=== PATIENT | female | born 1965 | race Caucasian/White ===

== ENCOUNTER 2016-10-18 10:32 | Outpatient (RCR) | payer MEDICARE, MEDICAID ==
--- OUTSIDE RECORDS SUMMARY | 2016-09-06 11:03 | XMS REPORT | Continuity of Care Document ---
Author Author [facility] Organization [facility] Address Unknown Phone Unavailable Care Team Providers Care Sales Service Route Manager Name Role Phone RICHIE LEMUS JR, DO PCP Insurance Providers Payer Name Policy Number Subscriber Name Relationship s Medicare [id number] Cara Langley 17 Self / Same As Patient Advance Directives Directive Response Recorded Date/Time Advance Directives Yes 03/22/15 4:00pm Health Care Power of Credentialing Analyst Piyush RAMIRES--SON 03/22/15 4:00pm Organ Donor Yes 03/22/15 4:00pm Resuscitation Status Full Code 03/22/15 4:00pm Problems Medical Problems Problem Onset Date Status Cellulitis Unknown Active Hypoglycemia associated with diabetes Unknown Active Cellulitis Unknown Active Immunocompromised Unknown Active Cellulitis Unknown Active Diabetes mellitus Unknown Active Generalized weakness Unknown Active Diabetes mellitus Unknown Active Oral thrush Unknown Active Conjunctivitis Unknown Active Periorbital cellulitis Unknown Active Tachycardia Unknown Active Hypovolemia Unknown Active Conjunctivitis Unknown Active Medications Medication Dose Route Sig Days/Qty Instructions Order Date Discontinued Date Status Insulin Glargine 100 Unit SQ DAILY daily in am 01/29/07 03/15/14 Discontinued Simvastatin 01/29/07 07/21/12 Discontinued [Actos + Metformin] 01/29/07 04/13/10 Discontinued [Actos + Metformin] 01/29/07 04/13/10 Discontinued [Plaqunil] 01/29/07 08/07/12 Discontinued [Zesteratic] 01/29/07 04/13/10 Discontinued Insulin Human Lispro 04/13/10 07/21/12 Discontinued [Metformin [id number] Mg] (Glucophage) 1,000 Mg PO TWICE A DAY 04/13/10 01/29/15 Discontinued Olmesartan DAILY 04/13/10 08/07/12 Discontinued Carvedilol DAILY 04/13/10 08/07/12 Discontinued [Dhrismvcso26 Mg/1 Ml] WEEKLY 04/13/10 07/21/12 Discontinued Promethazine HCl 1 Tab PO EVERY 6 HOURS PRN 20 Qty 04/14/10 07/21/12 Discontinued Furosemide (Lasix) 20 Mg PO DAILY 07/21/12 Active Pioglitazone HCl 30 Mg PO DAILY 08/07/12 01/29/15 Discontinued Dexamethasone (Decadron) 1 Mg PO NEEDED 08/07/12 08/25/12 Discontinued Carvedilol (Coreg) 12.5 Mg PO TWICE A DAY 08/07/12 01/29/15 Discontinued Insulin Glargine,Hum.rec.anlog 12 Unit SQ BEDTIME 08/15/12 03/15/14 Discontinued Omeprazole 40 Mg PO DAILY 08/15/12 01/29/15 Discontinued Enoxaparin Sodium 100 Mg SC EVERY 12 HOURS 08/25/12 03/15/14 Discontinued Rivaroxaban 20 Mg PO BEDTIME 03/15/14 Active Insulin Detemir 100 U SQ DAILY 140 units in am, 40 units pm 03/15/14 01/29/15 Discontinued Hydroxychloroquine Sulfate 200 Mg PO TWICE A DAY 03/15/14 01/29/15 Discontinued Methotrexate Sodium 12 Mg PO every Monday03/15/14 09/23/14 Discontinued Cefprozil 1 Each PO TWICE A DAY 20 Qty 03/15/14 07/06/14 Discontinued Benzonatate (Tessalon Perles) 1 Each PO THREE TIMES A DAY PRN COUGH 30 Qty 03/15/14 07/06/14 Discontinued Azithromycin (Zpak) 2 Tab PO DAILY 10 Qty 03/15/14 07/06/14 Discontinued Cephalexin Monohydrate (Keflex) 2 Each PO EVERY 12 HOURS 40 Qty 09/23/14 Discontinued [Hydrocodone 5/500] NEEDED 09/23/14 01/29/15 Discontinued Potassium Chloride (Micro K) 1 Each PO TWICE A DAY WITH MEALS 6 Qty 12/08/14 Discontinued Clindamycin Hcl 450 Mg PO THREE TIMES A DAY 90 Qty 11/01/14 12/08/14 Discontinued Trimethoprim/Sulfamethoxazole 1 Tab PO THREE TIMES A DAY 30 Qty immunocompromised state 11/01/14 12/08/14 Discontinued Pioglitazone Hcl 30 Mg PO DAILY 01/29/15 Active Carvedilol (Coreg) 6.25 Mg PO TWICE A DAY 01/29/15 Active Metformin Hcl 1,000 Mg PO TWICE A DAY 01/29/15 Active Omeprazole 40 Mg PO DAILY 01/29/15 Active Ondansetron Hcl 8 Mg PO EVERY 8HRS PRN NAUSEA 01/29/15 Active Insulin Detemir 135 Units SC AM 01/29/15 Active Insulin Detemir 30-40 Unit SQ BEDTIME 01/29/15 Active Ibuprofen 600 Mg PO THREE TIMES A DAY PRN PAIN TAKES 3 (200MG) TABLETS 01/29/15 Active Ciprofloxacin HCl 250 Mg PO TWICE A DAY 3 Days 01/31/15 Active Levofloxacin 1 Each PO DAILY 6 Qty 03/22/15 Active Social History Social History Problem Response Recorded Date/Time Alcohol Use Denies Use 03/22/2015 4:00pm Recreational Drug Use No 03/22/2015 4:00pm Recent Foreign Travel No 03/22/2015 4:00pm Recent Infectious Disease Exposure No 03/22/2015 4:00pm Hospitalization with Isolation Denies 03/22/2015 4:00pm Sexually Transmitted Disease No 03/22/2015 4:00pm HIV/AIDS No 03/22/2015 4:00pm Smoking Status Never a Smoker 03/22/2015 4:00pm Query Response Start Date Stop Date Smoking Status Never a Smoker Hospital Discharge Instructions No hospital discharge instructions. Plan of Care No plan of care. Functional Status No functional status results. Allergies, Adverse Reactions, Alerts Allergen Type Severity Reaction Status Last Updated Erythromycin base Allergy Unknown Active 01/29/07 Immunizations Name Given Type Date of Pneumonia Vaccine 06/27/11 Historical Vital Signs Acute Vital Signs Vital Response Date/Time Temperature (Fahrenheit) 98.4 degrees F (97.6 - 99.5) Temperature (Calculated Celsius) 36.93879 degrees C (36.4 - 37.5) Pulse Rate (adult) 93 bpm (60 - 90) Respiratory Rate 20 bpm (12 - 24) O2 Sat by Pulse Oximetry 99 % (88 - 100) Blood Pressure 100/67 mm Hg Pain Pain Intensity 5 Height (Feet) 5 feet Height (Inches) 6 inches Height (Calculated Centimeters) 167.804170 cm Weight (Pounds) 260 pounds Weight (Calculated Kilograms) 117.905052 kilograms Calculated BMI 41.96 Results Laboratory Results Test Name Result Units Flags Reference Collection Date/Time Result Date/ Time Comments White Blood Count 6.7 10^3/uL 4.3-11.0 03/19/2015 11:03/19/2015 11 :17am Red Blood Count 4.19 10^6/uL L 4.35-5.85 03/19/2015 11:03/19/2015 11 :17am Hemoglobin 10.8 G/DL L 11.5-16.0 03/19/2015 11:03/19/2015 11:17am Hematocrit 34 % L 35-52 03/19/2015 11:03/19/2015 11:17am Mean Corpuscular Volume 81 FL 80-99 03/19/2015 11:03/19/2015 11: 17am Mean Corpuscular Hemoglobin 26 PG 25-34 03/19/2015 11:03/19/2015 11:17am Mean Corpuscular Hemoglobin Concent 32 G/DL 32-36 03/19/2015 11: 11:17am Red Cell Distribution Width 18.8 % H 10.0-14.5 03/19/2015 11:2014 11:17am Platelet Count 388 10^3/uL 130-400 03/19/2015 11:03/19/2015 11: 17am Mean Platelet Volume 9.9 FL 7.4-10.4 03/19/2015 11:03/19/2015 11: 17am Neutrophils (%) (Auto) 56 % 42-75 03/19/2015 11:03/19/2015 11: 17am Lymphocytes (%) (Auto) 37 % 12-44 03/19/2015 11:03/19/2015 11: 17am Monocytes (%) (Auto) 6 % 0-12 03/19/2015 11:03/19/2015 11:17am Eosinophils (%) (Auto) 1 % 0-10 03/19/2015 11:03/19/2015 11:17am Basophils (%) (Auto) 0 % 0-10 03/19/2015 11:03/19/2015 11:17am Neutrophils # (Auto) 3.8 X 10^3 1.8-7.8 03/19/2015 11:03/19/2015 11:17am Lymphocytes # (Auto) 2.5 X 10^3 1.0-4.0 03/19/2015 11:03/19/2015 11:17am Monocytes # (Auto) 0.4 X 10^3 0.0-1.0 03/19/2015 11:03/19/2015 11: 17am Eosinophils # (Auto) 0.0 10^3/uL 0.0-0.3 03/19/2015 11:03/19/2015 11:17am Basophils # (Auto) 0.0 10^3/uL 0.0-0.1 03/19/2015 11:03/19/2015 11 :17am Sodium Level 139 MMOL/L 135-145 03/19/2015 11:03/19/2015 11:34am Potassium Level 4.0 MMOL/L 3.6-5.0 03/19/2015 11:03/19/2015 11: 34am Chloride Level 106 MMOL/L 98-107 03/19/2015 11:03/19/2015 11:34am Carbon Dioxide Level 21 MMOL/L 21-32 03/19/2015 11:03/19/2015 11: 34am Blood Urea Nitrogen 8 MG/DL 7-18 03/19/2015 11:03/19/2015 11:34am Creatinine 0.73 MG/DL 0.60-1.30 03/19/2015 11:03/19/2015 11:34am BUN/Creatinine Ratio 11 03/19/2015 11:03/19/2015 11:34am Estimat Glomerular Filtration Rate > 60 03/19/2015 11:2014 11:34am GFR INTERPRETIVE DATA UNITS FOR ESTIMATED GFR (eGFR): mL/min/1.73 M2 REFERENCE RANGE FOR ESTIMATED GFR (eGFR) eGFR NORMAL eGFR >60 MODERATELY DECREASED eGFR 30-59 SEVERLY DECREASED eGFR 15-29 KIDNEY FAILURE <15 (OR DIALYSIS) Glucose Level 200 MG/DL H 70-105 03/19/2015 11:10am 03/19/2015 11:34am Calcium Level 8.9 MG/DL 8.5-10.1 03/19/2015 11:10am 03/19/2015 11:34am Total Bilirubin 0.4 MG/DL 0.1-1.0 02/04/2015 11:22am 02/04/2015 12: 15pm Alkaline Phosphatase 151 U/L H 40-136 02/04/2015 11:22am 02/04/2015 12: 15pm Aspartate Amino Transf (AST/SGOT) 20 U/L 5-34 02/04/2015 11:22am 2014 12:15pm Alanine Aminotransferase (ALT/SGPT) 24 U/L 0-55 02/04/2015 11:2209/2015 12:15pm Total Protein 6.5 G/DL 6.4-8.2 02/04/2015 11:2202/04/2015 12:15pm Albumin 3.5 G/DL 3.2-4.5 02/04/2015 11:2202/04/2015 12:15pm White Blood Count 8.3 10^3/uL 4.3-11.0 03/05/2015 11:00am 03/05/2015 11 :15am Red Blood Count 4.41 10^6/uL 4.35-5.85 03/05/2015 11:00am 03/05/2015 11 :15am Hemoglobin 11.2 G/DL L 11.5-16.0 03/05/2015 11:00am 03/05/2015 11:15am Hematocrit 35 % 35-52 03/05/2015 11:00am 03/05/2015 11:15am Mean Corpuscular Volume 80 FL 80-99 03/05/2015 11:00am 03/05/2015 11: 15am Mean Corpuscular Hemoglobin 25 PG 25-34 03/05/2015 11:00am 03/05/2015 11:15am Mean Corpuscular Hemoglobin Concent 32 G/DL 32-36 03/05/2015 11:00am 11:15am Red Cell Distribution Width 18.6 % H 10.0-14.5 03/05/2015 11:00am 2014 11:15am Platelet Count 388 10^3/uL 130-400 03/05/2015 11:00am 03/05/2015 11: 15am Mean Platelet Volume 9.3 FL 7.4-10.4 03/05/2015 11:00am 03/05/2015 11: 15am Neutrophils (%) (Auto) 58 % 42-75 03/05/2015 11:00am 03/05/2015 11: 15am Lymphocytes (%) (Auto) 30 % 12-44 03/05/2015 11:00am 03/05/2015 11: 15am Monocytes (%) (Auto) 11 % 0-12 03/05/2015 11:00am 03/05/2015 11:15am Eosinophils (%) (Auto) 0 % 0-10 03/05/2015 11:00am 03/05/2015 11:15am Basophils (%) (Auto) 0 % 0-10 03/05/2015 11:00am 03/05/2015 11:15am Neutrophils # (Auto) 4.8 X 10^3 1.8-7.8 03/05/2015 11:00am 03/05/2015 11:15am Lymphocytes # (Auto) 2.5 X 10^3 1.0-4.0 03/05/2015 11:00am 03/05/2015 11:15am Monocytes # (Auto) 0.9 X 10^3 0.0-1.0 03/05/2015 11:00am 03/05/2015 11: 15am Eosinophils # (Auto) 0.0 10^3/uL 0.0-0.3 03/05/2015 11:00am 03/05/2015 11:15am Basophils # (Auto) 0.0 10^3/uL 0.0-0.1 03/05/2015 11:00am 03/05/2015 11 :15am Sodium Level 140 MMOL/L 135-145 03/05/2015 11:00am 03/05/2015 11:38am Potassium Level 4.0 MMOL/L 3.6-5.0 03/05/2015 11:00am 03/05/2015 11: 38am Chloride Level 107 MMOL/L 98-107 03/05/2015 11:00am 03/05/2015 11:38am Carbon Dioxide Level 23 MMOL/L 21-32 03/05/2015 11:00am 03/05/2015 11: 38am Blood Urea Nitrogen 8 MG/DL 7-18 03/05/2015 11:00am 03/05/2015 11:38am Creatinine 0.74 MG/DL 0.60-1.30 03/05/2015 11:00am 03/05/2015 11:38am BUN/Creatinine Ratio 11 03/05/2015 11:00am 03/05/2015 11:38am Estimat Glomerular Filtration Rate > 60 03/05/2015 11:00am 2014 11:38am GFR INTERPRETIVE DATA UNITS FOR ESTIMATED GFR (eGFR): mL/min/1.73 M2 REFERENCE RANGE FOR ESTIMATED GFR (eGFR) eGFR NORMAL eGFR >60 MODERATELY DECREASED eGFR 30-59 SEVERLY DECREASED eGFR 15-29 KIDNEY FAILURE <15 (OR DIALYSIS) Glucose Level 211 MG/DL H 70-105 03/05/2015 11:00am 03/05/2015 11:38am Calcium Level 9.1 MG/DL 8.5-10.1 03/05/2015 11:00am 03/05/2015 11:38am Total Bilirubin 0.4 MG/DL 0.1-1.0 03/05/2015 11:00am 03/05/2015 11: 38am Alkaline Phosphatase 173 U/L H 40-136 03/05/2015 11:00am 03/05/2015 11: 38am Aspartate Amino Transf (AST/SGOT) 16 U/L 5-34 03/05/2015 11:00am 2014 11:38am Alanine Aminotransferase (ALT/SGPT) 18 U/L 0-55 03/05/2015 11:00am 07/2015 11:38am Total Protein 7.3 G/DL 6.4-8.2 03/05/2015 11:00am 03/05/2015 11:38am Albumin 3.8 G/DL 3.2-4.5 03/05/2015 11:00am 03/05/2015 11:38am White Blood Count 3.4 10^3/uL L 4.3-11.0 03/22/2015 4:45pm 03/22/2015 5: 07pm Red Blood Count 4.49 10^6/uL 4.35-5.85 03/22/2015 4:45pm 03/22/2015 5: 07pm Hemoglobin 11.8 G/DL 11.5-16.0 03/22/2015 4:45pm 03/22/2015 5:07pm Hematocrit 36 % 35-52 03/22/2015 4:45pm 03/22/2015 5:07pm Mean Corpuscular Volume 80 FL 80-99 03/22/2015 4:45pm 03/22/2015 5: 07pm Mean Corpuscular Hemoglobin 26 PG 25-34 03/22/2015 4:45pm 03/22/2015 5: 07pm Mean Corpuscular Hemoglobin Concent 33 G/DL 32-36 03/22/2015 4:45pm 5:07pm Red Cell Distribution Width 18.4 % H 10.0-14.5 03/22/2015 4:45pm 2014 5:07pm Platelet Count 367 10^3/uL 130-400 03/22/2015 4:45pm 03/22/2015 5:07pm Mean Platelet Volume 10.4 FL 7.4-10.4 03/22/2015 4:45pm 03/22/2015 5: 07pm Neutrophils (%) (Auto) 51 % 42-75 03/22/2015 4:45pm 03/22/2015 5:07pm Lymphocytes (%) (Auto) 43 % 12-44 03/22/2015 4:45pm 03/22/2015 5:07pm Monocytes (%) (Auto) 5 % 0-12 03/22/2015 4:45pm 03/22/2015 5:07pm Eosinophils (%) (Auto) 0 % 0-10 03/22/2015 4:45pm 03/22/2015 5:07pm Basophils (%) (Auto) 1 % 0-10 03/22/2015 4:45pm 03/22/2015 5:07pm Neutrophils # (Auto) 1.7 X 10^3 L 1.8-7.8 03/22/2015 4:45pm 03/22/2015 5: 07pm Lymphocytes # (Auto) 1.4 X 10^3 1.0-4.0 03/22/2015 4:45pm 03/22/2015 5: 07pm Monocytes # (Auto) 0.2 X 10^3 0.0-1.0 03/22/2015 4:45pm 03/22/2015 5: 07pm Eosinophils # (Auto) 0.0 10^3/uL 0.0-0.3 03/22/2015 4:45pm 03/22/2015 5 :07pm Basophils # (Auto) 0.0 10^3/uL 0.0-0.1 03/22/2015 4:45pm 03/22/2015 5: 07pm Urine Color YELLOW 03/22/2015 4:45pm 03/22/2015 5:18pm Urine Clarity CLEAR 03/22/2015 4:45pm 03/22/2015 5:18pm Urine pH 5 5-9 03/22/2015 4:45pm 03/22/2015 5:18pm Urine Specific [place] 1.015 * 1.016-1.022 03/22/2015 4:45pm 2014 5:18pm Urine Protein NEGATIVE NEGATIVE 03/22/2015 4:45pm 03/22/2015 5:18pm Urine Glucose (UA) NEGATIVE NEGATIVE 03/22/2015 4:45pm 03/22/2015 5: 18pm Urine RBC (Auto) NEGATIVE NEGATIVE 03/22/2015 4:45pm 03/22/2015 5: 18pm Urine Ketones NEGATIVE NEGATIVE 03/22/2015 4:45pm 03/22/2015 5:18pm Urine Nitrite NEGATIVE NEGATIVE 03/22/2015 4:45pm 03/22/2015 5:18pm Urine Bilirubin NEGATIVE NEGATIVE 03/22/2015 4:45pm 03/22/2015 5: 18pm Urine Urobilinogen NORMAL MG/DL NORMAL 03/22/2015 4:45pm 03/22/2015 5: 18pm Urine Leukocyte Esterase NEGATIVE NEGATIVE 03/22/2015 4:45pm 2014 5:18pm Urine RBC NONE /HPF 03/22/2015 4:45pm 03/22/2015 5:18pm Urine WBC 2-5 /HPF 03/22/2015 4:45pm 03/22/2015 5:18pm Urine Bacteria TRACE /HPF 03/22/2015 4:45pm 03/22/2015 5:18pm Urine Squamous Epithelial Cells 2-5 /HPF 03/22/2015 4:45pm 2014 5:18pm Urine Crystals NONE /LPF 03/22/2015 4:45pm 03/22/2015 5:18pm Urine Casts NONE /LPF 03/22/2015 4:45pm 03/22/2015 5:18pm Urine Mucus NEGATIVE /LPF 03/22/2015 4:45pm 03/22/2015 5:18pm Urine Culture Indicated NO 03/22/2015 4:45pm 03/22/2015 5:18pm Sodium Level 139 MMOL/L 135-145 03/22/2015 4:45pm 03/22/2015 5:29pm Potassium Level 3.9 MMOL/L 3.6-5.0 03/22/2015 4:45pm 03/22/2015 5:29pm Chloride Level 105 MMOL/L 98-107 03/22/2015 4:45pm 03/22/2015 5:29pm Carbon Dioxide Level 23 MMOL/L 21-32 03/22/2015 4:45pm 03/22/2015 5: 29pm Blood Urea Nitrogen 10 MG/DL 7-18 03/22/2015 4:45pm 03/22/2015 5:29pm Creatinine 0.80 MG/DL 0.60-1.30 03/22/2015 4:45pm 03/22/2015 5:29pm BUN/Creatinine Ratio 13 03/22/2015 4:45pm 03/22/2015 5:29pm Estimat Glomerular Filtration Rate > 60 03/22/2015 4:45pm 2014 5:29pm GFR INTERPRETIVE DATA UNITS FOR ESTIMATED GFR (eGFR): mL/min/1.73 M2 REFERENCE RANGE FOR ESTIMATED GFR (eGFR) eGFR NORMAL eGFR >60 MODERATELY DECREASED eGFR 30-59 SEVERLY DECREASED eGFR 15-29 KIDNEY FAILURE <15 (OR DIALYSIS) Glucose Level 231 MG/DL H 70-105 03/22/2015 4:45pm 03/22/2015 5:29pm Calcium Level 9.4 MG/DL 8.5-10.1 03/22/2015 4:45pm 03/22/2015 5:29pm Total Bilirubin 0.9 MG/DL 0.1-1.0 03/22/2015 4:45pm 03/22/2015 5:29pm Alkaline Phosphatase 156 U/L H 40-136 03/22/2015 4:45pm 03/22/2015 5: 29pm Aspartate Amino Transf (AST/SGOT) 22 U/L 5-34 03/22/2015 4:45pm 2014 5:29pm Alanine Aminotransferase (ALT/SGPT) 25 U/L 0-55 03/22/2015 4:45pm 03/22 5:29pm Total Protein 7.3 G/DL 6.4-8.2 03/22/2015 4:45pm 03/22/2015 5:29pm Albumin 4.0 G/DL 3.2-4.5 03/22/2015 4:45pm 03/22/2015 5:29pm Procedures No known history of procedures. Encounters Encounter Location Date/Time Departed Emergency Room Via [facility] 03/22/15 3:57pm Discharged Recurring Via [facility] 03/19/15 10:55am Registered Clinic Via [facility] 03/05/15 10:48am Registered Clinic Via [facility] 03/02/15 8:19am Recent Diagnosis
[2016-09-06 11:44] LABS: BASOPHILS % (AUTO) 0 % (0-10); EOSINOPHILS % (AUTO) 0 % (0-10); LYMPHOCYTES # (AUTO) 2.6 X 10^3 (1.0-4.0); LYMPHOCYTES % (AUTO) 29 % (12-44); MEAN CORPUSCULAR HEMOGLOBIN 28 PG (25-34); MEAN CORPUSCULAR HGB CONC 33 G/DL (32-36); MEAN CORPUSCULAR VOLUME 85 FL (80-99); MEAN PLATELET VOLUME 9.6 FL (7.4-10.4); MONOCYTES # (AUTO) 0.8 X 10^3 (0.0-1.0); MONOCYTES % (AUTO) 9 % (0-12); NEUTROPHILS # (AUTO) 5.3 X 10^3 (1.8-7.8); NEUTROPHILS % (AUTO) 62 % (42-75); PLATELET COUNT 284 10^3/uL (130-400); RED BLOOD COUNT 4.79 10^6/uL (4.35-5.85); RED CELL DISTRIBUTION WIDTH 13.9 % (10.0-14.5); WHITE BLOOD COUNT 8.7 10^3/uL (4.3-11.0)
[2016-09-06 12:16] LABS: ALANINE AMINOTRANSFERASE 28 U/L (0-55); ALBUMIN 3.7 G/DL (3.2-4.5); ANION GAP 12 MMOL/L (5-14); ASPARTATE AMINO TRANSFERASE 24 U/L (5-34); BILIRUBIN,TOTAL 0.3 MG/DL (0.1-1.0); BLOOD UREA NITROGEN 12 MG/DL (7-18); BUN/CREATININE RATIO 15; CALCIUM 8.7 MG/DL (8.5-10.1); CARBON DIOXIDE 18 MMOL/L (21-32); CHLORIDE 103 MMOL/L (98-107); GFR ESTIMATED > 60; GLUCOSE 302 MG/DL (70-105); POTASSIUM 4.3 MMOL/L (3.6-5.0); SODIUM 133 MMOL/L (135-145); TOTAL PROTEIN 6.6 G/DL (6.4-8.2)
[~2016-10-18 10:32] MED LIST: ACET-2469 PO; ACTOS; AMOX1TAB12 PO; AMOX500C2 PO; AZIT-21 PO; BENZ200C25 PO; CARV12.52; CARV12.53 PO; CARV3.12 PO; CARV3.122 PO; CARV6.252 PO; CEFP500T4 PO; CEPH500C PO; CIPR-226 PO; CLN150C PO; DICL250C8 PO; DXM1T PO; ENXP100I SC; FURO20TA4 PO; HYDR-3714 PO; HYDR-3812 PO; HYDR200T46 PO; HYDROCODONE 5/500; IBUP-30 PO; INSASP10V; INSU100C7 SQ; INSU100I29 SC; INSU100I29 SQ; INSU100V5 SQ; INSU100V8 SQ; LEVO500T69 PO; METF-380 PO; METF1000 PO; METFORMIN; METH2.5T PO; METH25VI15; MUPI22OI2 TOP; OLME1TAB19; OMEP20TA2 PO; OMEP40CA36 PO; ONDA8TAB12 PO; ONDA8TAB2 PO; ONDN4T PO; PGLT30T PO; PIOG30TA25 PO; PIOG30TA26 PO; PLAQUNIL; POTA10CA43 PO; PRM25T PO; RIVA20TA2 PO; SILV480G TP; SIMV40TA2; SULF-222 PO; SULF1TAB7 PO; [UNRECOGNIZED DRUG - OTHER]
[2016-11-26] MEDS ORDERED: AMOX-358 PO (17:24)
== END 2016-12-05 | disposition home or self-care (01) ==
LOC: ONC 10:32
PROVIDERS: ATTEND Internal Medicine Hematology & Oncology
DX: C50.112 Malignant neoplasm of central portion of left female breast (principal); C77.3 Secondary and unspecified malignant neoplasm of axilla and upper limb lymph nodes; C78.01 Secondary malignant neoplasm of right lung; C78.02 Secondary malignant neoplasm of left lung; I27.2 Other secondary pulmonary hypertension; E11.9 Type 2 diabetes mellitus without complications; Z79.01 Long term (current) use of anticoagulants; Z86.711 Personal history of pulmonary embolism; Z86.718 Personal history of other venous thrombosis and embolism; Z90.12 Acquired absence of left breast and nipple; Z92.21 Personal history of antineoplastic chemotherapy; Z45.2 Encounter for adjustment and management of vascular access device
CPT/HCPCS: 36591; 80053; 85025; 96523; 99213

== ENCOUNTER → 2016-12-13 | Outpatient (CLI) | payer MEDICARE, MEDICAID ==
[~2016-12-13] MED LIST changes: +AMOX-358 PO; +BARIUM SUSPENSION 2.1% (VANILLA SILQ) 450 ML PO ONE; +IOHEXOL 350 MG/ML 100 ML (OMNIPAQUE 350) VIAL IV ONE; +NS 100 ML (IVPB) BAG IV ONE
--- OUTSIDE RECORDS SUMMARY | 2016-12-13 11:39 | XMS REPORT | Continuity of Care Document ---
Author Author [facility] Organization [facility] Address Unknown Phone Unavailable Care Team Providers Care Client Onboarding Analyst Name Role Phone RICHIE LEMUS JR, DO PCP Insurance Providers Payer Name Policy Number Subscriber Name Relationship s Medicare [id number] Cara Langley 17 Self / Same As Patient Advance Directives Directive Response Recorded Date/Time Advance Directives Yes 03/22/15 4:00pm Health Care Power of Sales Representative Uniforms Piyush RAMIRES--SON 03/22/15 4:00pm Organ Donor Yes [...] Insulin Human Lispro 04/13/10 07/21/12 Discontinued [Metformin [id number] Mg] (Glucophage) 1,000 Mg PO TWICE A DAY 04/13/10 01/29/15 Discontinued Olmesartan DAILY 04/13/10 08/07/12 Discontinued Carvedilol DAILY 04/13/10 08/07/12 Discontinued [Igzakstdid86 Mg/1 Ml] WEEKLY 04/13/10 07/21/12 Discontinued Promethazine [...] F (97.6 - 99.5) Temperature (Calculated Celsius) 36.72547 degrees C (36.4 - 37.5) Pulse Rate (adult) 93 bpm (60 - 90) Respiratory Rate 20 bpm (12 - 24) O2 Sat by Pulse Oximetry 99 % (88 - 100) Blood Pressure 100/67 mm Hg Pain Pain Intensity 5 Height (Feet) 5 feet Height (Inches) 6 inches Height (Calculated Centimeters) 167.809127 cm Weight (Pounds) 260 pounds Weight (Calculated Kilograms) 117.138343 kilograms Calculated BMI 41.96 Results Laboratory Results [...] 5-9 03/22/2015 4:45pm 03/22/2015 5:18pm Urine Specific [place] 1.015 * 1.016-1.022 03/22/2015 4:45pm 2014 5:18pm [...] Encounter Location Date/Time Departed Emergency Room Via [facility] 03/22/15 3:57pm Discharged Recurring Via [facility] 03/19/15 10:55am Registered Clinic Via [facility] 03/05/15 10:48am Registered Clinic Via [facility] 03/02/15 8:19am Recent Diagnosis
[2016-12-13] MEDS: CATHETER FLUSH 10 ML SYR IV PRN ×2 (12:18→12:19)
--- NOTE | 2016-12-13 13:17 | Diagnostic Imaging Report ---
INDICATION: Breast cancer. TECHNIQUE: CT chest and abdomen obtained with IV contrast bolus with comparison to prior study of 09/06/2016. CT CHEST FINDINGS: The patient has had previous left mastectomy. Port-A-Cath is visualized over the right chest. There is no pleural or pericardial fluid. There are no enlarged hilar or mediastinal nodes. There are no appreciably enlarged nodes in the axillary regions or chest wall lesions. There is no overt bony abnormality in the chest. Lung parenchymal windows demonstrate multiple pulmonary parenchymal nodules. There is a lesion in the right lower lobe posteriorly measuring 1.8 x 1.6 cm, this measured about 1.2 x 1.3 cm previously. There is a lesion in the right middle lobe which measures 1.3 x 0.9 cm. This had previously measured about 1.0 x 0.7 cm. There is a smaller lesion in the anterior portion of the right lower lobe as well as a couple smaller nodules in the right apex superiorly. There is a lesion in the superior segment of the left lower lobe measuring 1.1 x 1.1 cm, this had previously measured about 0.8 cm. There is a small lesion in the lingula which is also slightly increased compared to the prior study. CT ABDOMEN FINDINGS: The liver shows diffuse low-density change compatible with fatty infiltration. There is a tiny hypodense area in the right lobe superiorly which is too small to characterize measuring only 5 mm. There is no other focal abnormality. Patient has had prior cholecystectomy. There is a small hiatal hernia. The spleen, adrenals, and pancreas appear unremarkable. Kidneys bilaterally are normal. There is an IVC filter in place. IMPRESSION: 1. CT chest demonstrates multiple pulmonary nodules which have shown mild increase in size compared to the previous study of 09/06/2016, compatible with metastatic disease. There is no adenopathy or pleural or pericardial fluid. 2. CT of the abdomen demonstrates fatty infiltration of the liver. There is a tiny 5 mm hypodense area in the right lobe of the liver superiorly which is too small to characterize and may be a small cyst although early metastatic lesion cannot be excluded. Continued followup is recommended. There is no other acute finding. There is a hiatal hernia. There are postop changes status post cholecystectomy. IVC filter is stable. Dictated by: Dictated on workstation # [id number]
--- NOTE | 2016-12-13 18:31 | Diagnostic Imaging Report ---
Whole body bone scan. TECHNIQUE: After the intravenous administration of 26.2 mCi of Technetium 99m MDP, whole body delayed phase bone scan images were obtained with lateral views of the head and neck and the chest regions. INDICATION: Metastatic breast cancer. FINDINGS: There is normal distribution of uptake in the bones with mild degenerative related superimposed activity in the shoulders, the knees, and in the feet seen. No intense radiotracer foci of increased uptake are noted to suggest metastasis. Urinary tract excretion seen. IMPRESSION: No scintigraphic evidence of osseous metastasis. Dictated by: Dictated on workstation # [id number]
== END ==
LOC: CARD 11:35
PROVIDERS: ATTEND Internal Medicine Hematology & Oncology
DX: C50.112 Malignant neoplasm of central portion of left female breast (principal); C78.01 Secondary malignant neoplasm of right lung
CPT/HCPCS: 71260; 74160; 78306

== ENCOUNTER 2017-03-09 11:24 | Outpatient (RCR) | payer MEDICAID, MEDICARE, OTHER ==
--- OUTSIDE RECORDS SUMMARY | 2016-12-13 10:55 | XMS REPORT | Continuity of Care Document ---
Author Author [facility] Organization [facility] Address Unknown Phone Unavailable Care Team Providers Care Staff Veterinarian Name Role Phone RICHIE LEMUS JR, DO PCP Insurance Providers Payer Name Policy Number Subscriber Name Relationship s Medicare [id number] Cara Langley 17 Self / Same As Patient Advance Directives Directive Response Recorded Date/Time Advance Directives Yes 03/22/15 4:00pm Health Care Power of Radiation Monitor Piyush RAMIRES--SON 03/22/15 4:00pm Organ Donor Yes [...] Insulin Human Lispro 04/13/10 07/21/12 Discontinued [Metformin [id number] Mg] (Glucophage) 1,000 Mg PO TWICE A DAY 04/13/10 01/29/15 Discontinued Olmesartan DAILY 04/13/10 08/07/12 Discontinued Carvedilol DAILY 04/13/10 08/07/12 Discontinued [[id number] Mg/1 Ml] WEEKLY 04/13/10 07/21/12 Discontinued Promethazine [...] F (97.6 - 99.5) Temperature (Calculated Celsius) 36.92969 degrees C (36.4 - 37.5) Pulse Rate (adult) 93 bpm (60 - 90) Respiratory Rate 20 bpm (12 - 24) O2 Sat by Pulse Oximetry 99 % (88 - 100) Blood Pressure 100/67 mm Hg Pain Pain Intensity 5 Height (Feet) 5 feet Height (Inches) 6 inches Height (Calculated Centimeters) 167.154147 cm Weight (Pounds) 260 pounds Weight (Calculated Kilograms) 117.100885 kilograms Calculated BMI 41.96 Results Laboratory Results [...] 5-9 03/22/2015 4:45pm 03/22/2015 5:18pm Urine Specific [place] 1.015 * 1.016-1.022 03/22/2015 4:45pm 2014 5:18pm [...] Encounter Location Date/Time Departed Emergency Room Via [facility] 03/22/15 3:57pm Discharged Recurring Via [facility] 03/19/15 10:55am Registered Clinic Via [facility] 03/05/15 10:48am Registered Clinic [facility] 03/02/15 8:19am Recent Diagnosis
[2016-12-13 11:21] LABS: BASOPHILS % (AUTO) 0 % (0-10); EOSINOPHILS % (AUTO) 1 % (0-10); LYMPHOCYTES # (AUTO) 2.1 X 10^3 (1.0-4.0); LYMPHOCYTES % (AUTO) 36 % (12-44); MEAN CORPUSCULAR HEMOGLOBIN 29 PG (25-34); MEAN CORPUSCULAR HGB CONC 33 G/DL (32-36); MEAN CORPUSCULAR VOLUME 86 FL (80-99); MEAN PLATELET VOLUME 9.5 FL (7.4-10.4); MONOCYTES # (AUTO) 0.5 X 10^3 (0.0-1.0); MONOCYTES % (AUTO) 8 % (0-12); NEUTROPHILS # (AUTO) 3.2 X 10^3 (1.8-7.8); NEUTROPHILS % (AUTO) 55 % (42-75); PLATELET COUNT 304 10^3/uL (130-400); RED BLOOD COUNT 4.57 10^6/uL (4.35-5.85); RED CELL DISTRIBUTION WIDTH 14.7 % (10.0-14.5); WHITE BLOOD COUNT 5.8 10^3/uL (4.3-11.0)
[2016-12-13 12:19] LABS: ALANINE AMINOTRANSFERASE 24 U/L (0-55); ALBUMIN 3.7 G/DL (3.2-4.5); ANION GAP 8 MMOL/L (5-14); ASPARTATE AMINO TRANSFERASE 23 U/L (5-34); BILIRUBIN,TOTAL 0.5 MG/DL (0.1-1.0); BLOOD UREA NITROGEN 10 MG/DL (7-18); BUN/CREATININE RATIO 13; CALCIUM 8.6 MG/DL (8.5-10.1); CARBON DIOXIDE 22 MMOL/L (21-32); CHLORIDE 105 MMOL/L (98-107); CREATININE SERUM 0.77 MG/DL (0.60-1.30); GFR ESTIMATED > 60; GLUCOSE 315 MG/DL (70-105); SODIUM 135 MMOL/L (135-145); TOTAL PROTEIN 6.6 G/DL (6.4-8.2)
[2016-12-29 09:20] LABS: BASOPHILS % (AUTO) 0 % (0-10); EOSINOPHILS % (AUTO) 1 % (0-10); LYMPHOCYTES # (AUTO) 1.9 X 10^3 (1.0-4.0); LYMPHOCYTES % (AUTO) 30 % (12-44); MEAN CORPUSCULAR HEMOGLOBIN 29 PG (25-34); MEAN CORPUSCULAR HGB CONC 33 G/DL (32-36); MEAN CORPUSCULAR VOLUME 87 FL (80-99); MEAN PLATELET VOLUME 9.2 FL (7.4-10.4); MONOCYTES # (AUTO) 0.6 X 10^3 (0.0-1.0); MONOCYTES % (AUTO) 9 % (0-12); NEUTROPHILS % (AUTO) 61 % (42-75); PLATELET COUNT 204 10^3/uL (130-400); RED BLOOD COUNT 4.66 10^6/uL (4.35-5.85); RED CELL DISTRIBUTION WIDTH 13.6 % (10.0-14.5); WHITE BLOOD COUNT 6.6 10^3/uL (4.3-11.0)
[2016-12-29 09:36] LABS: ANION GAP 9 MMOL/L (5-14); BLOOD UREA NITROGEN 10 MG/DL (7-18); BUN/CREATININE RATIO 13; CALCIUM 8.7 MG/DL (8.5-10.1); CARBON DIOXIDE 24 MMOL/L (21-32); CHLORIDE 105 MMOL/L (98-107); CREATININE SERUM 0.75 MG/DL (0.60-1.30); GFR ESTIMATED > 60; GLUCOSE 156 MG/DL (70-105); SODIUM 138 MMOL/L (135-145)
[2017-01-05 09:11] LABS: BASOPHILS % (AUTO) 0 % (0-10); EOSINOPHILS % (AUTO) 0 % (0-10); LYMPHOCYTES % (AUTO) 38 % (12-44); MEAN CORPUSCULAR HEMOGLOBIN 29 PG (25-34); MEAN CORPUSCULAR HGB CONC 34 G/DL (32-36); MEAN CORPUSCULAR VOLUME 86 FL (80-99); MONOCYTES # (AUTO) 0.5 X 10^3 (0.0-1.0); MONOCYTES % (AUTO) 9 % (0-12); NEUTROPHILS # (AUTO) 2.9 X 10^3 (1.8-7.8); NEUTROPHILS % (AUTO) 53 % (42-75); PLATELET COUNT 157 10^3/uL (130-400); WHITE BLOOD COUNT 5.4 10^3/uL (4.3-11.0)
[2017-01-05 09:35] LABS: ANION GAP 10 MMOL/L (5-14); BLOOD UREA NITROGEN 13 MG/DL (7-18); BUN/CREATININE RATIO 16; CALCIUM 8.8 MG/DL (8.5-10.1); CARBON DIOXIDE 23 MMOL/L (21-32); CHLORIDE 105 MMOL/L (98-107); GFR ESTIMATED > 60; GLUCOSE 249 MG/DL (70-105); SODIUM 138 MMOL/L (135-145)
[2017-01-12 10:41] LABS: BASOPHILS % (AUTO) 0 % (0-10); EOSINOPHILS % (AUTO) 0 % (0-10); LYMPHOCYTES # (AUTO) 1.8 X 10^3 (1.0-4.0); LYMPHOCYTES % (AUTO) 35 % (12-44); MEAN CORPUSCULAR HEMOGLOBIN 29 PG (25-34); MEAN CORPUSCULAR HGB CONC 33 G/DL (32-36); MEAN CORPUSCULAR VOLUME 88 FL (80-99); MEAN PLATELET VOLUME 8.5 FL (7.4-10.4); MONOCYTES # (AUTO) 0.7 X 10^3 (0.0-1.0); MONOCYTES % (AUTO) 13 % (0-12); NEUTROPHILS # (AUTO) 2.7 X 10^3 (1.8-7.8); NEUTROPHILS % (AUTO) 52 % (42-75); PLATELET COUNT 231 10^3/uL (130-400); RED BLOOD COUNT 4.63 10^6/uL (4.35-5.85); RED CELL DISTRIBUTION WIDTH 15.1 % (10.0-14.5); WHITE BLOOD COUNT 5.2 10^3/uL (4.3-11.0)
[2017-01-12 11:08] LABS: ANION GAP 11 MMOL/L (5-14); BLOOD UREA NITROGEN 10 MG/DL (7-18); BUN/CREATININE RATIO 13; CALCIUM 9.2 MG/DL (8.5-10.1); CARBON DIOXIDE 24 MMOL/L (21-32); CHLORIDE 105 MMOL/L (98-107); CREATININE SERUM 0.79 MG/DL (0.60-1.30); GFR ESTIMATED > 60; GLUCOSE 138 MG/DL (70-105); SODIUM 140 MMOL/L (135-145)
[2017-01-19 09:15] LABS: BASOPHILS % (AUTO) 0 % (0-10); EOSINOPHILS % (AUTO) 0 % (0-10); LYMPHOCYTES # (AUTO) 1.7 X 10^3 (1.0-4.0); LYMPHOCYTES % (AUTO) 24 % (12-44); MEAN CORPUSCULAR HEMOGLOBIN 29 PG (25-34); MEAN CORPUSCULAR HGB CONC 33 G/DL (32-36); MEAN CORPUSCULAR VOLUME 87 FL (80-99); MEAN PLATELET VOLUME 9.3 FL (7.4-10.4); MONOCYTES # (AUTO) 0.9 X 10^3 (0.0-1.0); MONOCYTES % (AUTO) 12 % (0-12); NEUTROPHILS # (AUTO) 4.5 X 10^3 (1.8-7.8); NEUTROPHILS % (AUTO) 63 % (42-75); PLATELET COUNT 443 10^3/uL (130-400); RED CELL DISTRIBUTION WIDTH 15.7 % (10.0-14.5); WHITE BLOOD COUNT 7.1 10^3/uL (4.3-11.0)
[2017-01-19 09:45] LABS: ALANINE AMINOTRANSFERASE 47 U/L (0-55); ALBUMIN 3.8 G/DL (3.2-4.5); ANION GAP 9 MMOL/L (5-14); ASPARTATE AMINO TRANSFERASE 43 U/L (5-34); BILIRUBIN,TOTAL 0.4 MG/DL (0.1-1.0); BLOOD UREA NITROGEN 12 MG/DL (7-18); BUN/CREATININE RATIO 15; CARBON DIOXIDE 25 MMOL/L (21-32); CHLORIDE 106 MMOL/L (98-107); GFR ESTIMATED > 60; GLUCOSE 157 MG/DL (70-105); POTASSIUM 3.9 MMOL/L (3.6-5.0); SODIUM 140 MMOL/L (135-145)
[2017-01-26 09:58] LABS: BASOPHILS % (AUTO) 1 % (0-10); EOSINOPHILS % (AUTO) 0 % (0-10); LYMPHOCYTES # (AUTO) 2.1 X 10^3 (1.0-4.0); LYMPHOCYTES % (AUTO) 30 % (12-44); MEAN CORPUSCULAR HEMOGLOBIN 29 PG (25-34); MEAN CORPUSCULAR HGB CONC 33 G/DL (32-36); MEAN CORPUSCULAR VOLUME 88 FL (80-99); MONOCYTES # (AUTO) 0.9 X 10^3 (0.0-1.0); MONOCYTES % (AUTO) 13 % (0-12); NEUTROPHILS # (AUTO) 3.9 X 10^3 (1.8-7.8); NEUTROPHILS % (AUTO) 56 % (42-75); PLATELET COUNT 328 10^3/uL (130-400); RED BLOOD COUNT 4.38 10^6/uL (4.35-5.85); RED CELL DISTRIBUTION WIDTH 15.3 % (10.0-14.5)
[2017-01-26 10:25] LABS: ANION GAP 10 MMOL/L (5-14); BLOOD UREA NITROGEN 12 MG/DL (7-18); BUN/CREATININE RATIO 16; CALCIUM 8.8 MG/DL (8.5-10.1); CARBON DIOXIDE 24 MMOL/L (21-32); CHLORIDE 106 MMOL/L (98-107); CREATININE SERUM 0.73 MG/DL (0.60-1.30); GFR ESTIMATED > 60; GLUCOSE 107 MG/DL (70-105); POTASSIUM 3.8 MMOL/L (3.6-5.0); SODIUM 140 MMOL/L (135-145)
[2017-02-02 09:49] LABS: BASOPHILS % (AUTO) 0 % (0-10); EOSINOPHILS % (AUTO) 0 % (0-10); LYMPHOCYTES # (AUTO) 1.8 X 10^3 (1.0-4.0); LYMPHOCYTES % (AUTO) 36 % (12-44); MEAN CORPUSCULAR HEMOGLOBIN 29 PG (25-34); MEAN CORPUSCULAR HGB CONC 33 G/DL (32-36); MEAN CORPUSCULAR VOLUME 87 FL (80-99); MEAN PLATELET VOLUME 9.3 FL (7.4-10.4); MONOCYTES # (AUTO) 0.7 X 10^3 (0.0-1.0); MONOCYTES % (AUTO) 14 % (0-12); NEUTROPHILS # (AUTO) 2.5 X 10^3 (1.8-7.8); NEUTROPHILS % (AUTO) 50 % (42-75); PLATELET COUNT 157 10^3/uL (130-400); RED BLOOD COUNT 4.42 10^6/uL (4.35-5.85); RED CELL DISTRIBUTION WIDTH 16.1 % (10.0-14.5)
[2017-02-02 10:25] LABS: ANION GAP 10 MMOL/L (5-14); BLOOD UREA NITROGEN 11 MG/DL (7-18); BUN/CREATININE RATIO 15; CARBON DIOXIDE 25 MMOL/L (21-32); CHLORIDE 104 MMOL/L (98-107); CREATININE SERUM 0.75 MG/DL (0.60-1.30); GFR ESTIMATED > 60; GLUCOSE 206 MG/DL (70-105); POTASSIUM 3.8 MMOL/L (3.6-5.0); SODIUM 139 MMOL/L (135-145)
[2017-02-09 10:30] LABS: BASOPHILS % (AUTO) 1 % (0-10); EOSINOPHILS % (AUTO) 0 % (0-10); LYMPHOCYTES # (AUTO) 1.9 X 10^3 (1.0-4.0); LYMPHOCYTES % (AUTO) 34 % (12-44); MEAN CORPUSCULAR HEMOGLOBIN 30 PG (25-34); MEAN CORPUSCULAR HGB CONC 33 G/DL (32-36); MEAN CORPUSCULAR VOLUME 89 FL (80-99); MEAN PLATELET VOLUME 8.7 FL (7.4-10.4); MONOCYTES # (AUTO) 0.8 X 10^3 (0.0-1.0); MONOCYTES % (AUTO) 15 % (0-12); NEUTROPHILS # (AUTO) 2.8 X 10^3 (1.8-7.8); NEUTROPHILS % (AUTO) 51 % (42-75); PLATELET COUNT 218 10^3/uL (130-400); RED BLOOD COUNT 4.29 10^6/uL (4.35-5.85); RED CELL DISTRIBUTION WIDTH 16.6 % (10.0-14.5); WHITE BLOOD COUNT 5.5 10^3/uL (4.3-11.0)
[2017-02-09 11:06] LABS: ANION GAP 9 MMOL/L (5-14); BLOOD UREA NITROGEN 12 MG/DL (7-18); BUN/CREATININE RATIO 15; CALCIUM 8.9 MG/DL (8.5-10.1); CARBON DIOXIDE 26 MMOL/L (21-32); CHLORIDE 103 MMOL/L (98-107); CREATININE SERUM 0.82 MG/DL (0.60-1.30); GFR ESTIMATED > 60; GLUCOSE 238 MG/DL (70-105); POTASSIUM 4.2 MMOL/L (3.6-5.0); SODIUM 138 MMOL/L (135-145)
[2017-02-16 14:32] LABS: BASOPHILS % (AUTO) 0 % (0-10); EOSINOPHILS # (AUTO) 0.1 10^3/uL (0.0-0.3); EOSINOPHILS % (AUTO) 1 % (0-10); LYMPHOCYTES # (AUTO) 2.2 X 10^3 (1.0-4.0); LYMPHOCYTES % (AUTO) 30 % (12-44); MEAN CORPUSCULAR HEMOGLOBIN 29 PG (25-34); MEAN CORPUSCULAR HGB CONC 33 G/DL (32-36); MEAN CORPUSCULAR VOLUME 90 FL (80-99); MEAN PLATELET VOLUME 9.3 FL (7.4-10.4); MONOCYTES % (AUTO) 13 % (0-12); NEUTROPHILS # (AUTO) 4.1 X 10^3 (1.8-7.8); NEUTROPHILS % (AUTO) 56 % (42-75); PLATELET COUNT 524 10^3/uL (130-400); RED BLOOD COUNT 4.37 10^6/uL (4.35-5.85); RED CELL DISTRIBUTION WIDTH 17.1 % (10.0-14.5); WHITE BLOOD COUNT 7.4 10^3/uL (4.3-11.0)
[2017-02-16 14:57] LABS: ALANINE AMINOTRANSFERASE 44 U/L (0-55); ALBUMIN 3.6 G/DL (3.2-4.5); ANION GAP 11 MMOL/L (5-14); ASPARTATE AMINO TRANSFERASE 43 U/L (5-34); BILIRUBIN,TOTAL 0.5 MG/DL (0.1-1.0); BLOOD UREA NITROGEN 12 MG/DL (7-18); BUN/CREATININE RATIO 14; CALCIUM 8.9 MG/DL (8.5-10.1); CARBON DIOXIDE 22 MMOL/L (21-32); CHLORIDE 106 MMOL/L (98-107); CREATININE SERUM 0.84 MG/DL (0.60-1.30); GFR ESTIMATED > 60; GLUCOSE 169 MG/DL (70-105); POTASSIUM 4.1 MMOL/L (3.6-5.0); SODIUM 139 MMOL/L (135-145); TOTAL PROTEIN 6.8 G/DL (6.4-8.2)
[2017-02-23 15:34] LABS: BASOPHILS % (AUTO) 1 % (0-10); EOSINOPHILS # (AUTO) 0.1 10^3/uL (0.0-0.3); EOSINOPHILS % (AUTO) 1 % (0-10); LYMPHOCYTES # (AUTO) 2.3 X 10^3 (1.0-4.0); LYMPHOCYTES % (AUTO) 38 % (12-44); MEAN CORPUSCULAR HEMOGLOBIN 29 PG (25-34); MEAN CORPUSCULAR HGB CONC 33 G/DL (32-36); MEAN CORPUSCULAR VOLUME 89 FL (80-99); MEAN PLATELET VOLUME 9.2 FL (7.4-10.4); MONOCYTES % (AUTO) 17 % (0-12); NEUTROPHILS # (AUTO) 2.8 X 10^3 (1.8-7.8); NEUTROPHILS % (AUTO) 44 % (42-75); PLATELET COUNT 325 10^3/uL (130-400); RED BLOOD COUNT 4.45 10^6/uL (4.35-5.85); RED CELL DISTRIBUTION WIDTH 16.5 % (10.0-14.5); WHITE BLOOD COUNT 6.2 10^3/uL (4.3-11.0)
[2017-02-23 16:18] LABS: ANION GAP 11 MMOL/L (5-14); BLOOD UREA NITROGEN 14 MG/DL (7-18); BUN/CREATININE RATIO 15; CARBON DIOXIDE 23 MMOL/L (21-32); CHLORIDE 102 MMOL/L (98-107); CREATININE SERUM 0.95 MG/DL (0.60-1.30); GFR ESTIMATED > 60; GLUCOSE 316 MG/DL (70-105); POTASSIUM 4.1 MMOL/L (3.6-5.0); SODIUM 136 MMOL/L (135-145)
[2017-03-02 13:39] LABS: BASOPHILS % (AUTO) 0 % (0-10); EOSINOPHILS % (AUTO) 1 % (0-10); LYMPHOCYTES # (AUTO) 1.9 X 10^3 (1.0-4.0); LYMPHOCYTES % (AUTO) 27 % (12-44); MEAN CORPUSCULAR HEMOGLOBIN 30 PG (25-34); MEAN CORPUSCULAR HGB CONC 33 G/DL (32-36); MEAN CORPUSCULAR VOLUME 90 FL (80-99); MONOCYTES # (AUTO) 0.9 X 10^3 (0.0-1.0); MONOCYTES % (AUTO) 13 % (0-12); NEUTROPHILS # (AUTO) 4.3 X 10^3 (1.8-7.8); NEUTROPHILS % (AUTO) 59 % (42-75); PLATELET COUNT 242 10^3/uL (130-400); RED CELL DISTRIBUTION WIDTH 17.1 % (10.0-14.5); WHITE BLOOD COUNT 7.2 10^3/uL (4.3-11.0)
[2017-03-02 14:11] LABS: ANION GAP 11 MMOL/L (5-14); BLOOD UREA NITROGEN 11 MG/DL (7-18); BUN/CREATININE RATIO 13; CALCIUM 8.8 MG/DL (8.5-10.1); CARBON DIOXIDE 22 MMOL/L (21-32); CHLORIDE 106 MMOL/L (98-107); CREATININE SERUM 0.87 MG/DL (0.60-1.30); GFR ESTIMATED > 60; GLUCOSE 336 MG/DL (70-105); POTASSIUM 4.3 MMOL/L (3.6-5.0); SODIUM 139 MMOL/L (135-145)
[~2017-03-09] VITALS: Ht 171.4 cm; Wt 124.3 kg
[~2017-03-09 11:24] MED LIST changes: +ALTEPLASE 2 MG (CATHFLO) CANCER CENTER IV ONE; -BARIUM SUSPENSION 2.1% (VANILLA SILQ) 450 ML PO ONE; -CATHETER FLUSH 10 ML SYR IV PRN; +GEMCITABINE HCL (GENERIC) 1,000 MG, GEMCITABINE HCL (GENERIC) 600 MG in NS (IVPB) CANCE... IV SCH; -IOHEXOL 350 MG/ML 100 ML (OMNIPAQUE 350) VIAL IV ONE; -NS 100 ML (IVPB) BAG IV ONE; +NS IV 500 ML (CANCER CENTER) IV SCH; +PALONOSETRON 0.25 MG, DEXAMETHASONE 10 MG/NS 50 ML IVPB IV PRN
[2017-03-09 11:57] LABS: BASOPHILS % (AUTO) 0 % (0-10); EOSINOPHILS % (AUTO) 1 % (0-10); LYMPHOCYTES % (AUTO) 36 % (12-44); MEAN CORPUSCULAR HEMOGLOBIN 30 PG (25-34); MEAN CORPUSCULAR HGB CONC 33 G/DL (32-36); MEAN CORPUSCULAR VOLUME 90 FL (80-99); MEAN PLATELET VOLUME 9.1 FL (7.4-10.4); MONOCYTES # (AUTO) 0.7 X 10^3 (0.0-1.0); MONOCYTES % (AUTO) 14 % (0-12); NEUTROPHILS # (AUTO) 2.7 X 10^3 (1.8-7.8); NEUTROPHILS % (AUTO) 49 % (42-75); PLATELET COUNT 220 10^3/uL (130-400); RED BLOOD COUNT 4.25 10^6/uL (4.35-5.85); RED CELL DISTRIBUTION WIDTH 16.7 % (10.0-14.5); WHITE BLOOD COUNT 5.5 10^3/uL (4.3-11.0)
[2017-03-09 12:18] LABS: ANION GAP 11 MMOL/L (5-14); BLOOD UREA NITROGEN 13 MG/DL (7-18); BUN/CREATININE RATIO 16; CALCIUM 8.9 MG/DL (8.5-10.1); CARBON DIOXIDE 23 MMOL/L (21-32); CHLORIDE 103 MMOL/L (98-107); CREATININE SERUM 0.82 MG/DL (0.60-1.30); GFR ESTIMATED > 60; GLUCOSE 231 MG/DL (70-105); POTASSIUM 4.2 MMOL/L (3.6-5.0); SODIUM 137 MMOL/L (135-145)
== END 2017-03-13 | disposition home or self-care (01) ==
LOC: ONC 11:24
PROVIDERS: ATTEND Internal Medicine Hematology & Oncology
DX: Z51.0 Encounter for antineoplastic radiation therapy (principal); C50.112 Malignant neoplasm of central portion of left female breast; C77.3 Secondary and unspecified malignant neoplasm of axilla and upper limb lymph nodes; C78.01 Secondary malignant neoplasm of right lung; C78.02 Secondary malignant neoplasm of left lung; I27.2 Other secondary pulmonary hypertension; E11.9 Type 2 diabetes mellitus without complications; Z79.01 Long term (current) use of anticoagulants; Z86.711 Personal history of pulmonary embolism; Z86.718 Personal history of other venous thrombosis and embolism; Z90.12 Acquired absence of left breast and nipple; Z92.21 Personal history of antineoplastic chemotherapy
CPT/HCPCS: 36415; 36591; 36593; 80048; 80053; 85025; 86300; 96375; 96413; 99213

== ENCOUNTER → 2017-03-09 | Outpatient (CLI) | payer MEDICAID, MEDICARE ==
[~2017-03-09] MED LIST changes: +CATHETER FLUSH 10 ML SYR IV PRN
--- NOTE | 2017-03-09 14:30 | Diagnostic Imaging Report ---
PROCEDURE: CT chest and abdomen with contrast. TECHNIQUE: Multiple contiguous axial images were obtained through the chest and abdomen after the administration of intravenous contrast. INDICATION: Metastatic breast cancer. COMPARISON: Exam compared to 12/13/2016. FINDINGS: Chest: There are multiple bilateral soft tissue density pulmonary nodules which once again showed mild further interval increase in size. The largest mass in the right lower lobe today measures 2.2 x 1.7 cm, previously measured 1.8 x 1.6 cm. Mass in the superior segment of the left lower lobe today measures 1.5 x 1.2 cm, previously 1.1 x 1.1 cm. Linda-fissural right middle lobe mass today measures 1.6 x 1.1 cm, previously 1.3 x 0.9 cm. Additional smaller masses showed a similar relative mild progression. We again note no hilar or mediastinal lymphadenopathy, and no pleural or pericardial effusion. No destructive chest wall lesion. Abdomen: Previously noted tiny right hepatic lobe low-density nodule has increased in size. It now measures 16 mm, previously measured 5 mm. This is presumptively a metastatic lesion. Chronic hepatic steatosis is a redemonstrated finding with no new liver mass. No biliary dilatation. There is a small hiatal hernia. Pancreas is nonfocal and nonacute. The adrenals are negative. The spleen is normal. Kidneys are unobstructed. There is no abdominal ascites or evidence of obstruction. There is an IVC filter present. No vascular occlusion. IMPRESSION: Chest: Further mild increased size of multiple lung masses presumptively reflective of mild progression of metastatic disease. No adenopathy or effusion. Abdomen: The previously noted tiny nodule in the right hepatic lobe superiorly superimposed upon a fatty liver shows progressive size, now 1.7 cm and is likely metastatic. No other suspicious liver lesion. The remaining abdomen is negative. We note the positioning of the small liver mass would make it inaccessible to CT-guided sampling, and if needed for treatment planning, PET may be useful to confirm or refute its hypermetabolic activity. Dictated by: Dictated on workstation # [id number]
--- NOTE | 2017-03-09 20:03 | Diagnostic Imaging Report ---
INDICATION: Metastatic breast cancer. TECHNIQUE: The patient was administered 23.4 mCi technetium 99m MDP. Anterior and posterior whole-body planar images are obtained. CORRELATION STUDY: 09/06/2016, 12/13/2016. FINDINGS: There is asymmetric uptake suggested about the left sacral ala compared to the right. The remainder of the pelvis appearing relatively symmetric and unremarkable. There is also slight asymmetric uptake suggested about the right humeral head. Otherwise, the visualized axial and appendicular skeleton appear generally stable. Degenerative-type uptake about particularly the knees. Physiologic uptake by the kidneys with excretion into the urinary bladder, likely contamination over the perineum. IMPRESSION: 1. Asymmetric uptake is suggested about the left sacrum. Correlation to history is recommended. Consideration for CT imaging of the pelvis may be of additional benefit. 2. Development of very slight asymmetric uptake about the superior right humeral head. This may very well be degenerative in nature. A definitive ani destructive-type change on accompanying CT imaging performed earlier in the day does not appear to be present. Dictated by: Dictated on workstation # [id number]
== END ==
LOC: CARD 12:07
PROVIDERS: ATTEND Nurse Practitioner Adult Health
DX: C50.112 Malignant neoplasm of central portion of left female breast (principal); C78.01 Secondary malignant neoplasm of right lung
CPT/HCPCS: 71260; 74160; 78306

== ENCOUNTER 2017-06-08 09:35 | Outpatient (RCR) | payer MEDICARE, MEDICAID, OTHER ==
[2017-03-16 14:24] LABS: BASOPHILS % (AUTO) 0 % (0-10); EOSINOPHILS # (AUTO) 0.1 10^3/uL (0.0-0.3); EOSINOPHILS % (AUTO) 1 % (0-10); LYMPHOCYTES # (AUTO) 1.9 X 10^3 (1.0-4.0); LYMPHOCYTES % (AUTO) 28 % (12-44); MEAN CORPUSCULAR HEMOGLOBIN 30 PG (25-34); MEAN CORPUSCULAR HGB CONC 33 G/DL (32-36); MEAN CORPUSCULAR VOLUME 90 FL (80-99); MEAN PLATELET VOLUME 9.2 FL (7.4-10.4); MONOCYTES # (AUTO) 0.9 X 10^3 (0.0-1.0); MONOCYTES % (AUTO) 14 % (0-12); NEUTROPHILS # (AUTO) 3.9 X 10^3 (1.8-7.8); NEUTROPHILS % (AUTO) 58 % (42-75); PLATELET COUNT 412 10^3/uL (130-400); RED BLOOD COUNT 4.66 10^6/uL (4.35-5.85); RED CELL DISTRIBUTION WIDTH 16.9 % (10.0-14.5); WHITE BLOOD COUNT 6.8 10^3/uL (4.3-11.0)
[2017-03-16 14:49] LABS: ALANINE AMINOTRANSFERASE 55 U/L (0-55); ALBUMIN 3.9 G/DL (3.2-4.5); ANION GAP 11 MMOL/L (5-14); ASPARTATE AMINO TRANSFERASE 53 U/L (5-34); BILIRUBIN,TOTAL 0.4 MG/DL (0.1-1.0); BLOOD UREA NITROGEN 15 MG/DL (7-18); BUN/CREATININE RATIO 17; CALCIUM 9.1 MG/DL (8.5-10.1); CARBON DIOXIDE 22 MMOL/L (21-32); CHLORIDE 106 MMOL/L (98-107); GFR ESTIMATED > 60; GLUCOSE 208 MG/DL (70-105); SODIUM 139 MMOL/L (135-145)
[2017-04-13 14:31] LABS: BASOPHILS % (AUTO) 0 % (0-10); EOSINOPHILS % (AUTO) 1 % (0-10); LYMPHOCYTES # (AUTO) 1.9 X 10^3 (1.0-4.0); LYMPHOCYTES % (AUTO) 27 % (12-44); MEAN CORPUSCULAR HEMOGLOBIN 29 PG (25-34); MEAN CORPUSCULAR HGB CONC 33 G/DL (32-36); MEAN CORPUSCULAR VOLUME 90 FL (80-99); MEAN PLATELET VOLUME 9.8 FL (7.4-10.4); MONOCYTES # (AUTO) 0.7 X 10^3 (0.0-1.0); MONOCYTES % (AUTO) 11 % (0-12); NEUTROPHILS # (AUTO) 4.4 X 10^3 (1.8-7.8); NEUTROPHILS % (AUTO) 62 % (42-75); PLATELET COUNT 287 10^3/uL (130-400); RED BLOOD COUNT 4.66 10^6/uL (4.35-5.85); RED CELL DISTRIBUTION WIDTH 14.2 % (10.0-14.5); WHITE BLOOD COUNT 7.1 10^3/uL (4.3-11.0)
[2017-04-13 14:59] LABS: ALANINE AMINOTRANSFERASE 39 U/L (0-55); ALBUMIN 3.7 G/DL (3.2-4.5); ANION GAP 9 MMOL/L (5-14); ASPARTATE AMINO TRANSFERASE 37 U/L (5-34); BILIRUBIN,TOTAL 0.5 MG/DL (0.1-1.0); BLOOD UREA NITROGEN 13 MG/DL (7-18); BUN/CREATININE RATIO 16; CALCIUM 8.9 MG/DL (8.5-10.1); CARBON DIOXIDE 24 MMOL/L (21-32); CHLORIDE 104 MMOL/L (98-107); CREATININE SERUM 0.81 MG/DL (0.60-1.30); GFR ESTIMATED > 60; GLUCOSE 231 MG/DL (70-105); POTASSIUM 3.9 MMOL/L (3.6-5.0); SODIUM 137 MMOL/L (135-145); TOTAL PROTEIN 6.9 G/DL (6.4-8.2)
--- NOTE | 2017-04-13 15:56 | Diagnostic Imaging Report ---
INDICATION: Breast cancer. PA and lateral chest. There is a right IJ Port-A-Cath with tip projecting over the SVC. There are nodular opacities in the left upper lung, left lower lung, right midlung, and right lower lung. These nodules have increased in size in comparison to study from 11/26/2016. The lesion in the right lung currently measures 22 mm in diameter compared to prior measurement of 16 mm in diameter. The left upper lobe nodule measures 19 mm versus a previous measurement of 13 mm. Heart size and pulmonary vascularity are normal. There are no infiltrates, effusions, or pneumothoraces. IMPRESSION: Enlarging pulmonary nodules consistent with metastases. Dictated by: Dictated on workstation # [id number]
[2017-04-20 14:29] LABS: BASOPHILS % (AUTO) 1 % (0-10); EOSINOPHILS % (AUTO) 0 % (0-10); LYMPHOCYTES # (AUTO) 1.7 X 10^3 (1.0-4.0); LYMPHOCYTES % (AUTO) 28 % (12-44); MEAN CORPUSCULAR HEMOGLOBIN 30 PG (25-34); MEAN CORPUSCULAR HGB CONC 34 G/DL (32-36); MEAN CORPUSCULAR VOLUME 89 FL (80-99); MEAN PLATELET VOLUME 9.6 FL (7.4-10.4); MONOCYTES # (AUTO) 0.5 X 10^3 (0.0-1.0); MONOCYTES % (AUTO) 8 % (0-12); NEUTROPHILS # (AUTO) 3.9 X 10^3 (1.8-7.8); NEUTROPHILS % (AUTO) 64 % (42-75); PLATELET COUNT 271 10^3/uL (130-400); RED CELL DISTRIBUTION WIDTH 13.5 % (10.0-14.5); WHITE BLOOD COUNT 6.1 10^3/uL (4.3-11.0)
[2017-04-20 14:44] LABS: ANION GAP 11 MMOL/L (5-14); BLOOD UREA NITROGEN 7 MG/DL (7-18); BUN/CREATININE RATIO 8; CALCIUM 8.9 MG/DL (8.5-10.1); CARBON DIOXIDE 23 MMOL/L (21-32); CHLORIDE 104 MMOL/L (98-107); CREATININE SERUM 0.83 MG/DL (0.60-1.30); GFR ESTIMATED > 60; GLUCOSE 269 MG/DL (70-105); POTASSIUM 3.5 MMOL/L (3.6-5.0); SODIUM 138 MMOL/L (135-145)
[2017-04-27 13:06] LABS: BASOPHILS % (AUTO) 0 % (0-10); EOSINOPHILS % (AUTO) 0 % (0-10); LYMPHOCYTES # (AUTO) 1.8 X 10^3 (1.0-4.0); LYMPHOCYTES % (AUTO) 37 % (12-44); MEAN CORPUSCULAR HEMOGLOBIN 30 PG (25-34); MEAN CORPUSCULAR HGB CONC 33 G/DL (32-36); MEAN CORPUSCULAR VOLUME 90 FL (80-99); MEAN PLATELET VOLUME 9.1 FL (7.4-10.4); MONOCYTES # (AUTO) 0.4 X 10^3 (0.0-1.0); MONOCYTES % (AUTO) 9 % (0-12); NEUTROPHILS # (AUTO) 2.6 X 10^3 (1.8-7.8); NEUTROPHILS % (AUTO) 54 % (42-75); PLATELET COUNT 310 10^3/uL (130-400); WHITE BLOOD COUNT 4.8 10^3/uL (4.3-11.0)
[2017-04-27 14:44] LABS: ANION GAP 14 MMOL/L (5-14); BLOOD UREA NITROGEN 9 MG/DL (7-18); BUN/CREATININE RATIO 11; CALCIUM 8.7 MG/DL (8.5-10.1); CARBON DIOXIDE 23 MMOL/L (21-32); CHLORIDE 101 MMOL/L (98-107); CREATININE SERUM 0.79 MG/DL (0.60-1.30); GFR ESTIMATED > 60; GLUCOSE 280 MG/DL (70-105); POTASSIUM 3.7 MMOL/L (3.6-5.0); SODIUM 138 MMOL/L (135-145)
[2017-05-04 15:02] LABS: BASOPHILS % (AUTO) 0 % (0-10); EOSINOPHILS % (AUTO) 0 % (0-10); LYMPHOCYTES # (AUTO) 1.7 X 10^3 (1.0-4.0); LYMPHOCYTES % (AUTO) 31 % (12-44); MEAN CORPUSCULAR HEMOGLOBIN 29 PG (25-34); MEAN CORPUSCULAR HGB CONC 33 G/DL (32-36); MEAN CORPUSCULAR VOLUME 89 FL (80-99); MEAN PLATELET VOLUME 9.5 FL (7.4-10.4); MONOCYTES # (AUTO) 0.7 X 10^3 (0.0-1.0); MONOCYTES % (AUTO) 12 % (0-12); NEUTROPHILS # (AUTO) 3.2 X 10^3 (1.8-7.8); NEUTROPHILS % (AUTO) 57 % (42-75); PLATELET COUNT 339 10^3/uL (130-400); RED BLOOD COUNT 4.52 10^6/uL (4.35-5.85); RED CELL DISTRIBUTION WIDTH 14.5 % (10.0-14.5); WHITE BLOOD COUNT 5.6 10^3/uL (4.3-11.0)
[2017-05-04 15:29] LABS: ALANINE AMINOTRANSFERASE 36 U/L (0-55); ALBUMIN 3.8 G/DL (3.2-4.5); ANION GAP 12 MMOL/L (5-14); ASPARTATE AMINO TRANSFERASE 29 U/L (5-34); BILIRUBIN,TOTAL 0.4 MG/DL (0.1-1.0); BLOOD UREA NITROGEN 7 MG/DL (7-18); BUN/CREATININE RATIO 9; CALCIUM 8.8 MG/DL (8.5-10.1); CARBON DIOXIDE 21 MMOL/L (21-32); CHLORIDE 105 MMOL/L (98-107); CREATININE SERUM 0.82 MG/DL (0.60-1.30); GFR ESTIMATED > 60; GLUCOSE 267 MG/DL (70-105); POTASSIUM 3.9 MMOL/L (3.6-5.0); SODIUM 138 MMOL/L (135-145); TOTAL PROTEIN 7.1 G/DL (6.4-8.2)
--- NOTE | 2017-05-10 11:32 | Diagnostic Imaging Report ---
INDICATION: Shortness of breath, lung cancer. Patient has a right IJ Port-A-Cath with tip projecting over the right atrium. There is a pulmonary nodule in the right midlung that measures 21 mm in diameter. There is a 19-mm pulmonary nodule in the left upper lobe and a 15-mm pulmonary nodule in the left midlung. These were present on 04/13/2017, and are not appreciably changed. There is no effusion or pneumothorax. IMPRESSION: Pulmonary metastases. No change since 04/13/2017. Dictated by: Dictated on workstation # [id number]
[2017-05-11 13:31] LABS: BASOPHILS # (AUTO) 0.1 10^3/uL (0.0-0.1); BASOPHILS % (AUTO) 1 % (0-10); EOSINOPHILS % (AUTO) 0 % (0-10); LYMPHOCYTES # (AUTO) 1.9 X 10^3 (1.0-4.0); LYMPHOCYTES % (AUTO) 24 % (12-44); MEAN CORPUSCULAR HEMOGLOBIN 30 PG (25-34); MEAN CORPUSCULAR HGB CONC 33 G/DL (32-36); MEAN CORPUSCULAR VOLUME 89 FL (80-99); MEAN PLATELET VOLUME 9.7 FL (7.4-10.4); MONOCYTES # (AUTO) 0.5 X 10^3 (0.0-1.0); MONOCYTES % (AUTO) 6 % (0-12); NEUTROPHILS # (AUTO) 5.5 X 10^3 (1.8-7.8); NEUTROPHILS % (AUTO) 69 % (42-75); PLATELET COUNT 303 10^3/uL (130-400); RED BLOOD COUNT 4.61 10^6/uL (4.35-5.85); RED CELL DISTRIBUTION WIDTH 13.8 % (10.0-14.5)
[2017-05-11 13:51] LABS: ANION GAP 12 MMOL/L (5-14); BLOOD UREA NITROGEN 8 MG/DL (7-18); BUN/CREATININE RATIO 11 (0-20); CALCIUM 9.1 MG/DL (8.5-10.1); CARBON DIOXIDE 23 MMOL/L (21-32); CHLORIDE 104 MMOL/L (98-107); CREATININE SERUM 0.76 MG/DL (0.60-1.30); GFR ESTIMATED > 60; GLUCOSE 231 MG/DL (70-105); POTASSIUM 3.6 MMOL/L (3.6-5.0); SODIUM 139 MMOL/L (135-145)
[2017-05-11 14:10] LABS: KETONES,URINE 1+ (NEGATIVE); LEUKOCYTE ESTERASE ,URINE 2+ (NEGATIVE); NITRITE,URINE NEGATIVE (NEGATIVE); PH,URINE 5 (5-9); PROTEIN,URINE 2+ (NEGATIVE); UROBILINOGEN,URINE 4 MG/DL (NORMAL)
[2017-05-11 15:10] LABS: BILIRUBIN,URINE 1+ (NEGATIVE)
[2017-05-18 14:30] LABS: BASOPHILS % (AUTO) 1 % (0-10); EOSINOPHILS % (AUTO) 0 % (0-10); LYMPHOCYTES # (AUTO) 1.8 X 10^3 (1.0-4.0); LYMPHOCYTES % (AUTO) 32 % (12-44); MEAN CORPUSCULAR HEMOGLOBIN 30 PG (25-34); MEAN CORPUSCULAR HGB CONC 33 G/DL (32-36); MEAN CORPUSCULAR VOLUME 89 FL (80-99); MEAN PLATELET VOLUME 10.1 FL (7.4-10.4); MONOCYTES # (AUTO) 0.5 X 10^3 (0.0-1.0); MONOCYTES % (AUTO) 9 % (0-12); NEUTROPHILS # (AUTO) 3.4 X 10^3 (1.8-7.8); NEUTROPHILS % (AUTO) 59 % (42-75); PLATELET COUNT 313 10^3/uL (130-400); RED BLOOD COUNT 4.51 10^6/uL (4.35-5.85); RED CELL DISTRIBUTION WIDTH 14.3 % (10.0-14.5); WHITE BLOOD COUNT 5.7 10^3/uL (4.3-11.0)
[2017-05-18 14:45] LABS: ANION GAP 11 MMOL/L (5-14); BLOOD UREA NITROGEN 11 MG/DL (7-18); BUN/CREATININE RATIO 12 (0-20); CALCIUM 8.9 MG/DL (8.5-10.1); CARBON DIOXIDE 26 MMOL/L (21-32); CHLORIDE 101 MMOL/L (98-107); CREATININE SERUM 0.95 MG/DL (0.60-1.30); GFR ESTIMATED > 60; GLUCOSE 328 MG/DL (70-105); HEMOLYSIS 13 (-100-29); ICTERUS 0.3 (-100-1.9); LIPEMIA 3 (-100-49); POTASSIUM 3.8 MMOL/L (3.6-5.0); SODIUM 138 MMOL/L (135-145)
[2017-05-25 15:15] LABS: BASOPHILS % (AUTO) 0 % (0-10); EOSINOPHILS % (AUTO) 0 % (0-10); LYMPHOCYTES # (AUTO) 2.2 X 10^3 (1.0-4.0); LYMPHOCYTES % (AUTO) 27 % (12-44); MEAN CORPUSCULAR HEMOGLOBIN 29 PG (25-34); MEAN CORPUSCULAR HGB CONC 34 G/DL (32-36); MEAN CORPUSCULAR VOLUME 88 FL (80-99); MEAN PLATELET VOLUME 9.7 FL (7.4-10.4); MONOCYTES # (AUTO) 0.9 X 10^3 (0.0-1.0); MONOCYTES % (AUTO) 11 % (0-12); NEUTROPHILS # (AUTO) 4.8 X 10^3 (1.8-7.8); NEUTROPHILS % (AUTO) 61 % (42-75); PLATELET COUNT 351 10^3/uL (130-400); RED BLOOD COUNT 4.52 10^6/uL (4.35-5.85); RED CELL DISTRIBUTION WIDTH 14.9 % (10.0-14.5); WHITE BLOOD COUNT 7.9 10^3/uL (4.3-11.0)
[2017-05-25 15:30] LABS: ALANINE AMINOTRANSFERASE 46 U/L (0-55); ALBUMIN 3.8 GM/DL (3.2-4.5); ANION GAP 11 MMOL/L (5-14); ASPARTATE AMINO TRANSFERASE 55 U/L (5-34); BILIRUBIN,TOTAL 0.5 MG/DL (0.1-1.0); BLOOD UREA NITROGEN 8 MG/DL (7-18); BUN/CREATININE RATIO 11; CARBON DIOXIDE 24 MMOL/L (21-32); CHLORIDE 106 MMOL/L (98-107); CREATININE SERUM 0.73 MG/DL (0.60-1.30); GFR ESTIMATED > 60; GLUCOSE 125 MG/DL (70-105); POTASSIUM 3.5 MMOL/L (3.6-5.0); SODIUM 141 MMOL/L (135-145); TOTAL PROTEIN 7.1 GM/DL (6.4-8.2)
--- NOTE | 2017-05-25 18:35 | Diagnostic Imaging Report ---
PA and lateral views of the chest. INDICATION: Lung metastasis. COMPARISON: 05/04/17. FINDINGS: There are multiple pulmonary nodules seen most prominent in the right perihilar region measuring 2.2 cm. These appear similar to the previous study. There is minimal opacity near the cardiac apex probably related to pericardial fat pad with no definite developing infiltrate or atelectasis. The heart size is normal. There is a right infusion port without change. IMPRESSION: Stable multiple pulmonary nodules. Dictated by: Dictated on workstation # [id number]
[2017-06-01 10:20] LABS: BASOPHILS # (AUTO) 0.1 10^3/uL (0.0-0.1); BASOPHILS % (AUTO) 1 % (0-10); EOSINOPHILS % (AUTO) 0 % (0-10); LYMPHOCYTES # (AUTO) 1.9 X 10^3 (1.0-4.0); LYMPHOCYTES % (AUTO) 22 % (12-44); MEAN CORPUSCULAR HEMOGLOBIN 29 PG (25-34); MEAN CORPUSCULAR HGB CONC 33 G/DL (32-36); MEAN CORPUSCULAR VOLUME 88 FL (80-99); MEAN PLATELET VOLUME 9.5 FL (7.4-10.4); MONOCYTES # (AUTO) 0.6 X 10^3 (0.0-1.0); MONOCYTES % (AUTO) 7 % (0-12); NEUTROPHILS # (AUTO) 6.3 X 10^3 (1.8-7.8); NEUTROPHILS % (AUTO) 71 % (42-75); PLATELET COUNT 319 10^3/uL (130-400); RED BLOOD COUNT 4.52 10^6/uL (4.35-5.85); RED CELL DISTRIBUTION WIDTH 14.8 % (10.0-14.5); WHITE BLOOD COUNT 8.9 10^3/uL (4.3-11.0)
[2017-06-01 10:57] LABS: ANION GAP 10 MMOL/L (5-14); BLOOD UREA NITROGEN 9 MG/DL (7-18); BUN/CREATININE RATIO 11; CALCIUM 9.2 MG/DL (8.5-10.1); CARBON DIOXIDE 27 MMOL/L (21-32); CHLORIDE 102 MMOL/L (98-107); CREATININE SERUM 0.81 MG/DL (0.60-1.30); GFR ESTIMATED > 60; GLUCOSE 237 MG/DL (70-105); SODIUM 139 MMOL/L (135-145)
[~2017-06-08] VITALS: Ht 171.4 cm; Wt 121.6 kg
[~2017-06-08 09:35] MED LIST changes: +ONDANSETRON 16 MG, DEXAMETHASONE 10 MG/NS 50 ML IVPB IV SCH; +[UNRECOGNIZED DRUG - MIXTURE] IV SCH
[2017-06-08 09:53] LABS: BASOPHILS % (AUTO) 0 % (0-10); EOSINOPHILS % (AUTO) 0 % (0-10); LYMPHOCYTES # (AUTO) 1.9 X 10^3 (1.0-4.0); LYMPHOCYTES % (AUTO) 31 % (12-44); MEAN CORPUSCULAR HEMOGLOBIN 29 PG (25-34); MEAN CORPUSCULAR HGB CONC 33 G/DL (32-36); MEAN CORPUSCULAR VOLUME 88 FL (80-99); MEAN PLATELET VOLUME 9.7 FL (7.4-10.4); MONOCYTES # (AUTO) 0.7 X 10^3 (0.0-1.0); MONOCYTES % (AUTO) 11 % (0-12); NEUTROPHILS # (AUTO) 3.5 X 10^3 (1.8-7.8); NEUTROPHILS % (AUTO) 57 % (42-75); PLATELET COUNT 317 10^3/uL (130-400); RED BLOOD COUNT 4.32 10^6/uL (4.35-5.85); RED CELL DISTRIBUTION WIDTH 14.9 % (10.0-14.5); WHITE BLOOD COUNT 6.2 10^3/uL (4.3-11.0)
[2017-06-08 10:20] LABS: ANION GAP 11 MMOL/L (5-14); BLOOD UREA NITROGEN 10 MG/DL (7-18); BUN/CREATININE RATIO 14; CALCIUM 8.8 MG/DL (8.5-10.1); CARBON DIOXIDE 24 MMOL/L (21-32); CHLORIDE 103 MMOL/L (98-107); CREATININE SERUM 0.71 MG/DL (0.60-1.30); GFR ESTIMATED > 60; GLUCOSE 181 MG/DL (70-105); POTASSIUM 3.8 MMOL/L (3.6-5.0); SODIUM 138 MMOL/L (135-145)
== END 2017-06-14 | disposition home or self-care (01) ==
LOC: ONC 09:35
PROVIDERS: ATTEND Internal Medicine Hematology & Oncology
DX: Z51.0 Encounter for antineoplastic radiation therapy (principal); C50.112 Malignant neoplasm of central portion of left female breast; C77.3 Secondary and unspecified malignant neoplasm of axilla and upper limb lymph nodes; C78.01 Secondary malignant neoplasm of right lung; C78.02 Secondary malignant neoplasm of left lung; I27.2 Other secondary pulmonary hypertension; E11.9 Type 2 diabetes mellitus without complications; Z79.01 Long term (current) use of anticoagulants; Z86.711 Personal history of pulmonary embolism; Z86.718 Personal history of other venous thrombosis and embolism; Z90.12 Acquired absence of left breast and nipple; Z92.21 Personal history of antineoplastic chemotherapy
CPT/HCPCS: 36415; 36591; 71020; 77290; 77295; 77334; 77336; 77402; 77417; 77470; 80048; 80053; 81000; 85025; 86300; 87088; 96375; 96409; 99213; 99214

== ENCOUNTER → 2017-07-17 | Outpatient (CLI) | payer MEDICARE ==
[~2017-07-17] MED LIST changes: -ALTEPLASE 2 MG (CATHFLO) CANCER CENTER IV ONE; +BARIUM SUSPENSION 2.1% (VANILLA SILQ) 450 ML PO ONE; +CATHETER FLUSH 10 ML SYR IV PRN; -GEMCITABINE HCL (GENERIC) 1,000 MG, GEMCITABINE HCL (GENERIC) 600 MG in NS (IVPB) CANCE... IV SCH; +IOHEXOL 350 MG/ML 100 ML (OMNIPAQUE 350) VIAL IV ONE; +NS 100 ML (IVPB) BAG IV ONE; -NS IV 500 ML (CANCER CENTER) IV SCH; -ONDANSETRON 16 MG, DEXAMETHASONE 10 MG/NS 50 ML IVPB IV SCH; -PALONOSETRON 0.25 MG, DEXAMETHASONE 10 MG/NS 50 ML IVPB IV PRN; -[UNRECOGNIZED DRUG - MIXTURE] IV SCH
--- NOTE | 2017-07-17 12:51 | Diagnostic Imaging Report ---
PROCEDURE: CT chest and abdomen with contrast. TECHNIQUE: Multiple contiguous axial images were obtained through the chest and abdomen after the administration of intravenous contrast. INDICATION: Breast cancer. The previous CT chest and abdomen exam of 03/09/2017, noted multiple pulmonary nodules. These are felt to be secondary to metastatic disease related to the patient's diagnosis of breast cancer. On this exam those parenchymal nodules are again identified. On the previous study the largest nodule in the right lung base measured 2.2 x 1.7 cm. This nodule now measures 2.4 x 1.7 cm. The largest nodule in the left lung seen on the prior study was located in the posterior aspect of the left midlung. That nodule measured 1.5 x 1.2 cm. On today's study the nodule is estimated to be 1.6 x 1.2 cm. The other nodules in the lungs do not seem to have changed significantly with the exception of the 1.0 x 1.1-cm nodule in the lingula. That nodule cannot be identified with certainty on this exam as there is now a new area of increased density in this region. This new area of increased density measures 3.8 x 4.0 cm. This could be secondary to neoplasm or to a combination neoplasm and atelectasis/pneumonia. Clinical followup is recommended. The overall appearance of the thorax is otherwise stable. There is no mediastinal or hilar adenopathy. The heart is stable in size. Aorta is not abnormally dilated. There is no defect within the coronary arteries to indicate a pulmonary embolus although the pulmonary arteries are not fully opacified. On the prior exam there was a 1.6 x 1.7-cm low-density nodule in the right lobe of the liver near the dome of the liver. That finding has increased in size and now measures 2.4 x 3.2 cm. Furthermore, there is a new area of altered density within the right lobe of the liver measuring 1.8 x 2.0 cm. Both of these findings should be considered neoplastic until proven otherwise. The liver is otherwise homogeneous and of lower density than usually seen. This appearance does suggest fatty metamorphosis. The spleen, pancreas, adrenals, kidneys, aorta, and inferior vena cava are unremarkable for an acute abnormality. The small low-density nodule associated with the left adrenal gland seen previously is again evident and does not appear to have changed significantly. This nodule measures 0.9 x 1.1 cm. The vena cava filter noted on the prior exam is again identified and unchanged. The stomach is filled with oral contrast and difficult to evaluate. The hiatal hernia seen previously is again evident and no different. The bone windows do show an area of sclerosis involving the ilial side of the left sacroiliac joint. The recent whole-body bone scan of 03/09/2017, also noted abnormal activity in this area, and this finding should be considered neoplastic until proven otherwise. There is no other abnormal bony lesion identified. The left breast is surgically absent. There is no obvious mass involving the right breast. IMPRESSION: 1. The 1-cm nodule in the lingula noted on the prior exam is not identified. There is now a roughly 4-cm area of increased density in this region. Whether this is secondary to neoplasm or whether there is an element of pneumonia/atelectasis is not certain. Clinical followup is recommended. 2. The other pulmonary nodules do not seem to have changed significantly. There is no acute cardiopulmonary abnormality noted either. 3. The low-density nodule in the right lobe of the liver seen previously has increased in size. There is another new area of abnormal density within the right lobe of the liver as well. Both of these findings should be considered neoplastic until proven otherwise. 4. The sclerotic lesion involving the ilial side of the left sacroiliac joint is also most likely neoplastic in nature.. Dictated by: Dictated on workstation # [id number]
--- NOTE | 2017-07-17 17:02 | Diagnostic Imaging Report ---
EXAMINATION: Whole-body bone scan. INDICATION: Breast cancer. TECHNIQUE: This study was performed following the administration of 25.3 mCi of 99m-technetium MDP. Anterior posterior whole-body images were obtained. FINDINGS: The previous whole body bone scan performed on 03/09/2017 noted abnormal uptake in the left sacrum. This finding was felt to be suspicious for metastatic disease. On this exam, there is still abnormal uptake involving the left sacrum. There is also a focal area of increased activity in the region of the greater tuberosity of the right humerus. This finding is more conspicuous than on the prior exam and also worrisome for metastatic disease. Furthermore in the interval since the previous study, an area of increased activity has developed in the left parietal bone. Reportedly, the patient has pain in this area, and I am concerned that this does represent a metastatic focus involving the calvarium. If further study is desired, then either CT or MRI would be recommended. There is no other abnormal uptake to indicate metastatic disease. As noted on the prior exam, there is increased activity in both knee joints and in both feet. This is probably degenerative in nature. Both kidneys do show excretion of the radiotracer. IMPRESSION: 1. The area of abnormal uptake involving the left sacrum seen previously is again evident. The abnormal uptake in the right humerus does seem more prominent than on the prior exam, and there appears to be a new focus of metastatic skeletal disease to the left calvarium. These findings do suggest progressive neoplastic disease. 2. The overall appearance of the bone scan is otherwise stable. Dictated by: Dictated on workstation # [id number]
== END ==
LOC: CARD 11:43
PROVIDERS: ATTEND Nurse Practitioner Adult Health
DX: C50.112 Malignant neoplasm of central portion of left female breast (principal); C78.7 Secondary malignant neoplasm of liver and intrahepatic bile duct; C78.01 Secondary malignant neoplasm of right lung
CPT/HCPCS: 71260; 74160; 78306

== ENCOUNTER 2017-08-24 14:06 | Outpatient (RCR) | payer MEDICARE, OTHER, MEDICAID ==
[2017-06-15 09:57] LABS: BASOPHILS # (AUTO) 0.1 10^3/uL (0.0-0.1); BASOPHILS % (AUTO) 1 % (0-10); EOSINOPHILS % (AUTO) 0 % (0-10); LYMPHOCYTES % (AUTO) 22 % (12-44); MEAN CORPUSCULAR HEMOGLOBIN 29 PG (25-34); MEAN CORPUSCULAR HGB CONC 33 G/DL (32-36); MEAN CORPUSCULAR VOLUME 87 FL (80-99); MEAN PLATELET VOLUME 9.7 FL (7.4-10.4); MONOCYTES # (AUTO) 0.6 X 10^3 (0.0-1.0); MONOCYTES % (AUTO) 7 % (0-12); NEUTROPHILS # (AUTO) 6.3 X 10^3 (1.8-7.8); NEUTROPHILS % (AUTO) 71 % (42-75); PLATELET COUNT 352 10^3/uL (130-400); RED BLOOD COUNT 4.57 10^6/uL (4.35-5.85); RED CELL DISTRIBUTION WIDTH 14.9 % (10.0-14.5); WHITE BLOOD COUNT 8.9 10^3/uL (4.3-11.0)
[2017-06-15 10:30] LABS: ANION GAP 10 MMOL/L (5-14); BLOOD UREA NITROGEN 10 MG/DL (7-18); BUN/CREATININE RATIO 13; CALCIUM 9.1 MG/DL (8.5-10.1); CARBON DIOXIDE 25 MMOL/L (21-32); CHLORIDE 102 MMOL/L (98-107); CREATININE SERUM 0.77 MG/DL (0.60-1.30); GFR ESTIMATED > 60; GLUCOSE 253 MG/DL (70-105); POTASSIUM 3.9 MMOL/L (3.6-5.0); SODIUM 137 MMOL/L (135-145)
[2017-06-22 12:05] LABS: BASOPHILS # (AUTO) 0.1 10^3/uL (0.0-0.1); BASOPHILS % (AUTO) 1 % (0-10); EOSINOPHILS % (AUTO) 0 % (0-10); LYMPHOCYTES # (AUTO) 1.8 X 10^3 (1.0-4.0); LYMPHOCYTES % (AUTO) 30 % (12-44); MEAN CORPUSCULAR HEMOGLOBIN 29 PG (25-34); MEAN CORPUSCULAR HGB CONC 33 G/DL (32-36); MEAN CORPUSCULAR VOLUME 87 FL (80-99); MEAN PLATELET VOLUME 9.6 FL (7.4-10.4); MONOCYTES # (AUTO) 0.5 X 10^3 (0.0-1.0); MONOCYTES % (AUTO) 9 % (0-12); NEUTROPHILS # (AUTO) 3.5 X 10^3 (1.8-7.8); NEUTROPHILS % (AUTO) 59 % (42-75); PLATELET COUNT 323 10^3/uL (130-400); RED BLOOD COUNT 4.47 10^6/uL (4.35-5.85); RED CELL DISTRIBUTION WIDTH 15.2 % (10.0-14.5); WHITE BLOOD COUNT 5.8 10^3/uL (4.3-11.0)
[2017-06-22 12:24] LABS: ANION GAP 16 MMOL/L (5-14); BLOOD UREA NITROGEN 9 MG/DL (7-18); BUN/CREATININE RATIO 10; CALCIUM 8.6 MG/DL (8.5-10.1); CARBON DIOXIDE 20 MMOL/L (21-32); CHLORIDE 100 MMOL/L (98-107); CREATININE SERUM 0.89 MG/DL (0.60-1.30); GFR ESTIMATED > 60; GLUCOSE 371 MG/DL (70-105); POTASSIUM 3.8 MMOL/L (3.6-5.0); SODIUM 136 MMOL/L (135-145)
[2017-06-29 14:59] LABS: BASOPHILS % (AUTO) 0 % (0-10); EOSINOPHILS % (AUTO) 0 % (0-10); LYMPHOCYTES # (AUTO) 2.4 X 10^3 (1.0-4.0); LYMPHOCYTES % (AUTO) 29 % (12-44); MEAN CORPUSCULAR HEMOGLOBIN 28 PG (25-34); MEAN CORPUSCULAR HGB CONC 33 G/DL (32-36); MEAN CORPUSCULAR VOLUME 87 FL (80-99); MEAN PLATELET VOLUME 9.4 FL (7.4-10.4); MONOCYTES # (AUTO) 0.8 X 10^3 (0.0-1.0); MONOCYTES % (AUTO) 9 % (0-12); NEUTROPHILS % (AUTO) 61 % (42-75); PLATELET COUNT 373 10^3/uL (130-400); RED BLOOD COUNT 4.58 10^6/uL (4.35-5.85); RED CELL DISTRIBUTION WIDTH 15.5 % (10.0-14.5); WHITE BLOOD COUNT 8.2 10^3/uL (4.3-11.0)
[2017-06-29 15:22] LABS: ALANINE AMINOTRANSFERASE 32 U/L (0-55); ALBUMIN 3.7 GM/DL (3.2-4.5); ANION GAP 10 MMOL/L (5-14); ASPARTATE AMINO TRANSFERASE 35 U/L (5-34); BILIRUBIN,TOTAL 0.5 MG/DL (0.1-1.0); BLOOD UREA NITROGEN 8 MG/DL (7-18); BUN/CREATININE RATIO 11; CALCIUM 9.1 MG/DL (8.5-10.1); CARBON DIOXIDE 25 MMOL/L (21-32); CHLORIDE 103 MMOL/L (98-107); CREATININE SERUM 0.72 MG/DL (0.60-1.30); GFR ESTIMATED > 60; GLUCOSE 120 MG/DL (70-105); POTASSIUM 3.7 MMOL/L (3.6-5.0); SODIUM 138 MMOL/L (135-145); TOTAL PROTEIN 7.1 GM/DL (6.4-8.2)
[2017-07-06 13:23] LABS: BASOPHILS # (AUTO) 0.1 10^3/uL (0.0-0.1); BASOPHILS % (AUTO) 1 % (0-10); EOSINOPHILS % (AUTO) 0 % (0-10); LYMPHOCYTES # (AUTO) 2.2 X 10^3 (1.0-4.0); LYMPHOCYTES % (AUTO) 26 % (12-44); MEAN CORPUSCULAR HEMOGLOBIN 28 PG (25-34); MEAN CORPUSCULAR HGB CONC 33 G/DL (32-36); MEAN CORPUSCULAR VOLUME 86 FL (80-99); MEAN PLATELET VOLUME 9.6 FL (7.4-10.4); MONOCYTES # (AUTO) 0.7 X 10^3 (0.0-1.0); MONOCYTES % (AUTO) 9 % (0-12); NEUTROPHILS # (AUTO) 5.6 X 10^3 (1.8-7.8); NEUTROPHILS % (AUTO) 65 % (42-75); PLATELET COUNT 385 10^3/uL (130-400); RED BLOOD COUNT 4.63 10^6/uL (4.35-5.85); RED CELL DISTRIBUTION WIDTH 15.6 % (10.0-14.5); WHITE BLOOD COUNT 8.6 10^3/uL (4.3-11.0)
[2017-07-06 13:54] LABS: ANION GAP 13 MMOL/L (5-14); BLOOD UREA NITROGEN 9 MG/DL (7-18); BUN/CREATININE RATIO 13; CALCIUM 9.3 MG/DL (8.5-10.1); CARBON DIOXIDE 23 MMOL/L (21-32); CHLORIDE 103 MMOL/L (98-107); CREATININE SERUM 0.71 MG/DL (0.60-1.30); GFR ESTIMATED > 60; GLUCOSE 153 MG/DL (70-105); POTASSIUM 3.6 MMOL/L (3.6-5.0); SODIUM 139 MMOL/L (135-145)
[2017-07-14 09:55] LABS: BASOPHILS % (AUTO) 0 % (0-10); EOSINOPHILS % (AUTO) 0 % (0-10); LYMPHOCYTES # (AUTO) 1.7 X 10^3 (1.0-4.0); LYMPHOCYTES % (AUTO) 23 % (12-44); MEAN CORPUSCULAR HEMOGLOBIN 28 PG (25-34); MEAN CORPUSCULAR HGB CONC 32 G/DL (32-36); MEAN CORPUSCULAR VOLUME 88 FL (80-99); MEAN PLATELET VOLUME 9.7 FL (7.4-10.4); MONOCYTES # (AUTO) 0.7 X 10^3 (0.0-1.0); MONOCYTES % (AUTO) 9 % (0-12); NEUTROPHILS # (AUTO) 4.8 X 10^3 (1.8-7.8); NEUTROPHILS % (AUTO) 67 % (42-75); PLATELET COUNT 325 10^3/uL (130-400); RED BLOOD COUNT 4.74 10^6/uL (4.35-5.85); RED CELL DISTRIBUTION WIDTH 15.9 % (10.0-14.5); WHITE BLOOD COUNT 7.2 10^3/uL (4.3-11.0)
[2017-07-14 10:21] LABS: ANION GAP 15 MMOL/L (5-14); BLOOD UREA NITROGEN 8 MG/DL (7-18); BUN/CREATININE RATIO 10; CALCIUM 9.4 MG/DL (8.5-10.1); CARBON DIOXIDE 22 MMOL/L (21-32); CHLORIDE 101 MMOL/L (98-107); CREATININE SERUM 0.79 MG/DL (0.60-1.30); GFR ESTIMATED > 60; GLUCOSE 232 MG/DL (70-105); POTASSIUM 3.8 MMOL/L (3.6-5.0); SODIUM 138 MMOL/L (135-145)
[2017-07-20 15:06] LABS: BASOPHILS % (AUTO) 0 % (0-10); EOSINOPHILS % (AUTO) 0 % (0-10); LYMPHOCYTES % (AUTO) 27 % (12-44); MEAN CORPUSCULAR HEMOGLOBIN 28 PG (25-34); MEAN CORPUSCULAR HGB CONC 32 G/DL (32-36); MEAN CORPUSCULAR VOLUME 88 FL (80-99); MEAN PLATELET VOLUME 9.8 FL (7.4-10.4); MONOCYTES # (AUTO) 0.8 X 10^3 (0.0-1.0); MONOCYTES % (AUTO) 10 % (0-12); NEUTROPHILS # (AUTO) 4.7 X 10^3 (1.8-7.8); NEUTROPHILS % (AUTO) 63 % (42-75); PLATELET COUNT 346 10^3/uL (130-400); RED BLOOD COUNT 4.35 10^6/uL (4.35-5.85); RED CELL DISTRIBUTION WIDTH 16.5 % (10.0-14.5); WHITE BLOOD COUNT 7.6 10^3/uL (4.3-11.0)
[2017-07-20 15:33] LABS: ALANINE AMINOTRANSFERASE 30 U/L (0-55); ALBUMIN 3.6 GM/DL (3.2-4.5); ANION GAP 8 MMOL/L (5-14); ASPARTATE AMINO TRANSFERASE 40 U/L (5-34); BILIRUBIN,TOTAL 0.4 MG/DL (0.1-1.0); BLOOD UREA NITROGEN 8 MG/DL (7-18); BUN/CREATININE RATIO 10; CALCIUM 8.8 MG/DL (8.5-10.1); CARBON DIOXIDE 25 MMOL/L (21-32); CHLORIDE 106 MMOL/L (98-107); GFR ESTIMATED > 60; GLUCOSE 264 MG/DL (70-105); POTASSIUM 3.7 MMOL/L (3.6-5.0); SODIUM 139 MMOL/L (135-145); TOTAL PROTEIN 6.7 GM/DL (6.4-8.2)
[2017-07-27 13:27] LABS: BASOPHILS % (AUTO) 0 % (0-10); EOSINOPHILS % (AUTO) 0 % (0-10); LYMPHOCYTES # (AUTO) 1.9 X 10^3 (1.0-4.0); LYMPHOCYTES % (AUTO) 25 % (12-44); MEAN CORPUSCULAR HEMOGLOBIN 29 PG (25-34); MEAN CORPUSCULAR HGB CONC 32 G/DL (32-36); MEAN CORPUSCULAR VOLUME 88 FL (80-99); MEAN PLATELET VOLUME 9.6 FL (7.4-10.4); MONOCYTES # (AUTO) 0.8 X 10^3 (0.0-1.0); MONOCYTES % (AUTO) 10 % (0-12); NEUTROPHILS # (AUTO) 5.1 X 10^3 (1.8-7.8); NEUTROPHILS % (AUTO) 65 % (42-75); PLATELET COUNT 338 10^3/uL (130-400); RED BLOOD COUNT 4.53 10^6/uL (4.35-5.85); RED CELL DISTRIBUTION WIDTH 16.1 % (10.0-14.5); WHITE BLOOD COUNT 7.9 10^3/uL (4.3-11.0)
[2017-07-27 13:44] LABS: ANION GAP 9 MMOL/L (5-14); BLOOD UREA NITROGEN 11 MG/DL (7-18); BUN/CREATININE RATIO 15; CALCIUM 9.2 MG/DL (8.5-10.1); CARBON DIOXIDE 25 MMOL/L (21-32); CHLORIDE 103 MMOL/L (98-107); CREATININE SERUM 0.75 MG/DL (0.60-1.30); GFR ESTIMATED > 60; GLUCOSE 168 MG/DL (70-105); POTASSIUM 3.9 MMOL/L (3.6-5.0); SODIUM 137 MMOL/L (135-145)
[2017-08-03 13:26] LABS: BASOPHILS % (AUTO) 0 % (0-10); EOSINOPHILS # (AUTO) 0.1 10^3/uL (0.0-0.3); EOSINOPHILS % (AUTO) 1 % (0-10); LYMPHOCYTES # (AUTO) 1.9 X 10^3 (1.0-4.0); LYMPHOCYTES % (AUTO) 27 % (12-44); MEAN CORPUSCULAR HEMOGLOBIN 29 PG (25-34); MEAN CORPUSCULAR HGB CONC 33 G/DL (32-36); MEAN CORPUSCULAR VOLUME 88 FL (80-99); MEAN PLATELET VOLUME 9.7 FL (7.4-10.4); MONOCYTES # (AUTO) 0.5 X 10^3 (0.0-1.0); MONOCYTES % (AUTO) 8 % (0-12); NEUTROPHILS # (AUTO) 4.7 X 10^3 (1.8-7.8); NEUTROPHILS % (AUTO) 65 % (42-75); PLATELET COUNT 377 10^3/uL (130-400); RED BLOOD COUNT 4.59 10^6/uL (4.35-5.85); RED CELL DISTRIBUTION WIDTH 15.5 % (10.0-14.5); WHITE BLOOD COUNT 7.2 10^3/uL (4.3-11.0)
[2017-08-03 13:54] LABS: ANION GAP 11 MMOL/L (5-14); BLOOD UREA NITROGEN 10 MG/DL (7-18); BUN/CREATININE RATIO 14; CARBON DIOXIDE 24 MMOL/L (21-32); CHLORIDE 105 MMOL/L (98-107); CREATININE SERUM 0.72 MG/DL (0.60-1.30); GFR ESTIMATED > 60; GLUCOSE 137 MG/DL (70-105); POTASSIUM 3.5 MMOL/L (3.6-5.0); SODIUM 140 MMOL/L (135-145)
[2017-08-10 13:36] LABS: BASOPHILS % (AUTO) 1 % (0-10); EOSINOPHILS % (AUTO) 1 % (0-10); LYMPHOCYTES # (AUTO) 1.3 X 10^3 (1.0-4.0); LYMPHOCYTES % (AUTO) 31 % (12-44); MEAN CORPUSCULAR HEMOGLOBIN 29 PG (25-34); MEAN CORPUSCULAR HGB CONC 33 G/DL (32-36); MEAN CORPUSCULAR VOLUME 88 FL (80-99); MEAN PLATELET VOLUME 9.8 FL (7.4-10.4); MONOCYTES # (AUTO) 0.4 X 10^3 (0.0-1.0); MONOCYTES % (AUTO) 9 % (0-12); NEUTROPHILS # (AUTO) 2.4 X 10^3 (1.8-7.8); NEUTROPHILS % (AUTO) 59 % (42-75); PLATELET COUNT 327 10^3/uL (130-400); RED BLOOD COUNT 4.29 10^6/uL (4.35-5.85); RED CELL DISTRIBUTION WIDTH 15.6 % (10.0-14.5); WHITE BLOOD COUNT 4.1 10^3/uL (4.3-11.0)
[2017-08-10 13:51] LABS: ANION GAP 8 MMOL/L (5-14); BLOOD UREA NITROGEN 9 MG/DL (7-18); BUN/CREATININE RATIO 12; CARBON DIOXIDE 25 MMOL/L (21-32); CHLORIDE 103 MMOL/L (98-107); CREATININE SERUM 0.77 MG/DL (0.60-1.30); GFR ESTIMATED > 60; GLUCOSE 253 MG/DL (70-105); POTASSIUM 3.8 MMOL/L (3.6-5.0); SODIUM 136 MMOL/L (135-145)
[2017-08-16 16:01] LABS: BASOPHILS % (AUTO) 1 % (0-10); EOSINOPHILS % (AUTO) 0 % (0-10); LYMPHOCYTES # (AUTO) 1.4 X 10^3 (1.0-4.0); LYMPHOCYTES % (AUTO) 33 % (12-44); MEAN CORPUSCULAR HEMOGLOBIN 29 PG (25-34); MEAN CORPUSCULAR HGB CONC 32 G/DL (32-36); MEAN CORPUSCULAR VOLUME 89 FL (80-99); MEAN PLATELET VOLUME 9.2 FL (7.4-10.4); MONOCYTES # (AUTO) 0.2 X 10^3 (0.0-1.0); MONOCYTES % (AUTO) 6 % (0-12); NEUTROPHILS # (AUTO) 2.6 X 10^3 (1.8-7.8); NEUTROPHILS % (AUTO) 61 % (42-75); PLATELET COUNT 327 10^3/uL (130-400); RED BLOOD COUNT 4.22 10^6/uL (4.35-5.85); WHITE BLOOD COUNT 4.3 10^3/uL (4.3-11.0)
[2017-08-16 16:22] LABS: ANION GAP 9 MMOL/L (5-14); BLOOD UREA NITROGEN 7 MG/DL (7-18); BUN/CREATININE RATIO 10; CALCIUM 8.9 MG/DL (8.5-10.1); CARBON DIOXIDE 27 MMOL/L (21-32); CHLORIDE 104 MMOL/L (98-107); CREATININE SERUM 0.73 MG/DL (0.60-1.30); GFR ESTIMATED > 60; GLUCOSE 125 MG/DL (70-105); POTASSIUM 3.8 MMOL/L (3.6-5.0); SODIUM 140 MMOL/L (135-145)
[~2017-08-24 14:06] MED LIST changes: -BARIUM SUSPENSION 2.1% (VANILLA SILQ) 450 ML PO ONE; -CATHETER FLUSH 10 ML SYR IV PRN; -NS 100 ML (IVPB) BAG IV ONE; +NS IV 500 ML (CANCER CENTER) IV SCH; +ONDANSETRON 16 MG, DEXAMETHASONE 10 MG/NS 50 ML IVPB IV SCH; +PACLitaxel PROTEIN 160 MG in EMPTY IV BAG (PVC) CANCER CTR 1 EA IV SCH; +[UNRECOGNIZED DRUG - MIXTURE] IV SCH
[2017-08-24] MEDS ORDERED: ALTEPLASE 2 MG (CATHFLO) CANCER CENTER IV ONE (14:30)
[2017-08-24 15:21] LABS: BASOPHILS % (AUTO) 0 % (0-10); EOSINOPHILS % (AUTO) 0 % (0-10); LYMPHOCYTES # (AUTO) 1.9 X 10^3 (1.0-4.0); LYMPHOCYTES % (AUTO) 31 % (12-44); MEAN CORPUSCULAR HEMOGLOBIN 29 PG (25-34); MEAN CORPUSCULAR HGB CONC 33 G/DL (32-36); MEAN CORPUSCULAR VOLUME 88 FL (80-99); MEAN PLATELET VOLUME 9.5 FL (7.4-10.4); MONOCYTES # (AUTO) 0.8 X 10^3 (0.0-1.0); MONOCYTES % (AUTO) 12 % (0-12); NEUTROPHILS # (AUTO) 3.5 X 10^3 (1.8-7.8); NEUTROPHILS % (AUTO) 56 % (42-75); PLATELET COUNT 326 10^3/uL (130-400); RED BLOOD COUNT 4.36 10^6/uL (4.35-5.85); RED CELL DISTRIBUTION WIDTH 15.5 % (10.0-14.5); WHITE BLOOD COUNT 6.2 10^3/uL (4.3-11.0)
[2017-08-24 15:46] LABS: ANION GAP 10 MMOL/L (5-14); BLOOD UREA NITROGEN 9 MG/DL (7-18); BUN/CREATININE RATIO 12; CARBON DIOXIDE 23 MMOL/L (21-32); CHLORIDE 102 MMOL/L (98-107); CREATININE SERUM 0.78 MG/DL (0.60-1.30); GFR ESTIMATED > 60; GLUCOSE 291 MG/DL (70-105); POTASSIUM 3.9 MMOL/L (3.6-5.0); SODIUM 135 MMOL/L (135-145)
[2017-08-24 17:42] LABS: ALANINE AMINOTRANSFERASE 28 U/L (0-55); ALBUMIN 3.6 GM/DL (3.2-4.5); ASPARTATE AMINO TRANSFERASE 35 U/L (5-34); BILIRUBIN,TOTAL 0.4 MG/DL (0.1-1.0)
== END 2017-08-26 | disposition home or self-care (01) ==
LOC: ONC 14:06
PROVIDERS: ATTEND Internal Medicine Hematology & Oncology
DX: Z51.11 Encounter for antineoplastic chemotherapy (principal); C50.112 Malignant neoplasm of central portion of left female breast; C77.3 Secondary and unspecified malignant neoplasm of axilla and upper limb lymph nodes; C78.01 Secondary malignant neoplasm of right lung; C78.02 Secondary malignant neoplasm of left lung; I27.2 Other secondary pulmonary hypertension; E11.9 Type 2 diabetes mellitus without complications; Z79.01 Long term (current) use of anticoagulants; Z86.711 Personal history of pulmonary embolism; Z86.718 Personal history of other venous thrombosis and embolism; Z90.12 Acquired absence of left breast and nipple; Z92.21 Personal history of antineoplastic chemotherapy
CPT/HCPCS: 36415; 36591; 36593; 70470; 80048; 80053; 85025; 86300; 96375; 96409; 96413

== ENCOUNTER 2017-09-14 13:56 | Outpatient (RCR) | payer MEDICARE, OTHER ==
[2017-08-31 10:29] LABS: BASOPHILS % (AUTO) 0 % (0-10); EOSINOPHILS % (AUTO) 0 % (0-10); LYMPHOCYTES # (AUTO) 1.6 X 10^3 (1.0-4.0); LYMPHOCYTES % (AUTO) 26 % (12-44); MEAN CORPUSCULAR HEMOGLOBIN 29 PG (25-34); MEAN CORPUSCULAR HGB CONC 33 G/DL (32-36); MEAN CORPUSCULAR VOLUME 88 FL (80-99); MEAN PLATELET VOLUME 9.8 FL (7.4-10.4); MONOCYTES # (AUTO) 0.4 X 10^3 (0.0-1.0); MONOCYTES % (AUTO) 7 % (0-12); NEUTROPHILS # (AUTO) 4.1 X 10^3 (1.8-7.8); NEUTROPHILS % (AUTO) 66 % (42-75); PLATELET COUNT 341 10^3/uL (130-400); RED BLOOD COUNT 4.31 10^6/uL (4.35-5.85); RED CELL DISTRIBUTION WIDTH 15.1 % (10.0-14.5); WHITE BLOOD COUNT 6.2 10^3/uL (4.3-11.0)
[2017-08-31 10:46] LABS: ANION GAP 9 MMOL/L (5-14); BLOOD UREA NITROGEN 13 MG/DL (7-18); BUN/CREATININE RATIO 18; CARBON DIOXIDE 25 MMOL/L (21-32); CHLORIDE 104 MMOL/L (98-107); CREATININE SERUM 0.71 MG/DL (0.60-1.30); GFR ESTIMATED > 60; GLUCOSE 170 MG/DL (70-105); SODIUM 138 MMOL/L (135-145)
[2017-09-07 15:25] LABS: BASOPHILS % (AUTO) 0 % (0-10); EOSINOPHILS % (AUTO) 1 % (0-10); LYMPHOCYTES % (AUTO) 42 % (12-44); MEAN CORPUSCULAR HEMOGLOBIN 29 PG (25-34); MEAN CORPUSCULAR HGB CONC 33 G/DL (32-36); MEAN CORPUSCULAR VOLUME 88 FL (80-99); MEAN PLATELET VOLUME 9.9 FL (7.4-10.4); MONOCYTES # (AUTO) 0.4 X 10^3 (0.0-1.0); MONOCYTES % (AUTO) 8 % (0-12); NEUTROPHILS # (AUTO) 2.2 X 10^3 (1.8-7.8); NEUTROPHILS % (AUTO) 49 % (42-75); PLATELET COUNT 377 10^3/uL (130-400); RED BLOOD COUNT 4.23 10^6/uL (4.35-5.85); RED CELL DISTRIBUTION WIDTH 15.5 % (10.0-14.5); WHITE BLOOD COUNT 4.6 10^3/uL (4.3-11.0)
[2017-09-07 15:45] LABS: ANION GAP 9 MMOL/L (5-14); BLOOD UREA NITROGEN 9 MG/DL (7-18); BUN/CREATININE RATIO 13; CALCIUM 8.9 MG/DL (8.5-10.1); CARBON DIOXIDE 24 MMOL/L (21-32); CHLORIDE 105 MMOL/L (98-107); CREATININE SERUM 0.72 MG/DL (0.60-1.30); GFR ESTIMATED > 60; GLUCOSE 256 MG/DL (70-105); POTASSIUM 3.7 MMOL/L (3.6-5.0); SODIUM 138 MMOL/L (135-145)
[~2017-09-14 13:56] MED LIST changes: -IOHEXOL 350 MG/ML 100 ML (OMNIPAQUE 350) VIAL IV ONE; -[UNRECOGNIZED DRUG - MIXTURE] IV SCH
[2017-09-14 14:12] LABS: BASOPHILS % (AUTO) 0 % (0-10); EOSINOPHILS % (AUTO) 0 % (0-10); LYMPHOCYTES # (AUTO) 1.8 X 10^3 (1.0-4.0); LYMPHOCYTES % (AUTO) 34 % (12-44); MEAN CORPUSCULAR HEMOGLOBIN 29 PG (25-34); MEAN CORPUSCULAR HGB CONC 32 G/DL (32-36); MEAN CORPUSCULAR VOLUME 89 FL (80-99); MEAN PLATELET VOLUME 9.7 FL (7.4-10.4); MONOCYTES # (AUTO) 0.4 X 10^3 (0.0-1.0); MONOCYTES % (AUTO) 8 % (0-12); NEUTROPHILS % (AUTO) 57 % (42-75); PLATELET COUNT 381 10^3/uL (130-400); RED BLOOD COUNT 4.39 10^6/uL (4.35-5.85); WHITE BLOOD COUNT 5.2 10^3/uL (4.3-11.0)
[2017-09-14 14:55] LABS: ANION GAP 6 MMOL/L (5-14); BLOOD UREA NITROGEN 10 MG/DL (7-18); BUN/CREATININE RATIO 13; CALCIUM 9.2 MG/DL (8.5-10.1); CARBON DIOXIDE 27 MMOL/L (21-32); CHLORIDE 105 MMOL/L (98-107); CREATININE SERUM 0.77 MG/DL (0.60-1.30); GFR ESTIMATED > 60; GLUCOSE 192 MG/DL (70-105); SODIUM 138 MMOL/L (135-145)
== END 2017-09-20 13:54 | disposition home or self-care (01) ==
LOC: ONC 13:56
PROVIDERS: ATTEND Internal Medicine Hematology & Oncology
DX: Z51.11 Encounter for antineoplastic chemotherapy (principal); C50.112 Malignant neoplasm of central portion of left female breast; C77.3 Secondary and unspecified malignant neoplasm of axilla and upper limb lymph nodes; C78.01 Secondary malignant neoplasm of right lung; C78.02 Secondary malignant neoplasm of left lung; I27.20 Pulmonary hypertension, unspecified; E11.9 Type 2 diabetes mellitus without complications; Z79.01 Long term (current) use of anticoagulants; Z86.711 Personal history of pulmonary embolism; Z86.718 Personal history of other venous thrombosis and embolism; Z90.12 Acquired absence of left breast and nipple; Z92.21 Personal history of antineoplastic chemotherapy
CPT/HCPCS: 36415; 36591; 80048; 85025; 96375; 96413

== ENCOUNTER 2017-10-13 12:35 | Outpatient (RCR) | payer MEDICARE, OTHER ==
[2017-09-21 14:56] LABS: BASOPHILS % (AUTO) 0 % (0-10); EOSINOPHILS % (AUTO) 0 % (0-10); LYMPHOCYTES # (AUTO) 2.1 X 10^3 (1.0-4.0); LYMPHOCYTES % (AUTO) 26 % (12-44); MEAN CORPUSCULAR HEMOGLOBIN 29 PG (25-34); MEAN CORPUSCULAR HGB CONC 33 G/DL (32-36); MEAN CORPUSCULAR VOLUME 87 FL (80-99); MEAN PLATELET VOLUME 9.4 FL (7.4-10.4); MONOCYTES # (AUTO) 0.9 X 10^3 (0.0-1.0); MONOCYTES % (AUTO) 12 % (0-12); NEUTROPHILS % (AUTO) 62 % (42-75); PLATELET COUNT 320 10^3/uL (130-400); RED BLOOD COUNT 4.53 10^6/uL (4.35-5.85); RED CELL DISTRIBUTION WIDTH 15.8 % (10.0-14.5); WHITE BLOOD COUNT 8.1 10^3/uL (4.3-11.0)
[2017-09-21 15:14] LABS: ALANINE AMINOTRANSFERASE 31 U/L (0-55); ALBUMIN 3.7 GM/DL (3.2-4.5); ANION GAP 7 MMOL/L (5-14); ASPARTATE AMINO TRANSFERASE 33 U/L (5-34); BILIRUBIN,TOTAL 0.4 MG/DL (0.1-1.0); BLOOD UREA NITROGEN 9 MG/DL (7-18); BUN/CREATININE RATIO 13; CALCIUM 8.8 MG/DL (8.5-10.1); CARBON DIOXIDE 25 MMOL/L (21-32); CHLORIDE 106 MMOL/L (98-107); CREATININE SERUM 0.72 MG/DL (0.60-1.30); GFR ESTIMATED > 60; GLUCOSE 181 MG/DL (70-105); POTASSIUM 3.5 MMOL/L (3.6-5.0); SODIUM 138 MMOL/L (135-145); TOTAL PROTEIN 7.1 GM/DL (6.4-8.2)
[2017-09-28 15:02] LABS: BASOPHILS % (AUTO) 0 % (0-10); EOSINOPHILS % (AUTO) 0 % (0-10); LYMPHOCYTES % (AUTO) 28 % (12-44); MEAN CORPUSCULAR HEMOGLOBIN 29 PG (25-34); MEAN CORPUSCULAR HGB CONC 34 G/DL (32-36); MEAN CORPUSCULAR VOLUME 87 FL (80-99); MONOCYTES # (AUTO) 0.5 X 10^3 (0.0-1.0); MONOCYTES % (AUTO) 7 % (0-12); NEUTROPHILS # (AUTO) 4.6 X 10^3 (1.8-7.8); NEUTROPHILS % (AUTO) 64 % (42-75); PLATELET COUNT 333 10^3/uL (130-400); RED BLOOD COUNT 4.32 10^6/uL (4.35-5.85); RED CELL DISTRIBUTION WIDTH 15.2 % (10.0-14.5); WHITE BLOOD COUNT 7.1 10^3/uL (4.3-11.0)
[2017-09-28 15:23] LABS: ANION GAP 9 MMOL/L (5-14); BLOOD UREA NITROGEN 12 MG/DL (7-18); BUN/CREATININE RATIO 15; CALCIUM 8.1 MG/DL (8.5-10.1); CARBON DIOXIDE 21 MMOL/L (21-32); CHLORIDE 107 MMOL/L (98-107); CREATININE SERUM 0.79 MG/DL (0.60-1.30); GFR ESTIMATED > 60; GLUCOSE 315 MG/DL (70-105); POTASSIUM 3.6 MMOL/L (3.6-5.0); SODIUM 137 MMOL/L (135-145)
[2017-10-05 15:13] LABS: BASOPHILS % (AUTO) 1 % (0-10); EOSINOPHILS % (AUTO) 1 % (0-10); LYMPHOCYTES # (AUTO) 2.1 X 10^3 (1.0-4.0); LYMPHOCYTES % (AUTO) 40 % (12-44); MEAN CORPUSCULAR HEMOGLOBIN 30 PG (25-34); MEAN CORPUSCULAR HGB CONC 34 G/DL (32-36); MEAN CORPUSCULAR VOLUME 87 FL (80-99); MEAN PLATELET VOLUME 9.8 FL (7.4-10.4); MONOCYTES # (AUTO) 0.4 X 10^3 (0.0-1.0); MONOCYTES % (AUTO) 7 % (0-12); NEUTROPHILS # (AUTO) 2.7 X 10^3 (1.8-7.8); NEUTROPHILS % (AUTO) 52 % (42-75); PLATELET COUNT 354 10^3/uL (130-400); RED BLOOD COUNT 4.26 10^6/uL (4.35-5.85); RED CELL DISTRIBUTION WIDTH 15.5 % (10.0-14.5); WHITE BLOOD COUNT 5.2 10^3/uL (4.3-11.0)
[2017-10-05 15:27] LABS: ANION GAP 10 MMOL/L (5-14); BLOOD UREA NITROGEN 11 MG/DL (7-18); BUN/CREATININE RATIO 14; CALCIUM 8.9 MG/DL (8.5-10.1); CARBON DIOXIDE 24 MMOL/L (21-32); CHLORIDE 105 MMOL/L (98-107); CREATININE SERUM 0.77 MG/DL (0.60-1.30); GFR ESTIMATED > 60; GLUCOSE 193 MG/DL (70-105); POTASSIUM 3.7 MMOL/L (3.6-5.0); SODIUM 139 MMOL/L (135-145)
[~2017-10-13 12:35] MED LIST changes: -BARIUM SUSPENSION 2.1% (VANILLA SILQ) 450 ML PO ONE; -CATHETER FLUSH 10 ML SYR IV PRN; -IOHEXOL 350 MG/ML 100 ML (OMNIPAQUE 350) VIAL IV ONE; -NS 100 ML (IVPB) BAG IV ONE; +NS IV 500 ML (CANCER CENTER) IV SCH; +ONDANSETRON 16 MG, DEXAMETHASONE 10 MG/NS 50 ML IVPB IV SCH; +PACLitaxel PROTEIN 160 MG in EMPTY IV BAG (PVC) CANCER CTR 1 EA IV SCH
[2017-10-13 13:07] LABS: BASOPHILS % (AUTO) 0 % (0-10); EOSINOPHILS % (AUTO) 0 % (0-10); LYMPHOCYTES % (AUTO) 38 % (12-44); MEAN CORPUSCULAR HEMOGLOBIN 30 PG (25-34); MEAN CORPUSCULAR HGB CONC 34 G/DL (32-36); MEAN CORPUSCULAR VOLUME 88 FL (80-99); MEAN PLATELET VOLUME 9.9 FL (7.4-10.4); MONOCYTES # (AUTO) 0.5 X 10^3 (0.0-1.0); MONOCYTES % (AUTO) 10 % (0-12); NEUTROPHILS # (AUTO) 2.7 X 10^3 (1.8-7.8); NEUTROPHILS % (AUTO) 51 % (42-75); PLATELET COUNT 326 10^3/uL (130-400); RED BLOOD COUNT 4.12 10^6/uL (4.35-5.85); WHITE BLOOD COUNT 5.2 10^3/uL (4.3-11.0)
[2017-10-13 13:21] LABS: ANION GAP 11 MMOL/L (5-14); BLOOD UREA NITROGEN 9 MG/DL (7-18); BUN/CREATININE RATIO 12; CALCIUM 8.6 MG/DL (8.5-10.1); CARBON DIOXIDE 23 MMOL/L (21-32); CHLORIDE 104 MMOL/L (98-107); CREATININE SERUM 0.73 MG/DL (0.60-1.30); GFR ESTIMATED > 60; GLUCOSE 219 MG/DL (70-105); POTASSIUM 3.9 MMOL/L (3.6-5.0); SODIUM 138 MMOL/L (135-145)
[2017-10-18 09:09] LABS: BASOPHILS % (AUTO) 0 % (0-10); EOSINOPHILS % (AUTO) 1 % (0-10); LYMPHOCYTES # (AUTO) 1.5 X 10^3 (1.0-4.0); LYMPHOCYTES % (AUTO) 25 % (12-44); MEAN CORPUSCULAR HEMOGLOBIN 30 PG (25-34); MEAN CORPUSCULAR HGB CONC 34 G/DL (32-36); MEAN CORPUSCULAR VOLUME 88 FL (80-99); MEAN PLATELET VOLUME 9.8 FL (7.4-10.4); MONOCYTES # (AUTO) 0.7 X 10^3 (0.0-1.0); MONOCYTES % (AUTO) 12 % (0-12); NEUTROPHILS # (AUTO) 3.8 X 10^3 (1.8-7.8); NEUTROPHILS % (AUTO) 62 % (42-75); PLATELET COUNT 294 10^3/uL (130-400); RED BLOOD COUNT 4.14 10^6/uL (4.35-5.85); RED CELL DISTRIBUTION WIDTH 16.2 % (10.0-14.5); WHITE BLOOD COUNT 6.1 10^3/uL (4.3-11.0)
[2017-10-18 09:28] LABS: ALANINE AMINOTRANSFERASE 22 U/L (0-55); ALBUMIN 3.5 GM/DL (3.2-4.5); ANION GAP 10 MMOL/L (5-14); ASPARTATE AMINO TRANSFERASE 22 U/L (5-34); BILIRUBIN,TOTAL 0.4 MG/DL (0.1-1.0); BLOOD UREA NITROGEN 9 MG/DL (7-18); BUN/CREATININE RATIO 12; CALCIUM 8.8 MG/DL (8.5-10.1); CARBON DIOXIDE 22 MMOL/L (21-32); CHLORIDE 108 MMOL/L (98-107); CREATININE SERUM 0.76 MG/DL (0.60-1.30); GFR ESTIMATED > 60; GLUCOSE 226 MG/DL (70-105); POTASSIUM 4.1 MMOL/L (3.6-5.0); SODIUM 140 MMOL/L (135-145); TOTAL PROTEIN 6.6 GM/DL (6.4-8.2)
== END 2017-10-18 09:08 | disposition home or self-care (01) ==
LOC: ONC 12:35
PROVIDERS: ATTEND Internal Medicine Hematology & Oncology
DX: Z51.11 Encounter for antineoplastic chemotherapy (principal); C50.112 Malignant neoplasm of central portion of left female breast; C77.3 Secondary and unspecified malignant neoplasm of axilla and upper limb lymph nodes; C78.01 Secondary malignant neoplasm of right lung; C78.02 Secondary malignant neoplasm of left lung; C78.7 Secondary malignant neoplasm of liver and intrahepatic bile duct; I27.20 Pulmonary hypertension, unspecified; E11.9 Type 2 diabetes mellitus without complications; Z79.01 Long term (current) use of anticoagulants; Z86.711 Personal history of pulmonary embolism; Z86.718 Personal history of other venous thrombosis and embolism; Z90.12 Acquired absence of left breast and nipple; Z92.21 Personal history of antineoplastic chemotherapy
CPT/HCPCS: 36591; 80048; 80053; 85025; 96375; 96413

== ENCOUNTER → 2017-10-13 | Outpatient (CLI) | payer MEDICARE ==
[~2017-10-13] MED LIST changes: +BARIUM SUSPENSION 2.1% (VANILLA SILQ) 450 ML PO ONE; +CATHETER FLUSH 10 ML SYR IV PRN; +IOHEXOL 350 MG/ML 100 ML (OMNIPAQUE 350) VIAL IV ONE; +NS 100 ML (IVPB) BAG IV ONE; -NS IV 500 ML (CANCER CENTER) IV SCH; -ONDANSETRON 16 MG, DEXAMETHASONE 10 MG/NS 50 ML IVPB IV SCH; -PACLitaxel PROTEIN 160 MG in EMPTY IV BAG (PVC) CANCER CTR 1 EA IV SCH
--- NOTE | 2017-10-13 15:32 | Diagnostic Imaging Report ---
PROCEDURE: CT chest with contrast, CT abdomen and pelvis with and without contrast. TECHNIQUE: Pre and post intravenous contrast axial imaging of the abdomen and pelvis and post contrast axial imaging of the chest were performed. INDICATION: Back pain, left of midline. Patient has history of metastatic breast cancer. COMPARISON: Exam compared to 07/17/2017 and correlated with bone scan of that same date. FINDINGS: Chest: Linda-fissural right middle lobe mass is decreased with short axis transverse thickness of 7 mm today, previously 11 mm. The largest mass in the right lower lobe posterolaterally today measures 1.7 x 1.5 cm, previously 2.4 x 1.7 cm. Some curvilinear partial atelectasis in the lingular segment of the left upper lobe has improved. Additional lung masses are stable or smaller. No adverse development. No thoracic adenopathy. No chest effusion. Mixed lytic sclerotic lesion in the right humeral head is now apparent, previously was above the [id number]. There is some increased sclerosis of the left seventh thoracic transverse process, previously diffusely lytic and lucent. This bone does show some fragmentation, likely pathological fracture. Its change to a more sclerotic appearance may reflect a positive development. No obvious new thoracic bony lesion is found. Abdomen and pelvis: Mass in right hepatic lobe superolaterally today measures a diameter of about 2.2 cm, previously 3.2 cm. Second mass in right hepatic lobe more anteriorly today has a diameter of 1.5 cm, previously 2 cm. A subtle nodule just to right of the falciform ligament measures 8 mm, previously imperceptible. The mass in the caudal aspect of the right hepatic lobe measures 8 mm, previously imperceptible. We note interval improvement in generalized fatty infiltration of the liver and the newly visualized masses may have become intervally apparent on a technical basis. An additional left lobe mass near the dome anteriorly is 13 mm, previously not apparent. There is no bile duct dilatation. There is no adrenal mass. Pancreas is unremarkable. The kidneys are normal. Spleen is negative. There is a small hiatal hernia. There is no abdominopelvic mesenteric or retroperitoneal lymphadenopathy. Sclerotic lesion in the left innominate bone superiorly is less conspicuous. No new bony lesion. No pathological fracture. No ascites. No fluid collection. IMPRESSION: 1. Chest: Improvements in pulmonary parenchymal metastases. A left T7 sclerotic fragmented thoracic transverse process is presumed metastatic and pathological fracture. This was previously lytic and the increased density itself may reflect partial healing. No obvious new lesion. Right humeral mixed lytic and sclerotic focus was previously outside the [id number]. 2. Abdomen: Multiple liver masses are redemonstrated, those present on the prior are stable or decreased in size. Additional masses have now become apparent. It is unclear if this is progressive metastatic disease or better lesional conspicuity owing to an improvement in background fatty infiltration. Improved findings of sclerotic lesion in left innominate bone with no new osseous abnormality. No bowel, biliary, or urinary tract obstruction. No ascites or lymphadenopathy. Dictated by: Dictated on workstation # [id number]
== END ==
LOC: RAD 13:11
PROVIDERS: ATTEND Internal Medicine Hematology & Oncology
DX: C50.112 Malignant neoplasm of central portion of left female breast (principal); C78.7 Secondary malignant neoplasm of liver and intrahepatic bile duct; C78.01 Secondary malignant neoplasm of right lung; M84.58XA Pathological fracture in neoplastic disease, other specified site, initial encounter for fracture
CPT/HCPCS: 71260; 74178

== ENCOUNTER → 2017-10-17 | Outpatient (CLI) | payer MEDICARE, OTHER ==
[~2017-10-17] MED LIST changes: +BARIUM SUSPENSION 2.1% (VANILLA SILQ) 450 ML PO ONE; +CATHETER FLUSH 10 ML SYR IV PRN; +IOHEXOL 350 MG/ML 100 ML (OMNIPAQUE 350) VIAL IV ONE; +NS 100 ML (IVPB) BAG IV ONE; -NS IV 500 ML (CANCER CENTER) IV SCH; -ONDANSETRON 16 MG, DEXAMETHASONE 10 MG/NS 50 ML IVPB IV SCH; -PACLitaxel PROTEIN 160 MG in EMPTY IV BAG (PVC) CANCER CTR 1 EA IV SCH
--- NOTE | 2017-10-17 18:53 | Diagnostic Imaging Report ---
Whole body bone scan. Technique: After the intravenous administration of 25 mCi of Technetium 99m MDP, whole body delayed phase bone scan images were obtained with lateral views of the head and neck and the chest regions. Indication: Breast cancer. Findings: When compared to bone scan of 07/17/2017, there are again noted lesions in the skull, midthoracic spine, proximal right humerus and in the sacrum which appear to be associated with increased intensity of uptake compared to the previous exam. There are no new lesions identified. Renal activity and bladder activity from excretion and superimposed joints degenerative changes are noted. IMPRESSION: Multiple skeletal metastases are again demonstrated with increased intensity. No new lesion seen. The increased intensity could relate to increased sclerosis from healing and not necessarily a sign of worsening. Correlate clinically. Dictated by: Dictated on workstation # [id number]
== END ==
LOC: RAD 11:48
PROVIDERS: ATTEND Internal Medicine Hematology & Oncology
DX: C79.51 Secondary malignant neoplasm of bone (principal); C78.7 Secondary malignant neoplasm of liver and intrahepatic bile duct; C50.112 Malignant neoplasm of central portion of left female breast
CPT/HCPCS: 78306

== ENCOUNTER → 2017-11-23 | Outpatient (CLI) | payer MEDICARE ==
[~2017-11-23] MED LIST changes: +ACHD5005 PO; -BARIUM SUSPENSION 2.1% (VANILLA SILQ) 450 ML PO ONE; -CATHETER FLUSH 10 ML SYR IV PRN; -HYDR-3812 PO; -IOHEXOL 350 MG/ML 100 ML (OMNIPAQUE 350) VIAL IV ONE; -NS 100 ML (IVPB) BAG IV ONE
--- NOTE | 2017-11-23 15:07 | Diagnostic Imaging Report ---
INDICATION: Back pain. COMPARISON: None. FINDINGS: Frontal and lateral views of the lumbar spine were obtained. Alignment and vertebral heights are maintained. There is no fracture or destructive process. Mild multilevel degenerative disease is noted in the lumbar spine. Limited views of the abdomen demonstrate nonobstructive bowel gas pattern. IMPRESSION: 1. No acute fracture or dislocation of the lumbar spine. 2. Mild multilevel degenerative changes. Dictated by: Dictated on workstation # [id number]
== END ==
LOC: RAD 13:28
PROVIDERS: ATTEND Nurse Practitioner Adult Health
DX: M47.816 Spondylosis without myelopathy or radiculopathy, lumbar region (principal); C50.112 Malignant neoplasm of central portion of left female breast; C79.51 Secondary malignant neoplasm of bone
CPT/HCPCS: 72100

== ENCOUNTER → 2017-12-11 | Outpatient (CLI) | payer MEDICARE ==
[~2017-12-11] MED LIST changes: +BARIUM SUSPENSION 2.1% (VANILLA SILQ) 450 ML PO ONE; +CATHETER FLUSH 10 ML SYR IV PRN; +IOHEXOL 350 MG/ML 100 ML (OMNIPAQUE 350) VIAL IV ONE; +NS 100 ML (IVPB) BAG IV ONE
--- NOTE | 2017-12-11 12:50 | Diagnostic Imaging Report ---
PROCEDURE: CT chest with contrast, CT abdomen and pelvis with and without contrast. TECHNIQUE: Pre and post intravenous contrast axial imaging of the abdomen and pelvis and post contrast axial imaging of the chest were performed. INDICATION: Right flank pain, history of breast cancer. FINDINGS: On the previous CT chest, abdomen and pelvis exam of 10/13/17, there is no evidence for obstruction of either collecting system by a calculus. On this exam, there is still no sign of nephrolithiasis or urolithiasis and both kidneys do show excretion of the contrast. The urinary bladder is grossly unremarkable. On the prior exam, the appendix did not seem to be abnormally thickened measuring approximately 3 mm. On this exam, the appendix is thicker than seen on the prior study and now measures 6 mm (normal 8 mm or less). There is no distortion of the periappendiceal fat to suggest acute appendicitis but the reason for the increased prominence of the appendix is not certain. There is no pelvic mass or free fluid collection to suggest an acute abnormality. The uterus is grossly unremarkable. There are a few fluid-filled segments of small bowel present. This appearance is nonspecific. There is no sign of a bowel obstruction. The previous study did show multiple low-density lesions throughout the liver. The largest of these was in the right lobe near the dome of the diaphragm and measured approximately 2.2 cm in size. On this exam, all the liver lesions have diminished in size. The lesion in the superolateral aspect of the right lobe near the diaphragm seen on the prior study now measures only 0.9 cm. The spleen, pancreas, adrenals, aorta and inferior vena cava show no sign of an acute abnormality. The stomach is filled with oral contrast and difficult to assess. The hiatal hernia seen previously is again evident and no different. The images through the thorax show that the heart size is within normal limits and stable when compared to the prior exam. There are no coronary artery calcifications identified. The aorta is not abnormally dilated and there is no sign of a dissection. The pulmonary arteries are not well opacified but there is no definite defect to indicate a pulmonary embolus. The previous exam did note multiple lung nodules. Those nodules have either decreased in size or resolved in the interval since the prior exam. The [place] fissural nodule on the right measuring 1.7 x 1.5 cm now measures 1.6 x 1.3 cm. No new mass has developed. There is no mediastinal or hilar adenopathy. The thyroid gland is generally unremarkable. There is no obvious right breast mass. The left breast is surgically absent. The previous study did suggest a pathologic fracture of the left transverse process of T7. That finding is not as well visualized on this exam. The area of mixed density involving the right humeral head seen on the previous study does not appear to have changed significantly. The area of sclerosis in the left iliac bone noted previous is also unchanged. No new fracture or destructive lesion has developed. IMPRESSION: 1. There is no acute abnormality to account for the patient's right flank pain. The appendix does measure somewhat larger than on the prior exam but is still within normal limits. Furthermore, there is no distortion of the periappendiceal fat to suggest acute appendicitis. 2. The lesions within the liver and the parenchymal lung masses seen previously have decreased in size. 3. The suspected pathologic fracture of the left transverse process of T7 seen on the prior exam is not as well visualized on this study but does not appear to have changed adversely. The bony lesion in the right humeral head and the area of sclerosis in the left iliac bone seen previously are stable. Dictated by: Dictated on workstation # [id number]
--- NOTE | 2017-12-11 15:38 | Diagnostic Imaging Report ---
EXAMINATION: Whole-body bone scan. INDICATION: Carcinoma of the breast. TECHNIQUE: This study was performed following the administration of 27 mCi of 99m-technetium MDP. Anterior and posterior whole-body images were obtained as well as lateral views of the skull and thorax. FINDINGS: The previous study of 10/17/2017 noted areas of abnormal uptake involving multiple osseous structures. This appearance was felt to be related to skeletal metastatic disease. On this exam, there are still areas of abnormal uptake involving the proximal right humerus in the mid thoracic spine. However, these lesions are not as intense as on the prior exam. The areas of increased activity involving the calvarium and sacrum seen on the prior exam are still evident although not nearly as conspicuous as on the previous study.. No new area of abnormal uptake has developed since the prior exam. Both kidneys do show excretion of the radiotracer. IMPRESSION: The appearance of the bone scan has improved somewhat since the prior study as the areas of abnormal uptake involving the calvarium and sacrum are not as intense. The lesions in the proximal right humerus and mid thoracic spine are also somewhat less striking. No new abnormality has developed. Dictated by: Dictated on workstation # [id number]
== END ==
LOC: CARD 11:20
PROVIDERS: ATTEND Internal Medicine Hematology & Oncology
DX: Z01.89 Encounter for other specified special examinations (principal); C50.112 Malignant neoplasm of central portion of left female breast; C78.7 Secondary malignant neoplasm of liver and intrahepatic bile duct; C78.01 Secondary malignant neoplasm of right lung; C79.51 Secondary malignant neoplasm of bone; M54.5 Low back pain
CPT/HCPCS: 71260; 74178; 78306

== ENCOUNTER 2018-01-11 13:06 | Outpatient (RCR) | payer MEDICARE ==
[2017-10-26 13:24] LABS: BASOPHILS % (AUTO) 0 % (0-10); EOSINOPHILS % (AUTO) 1 % (0-10); HEMATOCRIT 37 % (35-52); HEMOGLOBIN 12.6 G/DL (11.5-16.0); LYMPHOCYTES # (AUTO) 1.9 X 10^3 (1.0-4.0); LYMPHOCYTES % (AUTO) 25 % (12-44); MEAN CORPUSCULAR HEMOGLOBIN 30 PG (25-34); MEAN CORPUSCULAR HGB CONC 34 G/DL (32-36); MEAN CORPUSCULAR VOLUME 88 FL (80-99); MEAN PLATELET VOLUME 10.1 FL (7.4-10.4); MONOCYTES # (AUTO) 0.7 X 10^3 (0.0-1.0); MONOCYTES % (AUTO) 9 % (0-12); NEUTROPHILS # (AUTO) 5.1 X 10^3 (1.8-7.8); NEUTROPHILS % (AUTO) 66 % (42-75); PLATELET COUNT 350 10^3/uL (130-400); RED BLOOD COUNT 4.25 10^6/uL (4.35-5.85); RED CELL DISTRIBUTION WIDTH 15.7 % (10.0-14.5); WHITE BLOOD COUNT 7.8 10^3/uL (4.3-11.0)
[2017-10-26 13:40] LABS: BUN/CREATININE RATIO 15; CALCIUM 8.7 MG/DL (8.5-10.1); CARBON DIOXIDE 23 MMOL/L (21-32); CHLORIDE 102 MMOL/L (98-107); CREATININE SERUM 0.74 MG/DL (0.60-1.30); GFR ESTIMATED > 60; GLUCOSE 233 MG/DL (70-105); POTASSIUM 3.8 MMOL/L (3.6-5.0); SODIUM 136 MMOL/L (135-145)
[2017-11-02 13:23] LABS: BASOPHILS % (AUTO) 0 % (0-10); EOSINOPHILS % (AUTO) 1 % (0-10); HEMATOCRIT 38 % (35-52); HEMOGLOBIN 12.5 G/DL (11.5-16.0); LYMPHOCYTES # (AUTO) 1.7 X 10^3 (1.0-4.0); LYMPHOCYTES % (AUTO) 35 % (12-44); MEAN CORPUSCULAR HEMOGLOBIN 29 PG (25-34); MEAN CORPUSCULAR HGB CONC 33 G/DL (32-36); MEAN CORPUSCULAR VOLUME 88 FL (80-99); MEAN PLATELET VOLUME 9.7 FL (7.4-10.4); MONOCYTES # (AUTO) 0.3 X 10^3 (0.0-1.0); MONOCYTES % (AUTO) 7 % (0-12); NEUTROPHILS # (AUTO) 2.8 X 10^3 (1.8-7.8); NEUTROPHILS % (AUTO) 57 % (42-75); PLATELET COUNT 330 10^3/uL (130-400); RED BLOOD COUNT 4.29 10^6/uL (4.35-5.85); RED CELL DISTRIBUTION WIDTH 15.7 % (10.0-14.5); WHITE BLOOD COUNT 4.8 10^3/uL (4.3-11.0)
[2017-11-02 13:39] LABS: BUN/CREATININE RATIO 16; CALCIUM 9.1 MG/DL (8.5-10.1); CARBON DIOXIDE 25 MMOL/L (21-32); CHLORIDE 106 MMOL/L (98-107); GFR ESTIMATED > 60; GLUCOSE 164 MG/DL (70-105); POTASSIUM 3.7 MMOL/L (3.6-5.0); SODIUM 140 MMOL/L (135-145)
[2017-11-09 14:01] LABS: BASOPHILS % (AUTO) 1 % (0-10); EOSINOPHILS % (AUTO) 1 % (0-10); HEMATOCRIT 39 % (35-52); HEMOGLOBIN 12.8 G/DL (11.5-16.0); LYMPHOCYTES # (AUTO) 1.8 X 10^3 (1.0-4.0); LYMPHOCYTES % (AUTO) 37 % (12-44); MEAN CORPUSCULAR HEMOGLOBIN 30 PG (25-34); MEAN CORPUSCULAR HGB CONC 33 G/DL (32-36); MEAN CORPUSCULAR VOLUME 89 FL (80-99); MEAN PLATELET VOLUME 9.8 FL (7.4-10.4); MONOCYTES # (AUTO) 0.5 X 10^3 (0.0-1.0); MONOCYTES % (AUTO) 10 % (0-12); NEUTROPHILS # (AUTO) 2.5 X 10^3 (1.8-7.8); NEUTROPHILS % (AUTO) 52 % (42-75); PLATELET COUNT 358 10^3/uL (130-400); RED BLOOD COUNT 4.32 10^6/uL (4.35-5.85); RED CELL DISTRIBUTION WIDTH 16.4 % (10.0-14.5); WHITE BLOOD COUNT 4.8 10^3/uL (4.3-11.0)
[2017-11-09 14:21] LABS: BUN/CREATININE RATIO 10; CALCIUM 8.9 MG/DL (8.5-10.1); CARBON DIOXIDE 27 MMOL/L (21-32); CHLORIDE 103 MMOL/L (98-107); CREATININE SERUM 0.73 MG/DL (0.60-1.30); GFR ESTIMATED > 60; GLUCOSE 92 MG/DL (70-105); SODIUM 138 MMOL/L (135-145)
[2017-11-16 10:29] LABS: BASOPHILS % (AUTO) 0 % (0-10); EOSINOPHILS % (AUTO) 0 % (0-10); HEMATOCRIT 39 % (35-52); HEMOGLOBIN 13.1 G/DL (11.5-16.0); LYMPHOCYTES % (AUTO) 27 % (12-44); MEAN CORPUSCULAR HEMOGLOBIN 30 PG (25-34); MEAN CORPUSCULAR HGB CONC 34 G/DL (32-36); MEAN CORPUSCULAR VOLUME 88 FL (80-99); MEAN PLATELET VOLUME 9.7 FL (7.4-10.4); MONOCYTES # (AUTO) 0.8 X 10^3 (0.0-1.0); MONOCYTES % (AUTO) 11 % (0-12); NEUTROPHILS # (AUTO) 4.6 X 10^3 (1.8-7.8); NEUTROPHILS % (AUTO) 62 % (42-75); PLATELET COUNT 297 10^3/uL (130-400); RED BLOOD COUNT 4.44 10^6/uL (4.35-5.85); RED CELL DISTRIBUTION WIDTH 16.1 % (10.0-14.5); WHITE BLOOD COUNT 7.4 10^3/uL (4.3-11.0)
[2017-11-16 10:55] LABS: ALANINE AMINOTRANSFERASE 22 U/L (0-55); ALBUMIN 3.8 GM/DL (3.2-4.5); ALKALINE PHOSPHATASE 239 U/L (40-136); BILIRUBIN,TOTAL 0.4 MG/DL (0.1-1.0); BUN/CREATININE RATIO 19; CALCIUM 9.3 MG/DL (8.5-10.1); CARBON DIOXIDE 24 MMOL/L (21-32); CHLORIDE 101 MMOL/L (98-107); CREATININE SERUM 0.78 MG/DL (0.60-1.30); GFR ESTIMATED > 60; GLUCOSE 241 MG/DL (70-105); POTASSIUM 4.3 MMOL/L (3.6-5.0); SODIUM 136 MMOL/L (135-145); TOTAL PROTEIN 7.3 GM/DL (6.4-8.2)
[2017-11-23 13:15] LABS: BASOPHILS % (AUTO) 0 % (0-10); EOSINOPHILS % (AUTO) 0 % (0-10); HEMATOCRIT 37 % (35-52); HEMOGLOBIN 12.5 G/DL (11.5-16.0); LYMPHOCYTES # (AUTO) 2.1 X 10^3 (1.0-4.0); LYMPHOCYTES % (AUTO) 27 % (12-44); MEAN CORPUSCULAR HEMOGLOBIN 30 PG (25-34); MEAN CORPUSCULAR HGB CONC 34 G/DL (32-36); MEAN CORPUSCULAR VOLUME 88 FL (80-99); MONOCYTES # (AUTO) 0.5 X 10^3 (0.0-1.0); MONOCYTES % (AUTO) 6 % (0-12); NEUTROPHILS # (AUTO) 5.1 X 10^3 (1.8-7.8); NEUTROPHILS % (AUTO) 66 % (42-75); PLATELET COUNT 300 10^3/uL (130-400); RED CELL DISTRIBUTION WIDTH 15.5 % (10.0-14.5); WHITE BLOOD COUNT 7.8 10^3/uL (4.3-11.0)
[2017-11-23 13:31] LABS: BUN/CREATININE RATIO 14; CALCIUM 8.8 MG/DL (8.5-10.1); CARBON DIOXIDE 21 MMOL/L (21-32); CHLORIDE 103 MMOL/L (98-107); CREATININE SERUM 0.76 MG/DL (0.60-1.30); GFR ESTIMATED > 60; GLUCOSE 313 MG/DL (70-105); POTASSIUM 3.9 MMOL/L (3.6-5.0); SODIUM 136 MMOL/L (135-145)
[2017-11-30 15:34] LABS: BASOPHILS % (AUTO) 0 % (0-10); EOSINOPHILS % (AUTO) 1 % (0-10); HEMATOCRIT 33 % (35-52); HEMOGLOBIN 12.7 G/DL (11.5-16.0); LYMPHOCYTES # (AUTO) 2.2 X 10^3 (1.0-4.0); LYMPHOCYTES % (AUTO) 40 % (12-44); MEAN CORPUSCULAR HEMOGLOBIN 30 PG (25-34); MEAN CORPUSCULAR HGB CONC 38 G/DL (32-36); MEAN CORPUSCULAR VOLUME 78 FL (80-99); MEAN PLATELET VOLUME 8.9 FL (7.4-10.4); MONOCYTES # (AUTO) 0.5 X 10^3 (0.0-1.0); MONOCYTES % (AUTO) 9 % (0-12); NEUTROPHILS # (AUTO) 2.7 X 10^3 (1.8-7.8); NEUTROPHILS % (AUTO) 49 % (42-75); PLATELET COUNT 372 10^3/uL (130-400); RED BLOOD COUNT 4.26 10^6/uL (4.35-5.85); RED CELL DISTRIBUTION WIDTH 16.5 % (10.0-14.5); WHITE BLOOD COUNT 5.4 10^3/uL (4.3-11.0)
[2017-11-30 15:51] LABS: BUN/CREATININE RATIO 13; CALCIUM 8.8 MG/DL (8.5-10.1); CARBON DIOXIDE 22 MMOL/L (21-32); CHLORIDE 106 MMOL/L (98-107); CREATININE SERUM 0.72 MG/DL (0.60-1.30); GFR ESTIMATED > 60; GLUCOSE 205 MG/DL (70-105); POTASSIUM 3.4 MMOL/L (3.6-5.0); SODIUM 138 MMOL/L (135-145)
[2017-12-06 13:46] LABS: BASOPHILS % (AUTO) 0 % (0-10); EOSINOPHILS % (AUTO) 0 % (0-10); HEMATOCRIT 38 % (35-52); HEMOGLOBIN 12.8 G/DL (11.5-16.0); LYMPHOCYTES # (AUTO) 1.5 X 10^3 (1.0-4.0); LYMPHOCYTES % (AUTO) 32 % (12-44); MEAN CORPUSCULAR HEMOGLOBIN 30 PG (25-34); MEAN CORPUSCULAR HGB CONC 34 G/DL (32-36); MEAN CORPUSCULAR VOLUME 90 FL (80-99); MEAN PLATELET VOLUME 9.7 FL (7.4-10.4); MONOCYTES # (AUTO) 0.4 X 10^3 (0.0-1.0); MONOCYTES % (AUTO) 8 % (0-12); NEUTROPHILS # (AUTO) 2.8 X 10^3 (1.8-7.8); NEUTROPHILS % (AUTO) 59 % (42-75); PLATELET COUNT 346 10^3/uL (130-400); RED BLOOD COUNT 4.21 10^6/uL (4.35-5.85); RED CELL DISTRIBUTION WIDTH 16.2 % (10.0-14.5); WHITE BLOOD COUNT 4.8 10^3/uL (4.3-11.0)
[2017-12-06 14:06] LABS: BUN/CREATININE RATIO 11; CALCIUM 9.1 MG/DL (8.5-10.1); CARBON DIOXIDE 24 MMOL/L (21-32); CHLORIDE 103 MMOL/L (98-107); CREATININE SERUM 0.74 MG/DL (0.60-1.30); GFR ESTIMATED > 60; GLUCOSE 232 MG/DL (70-105); SODIUM 137 MMOL/L (135-145)
[2017-12-14 14:40] LABS: BASOPHILS % (AUTO) 0 % (0-10); EOSINOPHILS % (AUTO) 0 % (0-10); HEMATOCRIT 38 % (35-52); HEMOGLOBIN 12.9 G/DL (11.5-16.0); LYMPHOCYTES # (AUTO) 1.8 X 10^3 (1.0-4.0); LYMPHOCYTES % (AUTO) 25 % (12-44); MEAN CORPUSCULAR HEMOGLOBIN 30 PG (25-34); MEAN CORPUSCULAR HGB CONC 34 G/DL (32-36); MEAN CORPUSCULAR VOLUME 88 FL (80-99); MEAN PLATELET VOLUME 9.6 FL (7.4-10.4); MONOCYTES # (AUTO) 0.9 X 10^3 (0.0-1.0); MONOCYTES % (AUTO) 12 % (0-12); NEUTROPHILS # (AUTO) 4.7 X 10^3 (1.8-7.8); NEUTROPHILS % (AUTO) 63 % (42-75); PLATELET COUNT 315 10^3/uL (130-400); RED BLOOD COUNT 4.31 10^6/uL (4.35-5.85); RED CELL DISTRIBUTION WIDTH 15.7 % (10.0-14.5); WHITE BLOOD COUNT 7.5 10^3/uL (4.3-11.0)
[2017-12-14 15:01] LABS: ALANINE AMINOTRANSFERASE 24 U/L (0-55); ALBUMIN 3.6 GM/DL (3.2-4.5); ALKALINE PHOSPHATASE 178 U/L (40-136); BILIRUBIN,TOTAL 0.4 MG/DL (0.1-1.0); BUN/CREATININE RATIO 12; CALCIUM 9.1 MG/DL (8.5-10.1); CARBON DIOXIDE 22 MMOL/L (21-32); CHLORIDE 105 MMOL/L (98-107); CREATININE SERUM 0.74 MG/DL (0.60-1.30); GFR ESTIMATED > 60; GLUCOSE 185 MG/DL (70-105); POTASSIUM 3.7 MMOL/L (3.6-5.0); SODIUM 138 MMOL/L (135-145); TOTAL PROTEIN 6.9 GM/DL (6.4-8.2)
[2017-12-28 13:12] LABS: BASOPHILS % (AUTO) 0 % (0-10); EOSINOPHILS % (AUTO) 0 % (0-10); HEMATOCRIT 39 % (35-52); HEMOGLOBIN 13.1 G/DL (11.5-16.0); LYMPHOCYTES % (AUTO) 33 % (12-44); MEAN CORPUSCULAR HEMOGLOBIN 30 PG (25-34); MEAN CORPUSCULAR HGB CONC 34 G/DL (32-36); MEAN CORPUSCULAR VOLUME 87 FL (80-99); MEAN PLATELET VOLUME 9.7 FL (7.4-10.4); MONOCYTES # (AUTO) 0.8 X 10^3 (0.0-1.0); MONOCYTES % (AUTO) 14 % (0-12); NEUTROPHILS # (AUTO) 3.2 X 10^3 (1.8-7.8); NEUTROPHILS % (AUTO) 53 % (42-75); PLATELET COUNT 314 10^3/uL (130-400); RED BLOOD COUNT 4.44 10^6/uL (4.35-5.85); RED CELL DISTRIBUTION WIDTH 15.3 % (10.0-14.5)
[2017-12-28 13:28] LABS: BUN/CREATININE RATIO 9; CALCIUM 9.1 MG/DL (8.5-10.1); CARBON DIOXIDE 23 MMOL/L (21-32); CHLORIDE 104 MMOL/L (98-107); CREATININE SERUM 0.75 MG/DL (0.60-1.30); GFR ESTIMATED > 60; GLUCOSE 223 MG/DL (70-105); POTASSIUM 3.5 MMOL/L (3.6-5.0); SODIUM 137 MMOL/L (135-145)
[2018-01-03 13:39] LABS: BASOPHILS % (AUTO) 0 % (0-10); EOSINOPHILS % (AUTO) 1 % (0-10); HEMATOCRIT 38 % (35-52); HEMOGLOBIN 12.9 G/DL (11.5-16.0); LYMPHOCYTES # (AUTO) 1.6 X 10^3 (1.0-4.0); LYMPHOCYTES % (AUTO) 30 % (12-44); MEAN CORPUSCULAR HEMOGLOBIN 30 PG (25-34); MEAN CORPUSCULAR HGB CONC 34 G/DL (32-36); MEAN CORPUSCULAR VOLUME 88 FL (80-99); MEAN PLATELET VOLUME 9.9 FL (7.4-10.4); MONOCYTES # (AUTO) 0.3 X 10^3 (0.0-1.0); MONOCYTES % (AUTO) 5 % (0-12); NEUTROPHILS # (AUTO) 3.5 X 10^3 (1.8-7.8); NEUTROPHILS % (AUTO) 65 % (42-75); PLATELET COUNT 306 10^3/uL (130-400); RED BLOOD COUNT 4.35 10^6/uL (4.35-5.85); RED CELL DISTRIBUTION WIDTH 15.2 % (10.0-14.5); WHITE BLOOD COUNT 5.4 10^3/uL (4.3-11.0)
[2018-01-03 13:58] LABS: BUN/CREATININE RATIO 10; CALCIUM 9.1 MG/DL (8.5-10.1); CARBON DIOXIDE 24 MMOL/L (21-32); CHLORIDE 104 MMOL/L (98-107); CREATININE SERUM 0.77 MG/DL (0.60-1.30); GFR ESTIMATED > 60; GLUCOSE 213 MG/DL (70-105); POTASSIUM 4.2 MMOL/L (3.6-5.0); SODIUM 138 MMOL/L (135-145)
[~2018-01-11] VITALS: Ht 171.4 cm; Wt 120.2 kg
[~2018-01-11 13:06] MED LIST changes: -BARIUM SUSPENSION 2.1% (VANILLA SILQ) 450 ML PO ONE; -CATHETER FLUSH 10 ML SYR IV PRN; -IOHEXOL 350 MG/ML 100 ML (OMNIPAQUE 350) VIAL IV ONE; -NS 100 ML (IVPB) BAG IV ONE; +NS IV 500 ML (CANCER CENTER) 500 ML ONE; +NS IV 500 ML (CANCER CENTER) IV SCH; +ONDANSETRON 16 MG, DEXAMETHASONE 10 MG/NS 50 ML IVPB IV SCH; +ONDANSETRON MDV (CANCER CENTER 16 MG, DEXAMETHASONE PF INJ (CANCER C 10 MG in D5W 50 ML... IV SCH; +ONDANSETRON MDV (CANCER CENTER 16 MG, DEXAMETHASONE PF INJ (CANCER C 10 MG in NS (IVPB)... IV SCH; +PACLitaxel PROTEIN 160 MG in EMPTY IV BAG (PVC) CANCER CTR 1 EA IV SCH
[2018-01-11 13:25] LABS: BASOPHILS % (AUTO) 0 % (0-10); EOSINOPHILS % (AUTO) 1 % (0-10); HEMATOCRIT 39 % (35-52); LYMPHOCYTES # (AUTO) 1.7 X 10^3 (1.0-4.0); LYMPHOCYTES % (AUTO) 29 % (12-44); MEAN CORPUSCULAR HEMOGLOBIN 30 PG (25-34); MEAN CORPUSCULAR HGB CONC 34 G/DL (32-36); MEAN CORPUSCULAR VOLUME 88 FL (80-99); MEAN PLATELET VOLUME 9.5 FL (7.4-10.4); MONOCYTES # (AUTO) 0.5 X 10^3 (0.0-1.0); MONOCYTES % (AUTO) 9 % (0-12); NEUTROPHILS # (AUTO) 3.6 X 10^3 (1.8-7.8); NEUTROPHILS % (AUTO) 62 % (42-75); PLATELET COUNT 305 10^3/uL (130-400); RED BLOOD COUNT 4.41 10^6/uL (4.35-5.85); RED CELL DISTRIBUTION WIDTH 15.1 % (10.0-14.5); WHITE BLOOD COUNT 5.9 10^3/uL (4.3-11.0)
[2018-01-11 13:46] LABS: ALANINE AMINOTRANSFERASE 18 U/L (0-55); ALBUMIN 3.6 GM/DL (3.2-4.5); ALKALINE PHOSPHATASE 172 U/L (40-136); BILIRUBIN,TOTAL 0.4 MG/DL (0.1-1.0); BUN/CREATININE RATIO 9; CALCIUM 8.7 MG/DL (8.5-10.1); CARBON DIOXIDE 21 MMOL/L (21-32); CHLORIDE 103 MMOL/L (98-107); GFR ESTIMATED > 60; GLUCOSE 373 MG/DL (70-105); POTASSIUM 4.2 MMOL/L (3.6-5.0); SODIUM 137 MMOL/L (135-145); TOTAL PROTEIN 6.8 GM/DL (6.4-8.2)
== END 2018-01-16 | disposition home or self-care (01) ==
LOC: ONC 13:06
PROVIDERS: ATTEND Internal Medicine Hematology & Oncology
DX: Z51.11 Encounter for antineoplastic chemotherapy (principal); C50.112 Malignant neoplasm of central portion of left female breast; C77.3 Secondary and unspecified malignant neoplasm of axilla and upper limb lymph nodes; C78.01 Secondary malignant neoplasm of right lung; C78.02 Secondary malignant neoplasm of left lung; C78.7 Secondary malignant neoplasm of liver and intrahepatic bile duct; I27.20 Pulmonary hypertension, unspecified; E11.9 Type 2 diabetes mellitus without complications; Z79.01 Long term (current) use of anticoagulants; Z86.711 Personal history of pulmonary embolism; Z86.718 Personal history of other venous thrombosis and embolism; Z90.12 Acquired absence of left breast and nipple; Z92.21 Personal history of antineoplastic chemotherapy
CPT/HCPCS: 36415; 36591; 80048; 80053; 85025; 96375; 96413

== ENCOUNTER 2018-02-01 13:27 | Outpatient (RCR) | payer MEDICARE ==
[2018-01-18 13:51] LABS: BASOPHILS % (AUTO) 1 % (0-10); EOSINOPHILS % (AUTO) 0 % (0-10); HEMATOCRIT 38 % (35-52); HEMOGLOBIN 12.9 G/DL (11.5-16.0); LYMPHOCYTES # (AUTO) 1.8 X 10^3 (1.0-4.0); LYMPHOCYTES % (AUTO) 29 % (12-44); MEAN CORPUSCULAR HEMOGLOBIN 30 PG (25-34); MEAN CORPUSCULAR HGB CONC 34 G/DL (32-36); MEAN CORPUSCULAR VOLUME 87 FL (80-99); MEAN PLATELET VOLUME 9.8 FL (7.4-10.4); MONOCYTES # (AUTO) 0.5 X 10^3 (0.0-1.0); MONOCYTES % (AUTO) 8 % (0-12); NEUTROPHILS # (AUTO) 3.7 X 10^3 (1.8-7.8); NEUTROPHILS % (AUTO) 62 % (42-75); PLATELET COUNT 331 10^3/uL (130-400); RED BLOOD COUNT 4.38 10^6/uL (4.35-5.85); RED CELL DISTRIBUTION WIDTH 14.7 % (10.0-14.5)
[2018-01-18 14:07] LABS: BUN/CREATININE RATIO 10; CALCIUM 9.2 MG/DL (8.5-10.1); CARBON DIOXIDE 22 MMOL/L (21-32); CHLORIDE 104 MMOL/L (98-107); CREATININE SERUM 0.72 MG/DL (0.60-1.30); GFR ESTIMATED > 60; GLUCOSE 203 MG/DL (70-105); SODIUM 137 MMOL/L (135-145)
[2018-01-25 13:54] LABS: BASOPHILS % (AUTO) 0 % (0-10); EOSINOPHILS % (AUTO) 0 % (0-10); HEMATOCRIT 39 % (35-52); LYMPHOCYTES # (AUTO) 1.8 X 10^3 (1.0-4.0); LYMPHOCYTES % (AUTO) 40 % (12-44); MEAN CORPUSCULAR HEMOGLOBIN 29 PG (25-34); MEAN CORPUSCULAR HGB CONC 34 G/DL (32-36); MEAN CORPUSCULAR VOLUME 87 FL (80-99); MEAN PLATELET VOLUME 9.8 FL (7.4-10.4); MONOCYTES # (AUTO) 0.3 X 10^3 (0.0-1.0); MONOCYTES % (AUTO) 7 % (0-12); NEUTROPHILS # (AUTO) 2.3 X 10^3 (1.8-7.8); NEUTROPHILS % (AUTO) 53 % (42-75); PLATELET COUNT 331 10^3/uL (130-400); RED BLOOD COUNT 4.44 10^6/uL (4.35-5.85); RED CELL DISTRIBUTION WIDTH 15.2 % (10.0-14.5); WHITE BLOOD COUNT 4.4 10^3/uL (4.3-11.0)
[2018-01-25 14:10] LABS: BUN/CREATININE RATIO 12; CALCIUM 9.2 MG/DL (8.5-10.1); CARBON DIOXIDE 17 MMOL/L (21-32); CHLORIDE 105 MMOL/L (98-107); CREATININE SERUM 0.83 MG/DL (0.60-1.30); GFR ESTIMATED > 60; GLUCOSE 294 MG/DL (70-105); POTASSIUM 4.1 MMOL/L (3.6-5.0); SODIUM 136 MMOL/L (135-145)
[~2018-02-01 13:27] MED LIST changes: -NS IV 500 ML (CANCER CENTER) 500 ML ONE; -ONDANSETRON 16 MG, DEXAMETHASONE 10 MG/NS 50 ML IVPB IV SCH; -ONDANSETRON MDV (CANCER CENTER 16 MG, DEXAMETHASONE PF INJ (CANCER C 10 MG in D5W 50 ML... IV SCH
[2018-02-01 13:45] LABS: BASOPHILS % (AUTO) 0 % (0-10); EOSINOPHILS % (AUTO) 0 % (0-10); HEMATOCRIT 38 % (35-52); HEMOGLOBIN 12.7 G/DL (11.5-16.0); LYMPHOCYTES # (AUTO) 1.4 X 10^3 (1.0-4.0); LYMPHOCYTES % (AUTO) 48 % (12-44); MEAN CORPUSCULAR HEMOGLOBIN 30 PG (25-34); MEAN CORPUSCULAR HGB CONC 33 G/DL (32-36); MEAN CORPUSCULAR VOLUME 88 FL (80-99); MEAN PLATELET VOLUME 9.6 FL (7.4-10.4); MONOCYTES # (AUTO) 0.3 X 10^3 (0.0-1.0); MONOCYTES % (AUTO) 10 % (0-12); NEUTROPHILS # (AUTO) 1.2 X 10^3 (1.8-7.8); NEUTROPHILS % (AUTO) 42 % (42-75); PLATELET COUNT 337 10^3/uL (130-400); RED CELL DISTRIBUTION WIDTH 15.5 % (10.0-14.5); WHITE BLOOD COUNT 2.9 10^3/uL (4.3-11.0)
[2018-02-01 14:03] LABS: BUN/CREATININE RATIO 8; CALCIUM 9.1 MG/DL (8.5-10.1); CARBON DIOXIDE 27 MMOL/L (21-32); CHLORIDE 102 MMOL/L (98-107); CREATININE SERUM 0.76 MG/DL (0.60-1.30); GFR ESTIMATED > 60; GLUCOSE 229 MG/DL (70-105); POTASSIUM 4.1 MMOL/L (3.6-5.0); SODIUM 137 MMOL/L (135-145)
[2018-02-08 14:05] LABS: BASOPHILS % (AUTO) 0 % (0-10); EOSINOPHILS % (AUTO) 0 % (0-10); HEMATOCRIT 39 % (35-52); HEMOGLOBIN 13.5 G/DL (11.5-16.0); LYMPHOCYTES # (AUTO) 1.7 X 10^3 (1.0-4.0); LYMPHOCYTES % (AUTO) 26 % (12-44); MEAN CORPUSCULAR HEMOGLOBIN 30 PG (25-34); MEAN CORPUSCULAR HGB CONC 34 G/DL (32-36); MEAN CORPUSCULAR VOLUME 87 FL (80-99); MEAN PLATELET VOLUME 9.7 FL (7.4-10.4); MONOCYTES # (AUTO) 0.9 X 10^3 (0.0-1.0); MONOCYTES % (AUTO) 14 % (0-12); NEUTROPHILS # (AUTO) 4.1 X 10^3 (1.8-7.8); NEUTROPHILS % (AUTO) 60 % (42-75); PLATELET COUNT 298 10^3/uL (130-400); RED BLOOD COUNT 4.51 10^6/uL (4.35-5.85); RED CELL DISTRIBUTION WIDTH 15.5 % (10.0-14.5); WHITE BLOOD COUNT 6.8 10^3/uL (4.3-11.0)
[2018-02-08 14:21] LABS: ALANINE AMINOTRANSFERASE 19 U/L (0-55); ALBUMIN 3.8 GM/DL (3.2-4.5); ALKALINE PHOSPHATASE 155 U/L (40-136); BILIRUBIN,TOTAL 0.3 MG/DL (0.1-1.0); BUN/CREATININE RATIO 8; CALCIUM 9.3 MG/DL (8.5-10.1); CARBON DIOXIDE 25 MMOL/L (21-32); CHLORIDE 101 MMOL/L (98-107); CREATININE SERUM 0.84 MG/DL (0.60-1.30); GFR ESTIMATED > 60; GLUCOSE 276 MG/DL (70-105); POTASSIUM 4.1 MMOL/L (3.6-5.0); SODIUM 134 MMOL/L (135-145)
== END 2018-02-08 14:09 | disposition home or self-care (01) ==
LOC: ONC 13:27
PROVIDERS: ATTEND Internal Medicine Hematology & Oncology
DX: Z51.11 Encounter for antineoplastic chemotherapy (principal); C50.112 Malignant neoplasm of central portion of left female breast; C77.3 Secondary and unspecified malignant neoplasm of axilla and upper limb lymph nodes; C78.01 Secondary malignant neoplasm of right lung; C78.02 Secondary malignant neoplasm of left lung; C78.7 Secondary malignant neoplasm of liver and intrahepatic bile duct; I27.20 Pulmonary hypertension, unspecified; E11.9 Type 2 diabetes mellitus without complications; Z79.01 Long term (current) use of anticoagulants; Z86.711 Personal history of pulmonary embolism; Z86.718 Personal history of other venous thrombosis and embolism; Z90.12 Acquired absence of left breast and nipple
CPT/HCPCS: 36591; 80048; 80053; 85025; 96375; 96413

== ENCOUNTER 2018-03-01 09:49 | Outpatient (RCR) | payer MEDICARE ==
[2018-02-15 15:35] LABS: BASOPHILS % (AUTO) 0 % (0-10); EOSINOPHILS % (AUTO) 0 % (0-10); HEMATOCRIT 40 % (35-52); HEMOGLOBIN 13.5 G/DL (11.5-16.0); LYMPHOCYTES # (AUTO) 1.8 X 10^3 (1.0-4.0); LYMPHOCYTES % (AUTO) 27 % (12-44); MEAN CORPUSCULAR HEMOGLOBIN 29 PG (25-34); MEAN CORPUSCULAR HGB CONC 34 G/DL (32-36); MEAN CORPUSCULAR VOLUME 86 FL (80-99); MEAN PLATELET VOLUME 10.2 FL (7.4-10.4); MONOCYTES # (AUTO) 0.5 X 10^3 (0.0-1.0); MONOCYTES % (AUTO) 7 % (0-12); NEUTROPHILS # (AUTO) 4.5 X 10^3 (1.8-7.8); NEUTROPHILS % (AUTO) 66 % (42-75); PLATELET COUNT 366 10^3/uL (130-400); RED BLOOD COUNT 4.61 10^6/uL (4.35-5.85); RED CELL DISTRIBUTION WIDTH 15.1 % (10.0-14.5); WHITE BLOOD COUNT 6.9 10^3/uL (4.3-11.0)
[2018-02-15 15:51] LABS: BUN/CREATININE RATIO 11; CALCIUM 9.5 MG/DL (8.5-10.1); CARBON DIOXIDE 25 MMOL/L (21-32); CHLORIDE 101 MMOL/L (98-107); CREATININE SERUM 0.73 MG/DL (0.60-1.30); GFR ESTIMATED > 60; GLUCOSE 260 MG/DL (70-105); SODIUM 136 MMOL/L (135-145)
[2018-02-22 13:45] LABS: BASOPHILS % (AUTO) 1 % (0-10); EOSINOPHILS % (AUTO) 1 % (0-10); HEMATOCRIT 37 % (35-52); HEMOGLOBIN 12.7 G/DL (11.5-16.0); LYMPHOCYTES # (AUTO) 1.3 X 10^3 (1.0-4.0); LYMPHOCYTES % (AUTO) 40 % (12-44); MEAN CORPUSCULAR HEMOGLOBIN 30 PG (25-34); MEAN CORPUSCULAR HGB CONC 34 G/DL (32-36); MEAN CORPUSCULAR VOLUME 87 FL (80-99); MEAN PLATELET VOLUME 9.7 FL (7.4-10.4); MONOCYTES # (AUTO) 0.3 X 10^3 (0.0-1.0); MONOCYTES % (AUTO) 10 % (0-12); NEUTROPHILS # (AUTO) 1.6 X 10^3 (1.8-7.8); NEUTROPHILS % (AUTO) 49 % (42-75); PLATELET COUNT 355 10^3/uL (130-400); RED BLOOD COUNT 4.31 10^6/uL (4.35-5.85); RED CELL DISTRIBUTION WIDTH 15.1 % (10.0-14.5); WHITE BLOOD COUNT 3.2 10^3/uL (4.3-11.0)
[2018-02-22 14:10] LABS: BUN/CREATININE RATIO 11; CARBON DIOXIDE 27 MMOL/L (21-32); CHLORIDE 105 MMOL/L (98-107); CREATININE SERUM 0.64 MG/DL (0.60-1.30); GFR ESTIMATED > 60; GLUCOSE 188 MG/DL (70-105); POTASSIUM 3.8 MMOL/L (3.6-5.0); SODIUM 138 MMOL/L (135-145)
[2018-02-22 15:07] LABS: BILIRUBIN,URINE NEGATIVE (NEGATIVE); CLARITY,URINE CLEAR; COLOR,URINE YELLOW; GLUCOSE, URINE (UA) 1+ (NEGATIVE); KETONES,URINE NEGATIVE (NEGATIVE); LEUKOCYTE ESTERASE ,URINE 2+ (NEGATIVE); NITRITE,URINE NEGATIVE (NEGATIVE); PH,URINE 6 (5-9); PROTEIN,URINE 2+ (NEGATIVE); UROBILINOGEN,URINE NORMAL (NORMAL)
[2018-02-22 15:23] LABS: BACTERIA,URINE FEW /HPF
[~2018-03-01 09:49] MED LIST changes: -BARIUM SUSPENSION 2.1% (VANILLA SILQ) 450 ML PO ONE; -IOHEXOL 350 MG/ML 100 ML (OMNIPAQUE 350) VIAL IV ONE; -NS 250 ML (IVPB) BAG IV ONE; +NS IV 500 ML (CANCER CENTER) IV SCH; +ONDANSETRON MDV (CANCER CENTER 16 MG, DEXAMETHASONE PF INJ (CANCER C 10 MG in NS (IVPB)... IV SCH; +PACLitaxel PROTEIN 160 MG in EMPTY IV BAG (PVC) CANCER CTR 1 EA IV SCH
[2018-03-01 10:05] LABS: BASOPHILS % (AUTO) 0 % (0-10); EOSINOPHILS % (AUTO) 0 % (0-10); HEMATOCRIT 38 % (35-52); HEMOGLOBIN 12.9 G/DL (11.5-16.0); LYMPHOCYTES % (AUTO) 41 % (12-44); MEAN CORPUSCULAR HEMOGLOBIN 30 PG (25-34); MEAN CORPUSCULAR HGB CONC 34 G/DL (32-36); MEAN CORPUSCULAR VOLUME 87 FL (80-99); MEAN PLATELET VOLUME 9.7 FL (7.4-10.4); MONOCYTES # (AUTO) 0.4 X 10^3 (0.0-1.0); MONOCYTES % (AUTO) 9 % (0-12); NEUTROPHILS # (AUTO) 2.4 X 10^3 (1.8-7.8); NEUTROPHILS % (AUTO) 49 % (42-75); PLATELET COUNT 403 10^3/uL (130-400); RED BLOOD COUNT 4.38 10^6/uL (4.35-5.85); RED CELL DISTRIBUTION WIDTH 16.2 % (10.0-14.5); WHITE BLOOD COUNT 4.8 10^3/uL (4.3-11.0)
[2018-03-01 10:19] LABS: BUN/CREATININE RATIO 6; CALCIUM 9.1 MG/DL (8.5-10.1); CARBON DIOXIDE 18 MMOL/L (21-32); CHLORIDE 107 MMOL/L (98-107); CREATININE SERUM 0.77 MG/DL (0.60-1.30); GFR ESTIMATED > 60; GLUCOSE 223 MG/DL (70-105); POTASSIUM 3.8 MMOL/L (3.6-5.0); SODIUM 137 MMOL/L (135-145)
== END 2018-03-07 11:45 | disposition home or self-care (01) ==
LOC: ONC 09:49
PROVIDERS: ATTEND Internal Medicine Hematology & Oncology
DX: Z51.11 Encounter for antineoplastic chemotherapy (principal); C50.112 Malignant neoplasm of central portion of left female breast; C77.3 Secondary and unspecified malignant neoplasm of axilla and upper limb lymph nodes; C78.01 Secondary malignant neoplasm of right lung; C78.02 Secondary malignant neoplasm of left lung; C78.7 Secondary malignant neoplasm of liver and intrahepatic bile duct; I27.20 Pulmonary hypertension, unspecified; E11.9 Type 2 diabetes mellitus without complications; R39.15 Urgency of urination; R42 Dizziness and giddiness; R51 Headache; R27.9 Unspecified lack of coordination; R35.0 Frequency of micturition; Z79.01 Long term (current) use of anticoagulants; Z86.711 Personal history of pulmonary embolism; Z86.718 Personal history of other venous thrombosis and embolism; Z90.12 Acquired absence of left breast and nipple; Z92.21 Personal history of antineoplastic chemotherapy
CPT/HCPCS: 36591; 80048; 81000; 85025; 87077; 87088; 87186; 96375; 96413; 99213

== ENCOUNTER → 2018-03-01 | Outpatient (CLI) | payer MEDICARE ==
[~2018-03-01] MED LIST changes: +BARIUM SUSPENSION 2.1% (VANILLA SILQ) 450 ML PO ONE; +IOHEXOL 350 MG/ML 100 ML (OMNIPAQUE 350) VIAL IV ONE; +NS 250 ML (IVPB) BAG IV ONE; -NS IV 500 ML (CANCER CENTER) IV SCH; -ONDANSETRON MDV (CANCER CENTER 16 MG, DEXAMETHASONE PF INJ (CANCER C 10 MG in NS (IVPB)... IV SCH; -PACLitaxel PROTEIN 160 MG in EMPTY IV BAG (PVC) CANCER CTR 1 EA IV SCH
[2018-03-01] MEDS: CATHETER FLUSH 10 ML SYR IV PRN ×2 (10:26→10:31)
--- NOTE | 2018-03-01 14:10 | Diagnostic Imaging Report ---
PROCEDURE: CT chest with contrast, CT abdomen and pelvis with and without contrast. TECHNIQUE: Pre and post intravenous contrast axial imaging of the abdomen and pelvis and post contrast axial imaging of the chest were performed. INDICATION: Carcinoma of the breast. FINDINGS: The previous CT chest, abdomen, and pelvis exam performed on 12/11/2017 did note that the multiple lung nodules noted on the prior CT chest exam of 10/13/2017 had decreased in size. On this exam, however, the lung nodules have increased in size. On the prior study, there was a 1.8 x 1.9 cm area of abnormal density in the right lung base. This finding now measures 2.1 x 1.8 cm. The vague area of increased density in the left lung base seen previously measuring 1.4 x 1.9 cm is now estimated to be 2.3 x 1.5 cm. The other nodules in both lungs seen on the prior exam are also slightly larger. No new nodule has developed, and there is no sign of pneumonia, failure, or pleural effusion to suggest an acute abnormality. There is still no mediastinal or hilar adenopathy. The heart is stable in size. The aorta is not abnormally dilated, and there is no sign of a dissection. There is no defect within the pulmonary arteries to indicate a pulmonary embolus. The thyroid gland is stable in size. As noted on the previous study, the left breast is surgically absent. There is no obvious mass involving the right breast. The sections through the upper abdomen reveal that in the interval since the prior exam, there has been a slight increase in the vague areas of low density within the liver. The largest of these abnormalities is in the right lobe of the liver and measures 1.0 x 1.4 cm. Previously, this lesion measured only 0.6 x 0.8 cm. There are other lesions within the liver, which also seem somewhat more conspicuous than on the prior exam. The spleen, pancreas, adrenals, kidneys, aorta, and inferior vena cava show no sign of an acute abnormality. The vena cava filter seen previously is again evident and remains in good position. As noted on the prior exam, there is a small hiatal hernia. Also, the gallbladder is surgically absent. There is no pelvic mass or free fluid collection evident. The appendix is not abnormally thickened, and there is no evidence for acute appendicitis. The bone windows do show that there is now a destructive lesion involving the posterior elements and the right transverse process of L3. No fracture or acute bony abnormality noted otherwise. The area of mixed density within the right humeral head seen previously does not appear to have changed significantly. IMPRESSION: 1. There has been an unfavorable change since the prior exam. Specifically, the nodules in both lungs have increased in size as have the low-density lesions within the liver. A new destructive lesion involving the right transverse process and right posterior elements of L3 has also developed. These findings do indicate progressive neoplastic disease. 2. There is no acute abnormality of the chest, abdomen, or pelvis. Dictated by: Dictated on workstation # [id number]
--- NOTE | 2018-03-01 17:59 | Diagnostic Imaging Report ---
EXAMINATION: Whole-body bone scan. INDICATION: Carcinoma of the left breast. TECHNIQUE: This study was performed following administration of 25.6 mCi of 99m-technetium MDP. Anterior and posterior whole-body images were obtained. Spot films of the skull and thorax in the lateral projection were also performed. FINDINGS: The previous exam of 12/11/2017 noted that the areas of abnormal uptake involving the calvarium and the sacrum had diminished in intensity when compared to the prior exam of 10/17/2017. On this exam, those findings do not seem to have changed significantly. The areas of abnormal uptake of the costovertebral junction of one of the mid thoracic vertebrae and in the right humeral head seen previously are again evident and essentially no different. There is no new area of abnormal activity to suggest metastatic disease. As on the prior exam, there is degenerative disease involving the shoulder, hip, and knee joints. There is also abnormal activity in each midfoot. Both kidneys do show excretion of the radiotracer. IMPRESSION: The appearance of the bone scan is stable when compared to the prior study. There has been no adverse change. Dictated by: Dictated on workstation # [id number]
== END ==
LOC: RAD 10:01
PROVIDERS: ATTEND Internal Medicine Hematology & Oncology
DX: C34.90 Malignant neoplasm of unspecified part of unspecified bronchus or lung (principal); C50.112 Malignant neoplasm of central portion of left female breast; C79.51 Secondary malignant neoplasm of bone; C78.01 Secondary malignant neoplasm of right lung; C78.7 Secondary malignant neoplasm of liver and intrahepatic bile duct
CPT/HCPCS: 71260; 74178; 78306

== ENCOUNTER → 2018-05-29 | Outpatient (CLI) | payer MEDICARE ==
[~2018-05-29] MED LIST changes: +BARIUM SUSPENSION 2.1% (VANILLA SILQ) 450 ML PO ONE; +CATHETER FLUSH 10 ML SYR IV PRN; +IOHEXOL 350 MG/ML 100 ML (OMNIPAQUE 350) VIAL IV ONE; +METF10002 PO; +NS 250 ML (IVPB) BAG IV ONE; -NS IV 500 ML (CANCER CENTER) IV SCH; -ONDANSETRON MDV (CANCER CENTER 16 MG, DEXAMETHASONE PF INJ (CANCER C 10 MG in NS (IVPB)... IV SCH; -PACLitaxel PROTEIN 160 MG in EMPTY IV BAG (PVC) CANCER CTR 1 EA IV SCH; -PIOG30TA26 PO; +PIOG30TA71 PO
--- NOTE | 2018-05-29 11:54 | Diagnostic Imaging Report ---
PROCEDURE: CT chest, abdomen, and pelvis with contrast. TECHNIQUE: Multiple contiguous axial images were obtained through the chest, abdomen, and pelvis after the administration of intravenous contrast. 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 Patient has thoracic pain and left shoulder pain. COMPARISON: Comparison is made with prior CT from 03/01/2018. CT CHEST: Right chest wall port has the tip entering the right atrium. Left breast is surgically absent. No axillary lymphadenopathy is detected. No definite mediastinal or hilar lymphadenopathy is detected. No pericardial or pleural fluid is identified. Pulmonary parenchymal evaluation demonstrates a tiny right apical nodule, approximately 5 mm in size, not well seen on prior exam. A left upper lobe nodule, image 14, is stable at approximately 8 mm compared with 9 mm on prior exam. An Ill-defined area of density in the superior segment of the left lower lobe measures 2.7 x 1.7 cm compared with 2.4 x 1.3 cm when measured by similar technique. Spiculated nodule in the right lower lobe is stable at approximately 13-14 mm, image 29. Just inferior to this, the region of ill-defined density measures 2.5 x 2.0 cm compared with 2.7 x 2.1 cm. Additional nodules in the right lower lobe subpleural location appear stable. IMPRESSION: Overall fairly stable appearance to bilateral parenchymal pulmonary opacities when compared with CT from February 2018. No thoracic lymphadenopathy is seen. CT ABDOMEN AND PELVIS: Numerous ill-defined low-density lesions are identified throughout the liver. A marker lesion in the anterior right lobe appears larger measuring 2.5 x 2.1 cm compared with 1.5 x 1.0 cm. Ill-defined low density in the left lobe near the falciform ligament is seen measuring 1.2 x 1.4 cm compared with approximately 7 mm in diameter on prior. An ill-defined low density in the inferior right lobe has also developed. A mass near the dome in the left lobe measures approximately 2.3 cm in diameter compared with 0.8 cm on prior. Gallbladder is surgically absent. The pancreas and spleen are unremarkable. No adrenal mass is detected. Kidneys are unremarkable. There is a filter in the inferior vena cava. The aorta is non-aneurysmal. No central retroperitoneal or mesenteric lymphadenopathy is seen. The small and large bowel loops are normal in caliber. There is no ascites. Bladder and uterus are unremarkable. No definite inguinal or iliac lymphadenopathy is seen. Previously noted destructive lesion involving the right transverse process of L3 is again noted. There is now a new destructive lesion involving the left iliac bone near the crest anteriorly. IMPRESSION: 1. Increase in size and number of multiple ill-defined low-density masses throughout the liver consistent with worsening hepatic metastatic disease. 2. New destructive lesion of the left iliac bone. 3. No evidence of abdominal or pelvic lymphadenopathy. Dictated by: Dictated on workstation # [id number]
--- NOTE | 2018-05-29 15:45 | Diagnostic Imaging Report ---
INDICATION: Left breast carcinoma. TECHNIQUE: Patient was administered 26.4 mCi technetium 99m MDP intravenously and whole-body imaging was performed after a three hour delay. COMPARISON: Correlation is made with prior whole body bone scan from 03/01/2018. FINDINGS: Normal uptake of activity by the axial and appendicular skeleton is noted. There is uptake by both kidneys with excretion into the urinary bladder. Left calvarial uptake is stable. Uptake at the right humeral head appears stable. Mild uptake midthoracic vertebrae with minimal linear uptake at the adjacent left-sided posterior rib appear stable. Vague uptake in the midline at the sacrum is stable. Degenerative changes bilateral feet are noted. No new foci are detected. IMPRESSION: Overall stable whole-body bone scan when compared with prior exam from 03/01/2018. Dictated by: Dictated on workstation # [id number]
== END ==
LOC: CARD 10:35
PROVIDERS: ATTEND Internal Medicine Hematology & Oncology
DX: Z01.89 Encounter for other specified special examinations (principal); C50.112 Malignant neoplasm of central portion of left female breast; C78.01 Secondary malignant neoplasm of right lung; C78.7 Secondary malignant neoplasm of liver and intrahepatic bile duct; C79.51 Secondary malignant neoplasm of bone
CPT/HCPCS: 71260; 74177; 78306

== ENCOUNTER 2018-06-04 09:45 | Outpatient (RCR) | payer MEDICARE ==
[2018-03-08 14:25] LABS: BASOPHILS % (AUTO) 0 % (0-10); EOSINOPHILS % (AUTO) 0 % (0-10); HEMATOCRIT 40 % (35-52); HEMOGLOBIN 13.6 G/DL (11.5-16.0); LYMPHOCYTES # (AUTO) 1.7 X 10^3 (1.0-4.0); LYMPHOCYTES % (AUTO) 22 % (12-44); MEAN CORPUSCULAR HEMOGLOBIN 30 PG (25-34); MEAN CORPUSCULAR HGB CONC 34 G/DL (32-36); MEAN CORPUSCULAR VOLUME 88 FL (80-99); MEAN PLATELET VOLUME 9.6 FL (7.4-10.4); MONOCYTES # (AUTO) 0.8 X 10^3 (0.0-1.0); MONOCYTES % (AUTO) 10 % (0-12); NEUTROPHILS # (AUTO) 5.1 X 10^3 (1.8-7.8); NEUTROPHILS % (AUTO) 67 % (42-75); PLATELET COUNT 336 10^3/uL (130-400); RED BLOOD COUNT 4.59 10^6/uL (4.35-5.85); RED CELL DISTRIBUTION WIDTH 16.8 % (10.0-14.5); WHITE BLOOD COUNT 7.6 10^3/uL (4.3-11.0)
[2018-03-08 14:46] LABS: ALANINE AMINOTRANSFERASE 20 U/L (0-55); ALKALINE PHOSPHATASE 164 U/L (40-136); BILIRUBIN,TOTAL 0.4 MG/DL (0.1-1.0); BUN/CREATININE RATIO 12; CALCIUM 9.3 MG/DL (8.5-10.1); CARBON DIOXIDE 23 MMOL/L (21-32); CHLORIDE 103 MMOL/L (98-107); CREATININE SERUM 0.69 MG/DL (0.60-1.30); GFR ESTIMATED > 60; GLUCOSE 245 MG/DL (70-105); POTASSIUM 4.2 MMOL/L (3.6-5.0); SODIUM 138 MMOL/L (135-145); TOTAL PROTEIN 7.2 GM/DL (6.4-8.2)
[2018-04-05 11:47] LABS: BASOPHILS % (AUTO) 0 % (0-10); EOSINOPHILS % (AUTO) 1 % (0-10); HEMATOCRIT 41 % (35-52); HEMOGLOBIN 13.7 G/DL (11.5-16.0); LYMPHOCYTES # (AUTO) 1.6 X 10^3 (1.0-4.0); LYMPHOCYTES % (AUTO) 18 % (12-44); MEAN CORPUSCULAR HEMOGLOBIN 29 PG (25-34); MEAN CORPUSCULAR HGB CONC 34 G/DL (32-36); MEAN CORPUSCULAR VOLUME 88 FL (80-99); MEAN PLATELET VOLUME 9.8 FL (7.4-10.4); MONOCYTES # (AUTO) 0.7 X 10^3 (0.0-1.0); MONOCYTES % (AUTO) 8 % (0-12); NEUTROPHILS # (AUTO) 6.5 X 10^3 (1.8-7.8); NEUTROPHILS % (AUTO) 74 % (42-75); PLATELET COUNT 309 10^3/uL (130-400); RED BLOOD COUNT 4.66 10^6/uL (4.35-5.85); RED CELL DISTRIBUTION WIDTH 16.3 % (10.0-14.5); WHITE BLOOD COUNT 8.9 10^3/uL (4.3-11.0)
[2018-04-05 12:03] LABS: ALANINE AMINOTRANSFERASE 19 U/L (0-55); ALBUMIN 4.1 GM/DL (3.2-4.5); ALKALINE PHOSPHATASE 149 U/L (40-136); BILIRUBIN,TOTAL 0.7 MG/DL (0.1-1.0); BUN/CREATININE RATIO 14; CALCIUM 9.5 MG/DL (8.5-10.1); CARBON DIOXIDE 22 MMOL/L (21-32); CHLORIDE 106 MMOL/L (98-107); CREATININE SERUM 0.71 MG/DL (0.60-1.30); GFR ESTIMATED > 60; GLUCOSE 246 MG/DL (70-105); MAGNESIUM 1.5 MG/DL (1.8-2.4); POTASSIUM 3.9 MMOL/L (3.6-5.0); SODIUM 140 MMOL/L (135-145); TOTAL PROTEIN 7.5 GM/DL (6.4-8.2)
[2018-04-17 10:44] LABS: BASOPHILS % (AUTO) 0 % (0-10); EOSINOPHILS # (AUTO) 0.1 10^3/uL (0.0-0.3); EOSINOPHILS % (AUTO) 1 % (0-10); HEMATOCRIT 40 % (35-52); HEMOGLOBIN 13.1 G/DL (11.5-16.0); LYMPHOCYTES # (AUTO) 1.2 X 10^3 (1.0-4.0); LYMPHOCYTES % (AUTO) 20 % (12-44); MEAN CORPUSCULAR HEMOGLOBIN 29 PG (25-34); MEAN CORPUSCULAR HGB CONC 33 G/DL (32-36); MEAN CORPUSCULAR VOLUME 88 FL (80-99); MEAN PLATELET VOLUME 9.7 FL (7.4-10.4); MONOCYTES # (AUTO) 0.6 X 10^3 (0.0-1.0); MONOCYTES % (AUTO) 10 % (0-12); NEUTROPHILS # (AUTO) 4.1 X 10^3 (1.8-7.8); NEUTROPHILS % (AUTO) 69 % (42-75); PLATELET COUNT 307 10^3/uL (130-400); WHITE BLOOD COUNT 5.9 10^3/uL (4.3-11.0)
[2018-04-17 11:01] LABS: BUN/CREATININE RATIO 10; CALCIUM 9.5 MG/DL (8.5-10.1); CARBON DIOXIDE 25 MMOL/L (21-32); CHLORIDE 101 MMOL/L (98-107); CREATININE SERUM 0.79 MG/DL (0.60-1.30); GFR ESTIMATED > 60; GLUCOSE 306 MG/DL (70-105); MAGNESIUM 1.7 MG/DL (1.8-2.4); POTASSIUM 4.3 MMOL/L (3.6-5.0); SODIUM 137 MMOL/L (135-145)
[2018-05-01 10:05] LABS: BASOPHILS % (AUTO) 0 % (0-10); EOSINOPHILS % (AUTO) 1 % (0-10); HEMATOCRIT 40 % (35-52); HEMOGLOBIN 13.2 G/DL (11.5-16.0); LYMPHOCYTES # (AUTO) 1.1 X 10^3 (1.0-4.0); LYMPHOCYTES % (AUTO) 24 % (12-44); MEAN CORPUSCULAR HEMOGLOBIN 30 PG (25-34); MEAN CORPUSCULAR HGB CONC 33 G/DL (32-36); MEAN CORPUSCULAR VOLUME 90 FL (80-99); MEAN PLATELET VOLUME 9.5 FL (7.4-10.4); MONOCYTES # (AUTO) 0.6 X 10^3 (0.0-1.0); MONOCYTES % (AUTO) 13 % (0-12); NEUTROPHILS % (AUTO) 62 % (42-75); PLATELET COUNT 296 10^3/uL (130-400); RED BLOOD COUNT 4.44 10^6/uL (4.35-5.85); RED CELL DISTRIBUTION WIDTH 16.5 % (10.0-14.5); WHITE BLOOD COUNT 4.8 10^3/uL (4.3-11.0)
[2018-05-01 10:29] LABS: ALANINE AMINOTRANSFERASE 21 U/L (0-55); ALBUMIN 3.8 GM/DL (3.2-4.5); ALKALINE PHOSPHATASE 174 U/L (40-136); BILIRUBIN,TOTAL 0.5 MG/DL (0.1-1.0); BUN/CREATININE RATIO 9; CALCIUM 9.4 MG/DL (8.5-10.1); CARBON DIOXIDE 25 MMOL/L (21-32); CHLORIDE 103 MMOL/L (98-107); CREATININE SERUM 0.77 MG/DL (0.60-1.30); GFR ESTIMATED > 60; GLUCOSE 171 MG/DL (70-105); SODIUM 139 MMOL/L (135-145); TOTAL PROTEIN 7.2 GM/DL (6.4-8.2)
[2018-05-29 10:10] LABS: BASOPHILS % (AUTO) 0 % (0-10); EOSINOPHILS % (AUTO) 1 % (0-10); HEMATOCRIT 37 % (35-52); HEMOGLOBIN 12.6 G/DL (11.5-16.0); LYMPHOCYTES # (AUTO) 1.3 X 10^3 (1.0-4.0); LYMPHOCYTES % (AUTO) 21 % (12-44); MEAN CORPUSCULAR HEMOGLOBIN 31 PG (25-34); MEAN CORPUSCULAR HGB CONC 34 G/DL (32-36); MEAN CORPUSCULAR VOLUME 91 FL (80-99); MEAN PLATELET VOLUME 9.5 FL (7.4-10.4); MONOCYTES # (AUTO) 0.6 X 10^3 (0.0-1.0); MONOCYTES % (AUTO) 10 % (0-12); NEUTROPHILS # (AUTO) 4.4 X 10^3 (1.8-7.8); NEUTROPHILS % (AUTO) 69 % (42-75); PLATELET COUNT 309 10^3/uL (130-400); RED CELL DISTRIBUTION WIDTH 17.3 % (10.0-14.5); WHITE BLOOD COUNT 6.3 10^3/uL (4.3-11.0)
[2018-05-29 10:29] LABS: ALANINE AMINOTRANSFERASE 21 U/L (0-55); ALBUMIN 3.8 GM/DL (3.2-4.5); ALKALINE PHOSPHATASE 174 U/L (40-136); BILIRUBIN,TOTAL 0.6 MG/DL (0.1-1.0); BUN/CREATININE RATIO 13; CALCIUM 9.2 MG/DL (8.5-10.1); CARBON DIOXIDE 24 MMOL/L (21-32); CHLORIDE 104 MMOL/L (98-107); CREATININE SERUM 0.76 MG/DL (0.60-1.30); GFR ESTIMATED > 60; GLUCOSE 134 MG/DL (70-105); POTASSIUM 4.1 MMOL/L (3.6-5.0); SODIUM 138 MMOL/L (135-145); TOTAL PROTEIN 6.8 GM/DL (6.4-8.2)
[~2018-06-04] VITALS: Ht 170.2 cm; Wt 113.9 kg
[~2018-06-04 09:45] MED LIST changes: -BARIUM SUSPENSION 2.1% (VANILLA SILQ) 450 ML PO ONE; -CATHETER FLUSH 10 ML SYR IV PRN; -IOHEXOL 350 MG/ML 100 ML (OMNIPAQUE 350) VIAL IV ONE; -NS 250 ML (IVPB) BAG IV ONE; +NS IV 500 ML (CANCER CENTER) IV SCH; +ONDANSETRON MDV (CANCER CENTER 16 MG, DEXAMETHASONE PF INJ (CANCER C 10 MG in NS (IVPB)... IV SCH; +PACLitaxel PROTEIN 160 MG in EMPTY IV BAG (PVC) CANCER CTR 1 EA IV SCH
[2018-06-06] MEDS ORDERED: RINGERS LACTATED IV SCH (10:00)
[2018-06-06] MEDS ORDERED: [UNRECOGNIZED DRUG - OTHER] IV SCH (10:00)
[2018-06-06] MEDS ORDERED: diphenhydrAMINE 50 MG/ML INJ (CANCER CENTER) IV PRN (10:00)
[2018-06-06] MEDS ORDERED: PALONOSETRON HCL 0.25 MG, DEXAMETHASONE INJECTION 10 MG in NS (IVPB) CANCER CENTER 50 ML IV SCH (10:00)
[2018-06-06] MEDS ORDERED: FAMOTIDINE 20MG/2ML IV (CANCER CTR) IV SCH (10:00)
== END 2018-06-06 | disposition home or self-care (01) ==
LOC: ONC 09:45
PROVIDERS: ATTEND Internal Medicine Hematology & Oncology
DX: C50.112 Malignant neoplasm of central portion of left female breast (principal); C77.3 Secondary and unspecified malignant neoplasm of axilla and upper limb lymph nodes; C78.01 Secondary malignant neoplasm of right lung; C78.02 Secondary malignant neoplasm of left lung; C78.7 Secondary malignant neoplasm of liver and intrahepatic bile duct; I27.20 Pulmonary hypertension, unspecified; E11.9 Type 2 diabetes mellitus without complications; Z79.01 Long term (current) use of anticoagulants; Z86.711 Personal history of pulmonary embolism; Z86.718 Personal history of other venous thrombosis and embolism; Z90.12 Acquired absence of left breast and nipple; Z92.21 Personal history of antineoplastic chemotherapy; Z45.2 Encounter for adjustment and management of vascular access device
CPT/HCPCS: 36415; 36591; 80048; 80053; 83735; 85025; 86300; 96523; 99213

== ENCOUNTER → 2018-07-03 | Outpatient (CLI) | payer MEDICARE ==
[~2018-07-03] MED LIST changes: -NS IV 500 ML (CANCER CENTER) IV SCH; -ONDANSETRON MDV (CANCER CENTER 16 MG, DEXAMETHASONE PF INJ (CANCER C 10 MG in NS (IVPB)... IV SCH; -PACLitaxel PROTEIN 160 MG in EMPTY IV BAG (PVC) CANCER CTR 1 EA IV SCH
--- NOTE | 2018-07-03 12:10 | Diagnostic Imaging Report ---
INDICATION: Right hip pain. History of metastatic breast cancer. COMPARISON: CT abdomen and pelvis of 05/29/2018. TECHNIQUE: AP pelvis with AP and lateral views of the right hip. FINDINGS: No acute fracture or traumatic malalignment in regards to right hip. No focal osseous lesion in the right proximal femur or visualized portions of right hemipelvis by radiography. Of note, on recent CT from 05/29/2018, there is no focal osseous lesion within the pelvis or proximal femurs. IMPRESSION: No evidence of fracture or focal osseous lesion in the right hip. Dictated by: Dictated on workstation # [id number]
== END ==
LOC: RAD 11:26
PROVIDERS: ATTEND Internal Medicine Hematology & Oncology
DX: C50.112 Malignant neoplasm of central portion of left female breast (principal); M25.551 Pain in right hip

== ENCOUNTER 2018-07-30 17:26 | Inpatient (IN) | payer MEDICARE, OTHER ==
[~2018-07-30] VITALS: Ht 170.2 cm; Wt 109.1 kg
[~2018-07-30 17:26] MED LIST changes: +METF-399 PO; -METF10002 PO
--- OUTSIDE RECORDS SUMMARY | 2018-07-30 17:36 | XMS REPORT | Continuity of Care Document ---
Author Author [facility] Organization [facility] Address Unknown Phone Unavailable Care Team Providers Care Do All Operator Name Role Phone RICHIE LEMUS JR, DO PCP Insurance Providers Payer Name Policy Number Subscriber Name Relationship s Medicare [id number] Cara Langley 17 Self / Same As Patient Advance Directives Directive Response Recorded Date/Time Advance Directives Yes 03/22/15 4:00pm Health Care Power of Broadcast Technician Piyush RAMIRES--SON 03/22/15 4:00pm Organ Donor Yes [...] Active Tachycardia Unknown Active Hypovolemia Unknown Active Medications Medication Dose Route Sig Days/Qty Instructions Order Date Discontinued Date Status Insulin Glargine 100 Unit SQ DAILY daily in am 01/29/07 03/15/14 Discontinued Simvastatin 01/29/07 07/21/12 Discontinued [Actos + Metformin] 01/29/07 04/13/10 Discontinued [Actos + Metformin] 01/29/07 04/13/10 Discontinued [Plaqunil] 01/29/07 08/07/12 Discontinued [Zesteratic] 01/29/07 04/13/10 Discontinued Insulin Human Lispro 04/13/10 07/21/12 Discontinued [Metformin Tkd2304 Mg] (Glucophage) 1,000 Mg PO TWICE A DAY 04/13/10 01/29/15 Discontinued Olmesartan DAILY 04/13/10 08/07/12 Discontinued Carvedilol DAILY 04/13/10 08/07/12 Discontinued [Wzrtxcmlvq99 Mg/1 Ml] WEEKLY 04/13/10 07/21/12 Discontinued Promethazine [...] F (97.6 - 99.5) Temperature (Calculated Celsius) 36.28128 degrees C (36.4 - 37.5) Pulse Rate (adult) 124 bpm (60 - 90) Respiratory Rate 18 bpm (12 - 24) O2 Sat by Pulse Oximetry 98 % (88 - 100) Blood Pressure 141/102 mm Hg Pain Pain Intensity 5 Height (Feet) 5 feet Height (Inches) 6 inches Height (Calculated Centimeters) 167.508476 cm Weight (Pounds) 260 pounds Weight (Calculated Kilograms) 117.134545 kilograms Calculated BMI 41.96 Results Laboratory Results [...] Alkaline Phosphatase 151 U/L H 40-136 02/04/2015 11:2202/04/2015 12: 15pm Aspartate Amino Transf (AST/SGOT) 20 U/L 5-34 02/04/2015 11:am 2014 12:15pm Alanine Aminotransferase (ALT/SGPT) 24 U/L 0-55 02/04/2015 11:2209/2015 12:15pm Total Protein 6.5 G/DL 6.4-8.2 02/04/2015 11:2202/04/2015 12:15pm Albumin 3.5 G/DL 3.2-4.5 02/04/2015 11:2202/04/2015 12:15pm White Blood Count 8.3 10^3/uL 4.3-11.0 03/05/2015 11:00am 03/05/2015 11 :15am Red Blood Count 4.41 10^6/uL 4.35-5.85 03/05/2015 11:00am 03/05/2015 11 :15am Hemoglobin 11.2 G/DL L 11.5-16.0 03/05/2015 11:0003/05/2015 11:15am Hematocrit 35 % 35-52 03/05/2015 11:0003/05/2015 11:15am Mean Corpuscular Volume 80 FL 80-99 [...] 5-9 03/22/2015 4:45pm 03/22/2015 5:18pm Urine Specific [place] 1.015 * 1.016-1.022 03/22/2015 4:45pm 2014 5:18pm [...] Encounter Location Date/Time Departed Emergency Room [facility] 03/22/15 3:57pm Registered Recurring [facility] 03/19/15 10:55am Registered Clinic [facility] 03/05/15 10:48am Registered Clinic [facility] 03/02/15 8:19am Recent Diagnosis
--- OUTSIDE RECORDS SUMMARY | 2018-07-30 17:58 | XMS REPORT | Continuity of Care Document ---
Author Author [facility] Organization [facility] Address Unknown Phone Unavailable Allergies Active Description Code Type Severity Reaction Onset Reported/Identified Relationship to Patient Clinical Status Yes erythromycin base [id number] Drug Allergy Unknown N/A 09/28/2015 Medications There is no data. 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 10/26/1144 BEKA VICTOR MD, Ot C78.7 SECONDARY MALIG NEOPLASM OF LIVER AND IN 10/26/1144 BEKA VICTOR MD, Ot E11.9 TYPE 2 DIABETES MELLITUS WITHOUT COMPLIC 10/26/1144 BEKA VICTOR MD, Ot I27.20 PULMONARY HYPERTENSION, UNSPECIFIED 10/26/1144 BEKA VICTOR MD, Ot R27.9 UNSPECIFIED LACK OF COORDINATION 10/26/1144 BEKA VICTOR MD, Ot R35.0 FREQUENCY OF MICTURITION 10/26/1144 BEKA VICTOR MD, Ot R39.15 URGENCY OF URINATION 10/26/1144 BEKA VICTOR MD, Ot R42 DIZZINESS AND GIDDINESS 10/26/1144 BEKA VICTOR MD, Ot R51 HEADACHE 10/26/1144 BEKA VICTOR MD, Ot Z51.11 ENCOUNTER FOR ANTINEOPLASTIC CHEMOTHERAP 10/26/1144 BEKA VICTOR MD, Ot 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 10/26/1144 BEKA VICTOR MD, Ot Z86.711 PERSONAL HISTORY OF PULMONARY EMBOLISM 10/26/1144 BEKA VICTOR MD, Ot Z86.718 PERSONAL HISTORY OF OTHER VENOUS THROMBO 10/26/1144 BEKA VICTOR MD Ot Z90.12 ACQUIRED ABSENCE OF LEFT BREAST AND NIPP 10/26/1144 BEKA VICTOR MD Ot Z92.21 PERSONAL HISTORY OF ANTINEOPLASTIC CHEMO 10/26/1206 MARLONSILVANO Ot 998.83 NON-HEALING SURG WOUND 10/26/1408 SILVANO MASON Ot 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 10/26/1408 SILVANO MASON Ot C77.3 SEC AND UNSP MALIG NEOPLASM OF AXILLA AN 10/26/1408 MARLONSILVANO Ot 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 10/26/1408 SILVANO MASON Ot 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 10/26/1408 SILVANO MASON Ot C78.7 SECONDARY MALIG NEOPLASM OF LIVER AND IN 10/26/1408 MARLONSILVANO Ot E11.9 TYPE 2 DIABETES MELLITUS WITHOUT COMPLIC 10/26/1408 SILVANO MASON Ot I27.20 PULMONARY HYPERTENSION, UNSPECIFIED 10/26/1408 SILVANO MASON Ot Z51.11 ENCOUNTER FOR ANTINEOPLASTIC CHEMOTHERAP 10/26/1408 MARLONSILVANO Ot Z79.01 SNF (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 10/26/1408 SILVANO MASON Ot Z86.711 PERSONAL HISTORY OF PULMONARY EMBOLISM 10/26/1408 SILVANO MASON Ot Z86.718 PERSONAL HISTORY OF OTHER VENOUS THROMBO 10/26/1408 SILVANO MASON Ot Z90.12 ACQUIRED ABSENCE OF LEFT BREAST AND NIPP 04/14/2010 Ot 276.50 04/14/2010 Ot 787.03 04/14/2010 Ot 787.91 04/17/2010 Ot 787.91 07/21/2012 Ot 682.2 CELLULITIS OF TRUNK 07/21/2012 Ot 999.33 LOCAL INFECTION DUE TO CENTRAL VENOUS CA 08/12/2012 Ot 451.0 SUPERFIC PHLEBITIS-LEG 08/12/2012 Ot 729.5 PAIN IN LIMB 08/15/2012 Ot 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 08/15/2012 Ot 250.00 DIAB THOMAS WO COMPL, TYPE II OR UNSPEC TY 08/15/2012 Ot 414.01 CORONARY ATHEROSCLEROSIS OF [place] CORON 08/15/2012 Ot 786.50 CHEST PAIN NOS 08/15/2012 Ot 794.30 ABN CARDIOVASC STUDY NOS 08/15/2012 Ot V58.67 LONG-TERM ( 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 INSULIN 08/15/2012 Ot V58.69 OT MED,LT, CURRENT USE 08/15/2012 Ot V87.41 PERSONAL HISTORY OF ANTINEOPLASTIC CHEMO 08/25/2012 Ot 174.9 MALIGN NEOPL BREAST NOS 08/25/2012 Ot 250.00 DIAB THOMAS WO COMPL, TYPE II OR UNSPEC TY 08/25/2012 Ot 276.51 DEHYDRATION 08/25/2012 Ot 287.49 OTHER SECONDARY THROMBOCYTOPENIA 08/25/2012 Ot 288.60 LEUKOCYTOSIS , UNSPECIFIED 08/25/2012 Ot 401.9 HYPERTENSION NOS 08/25/2012 Ot 415.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/INFARCT 08/25/2012 Ot 451.0 SUPERFIC PHLEBITIS-LEG 08/25/2012 Ot 453.41 ACUTE VENOUS EMBOLISM THROMBOSIS DEEP 08/25/2012 Ot 458.9 HYPOTENSION NOS 08/25/2012 Ot 710.0 SYST LUPUS ERYTHEMATOSIS 08/25/2012 Ot 785.6 ENLARGEMENT LYMPH NODES 08/25/2012 Ot 790.99 BLOOD EXAM - OT NONSPECIFIC FINDINGS 08/25/2012 Ot 920 CONTUSION FACE/ SCALP/NCK 08/25/2012 Ot 922.1 CONTUSION OF CHEST WALL 08/25/2012 Ot E849.0 ACCIDENT IN HOME 08/25/2012 Ot E888.9 FALL NOS 08/25/2012 Ot E933.1 ADV EFF ANTINEOPLASTIC 08/25/2012 Ot E934.8 ADV EFF BLOOD AGENT NEC 08/25/2012 Ot V12.09 PERSONAL HISTORY OT SPEC INFECT CHENG 09/10/2012 Ot 174.9 MALIGN NEOPL BREAST NOS 09/10/2012 Ot 250.00 DIAB THOMAS WO COMPL, TYPE II OR UNSPEC TY 09/10/2012 Ot 401.9 HYPERTENSION NOS 09/10/2012 Ot 710.0 SYST LUPUS ERYTHEMATOSIS 09/10/2012 Ot V58.11 ENCOUNTER FOR ANTINEOPLASTIC CHEMOTHERAP 09/10/2012 Ot V58.69 OT MED,LT, CURRENT USE 01/20/2013 Ot 174.9 MALIGN NEOPL BREAST NOS 01/20/2013 Ot 196.3 MAL JESIKA LYMPH -AXILLA/ARM 01/20/2013 Ot 250.00 DIAB THOMAS WO COMPL, TYPE II OR UNSPEC TY 01/20/2013 Ot 401.9 HYPERTENSION NOS 01/20/2013 Ot 710.0 SYST LUPUS ERYTHEMATOSIS 01/20/2013 Ot V12.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 01/20/2013 Ot V12.55 PERSONAL HISTORY OF PULMONARY EMBOLISM 01/20/2013 Ot V45.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 01/20/2013 Ot V58.11 ENCOUNTER FOR ANTINEOPLASTIC CHEMOTHERAP 01/20/2013 Ot V58.61 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S,LT,CURRENT USE 01/20/2013 Ot V58.67 LONG-TERM ( 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 INSULIN 01/20/2013 Ot V58.69 OTH MED,LT, CURRENT USE 01/20/2013 Ot V58.81 FIT/ADJ VASCULAR CATHETER 01/28/2013 Ot 174.9 MALIGN NEOPL BREAST NOS 01/28/2013 Ot 250.00 DIAB THOMAS WO COMPL, TYPE II OR UNSPEC TY 01/28/2013 Ot 401.9 HYPERTENSION NOS 01/28/2013 Ot 710.0 SYST LUPUS ERYTHEMATOSIS 01/28/2013 Ot V12.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 01/28/2013 Ot V58.11 ENCOUNTER FOR ANTINEOPLASTIC CHEMOTHERAP 01/28/2013 Ot V58.61 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S,LT,CURRENT USE 01/28/2013 Ot V58.69 OTH MED,LT, CURRENT USE 02/11/2013 Ot 174.9 MALIGN NEOPL BREAST NOS 02/11/2013 Ot 250.00 DIAB THOMAS WO COMPL, TYPE II OR UNSPEC TY 02/11/2013 Ot 401.9 HYPERTENSION NOS 02/11/2013 Ot 710.0 SYST LUPUS ERYTHEMATOSIS 02/11/2013 Ot V12.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 02/11/2013 Ot V58.11 ENCOUNTER FOR ANTINEOPLASTIC CHEMOTHERAP 02/11/2013 Ot V58.61 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S,LT,CURRENT USE 02/11/2013 Ot V58.69 OTH MED,LT, CURRENT USE 04/01/2013 SILVANO MASON Ot 998.83 NON-HEALING SURG WOUND 05/12/2013 SILVANO MASON Ot 174.9 MALIGN NEOPL BREAST NOS 05/12/2013 SILVANO MASON Ot 250.00 DIAB THOMAS WO COMPL, TYPE II OR UNSPEC TY 05/12/2013 SILVANO MASON Ot 401.9 HYPERTENSION NOS 05/12/2013 MARLON, BOBAN N Ot 710.0 SYST LUPUS ERYTHEMATOSIS 05/12/2013 MARLONGIORGIAN N Ot V12.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 05/12/2013 MARLONSILVANO BROOKS N Ot V58.11 ENCOUNTER FOR ANTINEOPLASTIC CHEMOTHERAP 05/12/2013 MARLONSILVANO BROOKS N Ot V58.61 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S,LT,CURRENT USE 05/12/2013 MARLONSILVANO N Ot V58.69 OTH MED,LT,CURRENT USE 08/14/2013 MARLONSILVANO N Ot 174.9 MALIGN NEOPL BREAST NOS 08/14/2013 MARLON BOBAN N Ot 250.00 DIAB THOMAS WO COMPL, TYPE II OR UNSPEC TY 08/14/2013 MARLON BOBAN N Ot 401.9 HYPERTENSION NOS 08/14/2013 SILVANO MASON N Ot 710.0 SYST LUPUS ERYTHEMATOSIS 08/14/2013 MARLONSILVANO N Ot V12.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 08/14/2013 MARLONSILVANO BROOKS N Ot V58.61 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S,LT,CURRENT USE 08/14/2013 MARLONSILVANO N Ot V58.69 OTH MED,LT,CURRENT USE 08/14/2013 MARLONSILVANO BROOKS N Ot V87.41 PERSONAL HISTORY OF ANTINEOPLASTIC CHEMO 11/13/2013 MARLONSILVANO N Ot 174.9 MALIGN NEOPL BREAST NOS 11/13/2013 MARLON BOBAN N Ot 250.00 DIAB THOMAS WO COMPL, TYPE II OR UNSPEC TY 11/13/2013 MARLON BOBAN N Ot 401.9 HYPERTENSION NOS 11/13/2013 SILVANO MASON N Ot 710.0 SYST LUPUS ERYTHEMATOSIS 11/13/2013 MARLONSILVANO N Ot V12.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 11/13/2013 MARLONSILVANO N Ot V58.61 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S,LT,CURRENT USE 11/13/2013 MARLONGIORGIAN N Ot V58.69 OTH MED,LT,CURRENT USE 11/13/2013 MARLON BOBAN N Ot V87.41 PERSONAL HISTORY OF ANTINEOPLASTIC CHEMO 02/12/2014 MARLON BOBAN N Ot 174.9 MALIGN NEOPL BREAST NOS 02/12/2014 MARLON BOBAN N Ot 250.00 DIAB THOMAS WO COMPL, TYPE II OR UNSPEC TY 02/12/2014 MARLON BOBAN N Ot 401.9 HYPERTENSION NOS 02/12/2014 SILVANO MASON Ot 710.0 SYST LUPUS ERYTHEMATOSIS 02/12/2014 MARLONSILVANO Ot V12.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 02/12/2014 MARLONSILVANO BROOKS Ot V58.61 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S,LT,CURRENT USE 02/12/2014 MARLONSILVANO Ot V58.69 OTH MED,LT,CURRENT USE 02/12/2014 SILVANO MASON Ot V87.41 PERSONAL HISTORY OF ANTINEOPLASTIC CHEMO 03/15/2014 ROBY DO, DARBY K Ot 486 PNEUMONIA, ORGANISM NOS 03/15/2014 ROBY DO, DARBY K Ot 786.05 SHORTNESS OF BREATH 05/14/2014 MARLONSILVANO BROOKS N Ot 174.9 MALIGN NEOPL BREAST NOS 05/14/2014 SILVANO MASON N Ot 250.00 DIAB THOMAS WO COMPL, TYPE II OR UNSPEC TY 05/14/2014 SILVANO MASON N Ot 401.9 HYPERTENSION NOS 05/14/2014 SILVANO MASON N Ot 710.0 SYST LUPUS ERYTHEMATOSIS 05/14/2014 SILVANO MASON Ot V12.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 05/14/2014 SILVANO MASON Ot V58.61 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S,LT,CURRENT USE 05/14/2014 SILVANO MASON Ot V58.69 OTH MED,LT,CURRENT USE 05/14/2014 MARLONSILVANO BROOKS N Ot V58.81 FIT/ADJ VASCULAR CATHETER 05/14/2014 SILVANO MASON Ot V87.41 PERSONAL HISTORY OF ANTINEOPLASTIC CHEMO 07/06/2014 MASON NULL DO Ot 682.7 CELLULITIS OF FOOT 07/06/2014 MASON NULL DO Ot V12.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 07/06/2014 MASON NULL DO Ot V58.61 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S,LT,CURRENT USE 09/17/2014 SILVANO MASON N Ot 174.9 MALIGN NEOPL BREAST NOS 09/17/2014 MARLONSILVANO N Ot 250.00 DIAB THOMAS WO COMPL, TYPE II OR UNSPEC TY 09/17/2014 MARLONSILVANO N Ot 401.9 HYPERTENSION NOS 09/17/2014 MARLONSILVANO N Ot 710.0 SYST LUPUS ERYTHEMATOSIS 09/17/2014 MARLONSILVANO N Ot V12.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 09/17/2014 SILVANO MASON N Ot V58.61 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S,LT,CURRENT USE 09/17/2014 MARLON, SILVANO N Ot V58.69 OTH MED,LT,CURRENT USE 09/17/2014 MARLONSILVANO BROOKS N Ot V87.41 PERSONAL HISTORY OF ANTINEOPLASTIC CHEMO 09/23/2014 ZIA CORRIGAN Ot 250.80 DIAB W OTH SPEC MANIFEST, TYPE II OR UNS 09/23/2014 ZIA CORRIGAN Ot V58.69 OTH MED,LT,CURRENT USE 11/01/2014 VENKATESH SUAREZ, KIMO Harden Ot 250.00 DIAB THOMAS WO COMPL, TYPE II OR UNSPEC TY 11/01/2014 VENKATESH SUAREZ, KIMO T Ot 682.7 CELLULITIS OF FOOT 11/01/2014 VENKATESH SUAREZ, KIMO T Ot 710.0 SYST LUPUS ERYTHEMATOSIS 11/01/2014 VENKATESH SUAREZ, KIMO T Ot 729.5 PAIN IN LIMB 11/26/2014 DERICK DON CALL CENTER RN Ot 416.8 11/26/2014 DERICK DON CALL CENTER RN Ot 710.0 11/26/2014 DERICK DON CALL CENTER RN Ot V10.3 11/26/2014 DERICK DON CALL CENTER RN Ot V12.51 11/26/2014 DERICK DON CALL CENTER RN Ot V12.55 11/26/2014 DERICK DON CALL CENTER RN Ot V45.71 11/26/2014 DERICK DON CALL CENTER RN Ot V58.61 11/26/2014 DERICK DON CALL CENTER RN Ot V58.69 11/26/2014 DERICK DON CALL CENTER RN Ot V67.2 12/05/2014 MARLONSILVANO BROOKS N Ot 174.9 12/05/2014 MARLONSILVANO BROOKS N Ot 250.00 12/05/2014 MARLONSILVANO N Ot 401.9 12/05/2014 MARLONSILVANO BROOKS N Ot 710.0 12/05/2014 MARLON, BOBCOURTNEY N Ot V12.51 12/05/2014 MARLONSILVANO BROOKS N Ot V58.61 12/05/2014 MARLONSILVANO BROOKS N Ot V58.69 12/05/2014 MALRONSILVANO BROOKS N Ot V58.81 12/05/2014 MARLONSILVANO BROOKS Ot V87.41 12/08/2014 ROBY DO, DARBY K Ot 174.9 MALIGN NEOPL BREAST NOS 12/08/2014 ROBY DO, DARBY K Ot 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 12/08/2014 ROBY DO, DARBY K Ot 250.00 DIAB THOMAS WO COMPL, TYPE II OR UNSPEC TY 12/08/2014 ROBY DO, DARBY K Ot 276.50 VOLUME DEPLETION, UNSPECIFIED 12/08/2014 ROBY DO, DARBY K Ot 780.79 OTH MALAISE FATIGUE 12/08/2014 ROBY DO, DARBY K Ot V58.69 OTH MED,LT,CURRENT USE 12/18/2014 MARLONSILVANO BROOKS Ot 174.9 MALIGN NEOPL BREAST NOS 12/18/2014 SILVANO MASON N Ot 250.00 DIAB THOMAS WO COMPL, TYPE II OR UNSPEC TY 12/18/2014 SILVANO MASON N Ot 401.9 HYPERTENSION NOS 12/18/2014 SILVANO MASON Ot 710.0 SYST LUPUS ERYTHEMATOSIS 12/18/2014 SILVANO MASON N Ot V12.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 12/18/2014 SILVANO MASON N Ot V58.11 ENCOUNTER FOR ANTINEOPLASTIC CHEMOTHERAP 12/18/2014 SILVANO MASON Ot V58.61 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S,LT,CURRENT USE 12/18/2014 SILVANO MASON N Ot V58.69 OTH MED,LT,CURRENT USE 12/18/2014 SILVANO MASON Ot V58.81 FIT/ADJ VASCULAR CATHETER 12/18/2014 SILVANO MASON Ot V87.41 PERSONAL HISTORY OF ANTINEOPLASTIC CHEMO 12/18/2014 SILVANO MASON N Ot 174.9 12/18/2014 MARLONSILVANO N Ot 250.00 12/18/2014 MARLONSILVANO BROOKS N Ot 401.9 12/18/2014 MARLNOSILVANO BROOKS N Ot 710.0 12/18/2014 MARLONSILVANO BROOKS N Ot V12.51 12/18/2014 MARLONSILVANO BROOKS N Ot V58.61 12/18/2014 MARLONSILVANO BROOKS N Ot V58.69 12/18/2014 MARLONSILVANO BROOKS N Ot V58.81 12/18/2014 MARLON, BOBAN N Ot V87.41 12/18/2014 MARLON, BOBAN N Ot 174.9 12/18/2014 MARLON, BOBAN N Ot 250.00 12/18/2014 MARLON, BOBAN N Ot 401.9 12/18/2014 MARLON, BOBAN N Ot 710.0 12/18/2014 MARLON, BOBAN N Ot V12.51 12/18/2014 MARLON, BOBAN N Ot V58.61 12/18/2014 MARLON, BOBAN N Ot V58.69 12/18/2014 MARLON, BOBAN N Ot V58.81 12/18/2014 MARLON, BOBAN N Ot V87.41 12/25/2014 DERICK DON Ot 174.9 12/25/2014 MARLON, BOBAN N Ot 174.9 12/25/2014 MARLON, BOBAN N Ot 250.00 12/25/2014 MARLON, BOBAN N Ot 401.9 12/25/2014 MARLON, BOBAN N Ot 710.0 12/25/2014 MARLON, BOBAN N Ot V12.51 12/25/2014 MARLON, BOBAN N Ot V58.61 12/25/2014 MARLON, BOBAN N Ot V58.69 12/25/2014 MARLON, BOBAN N Ot V58.81 12/25/2014 MARLON, BOBAN N Ot V87.41 12/25/2014 MARLON, BOBAN N Ot 174.9 12/25/2014 MARLON, BOBAN N Ot 250.00 12/25/2014 MARLON, BOBAN N Ot 401.9 12/25/2014 MARLON, BOBAN N Ot 710.0 12/25/2014 MARLON, BOBAN N Ot V12.51 12/25/2014 MARLON, BOBAN N Ot V58.61 12/25/2014 MARLON, BOBAN N Ot V58.69 12/25/2014 MARLON, BOBAN N Ot V58.81 12/25/2014 MARLON, BOBAN N Ot V87.41 12/25/2014 MARLON, BOBAN N Ot 174.9 12/25/2014 MARLON, BOBAN N Ot 250.00 12/25/2014 MARLON, BOBAN N Ot 401.9 12/25/2014 MARLON, BOBAN N Ot 710.0 12/25/2014 MARLON, GIORGIAN N Ot V12.51 12/25/2014 MARLON, BOBAN N Ot V58.61 12/25/2014 MARLON, BOBAN N Ot V58.69 12/25/2014 MARLON, BOBAN N Ot V58.81 12/25/2014 MARLON, SILVANO N Ot V87.41 12/26/2014 MARLON, BOBAN N Ot 174.9 12/26/2014 MARLON, BOBAN N Ot 250.00 12/26/2014 MARLON, BOBAN N Ot 401.9 12/26/2014 MARLON, BOBAN N Ot 710.0 12/26/2014 MARLON, SILVANO N Ot V12.51 12/26/2014 MARLON, SILVANO N Ot V58.61 12/26/2014 MARLON, BOBAN N Ot V58.69 12/26/2014 MARLON, BOBCOURTNEY N Ot V58.81 12/26/2014 MARLON, SILVANO N Ot V87.41 01/07/2015 DERICK DON Ot 786.2 01/22/2015 MARLON, BOBAN N Ot 174.9 01/22/2015 MARLON, BOBAN N Ot 250.00 01/22/2015 MARLON, BOBAN N Ot 401.9 01/22/2015 MARLON, SILVANO N Ot 710.0 01/22/2015 MARLON, BOBCOURTNEY N Ot V12.51 01/22/2015 MARLON, BOBAN N Ot V58.61 01/22/2015 MARLON, BOBCOURTNEY N Ot V58.69 01/22/2015 MARLON, BOBAN N Ot V58.81 01/22/2015 MARLON, BOBAN N Ot V87.41 01/31/2015 Ot 041.89 BACTERIAL INFECTION DUE TO OTHER SPECIFI 01/31/2015 Ot 112.0 THRUSH 01/31/2015 Ot 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 01/31/2015 Ot 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 01/31/2015 Ot 250.00 DIAB THOMAS WO COMPL, TYPE II OR UNSPEC TY 01/31/2015 Ot 256.4 POLYCYSTIC OVARIES 01/31/2015 Ot 276.69 OTHER FLUID OVERLOAD 01/31/2015 Ot 278.00 OBESITY, NOS 01/31/2015 Ot 285.3 ANTINEOPLASTIC CHEMOTHERAPY INDUCED ANEM 01/31/2015 Ot 355.9 MONONEURITIS NOS 01/31/2015 Ot 401.9 HYPERTENSION NOS 01/31/2015 Ot 530.81 ESOPHAGEAL REFLUX 01/31/2015 Ot 599.0 URIN TRACT INFECTION NOS 01/31/2015 Ot 707.10 ULCER OF LOWER LIMB NOS 01/31/2015 Ot 710.0 SYST LUPUS ERYTHEMATOSIS 01/31/2015 Ot V10.3 HX OF BREAST MALIGNANCY 01/31/2015 Ot V12.09 PERSONAL HISTORY OTH SPEC INFECT CHENG 01/31/2015 Ot V12.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 01/31/2015 Ot V12.55 PERSONAL HISTORY OF PULMONARY EMBOLISM 01/31/2015 Ot V45.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 01/31/2015 Ot V45.89 POSTSURGICAL STATES NEC 01/31/2015 Ot V58.61 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S,LT,CURRENT USE 01/31/2015 Ot V58.67 LONG-TERM ( 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 INSULIN 01/31/2015 Ot V58.69 OTH MED,LT, CURRENT USE 01/31/2015 Ot V85.41 BODY MASS INDEX 40.0-44.9, ADULT 03/22/2015 KIMO RIDDLE MD Ot 174.9 MALIGN NEOPL BREAST NOS 03/22/2015 KIMO RIDDLE MD Ot 276.50 VOLUME DEPLETION, UNSPECIFIED 03/22/2015 KIMO RIDDLE MD Ot 372.30 CONJUNCTIVITIS NOS 03/22/2015 KIMO RIDDLE MD Ot 379.93 REDNESS/DISCHARGE OF EYE 03/22/2015 KIMO RIDDLE MD Ot 682.0 CELLULITIS OF FACE 03/22/2015 KIMO RIDDLE MD Ot 785.0 TACHYCARDIA NOS 03/22/2015 KIMO RIDDLE MD Ot 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 03/22/2015 KIMO RIDDLE MD Ot E86.9 VOLUME DEPLETION, UNSPECIFIED 03/22/2015 KIMO RIDDLE MD Ot H10.9 UNSPECIFIED CONJUNCTIVITIS 03/22/2015 KIMO RIDDLE MD Ot R00.0 TACHYCARDIA, UNSPECIFIED 03/22/2015 VENKATESH SUAREZ, KIMO Harden Ot V87.41 PERSONAL HISTORY OF ANTINEOPLASTIC CHEMO 03/22/2015 VENKATESH SUAREZ, KIMO Harden Ot Z92.21 PERSONAL HISTORY OF ANTINEOPLASTIC CHEMO 03/25/2015 SILVANO MASON N Ot 174.9 MALIGN NEOPL BREAST NOS 03/25/2015 MARLONSILVANO BROOKS N Ot 250.00 DIAB THOMAS WO COMPL, TYPE II OR UNSPEC TY 03/25/2015 SILVANO MASON N Ot 401.9 HYPERTENSION NOS 03/25/2015 SILVANO MASON N Ot 710.0 SYST LUPUS ERYTHEMATOSIS 03/25/2015 SILVANO MASON N Ot V12.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 03/25/2015 SILVANO MASON N Ot V58.11 ENCOUNTER FOR ANTINEOPLASTIC CHEMOTHERAP 03/25/2015 SILVANO MASON N Ot V58.61 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S,LT,CURRENT USE 03/25/2015 SILVANO MASON N Ot V58.69 OTH MED,LT,CURRENT USE 03/25/2015 SILVANO MASON N Ot V58.81 FIT/ADJ VASCULAR CATHETER 03/25/2015 SILVANO MASON N Ot V87.41 PERSONAL HISTORY OF ANTINEOPLASTIC CHEMO 03/26/2015 MARLONSILVANO BROOKS N Ot 174.9 03/26/2015 MARLON BOBCOURTNEY N Ot 250.00 03/26/2015 MARLONSILVANO N Ot 401.9 03/26/2015 MARLONSILVANO N Ot 710.0 03/26/2015 MARLONSILVANO N Ot V12.51 03/26/2015 MARLONSILVANO N Ot V58.61 03/26/2015 MARLON BOBCOURTNEY N Ot V58.69 03/26/2015 MARLON BOBAN N Ot V58.81 03/26/2015 MARLON BOBAN N Ot V87.41 03/26/2015 MARLONSILVANO N Ot 174.9 03/26/2015 MARLONSILVANO N Ot 250.00 03/26/2015 MARLON, BOBAN N Ot 401.9 03/26/2015 MARLONSILVANO N Ot 710.0 03/26/2015 MARLONSILVANO BROOKS N Ot V12.51 03/26/2015 MARLONSILVANO BROOKS N Ot V58.61 03/26/2015 MARLON, BOBAN N Ot V58.69 03/26/2015 MARLON, GIORGIAN N Ot V58.81 03/26/2015 MARLON, SILVANO N Ot V87.41 03/26/2015 MARLON, BOBAN N Ot 174.9 03/26/2015 MARLON, BOBAN N Ot 250.00 03/26/2015 MARLON, BOBAN N Ot 401.9 03/26/2015 MARLON, GIORGIAN N Ot 710.0 03/26/2015 MARLON, BOBAN N Ot V12.51 03/26/2015 MARLON, BOBAN N Ot V58.61 03/26/2015 MARLON, BOBAN N Ot V58.69 03/26/2015 MARLON, SILVANO N Ot V58.81 03/26/2015 MARLON, SILVANO N Ot V87.41 03/27/2015 MARLON, SILVANO N Ot 174.9 03/27/2015 MARLON, BOBAN N Ot 250.00 03/27/2015 MARLON, GIORGIAN N Ot 401.9 03/27/2015 MARLON, SILVANO N Ot 710.0 03/27/2015 MARLON, SILVANO N Ot V12.51 03/27/2015 MARLON, SILVANO N Ot V58.61 03/27/2015 MARLON, SILVANO N Ot V58.69 03/27/2015 MARLON, SILVANO N Ot V87.41 03/31/2015 MARLON, SILVANO N Ot 162.9 03/31/2015 MARLON, BOBAN N Ot 174.9 04/25/2015 DERICK DON S [facility] RN Ot 174.9 04/25/2015 DERICK DON [facility] RN Ot 197.0 04/25/2015 DERICK DON [facility] RN Ot 250.00 04/25/2015 DONDERICK Schmitz S CALL CENTER RN Ot 401.9 04/25/2015 DERICK DON S CALL [facility]ENTER RN Ot 416.8 04/25/2015 DERICK DON S CALL [facility]ENTER RN Ot 710.0 04/25/2015 DERICK DON S CALL CENTER RN Ot V12.51 04/25/2015 DERICK DON S CALL CENTER RN Ot V12.55 04/25/2015 DERICK DON S CALL CENTER RN Ot V58.61 04/25/2015 DERICK DON CALL CENTER RN Ot V58.69 04/25/2015 DERICK DON CALL CENTER RN Ot V87.41 04/25/2015 SILVANO MASON N Ot 174.9 04/25/2015 SILVANO MASON N Ot 250.00 04/25/2015 SILVANO MASON N Ot 401.9 04/25/2015 SILVANO MASON N Ot 710.0 04/25/2015 SILVANO MASON N Ot V12.51 04/25/2015 SILVANO MASON N Ot V58.61 04/25/2015 SILVANO MASON N Ot V58.69 04/25/2015 SILVANO MASON N Ot V87.41 05/08/2015 CELESTINA SUAREZ, DIPAK [place] Ot 174.9 05/08/2015 CELESTINA SUAREZ, DIPAK [place] Ot 401.9 05/08/2015 CELESTINA SUAREZ, DIPAK [place] Ot 414.9 05/08/2015 CELESTINA SUAREZ, DIPAK [place] Ot 786.09 05/08/2015 CELESTINA SUAREZ, DIPAK [place] Ot 786.50 05/12/2015 MARIANN CA DOA K Ot 174.9 MALIGN NEOPL BREAST NOS 05/12/2015 MARIANN CA DOA K Ot 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 05/12/2015 ROBY HATCH DARBY K Ot 250.00 DIAB THOMAS WO COMPL, TYPE II OR UNSPEC TY 05/12/2015 ROBY HATCH DARBY K Ot 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 05/12/2015 MARIANN CA DOA K Ot 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 05/12/2015 MARIANN CA DOA K Ot E11.9 TYPE 2 DIABETES MELLITUS WITHOUT COMPLIC 05/12/2015 ROBY HATCH DARBY K Ot V12.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 05/12/2015 MARIANN CA DOA K Ot V12.55 PERSONAL HISTORY OF PULMONARY EMBOLISM 05/12/2015 MARIANN CA DOA K Ot V58.67 LONG-TERM (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 INSULIN 05/12/2015 ROBY HATCH DARBY K Ot V58.69 OT MED,LT,CURRENT USE 05/12/2015 ROBY HATCH DARBY [place] Ot 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 05/12/2015 DARBY CA DO Ot Z86.711 PERSONAL HISTORY OF PULMONARY EMBOLISM 05/12/2015 DARBY CA DO Ot Z86.718 PERSONAL HISTORY OF OTHER VENOUS THROMBO 05/15/2015 DONDERICK Schmitz CALL CENTER RN Ot 197.0 05/15/2015 DONDERICK Schmitz S CALL CENTER RN Ot 416.8 05/15/2015 DONDERICK S CALL CENTER RN Ot V10.3 05/15/2015 ARIAN DERICK S CALL CENTER RN Ot V12.51 05/15/2015 DONDERICK S CALL CENTER RN Ot V12.55 05/15/2015 ARIANDERICK S CALL CENTER RN Ot V58.61 05/15/2015 ARIAN DERICK S CALL CENTER RN Ot V58.69 05/15/2015 DONDERICK Schmitz S CALL CENTER RN Ot V87.41 05/20/2015 ARIANDERICK S CALL CENTER RN Ot 174.9 05/20/2015 ARIAN DERICK S CALL CENTER RN Ot 197.0 05/20/2015 ARIAN DERICK S CALL CENTER RN Ot 250.00 05/20/2015 DONDERICK Schmitz S CALL CENTER RN Ot 401.9 05/20/2015 DONDERICK Schmitz S CALL CENTER RN Ot 416.8 05/20/2015 DONDERICK Schmitz S CALL CENTER RN Ot 710.0 05/20/2015 ARIANDERICK S CALL CENTER RN Ot V12.51 05/20/2015 DONDERICK S CALL CENTER RN Ot V12.55 05/20/2015 DONDERICK S CALL CENTER RN Ot V58.61 05/20/2015 ARIANDERICK S CALL CENTER RN Ot V58.69 05/20/2015 DONDERICK Schmitz S CALL CENTER RN Ot V87.41 05/21/2015 SILVANO MASON Ot 041.19 BACTERIAL INFECTION DUE TO OTHER STAPHYL 05/21/2015 SILVANO MASON Ot 174.8 MALIGN NEOPL BREAST NEC 05/21/2015 SILVANO MASON Ot 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 05/21/2015 SILVANO MASON N Ot 250.60 DIAB W NEURO MANIFEST, TYPE II OR UNSPEC 05/21/2015 SILVANO MASON N Ot 250.80 DIAB W OTH SPEC MANIFEST, TYPE II OR UNS 05/21/2015 SILVANO MASON Ot 278.00 OBESITY, NOS 05/21/2015 SILVANO MASON Ot 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9 05/25/2015 SILVANO MASON Ot 174.9 05/25/2015 SILVANO MASON Ot 397.0 05/25/2015 SILVANO MASON Ot 424.0 05/25/2015 SILVANO MASON Ot V58.69 05/25/2015 SILVANO MASON Ot V87.41 05/25/2015 SILVANO MASON Ot 174.9 05/25/2015 CELESTINA SUAREZ, DIPAK Cali Ot 786.09 05/25/2015 DERICK DON CALL CENTER RN Ot 174.9 05/25/2015 DERICK DON CALL CENTER RN Ot 196.3 05/25/2015 DERICK DON CALL CENTER RN Ot 250.00 05/25/2015 DERICK DON CALL CENTER RN Ot 401.9 05/25/2015 DERICK DON CALL CENTER RN Ot 710.0 05/25/2015 DERICK DON CALL CENTER RN Ot V12.51 05/25/2015 DERICK DON CALL CENTER RN Ot V12.55 05/25/2015 DONDERICK Schmitz CALL CENTER RN Ot V58.61 05/25/2015 ARIANDERICK S CALL CENTER RN Ot V58.67 05/25/2015 DONDERICK S CALL CENTER RN Ot V58.69 05/25/2015 DONDERICK Schmitz S CALL CENTER RN Ot V87.41 05/25/2015 DONDERICK Schmitz S CALL CENTER RN Ot 174.9 05/25/2015 DONDERICK S CALL CENTER RN Ot 174.9 05/25/2015 DONDERICK Schmitz S CALL CENTER RN Ot 196.3 05/25/2015 DONDERICK Schmitz S CALL CENTER RN Ot 250.00 05/25/2015 DONDERICK S CALL CENTER RN Ot 401.9 05/25/2015 ARIANDERICK S CALL CENTER RN Ot 710.0 05/25/2015 ARIANDERICK S CALL CENTER RN Ot V12.51 05/25/2015 ARIANDERIKC S CALL CENTER RN Ot V12.55 05/25/2015 ARIANDERICK S CALL CENTER RN Ot V58.61 05/25/2015 ARIANDERICK S CALL CENTER RN Ot V58.67 05/25/2015 ARIANDERICK S CALL CENTER RN Ot V58.69 05/25/2015 [facility] RN Ot V87.41 05/25/2015 CHARLENE RIVERA MD T Ot 279.8 05/25/2015 CHARLENE RIVERA MD T Ot 710.0 05/25/2015 [facility] RN Ot 174.9 05/25/2015 [facility] RN Ot 196.3 05/25/2015 [facility] RN Ot 710.0 05/25/2015 [facility] RN Ot V12.51 05/25/2015 [facility] RN Ot V12.55 05/25/2015 [facility] RN Ot V58.61 05/25/2015 [facility] RN Ot V58.69 05/25/2015 [facility] RN Ot V87.41 05/25/2015 DONDERICK [facility] RN Ot 174.9 05/25/2015 ARINA DER[facility] RN Ot 196.3 05/25/2015 [facility] RN Ot 710.0 05/25/2015 DONDERICK Schmitz [facility] RN Ot 782.2 05/25/2015 DONDERICK Schmitz S CALL [facility] RN Ot 786.50 05/25/2015 DONDERICK Schmitz S [facility] RN Ot 790.5 05/25/2015 DONDERICK Schmitz S CALL [facility] RN Ot V12.51 05/25/2015 DONDERICK [facility] RN Ot V12.55 05/25/2015 [facility] RN Ot V45.71 05/25/2015 DONDERICK [facility] RN Ot V58.61 05/25/2015 [facility] RN Ot V58.69 05/25/2015 [facility] RN Ot V87.41 05/25/2015 RICHIE LEMUS DO Ot 250.00 05/25/2015 RICHIE LEMUS DO Ot 272.4 05/25/2015 RICHIE LEMUS DO Ot 401.1 05/25/2015 [facility] RN Ot 174.9 05/25/2015 [facility] RN Ot 174.9 05/25/2015 MOMO PINO Ot 397.0 05/25/2015 MOMO PINO Ot 401.9 05/25/2015 MOMO PINO Ot 414.00 05/25/2015 MOMO PINO Ot 424.0 05/25/2015 MOMO PINO Ot 786.09 05/25/2015 [facility] RN Ot 174.9 05/25/2015 [facility] RN Ot 250.00 05/25/2015 [facility] RN Ot 401.9 05/25/2015 [facility] RN Ot 710.0 05/25/2015 [facility] RN Ot V12.51 05/25/2015 [facility] RN Ot V58.61 05/25/2015 [facility] RN Ot V58.69 05/25/2015 [facility] RN Ot V87.41 05/25/2015 [facility] RN Ot V76.12 05/25/2015 SHABNAM HOLMAN DO Ot 278.01 05/25/2015 SHABNAM HOLMAN DO Ot 415.19 05/25/2015 SHABNAM HOLMAN DO Ot 795.79 05/25/2015 SHABNAM HOLMAN DO Ot 278.01 05/25/2015 SHABNAM HOLMAN DO Ot 415.19 05/25/2015 SHABNAM HOLMAN DO Ot 795.79 05/25/2015 [facility] RN Ot 682.6 05/25/2015 [facility] RN Ot 710.0 05/25/2015 [facility] RN Ot 786.50 05/25/2015 [facility] RN Ot V10.3 05/25/2015 [facility] RN Ot V12.51 05/25/2015 [facility] RN Ot V12.55 05/25/2015 [facility] RN Ot V45.71 05/25/2015 [facility] RN Ot V67.2 05/25/2015 [facility] RN Ot 786.50 05/25/2015 ARIAN KELLY S [facility] RN Ot 416.8 05/25/2015 [facility]AN DERICK [facility] RN Ot 710.0 05/25/2015 [facility] D[facility]ICK [facility] RN Ot V10.3 05/25/2015 [facility] D[facility] RN Ot V12.51 05/25/2015 ARIAN DERICK [facility] RN Ot V12.55 05/25/2015 ARIAN DERICK [facility] RN Ot V45.71 05/25/2015 ARIAN KELLY S CALL [facility] RN Ot V58.61 05/25/2015 ARIAN DERICK [facility] RN Ot V58.69 05/25/2015 [facility]ICK [facility] RN Ot V67.2 05/25/2015 [facility]AN EDRICK [facility] RN Ot 174.9 05/25/2015 [facility] D[facility]ICK [facility] RN Ot 174.9 05/25/2015 [facility] RN Ot 197.0 05/25/2015 [facility] RN Ot 416.8 05/25/2015 ARIAN KELLY [facility] RN Ot 710.0 05/25/2015 DERICK DON CALL [facility] RN Ot V10.3 05/25/2015 DONDERICK Schmitz S CALL CENTER RN Ot V12.51 05/25/2015 DERICK DON S CALL CENTER RN Ot V12.55 05/25/2015 DERICK DON S CALL [facility] RN Ot V45.71 05/25/2015 DONDERICK Schmitz S CALL C[facility] RN Ot V58.61 05/25/2015 DONDERICK Schmitz S CALL CENTER RN Ot V58.69 05/25/2015 DERICK DON S CALL CENTER RN Ot 786.2 05/25/2015 DERICK DON S [facility] RN Ot 174.9 05/25/2015 DONDERICK Schmitz S CALL [facility] RN Ot 197.0 05/25/2015 DONDERICK Schmitz S [facility] RN Ot 250.00 05/25/2015 DONDERICK Schmitz S [facility] RN Ot 401.9 05/25/2015 DONDERICK Schmitz S [facility] RN Ot 416.8 05/25/2015 DONDERICK Schmitz [facility] RN Ot 710.0 05/25/2015 DONDERICK Schmitz S [facility] RN Ot V12.51 05/25/2015 DONDERICK Schmitz S CALL [facility] RN Ot V12.55 05/25/2015 DONDERICK Schmitz [facility] RN Ot V58.61 05/25/2015 DONDERICK Schmitz [facility] RN Ot V58.69 05/25/2015 DONDERICK Schmitz [facility] RN Ot V87.41 05/25/2015 SILVANO MASON Ot 162.9 05/25/2015 SILVANO MASON N Ot 174.9 05/25/2015 DONDERICK Schmitz [facility] RN Ot 197.0 05/25/2015 DONDERICK Schmitz [facility] RN Ot 416.8 05/25/2015 DONDERICK Schmitz S [facility] RN Ot V10.3 05/25/2015 DONDERICK Schmitz S CALL C[facility] RN Ot V12.51 05/25/2015 [facility] RN Ot V12.55 05/25/2015 DONDERICK Schmitz S [facility] RN Ot V58.61 05/25/2015 [facility] RN Ot V58.69 05/25/2015 [facility] RN Ot V87.41 05/25/2015 SILVANO MASON N Ot 174.9 05/25/2015 SILVANO MASON N Ot 250.00 05/25/2015 SILVANO MASON N Ot 401.9 05/25/2015 SILVANO MASON N Ot 710.0 05/25/2015 SILVANO MASON N Ot V12.51 05/25/2015 SILVANO MASON N Ot V58.61 05/25/2015 SILVANO MASON N Ot V58.69 05/25/2015 SILVANO MASON N Ot V87.41 05/25/2015 CELESTINA SUAREZ, DIPAK Cali Ot 174.9 05/25/2015 CELESTINA SUAREZ, DIPAK Cali Ot 401.9 05/25/2015 CELESTINA SUAREZ, DIPAK Cali Ot 414.9 05/25/2015 CELESTINA SUAREZ, DIPAK Cali Ot 786.09 05/25/2015 CELESTIAN SUAREZ, DIPAK Cali Ot 786.50 05/25/2015 [facility] RN Ot 174.9 05/25/2015 DERICK [facility] RN Ot 197.0 05/25/2015 [facility]ERICK [facility] RN Ot 250.00 05/25/2015 DERICK [facility] RN Ot 401.9 05/25/2015 DERICK [facility] RN Ot 416.8 05/25/2015 DERICK [facility] RN Ot 710.0 05/25/2015 DERICK [facility] RN Ot V12.51 05/25/2015 DERICK [facility] RN Ot V12.55 05/25/2015 DERICK [facility] RN Ot V58.61 05/25/2015 DERICK [facility] RN Ot V58.69 05/25/2015 ARIAN KELLYERWIN S CALL [facility] RN Ot V87.41 05/25/2015 Ot 174.9 05/25/2015 Ot 250.00 05/25/2015 Ot 401.9 05/25/2015 Ot 709.9 05/25/2015 Ot 710.0 05/25/2015 Ot V12.51 05/25/2015 Ot V58.61 05/25/2015 Ot V58.69 05/25/2015 Ot 174.9 05/25/2015 SILVANO MASON N Ot 174.9 05/25/2015 SILVANO MASON N Ot 397.0 05/25/2015 SILVANO MASON N Ot 424.0 05/25/2015 SILVANO MASON N Ot V58.69 05/25/2015 SILVANO MASON N Ot V87.41 05/25/2015 SILVANO MASON N Ot 174.9 05/25/2015 CELESTINA SUAREZ, DIPAK Cali Ot 786.09 05/25/2015 DONDERICK Schmitz [facility] RN Ot 174.9 05/25/2015 DONDERICK Schmitz S [facility] RN Ot 196.3 05/25/2015 DONDERICK Schmitz S [facility] RN Ot 250.00 05/25/2015 [facility] RN Ot 401.9 05/25/2015 [facility] RN Ot 710.0 05/25/2015 [facility] RN Ot V12.51 05/25/2015 [facility] RN Ot V12.55 05/25/2015 [facility] RN Ot V58.61 05/25/2015 [facility] RN Ot V58.67 05/25/2015 DON[facility] RN Ot V58.69 05/25/2015 DONDERICK Schmitz S CALL C[facility] RN Ot V87.41 05/25/2015 DONDERICK Schmitz S CALL C[facility] RN Ot 174.9 05/25/2015 [facility] RN Ot 174.9 05/25/2015 [facility] RN Ot 196.3 05/25/2015 DONDERICK Schmitz S CALL C[facility] RN Ot 250.00 05/25/2015 DONDERICK Schmitz S CALL C[facility] RN Ot 401.9 05/25/2015 DONDERICK [facility] RN Ot 710.0 05/25/2015 DONDERICK [facility] RN Ot V12.51 05/25/2015 DON[facility] RN Ot V12.55 05/25/2015 [facility] RN Ot V58.61 05/25/2015 DON[facility] RN Ot V58.67 05/25/2015 [facility] RN Ot V58.69 05/25/2015 DON DERICK [facility] RN Ot V87.41 05/25/2015 CHARLENE RIVERA MD Ot 279.8 05/25/2015 CHARLENE RIVERA MD Ot 710.0 05/25/2015 [facility] RN Ot 174.9 05/25/2015 [facility]ER[facility] RN Ot 196.3 05/25/2015 DERICK DON S CALL [facility] RN Ot 710.0 05/25/2015 DERICK DON S CALL [facility] RN Ot V12.51 05/25/2015 DERICK DON S CALL [facility] RN Ot V12.55 05/25/2015 DERICK DON S CALL [facility] RN Ot V58.61 05/25/2015 DERICK DON S CALL [facility] RN Ot V58.69 05/25/2015 DERICK DON S [facility] RN Ot V87.41 05/25/2015 DERICK DON S [facility] RN Ot 174.9 05/25/2015 DERICK DON S CALL [facility] RN Ot 196.3 05/25/2015 DERICK DON S [facility] RN Ot 710.0 05/25/2015 DERICK DON S [facility] RN Ot 782.2 05/25/2015 DERICK DON S [facility] RN Ot 786.50 05/25/2015 DERICK DON S CALL [facility] RN Ot 790.5 05/25/2015 DERICK DON S CALL [facility] RN Ot V12.51 05/25/2015 DERICK DON S CALL [facility] RN Ot V12.55 05/25/2015 DERICK DON S [facility] RN Ot V45.71 05/25/2015 DERICK DON S [facility] RN Ot V58.61 05/25/2015 DERICK DON S CALL [facility] RN Ot V58.69 05/25/2015 DERICK DON S [facility] RN Ot V87.41 05/25/2015 RICHIE LEMUS DO Ot 250.00 05/25/2015 RICHIE LEMUS DO Ot 272.4 05/25/2015 RICHIE LEMUS DO Ot 401.1 05/25/2015 DONDERICK Schmitz S CALL [facility] RN Ot 174.9 05/25/2015 [facility] RN Ot 174.9 05/25/2015 MOMO PINO Ot 397.0 05/25/2015 MOMO PINO Ot 401.9 05/25/2015 MOMO PINO Ot 414.00 05/25/2015 MOMO PINO Ot 424.0 05/25/2015 MOMO PINO Ot 786.09 05/25/2015 [facility] RN Ot 174.9 05/25/2015 [facility] RN Ot 250.00 05/25/2015 [facility] RN Ot 401.9 05/25/2015 [facility] RN Ot 710.0 05/25/2015 [facility] RN Ot V12.51 05/25/2015 [facility] RN Ot V58.61 05/25/2015 ARIAN DERICK S [facility] RN Ot V58.69 05/25/2015 [facility] RN Ot V87.41 05/25/2015 [facility] RN Ot V76.12 05/25/2015 SHABNAM HOLMAN DO M Ot 278.01 05/25/2015 SHABNAM HOLMAN DO M Ot 415.19 05/25/2015 SHABNAM HOLMAN DO M Ot 795.79 05/25/2015 SHBANAM HOLMAN DO M Ot 278.01 05/25/2015 SHABNAM HOLMAN DO M Ot 415.19 05/25/2015 SHABNAM HOLMAN DO M Ot 795.79 05/25/2015 [facility] D[facility]ICK [facility] RN Ot 682.6 05/25/2015 [facility] DERICK [facility] RN Ot 710.0 05/25/2015 [facility] DERICK [facility] RN Ot 786.50 05/25/2015 [facility] D[facility]ICK [facility] RN Ot V10.3 05/25/2015 ARIAN DERICK [facility] RN Ot V12.51 05/25/2015 [facility] D[facility] RN Ot V12.55 05/25/2015 ARIAN D[facility]ICK [facility] RN Ot V45.71 05/25/2015 ARIAN DERICK [facility] RN Ot V67.2 05/25/2015 [facility]AN DERICK [facility] RN Ot 786.50 05/25/2015 ARIAN DERICK [facility] RN Ot 416.8 05/25/2015 ARIAN DERICK [facility] RN Ot 710.0 05/25/2015 ARIAN DERICK [facility] RN Ot V10.3 05/25/2015 DONDERICK Schmitz CALL [facility] RN Ot V12.51 05/25/2015 [facility] RN Ot V12.55 05/25/2015 DON[facility] RN Ot V45.71 05/25/2015 DONDERICK Schmitz S CALL CENTER RN Ot V58.61 05/25/2015 DONDERICK S [facility] RN Ot V58.69 05/25/2015 DONKELLY S CALL CENTER RN Ot V67.2 05/25/2015 DON, HIL S CALL C[facility] RN Ot 174.9 05/25/2015 DON, HIL S CALL CENTER RN Ot 174.9 05/25/2015 DON, [facility] S CALL [facility] RN Ot 197.0 05/25/2015 DONKELLY S CALL C[facility] RN Ot 416.8 05/25/2015 DONKELLY S [facility] RN Ot 710.0 05/25/2015 DONDERICK Schmitz S CALL CENTER RN Ot V10.3 05/25/2015 ARIANKELLY S CALL [facility] RN Ot V12.51 05/25/2015 DON [facility] S CALL CENTER RN Ot V12.55 05/25/2015 DON, HIL S CALL CENTER RN Ot V45.71 05/25/2015 DNODERICK Schmitz S CALL CENTER RN Ot V58.61 05/25/2015 DONDERICK Schmitz S CALL CENTER RN Ot V58.69 05/25/2015 DON, HIL S CALL C[facility] RN Ot 786.2 05/25/2015 DON, HIL S CALL [facility] RN Ot 174.9 05/25/2015 DON, HIL S CALL C[facility] RN Ot 197.0 05/25/2015 DON, [facility] S CALL C[facility] RN Ot 250.00 05/25/2015 DON, HIL S CALL CENTER RN Ot 401.9 05/25/2015 ODN [facility] S CALL CENTER RN Ot 416.8 05/25/2015 DON [facility] S CALL CENTER RN Ot 710.0 05/25/2015 [facility] RN Ot V12.51 05/25/2015 [facility] RN Ot V12.55 05/25/2015 ARIAN KELLY S CALL CENTER RN Ot V58.61 05/25/2015 ARIAN KELLY S CALL C[facility] RN Ot V58.69 05/25/2015 DERICK DON CALL [facility] RN Ot V87.41 05/25/2015 SILVANO MASON N Ot 162.9 05/25/2015 SILVANO MASON N Ot 174.9 05/25/2015 DERICK DON S CALL [facility] RN Ot 197.0 05/25/2015 DERICK DON S CALL CENTER RN Ot 416.8 05/25/2015 DONDERICK Schmitz S CALL CENTER RN Ot V10.3 05/25/2015 DONDERICK Schmitz S CALL CENTER RN Ot V12.51 05/25/2015 DONDERICK Schmitz S CALL CENTER RN Ot V12.55 05/25/2015 DONDERICK Schmitz S CALL CENTER RN Ot V58.61 05/25/2015 DERICK DON S CALL CENTER RN Ot V58.69 05/25/2015 DERICK DON S CALL CENTER RN Ot V87.41 05/25/2015 SILVANO MASON N Ot 174.9 05/25/2015 SILVANO MASON N Ot 250.00 05/25/2015 SILVANO MASON N Ot 401.9 05/25/2015 SILVANO MASON N Ot 710.0 05/25/2015 SILVANO MASON N Ot V12.51 05/25/2015 SILVANO MASON N Ot V58.61 05/25/2015 SILVANO MASON N Ot V58.69 05/25/2015 SILVANO MASON N Ot V87.41 05/25/2015 CELESTINA SUAREZ, DIPAK Cali Ot 174.9 05/25/2015 CELESTINA SUAREZ, DIPAK Cali Ot 401.9 05/25/2015 CELESTINA SUAREZ, DIPAK Cali Ot 414.9 05/25/2015 CELESTINA SUAREZ, DIPAK Cali Ot 786.09 05/25/2015 DIPAK OSCAR MD Ot 786.50 05/25/2015 DERICK DON S [facility] RN Ot 174.9 05/25/2015 DONDERICK Schmitz S CALL CENTER RN Ot 197.0 05/25/2015 DON DERICK S CALL [facility] RN Ot 250.00 05/25/2015 ARIAN DERICK S CALL [facility] RN Ot 401.9 05/25/2015 DON, DERICK S CALL [facility] RN Ot 416.8 05/25/2015 DON DERICK S [facility] RN Ot 710.0 05/25/2015 DON, HILAH S CALL CENTER RN Ot V12.51 05/25/2015 DERICK DON CALL [facility] RN Ot V12.55 05/25/2015 DERICK DON CALL C[facility] RN Ot V58.61 05/25/2015 DERICK DON CALL [facility] RN Ot V58.69 05/25/2015 DERICK DONP Ot V87.41 05/25/2015 SILVANO MASON N Ot 174.9 05/25/2015 SILVANO MASON N Ot 250.00 05/25/2015 SILVANO MASON N Ot 401.9 05/25/2015 SILVANO MASON N Ot 710.0 05/25/2015 SILVANO MASON N Ot V12.51 05/25/2015 SILVANO MASON N Ot V58.61 05/25/2015 SILVANO MASON N Ot V58.69 05/25/2015 SILVANO MASON Ot V87.41 05/26/2015 Ot 786.2 05/26/2015 Ot 782.3 05/26/2015 Ot 174.9 05/26/2015 Ot 250.00 05/26/2015 Ot 401.9 05/26/2015 Ot 710.0 05/26/2015 Ot V58.69 05/26/2015 Ot 174.9 05/26/2015 Ot 397.0 05/26/2015 Ot 424.0 05/26/2015 Ot V58.69 05/26/2015 Ot V58.83 05/26/2015 Ot 174.9 05/26/2015 Ot 710.0 05/26/2015 Ot V58.69 05/26/2015 Ot 518.0 05/26/2015 Ot 786.05 05/26/2015 Ot 786.2 05/26/2015 Ot 397.0 05/26/2015 Ot 424.0 05/26/2015 Ot 786.09 05/26/2015 Ot V58.69 05/26/2015 Ot V58.83 05/26/2015 Ot 780.4 05/26/2015 Ot 786.09 05/26/2015 Ot 174.9 05/26/2015 Ot 250.00 05/26/2015 Ot 401.9 05/26/2015 Ot 709.9 05/26/2015 Ot 710.0 05/26/2015 Ot V12.51 05/26/2015 Ot V58.61 05/26/2015 Ot V58.69 05/26/2015 Ot 174.9 06/02/2015 JHON MELO MD Ot 174.9 MALIGN NEOPL BREAST NOS 06/02/2015 JHON MELO MD Ot 250.60 DIAB W NEURO MANIFEST, TYPE II OR UNSPEC 06/02/2015 JHON MELO MD Ot 250.80 DIAB W OTH SPEC MANIFEST, TYPE II OR UNS 06/02/2015 JHON MELO MD Ot 707.15 ULCER OF OTHER PART OF FOOT 06/02/2015 JHON MELO MD Ot V87.41 PERSONAL HISTORY OF ANTINEOPLASTIC CHEMO 06/17/2015 [facility] RN Ot 174.9 06/17/2015 DERICK [facility] RN Ot 197.0 06/24/2015 MARLONSILVANO BROOKS N Ot 174.9 MALIGN NEOPL BREAST NOS 06/24/2015 MARLONSILVANO BROOKS N Ot 250.00 DIAB THOMAS WO COMPL, TYPE II OR UNSPEC TY 06/24/2015 SILVANO MASON N Ot 401.9 HYPERTENSION NOS 06/24/2015 MARLONSILVANO BROOKS N Ot 710.0 SYST LUPUS ERYTHEMATOSIS 06/24/2015 MARLONSILVANO BROOKS N Ot V12.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 06/24/2015 SILVANO MASON N Ot V58.11 ENCOUNTER FOR ANTINEOPLASTIC CHEMOTHERAP 06/24/2015 MARLONSILVANO BROOKS N Ot V58.61 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S,LT,CURRENT USE 06/24/2015 MARLONSILVANO N Ot V58.69 OTH MED,LT,CURRENT USE 06/24/2015 SILVANO MASON N Ot V87.41 PERSONAL HISTORY OF ANTINEOPLASTIC CHEMO 06/25/2015 MARLON BOBAN N Ot 174.9 06/25/2015 MARLON, BOBAN N Ot 250.00 06/25/2015 MARLON BOBAN N Ot 401.9 06/25/2015 MARLON BOBAN N Ot 710.0 06/25/2015 MARLON BOBCOURTNEY N Ot V12.51 06/25/2015 MARLON BOBAN N Ot V58.61 06/25/2015 MARLON BOBAN N Ot V58.69 06/25/2015 MARLON, BOBAN N Ot V87.41 06/25/2015 MARLON, BOBAN N Ot 174.9 06/25/2015 MARLON, SILVANO N Ot 250.00 06/25/2015 MARLON, SILVANO N Ot 401.9 06/25/2015 MARLON, SILVANO N Ot 710.0 06/25/2015 MARLON, SILVANO N Ot V12.51 06/25/2015 MARLON, SILVANO N Ot V58.61 06/25/2015 MARLON, SILVANO N Ot V58.69 06/25/2015 MARLON, SILVANO N Ot V87.41 06/26/2015 MARLON, SILVANO N Ot 174.9 06/26/2015 MARLON, SILVANO N Ot 250.00 06/26/2015 MARLON, SILVANO N Ot 401.9 06/26/2015 MARLON, SILVANO N Ot 710.0 06/26/2015 MARLON, SILVANO N Ot V12.51 06/26/2015 MARLON, SILVANO N Ot V58.61 06/26/2015 MARLON, SILVANO N Ot V58.69 06/26/2015 MAROLN, SILVANO N Ot V87.41 06/26/2015 MARLON, SILVANO N Ot 174.9 06/26/2015 MARLON, SILVANO N Ot 250.00 06/26/2015 MARLON, SILVANO N Ot 401.9 06/26/2015 MARLON, SILVANO N Ot 710.0 06/26/2015 MARLON, SILVANO N Ot V12.51 06/26/2015 MARLON, SILVANO N Ot V58.11 06/26/2015 MARLON, SILVANO N Ot V58.61 06/26/2015 MARLON, SILVANO N Ot V58.69 06/26/2015 MARLON, SILVANO N Ot V87.41 07/09/2015 Ot 174.9 07/09/2015 Ot 250.00 07/09/2015 Ot 401.9 07/09/2015 Ot 709.9 07/09/2015 Ot 710.0 07/09/2015 Ot V12.51 07/09/2015 Ot V58.61 07/09/2015 Ot V58.69 07/09/2015 Ot 174.9 07/09/2015 MARLON, SILVANO N Ot 174.9 07/09/2015 MARLON, SILVANO N Ot 397.0 07/09/2015 MARLONSILVANO BROOKS N Ot 424.0 07/09/2015 SILVANO MASON N Ot V58.69 07/09/2015 SILVANO MASON N Ot V87.41 07/09/2015 SILVANO MASON N Ot 174.9 07/09/2015 CELESTINA SUAREZ, DIPAK Cali Ot 786.09 07/09/2015 DERICK DON S CALL CENTER RN Ot 174.9 07/09/2015 DONDERICK S CALL CENTER RN Ot 196.3 07/09/2015 DONDERICK Schmitz S CALL CENTER RN Ot 250.00 07/09/2015 DONDERICK S CALL CENTER RN Ot 401.9 07/09/2015 DONDERICK S CALL CENTER RN Ot 710.0 07/09/2015 DON DERICK S CALL CENTER RN Ot V12.51 07/09/2015 DONDERICK S CALL CENTER RN Ot V12.55 07/09/2015 DONDERICK S CALL CENTER RN Ot V58.61 07/09/2015 ARIAN DERICK S CALL CENTER RN Ot V58.67 07/09/2015 DONDERICK S CALL CENTER RN Ot V58.69 07/09/2015 DONDERICK S CALL CENTER RN Ot V87.41 07/09/2015 DONDERICK Schmitz S CALL CENTER RN Ot 174.9 07/09/2015 DONDERICK S CALL CENTER RN Ot 174.9 07/09/2015 DONDERICK S CALL CENTER RN Ot 196.3 07/09/2015 DONDERICK Schmitz S CALL CENTER RN Ot 250.00 07/09/2015 DONDERICK Schmitz S CALL CENTER RN Ot 401.9 07/09/2015 DONDERICK S CALL CENTER RN Ot 710.0 07/09/2015 DONDERICK S CALL CENTER RN Ot V12.51 07/09/2015 DONDERICK S CALL CENTER RN Ot V12.55 07/09/2015 DONDERICK S CALL CENTER RN Ot V58.61 07/09/2015 DONDERICK S CALL CENTER RN Ot V58.67 07/09/2015 DONDERICK S CALL CENTER RN Ot V58.69 07/09/2015 DON DERICK S CALL CENTER RN Ot V87.41 07/09/2015 MIGUEL SUAREZ, CHARLENE Harden Ot 279.8 07/09/2015 MIGUEL SUAREZ, CHARLENE T Ot 710.0 07/09/2015 DERICK DON CALL [facility] RN Ot 174.9 07/09/2015 DERICK DON CALL CENTER RN Ot 196.3 07/09/2015 DERICK DON S CALL CENTER RN Ot 710.0 07/09/2015 DERICK DON S CALL CENTER RN Ot V12.51 07/09/2015 DERICK DON S CALL CENTER RN Ot V12.55 07/09/2015 DERICK DON S CALL CENTER RN Ot V58.61 07/09/2015 DERICK DON S CALL CENTER RN Ot V58.69 07/09/2015 DERICK DON S CALL CENTER RN Ot V87.41 07/09/2015 DERICK DON S CALL CENTER RN Ot 174.9 07/09/2015 DERICK DON S CALL CENTER RN Ot 196.3 07/09/2015 DERICK DON S CALL CENTER RN Ot 710.0 07/09/2015 DERICK DON S CALL CENTER RN Ot 782.2 07/09/2015 DERICK DON S CALL CENTER RN Ot 786.50 07/09/2015 DERICK DON S CALL CENTER RN Ot 790.5 07/09/2015 DERICK DON S CALL CENTER RN Ot V12.51 07/09/2015 DERICK DON S CALL CENTER RN Ot V12.55 07/09/2015 DERICK DON S CALL CENTER RN Ot V45.71 07/09/2015 DERICK DON S CALL CENTER RN Ot V58.61 07/09/2015 DERICK DON S CALL CENTER RN Ot V58.69 07/09/2015 DERICK DON S CALL CENTER RN Ot V87.41 07/09/2015 RICHIE LEMUS DO Ot 250.00 07/09/2015 RICHIE LEMUS DO Ot 272.4 07/09/2015 RICHIE LEMUS DO Ot 401.1 07/09/2015 [facility] RN Ot 174.9 07/09/2015 ARIANDERICK S CALL CENTER RN Ot 174.9 07/09/2015 MOMO PINO Ot 397.0 07/09/2015 MOMO PINO Ot 401.9 07/09/2015 MOMO PION Ot 414.00 07/09/2015 MOMO PINO Ot 424.0 07/09/2015 MOMO PINO Ot 786.09 07/09/2015 [facility] RN Ot 174.9 07/09/2015 ARIANDERICK S CALL CENTER RN Ot 250.00 07/09/2015 DONDERICK S CALL CENTER RN Ot 401.9 07/09/2015 DONDER[facility] S [facility] RN Ot 710.0 07/09/2015 [facility] RN Ot V12.51 07/09/2015 DON[facility] S [facility] RN Ot V58.61 07/09/2015 [facility] S [facility] RN Ot V58.69 07/09/2015 [facility] RN Ot V87.41 07/09/2015 [facility] RN Ot V76.12 07/09/2015 SHABNAM HOLMAN DO M Ot 278.01 07/09/2015 SHABNAM HOLMAN DO M Ot 415.19 07/09/2015 SHABNAM HOLMAN DO M Ot 795.79 07/09/2015 SHABNAM HOLMAN DO M Ot 278.01 07/09/2015 SHABNAM HOLMAN DO M Ot 415.19 07/09/2015 SHABNAM HOLMAN DO M Ot 795.79 07/09/2015 [facility] RN Ot 682.6 07/09/2015 [facility] RN Ot 710.0 07/09/2015 ARIAN DERICK S [facility] C[facility] RN Ot 786.50 07/09/2015 ARIAN DERICK S [facility] RN Ot V10.3 07/09/2015 ARIAN DERICK S [facility] RN Ot V12.51 07/09/2015 ARIAN DERICK S [facility] RN Ot V12.55 07/09/2015 ARIAN DERICK [facility] RN Ot V45.71 07/09/2015 ARIAN DERICK S [facility] RN Ot V67.2 07/09/2015 ARIAN DERICK S [facility] RN Ot 786.50 07/09/2015 [facility] DERICK S [facility] RN Ot 416.8 07/09/2015 ARIAN DERICK [facility] RN Ot 710.0 07/09/2015 ARIAN DERICK S [facility] RN Ot V10.3 07/09/2015 DONDERICK Schmitz CALL C[facility] RN Ot V12.51 07/09/2015 [facility] RN Ot V12.55 07/09/2015 DONDERICK Schmitz S CALL CENTER RN Ot V45.71 07/09/2015 DONDERICK Schmitz S CALL C[facility] RN Ot V58.61 07/09/2015 DONDERICK Schmitz S [facility] RN Ot V58.69 07/09/2015 DONDERICK Schmitz S [facility] RN Ot V67.2 07/09/2015 DONDERICK Schmitz S [facility] RN Ot 174.9 07/09/2015 DONDERICK Schmitz S [facility] RN Ot 174.9 07/09/2015 DONDERICK Schmitz S [facility] RN Ot 197.0 07/09/2015 DON[facility] S [facility] RN Ot 416.8 07/09/2015 DONDERICK Schmitz S [facility] RN Ot 710.0 07/09/2015 DONDERICK Sch[facility] RN Ot V10.3 07/09/2015 [facility] RN Ot V12.51 07/09/2015 DONDERICK Schmitz S [facility] RN Ot V12.55 07/09/2015 DONDERICK Schmitz S [facility] RN Ot V45.71 07/09/2015 DONDERICK Schmitz S CALL [facility] RN Ot V58.61 07/09/2015 DONDERICK Schmitz S [facility] RN Ot V58.69 07/09/2015 DONDERICK Schmitz S [facility] RN Ot 786.2 07/09/2015 DONDERICK Schmitz S [facility] RN Ot 174.9 07/09/2015 DONDERICK Schmitz S [facility] RN Ot 197.0 07/09/2015 DONDERICK Schmitz S [facility] RN Ot 250.00 07/09/2015 DONDERICK Schmitz S [facility] RN Ot 401.9 07/09/2015 DONDERICK Schmitz S [facility] RN Ot 416.8 07/09/2015 DONDERICK Schmitz S [facility] RN Ot 710.0 07/09/2015 DON[facility] S [facility] RN Ot V12.51 07/09/2015 [facility] RN Ot V12.55 07/09/2015 [facility] RN Ot V58.61 07/09/2015 ARIAN DERICK S CALL C[facility] RN Ot V58.69 07/09/2015 [facility] RN Ot V87.41 07/09/2015 SILVANO MASON N Ot 162.9 07/09/2015 SILVANO MASON N Ot 174.9 07/09/2015 DONDERICK [facility] RN Ot 197.0 07/09/2015 DONDERICK Schmitz S CALL C[facility] RN Ot 416.8 07/09/2015 DONDERICK Schmitz S CALL CENTER RN Ot V10.3 07/09/2015 [facility] RN Ot V12.51 07/09/2015 DONDERICK S CALL [facility] RN Ot V12.55 07/09/2015 DON[facility] S [facility] RN Ot V58.61 07/09/2015 [facility] RN Ot V58.69 07/09/2015 DONDERICK Schmitz S CALL CENTER RN Ot V87.41 07/09/2015 CELESTINA SUAREZ, DIPAK Cali Ot 174.9 07/09/2015 CELESTINA SUAREZ, DIPAK [place] Ot 401.9 07/09/2015 CELESTINA SUAREZ, DIPAK J Ot 414.9 07/09/2015 CELESTINA SUAREZ, BASMATT J Ot 786.09 07/09/2015 CELESTINA SUAREZ, DIPAK J Ot 786.50 07/09/2015 DONDERICK Schmitz S CALL [facility] RN Ot 174.9 07/09/2015 DONDERICK Schmitz S CALL [facility]ENTER RN Ot 197.0 07/09/2015 DONDERICK Schmitz S CALL CENTER RN Ot 250.00 07/09/2015 DONDERICK Schmitz S CALL CENTER RN Ot 401.9 07/09/2015 DONDERICK Schmitz S CALL CENTER RN Ot 416.8 07/09/2015 DONDERICK Schmitz S CALL CENTER RN Ot 710.0 07/09/2015 DONDERICK Schmitz S CALL CENTER RN Ot V12.51 07/09/2015 DONDERICK Schmitz S CALL CENTER RN Ot V12.55 07/09/2015 DONDERICK Schmitz S CALL CENTER RN Ot V58.61 07/09/2015 DONDERICK S [facility] RN Ot V58.69 07/09/2015 DONDERICK Schmitz S CALL CENTER RN Ot V87.41 07/09/2015 DONDERICK Schmitz S CALL C[facility] RN Ot 174.9 07/09/2015 ARIAN DERICK S [facility] RN Ot 197.0 07/09/2015 ARIAN DERICK S [facility] RN Ot 174.9 07/09/2015 DERICK DON CALL [facility]ENTER RN Ot 196.3 07/09/2015 DONDERICK Schmitz CALL CENTER RN Ot 197.0 07/09/2015 DONDERICK Schmitz S CALL CENTER RN Ot 250.80 07/09/2015 DONDERICK Schmitz S CALL CENTER RN Ot 356.9 07/09/2015 DONDERICK Schmitz S CALL CENTER RN Ot 416.8 07/09/2015 DONDERICK Schmitz S CALL CENTER RN Ot 682.7 07/09/2015 DONDERICK Schmitz S CALL CENTER RN Ot 707.15 07/09/2015 DONDERICK Schmitz S CALL CENTER RN Ot 710.0 07/09/2015 DERICK DON S CALL CENTER RN Ot V12.51 07/09/2015 DONDERICK Schmitz S CALL CENTER RN Ot V12.54 07/09/2015 DERICK DON S CALL CENTER RN Ot V45.71 07/09/2015 DERICK DON S CALL CENTER RN Ot V58.61 07/09/2015 DERICK DON S CALL CENTER RN Ot V58.69 07/09/2015 MARLON, BOBAN N Ot 174.9 07/09/2015 MARLON, BOBAN N Ot 250.00 07/09/2015 MARLON, BOBAN N Ot 401.9 07/09/2015 MARLON, BOBAN N Ot 710.0 07/09/2015 MARLON, BOBAN N Ot V12.51 07/09/2015 MARLON, BOBAN N Ot V58.11 07/09/2015 MARLON, BOBAN N Ot V58.61 07/09/2015 MARLON, BOBAN N Ot V58.69 07/09/2015 MARLON, BOBAN N Ot V87.41 07/09/2015 DERICK DON CALL CENTER RN Ot 416.8 07/09/2015 DONDERICK Schmitz S CALL CENTER RN Ot 710.0 07/09/2015 DERICK DON S CALL CENTER RN Ot V10.3 07/09/2015 DONDERICK Schmitz S CALL CENTER RN Ot V12.51 07/09/2015 DONDERICK S CALL CENTER RN Ot V12.55 07/09/2015 DONDERICK Schmitz S CALL CENTER RN Ot V45.71 07/09/2015 DONDERICK S CALL CENTER RN Ot V58.61 07/09/2015 DERICK DON CALL CENTER RN Ot V58.69 07/09/2015 DERICK DON CALL CENTER RN Ot V67.2 07/22/2015 DERICK DON CALL CENTER RN Ot 174.9 07/22/2015 DERICK DON CALL CENTER RN Ot 196.3 07/22/2015 DERICK DON CALL CENTER RN Ot 197.0 07/22/2015 DERICK DON CALL CENTER RN Ot 250.80 07/22/2015 DERICK DON S CALL CENTER RN Ot 356.9 07/22/2015 DONDERICK Schmitz S CALL CENTER RN Ot 416.8 07/22/2015 DERICK DON CALL CENTER RN Ot 682.7 07/22/2015 DERICK DON S CALL CENTER RN Ot 707.15 07/22/2015 DERICK DON CALL CENTER RN Ot 710.0 07/22/2015 DERICK DON CALL CENTER RN Ot V12.51 07/22/2015 DERICK DON CALL CENTER RN Ot V12.54 07/22/2015 DERICK DON CALL CENTER RN Ot V45.71 07/22/2015 DERICK DON CALL CENTER RN Ot V58.61 07/22/2015 DERICK DON CALL CENTER RN Ot V58.69 07/22/2015 MARLON, BOBAN N Ot 174.9 07/22/2015 MARLON, BOBAN N Ot 250.00 07/22/2015 MARLON, BOBAN N Ot 401.9 07/22/2015 MARLON, BOBAN N Ot 710.0 07/22/2015 MARLON, BOBAN N Ot V12.51 07/22/2015 MARLON, BOBAN N Ot V58.11 07/22/2015 MARLON, BOBAN N Ot V58.61 07/22/2015 MARLON, BOBAN N Ot V58.69 07/22/2015 MARLON, BOBAN N Ot V87.41 07/23/2015 MARLON, BOBAN N Ot 174.9 07/23/2015 MARLON, BOBAN N Ot 250.00 07/23/2015 MARLON, BOBAN N Ot 401.9 07/23/2015 MARLON, BOBAN N Ot 710.0 07/23/2015 MARLON, BOBAN N Ot V12.51 07/23/2015 MARLON, BOBAN N Ot V58.11 07/23/2015 MARLON, GIORGIAN N Ot V58.61 07/23/2015 MARLON, BOBAN N Ot V58.69 07/23/2015 MARLON, BOBCOURTNEY N Ot V87.41 08/19/2015 MARLON, BOBAN N Ot 174.9 08/19/2015 MARLON, BOBAN N Ot 250.00 08/19/2015 MARLON, BOBAN N Ot 401.9 08/19/2015 MARLON, BOBAN N Ot 710.0 08/19/2015 MARLON, BOBAN N Ot V12.51 08/19/2015 MARLON, GIORGIAN N Ot V58.11 08/19/2015 MARLON, BOBCOURTNEY N Ot V58.61 08/19/2015 MARLON, BOBCOURTNEY N Ot V58.69 08/19/2015 MARLON, SILVANO N Ot V87.41 08/21/2015 MARLON, SILVANO N Ot 174.9 08/21/2015 MARLON, SILVANO N Ot 250.00 08/21/2015 MARLON, BOBAN N Ot 401.9 08/21/2015 MARLON, BOBAN N Ot 710.0 08/21/2015 MARLON, BOBCOURTNEY N Ot V12.51 08/21/2015 MARLON, SILVANO N Ot V58.11 08/21/2015 MARLON, SILVANO N Ot V58.61 08/21/2015 MARLON, BOBCOURTNEY N Ot V58.69 08/21/2015 MARLON, SILVANO N Ot V87.41 08/21/2015 DERICK DON CALL CENTER RN Ot 416.8 08/21/2015 DERICK DON CALL CENTER RN Ot 710.0 08/21/2015 DERICK DON S CALL CENTER RN Ot V10.3 08/21/2015 DERICK DON S CALL CENTER RN Ot V12.51 08/21/2015 DERICK DON S CALL CENTER RN Ot V12.55 08/21/2015 DERICK DON CALL CENTER RN Ot V45.71 08/21/2015 DERICK DON S CALL CENTER RN Ot V58.61 08/21/2015 DERICK DON S CALL CENTER RN Ot V58.69 08/21/2015 DERICK DON S CALL CENTER RN Ot V67.2 08/21/2015 DERICK DON CALL CENTER RN Ot 786.2 08/21/2015 MARLONSILVANO BROOKS N Ot 162.9 08/21/2015 MARLONSILVANO BROOKS N Ot 174.9 08/21/2015 MARLONSILVANO BROOKS N Ot 162.9 08/21/2015 MARLON, BOBAN N Ot 174.9 08/21/2015 CELESTINA SUAREZ, DIPAK Cali Ot 174.9 08/21/2015 CELESTINA SUAREZ, DIAPK Cali Ot 401.9 08/21/2015 CELESTINA SUAREZ, DIPAK Cali Ot 414.9 08/21/2015 CELESTINA SUAREZ, DIPAK Cali Ot 786.09 08/21/2015 CELESTINA SUAREZ, DIPAK Cali Ot 786.50 08/21/2015 DERICK DON CALL CENTER RN Ot 174.9 08/21/2015 DERICK DON CALL CENTER RN Ot 197.0 08/24/2015 SILVANO MASON N Ot 038.9 08/24/2015 SILVANO MASON N Ot 041.02 BACTERIAL INFECTION DUE TO STREPTOCOCCUS 08/24/2015 SILVANO MASON N Ot 041.19 BACTERIAL INFECTION DUE TO OTHER STAPHYL 08/24/2015 SILVANO MASON N Ot 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 08/24/2015 MARLON BOBCOURTNEY N Ot 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 08/24/2015 SILVANO MASON N Ot 250.60 DIAB W NEURO MANIFEST, TYPE II OR UNSPEC 08/24/2015 SILVANO MASON N Ot 278.00 OBESITY, NOS 08/24/2015 SILVANO MASON N Ot 357.2 NEUROPATHY IN DIABETES 08/24/2015 SILVANO MASON N Ot 401.9 HYPERTENSION NOS 08/24/2015 SILVANO MASON N Ot 530.81 ESOPHAGEAL REFLUX 08/24/2015 SILVANO MASON N Ot 681.10 CELLULITIS, TOE NOS 08/24/2015 SILVANO MASON N Ot 682.6 CELLULITIS OF LEG 08/24/2015 SILVANO MASON N Ot 682.7 CELLULITIS OF FOOT 08/24/2015 SILVANO MASON N Ot 707.15 ULCER OF OTHER PART OF FOOT 08/24/2015 SILVANO MASON N Ot 715.90 OSTEOARTHROS NOS-UNSPEC 08/24/2015 SILVANO MASON N Ot 995.91 08/24/2015 SILVANO MASON Ot V02.51 GROUP B STREPT CARRIER/SUSPECTED CARRIER 08/24/2015 SILVANO MASON Ot V10.3 HX OF BREAST MALIGNANCY 08/24/2015 SILVANO MASON Ot V12.09 PERSONAL HISTORY OTH SPEC INFECT CHENG 08/24/2015 SILVANO MASON Ot V12.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 08/24/2015 SILVANO MASON Ot V12.55 PERSONAL HISTORY OF PULMONARY EMBOLISM 08/24/2015 SILVANO MASON Ot V13.59 PERSONAL HISTORY OF OTHER MUSCULOSKELETA 08/24/2015 SILVANO MASON Ot V45.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 08/24/2015 SILVANO MASON Ot V45.89 POSTSURGICAL STATES NEC 08/24/2015 SILVANO MASON Ot V58.61 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S,LT,CURRENT USE 08/24/2015 SILVANO MASON Ot V58.67 LONG-TERM (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 INSULIN 08/24/2015 SILVANO MASON Ot V85.41 BODY MASS INDEX 40.0-44.9, ADULT 08/26/2015 SILVANO MASON Ot 174.9 MALIGN NEOPL BREAST NOS 08/26/2015 SILVANO MASON Ot 250.00 DIAB THOMAS WO COMPL, TYPE II OR UNSPEC TY 08/26/2015 SILVANO MASON Ot 401.9 HYPERTENSION NOS 08/26/2015 SILVANO MASON Ot 710.0 SYST LUPUS ERYTHEMATOSIS 08/26/2015 SILVANO MASON Ot V12.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 08/26/2015 SILVANO MASON Ot V58.11 ENCOUNTER FOR ANTINEOPLASTIC CHEMOTHERAP 08/26/2015 SILVANO MASON Ot V58.61 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S,LT,CURRENT USE 08/26/2015 SILVANO MASON Ot V58.69 OTH MED,LT,CURRENT USE 08/26/2015 SILVANO MASON Ot V87.41 PERSONAL HISTORY OF ANTINEOPLASTIC CHEMO 08/26/2015 DERICK DON CALL CENTER RN Ot 416.8 08/26/2015 DERICK DON CALL CENTER RN Ot 710.0 08/26/2015 DERICK DON CALL CENTER RN Ot M32.10 08/26/2015 DERICK DON CALL CENTER RN Ot V10.3 08/26/2015 DERICK DON CALL CENTER RN Ot V12.51 08/26/2015 DERICK DON S CALL CENTER RN Ot V12.55 08/26/2015 DERICK DON S CALL CENTER RN Ot V45.71 08/26/2015 DERICK DON S CALL CENTER RN Ot V58.61 08/26/2015 DONDERICK Schmitz S CALL CENTER RN Ot V58.69 08/26/2015 DERICK DON S CALL CENTER RN Ot V67.2 08/26/2015 DERICK DON S CALL CENTER RN Ot Z79.01 08/26/2015 DONDERICK Schmitz S CALL CENTER RN Ot Z85.3 08/26/2015 DERICK DON S CALL CENTER RN Ot Z86.711 08/26/2015 DERICK DON S CALL CENTER RN Ot Z86.718 08/26/2015 DERICK DON S CALL CENTER RN Ot Z90.10 08/26/2015 DERICK DON S CALL CENTER RN Ot 786.2 08/26/2015 DERICK DON CALL CENTER RN Ot R05 08/26/2015 MARLONSILVANO N Ot 162.9 08/26/2015 MARLONSILVANO N Ot 174.9 08/26/2015 SILVANO MASON N Ot C34.90 08/26/2015 SILVANO MASON N Ot C50.919 08/26/2015 CELESTINA SUAREZ, DIPAK Cali Ot 174.9 08/26/2015 CELESTINA SUAREZ, DIPAK Cali Ot 401.9 08/26/2015 CELESTINA SUAREZ, DIPAK Cali Ot 414.9 08/26/2015 CELESTINA SUAREZ, DIPAK Cali Ot 786.09 08/26/2015 CELESTINA SUAREZ, DIPAK Cali Ot 786.50 08/26/2015 DIPAK OSCAR MD Ot C50.919 08/26/2015 DIPAK OSCAR MD Ot I10 08/26/2015 DIPAK OSCAR MD Ot I25.9 08/26/2015 DIPAK OSCAR MD Ot R07.9 09/03/2015 SILVANO MASON N Ot 174.9 09/03/2015 SILVANO MASON N Ot 250.00 09/03/2015 SILVANO MASON N Ot 401.9 09/03/2015 SILVANO MASON N Ot 710.0 09/03/2015 SILVANO MASON N Ot V12.51 09/03/2015 SILVANO MASON N Ot V58.11 09/03/2015 SILVANO MASON N Ot V58.61 09/03/2015 SILVANO MASON N Ot V58.69 09/03/2015 SILVANO MASON Ot V87.41 09/08/2015 JHON MELO MD Ot E11.42 TYPE 2 DIABETES MELLITUS WITH DIABETIC P 09/08/2015 JHON MELO MD Ot E11.621 TYPE 2 DIABETES MELLITUS WITH FOOT ULCER 09/08/2015 JHON MELO MD Ot L97.512 NON-PRS CHRONIC ULCER OTH PRT RIGHT FOOT 09/08/2015 JHON MELO MD Ot Z92.21 PERSONAL HISTORY OF ANTINEOPLASTIC CHEMO 09/15/2015 [facility] CALL [facility] RN Ot 174.9 09/15/2015 DERICK DON CALL CENTER RN Ot 197.0 09/15/2015 DERICK DON CALL CENTER RN Ot C50.919 09/15/2015 DERICK DON CALL CENTER RN Ot C78.00 09/21/2015 DERICK DON CALL CENTER RN Ot C50.912 09/21/2015 DERICK DON CALL CENTER RN Ot C77.3 09/21/2015 DERICK DON CALL CENTER RN Ot C78.01 09/21/2015 DERICK DON CALL CENTER RN Ot C78.02 09/21/2015 DERICK DON CALL CENTER RN Ot D50.9 09/21/2015 DERICK DON CALL CENTER RN Ot E11.621 09/21/2015 DERICK DON CALL CENTER RN Ot G57.90 09/21/2015 DERICK DON CALL CENTER RN Ot H53.9 09/21/2015 DERICK DON CALL CENTER RN Ot I27.2 09/21/2015 DERICK DON CALL CENTER RN Ot L97.519 09/21/2015 DERICK DON CALL CENTER RN Ot Z79.4 09/21/2015 DERICK DON CALL CENTER RN Ot Z79.899 09/21/2015 DERICK DON CALL CENTER RN Ot Z86.711 09/21/2015 DERICK DON CALL CENTER RN Ot Z86.718 09/21/2015 DERICK DON CALL CENTER RN Ot H53.9 09/21/2015 DERICK DON CALL CENTER RN Ot R26.81 09/24/2015 Ot 174.9 09/24/2015 Ot 250.00 09/24/2015 Ot 401.9 09/24/2015 Ot 709.9 09/24/2015 Ot 710.0 09/24/2015 Ot V12.51 09/24/2015 Ot V58.61 09/24/2015 Ot V58.69 09/24/2015 Ot 174.9 09/24/2015 SILVANO MASON N Ot 174.9 09/24/2015 SILVANO MASON N Ot 397.0 09/24/2015 SILVANO MASON N Ot 424.0 09/24/2015 SILVANO MASON N Ot V58.69 09/24/2015 SILVANO MASON N Ot V87.41 09/24/2015 SILVANO MASON N Ot 174.9 09/24/2015 CELESTINA SUAREZ, DIPAK Cali Ot 786.09 09/24/2015 DERICK DON CALL CENTER RN Ot 174.9 09/24/2015 DERICK DON S CALL CENTER RN Ot 196.3 09/24/2015 DERICK DON S CALL CENTER RN Ot 250.00 09/24/2015 DERICK DON S CALL CENTER RN Ot 401.9 09/24/2015 DERICK DON CALL CENTER RN Ot 710.0 09/24/2015 DERICK DON S CALL CENTER RN Ot V12.51 09/24/2015 DONDERICK Schmitz S CALL CENTER RN Ot V12.55 09/24/2015 DERICK DON S CALL CENTER RN Ot V58.61 09/24/2015 DONDERICK Schmitz S CALL CENTER RN Ot V58.67 09/24/2015 DONDERICK Schmitz S CALL CENTER RN Ot V58.69 09/24/2015 DONDERICK Schmitz S CALL CENTER RN Ot V87.41 09/24/2015 DONDERICK Schmitz S CALL CENTER RN Ot 174.9 09/24/2015 DONDERICK S CALL CENTER RN Ot 174.9 09/24/2015 ARIAN DERICK S CALL CENTER RN Ot 196.3 09/24/2015 DONDERICK S CALL CENTER RN Ot 250.00 09/24/2015 DONDERICK Schmitz S CALL CENTER RN Ot 401.9 09/24/2015 DONDERICK Schmitz S CALL CENTER RN Ot 710.0 09/24/2015 ARIANDERICK S CALL CENTER RN Ot V12.51 09/24/2015 DONDERICK S CALL CENTER RN Ot V12.55 09/24/2015 ARIANDERICK S CALL CENTER RN Ot V58.61 09/24/2015 ARIAN DERICK S CALL CENTER RN Ot V58.67 09/24/2015 ARIANDERICK S CALL CENTER RN Ot V58.69 09/24/2015 DONDERICK Schmitz S CALL CENTER RN Ot V87.41 09/24/2015 CHARLENE RIVERA MD T Ot 279.8 09/24/2015 CHARLENE RIVERA MD T Ot 710.0 09/24/2015 DONDERICK Schmitz S CALL CENTER RN Ot 174.9 09/24/2015 ARIANDERICK S CALL CENTER RN Ot 196.3 09/24/2015 ARIANDERICK S CALL CENTER RN Ot 710.0 09/24/2015 ARIANDERICK S CALL CENTER RN Ot V12.51 09/24/2015 ARIANDERICK S CALL CENTER RN Ot V12.55 09/24/2015 ARIANDERICK S CALL CENTER RN Ot V58.61 09/24/2015 ARIANDERICK S CALL CENTER RN Ot V58.69 09/24/2015 DONDERICK Schmitz S CALL CENTER RN Ot V87.41 09/24/2015 DONDERICK Schmitz S CALL CENTER RN Ot 174.9 09/24/2015 ARIANDERICK S CALL CENTER RN Ot 196.3 09/24/2015 DONDERICK Schmitz S CALL CENTER RN Ot 710.0 09/24/2015 DONDERICK Schmitz S CALL CENTER RN Ot 782.2 09/24/2015 ARIANDERICK S CALL CENTER RN Ot 786.50 09/24/2015 ARIAN DERICK S CALL CENTER RN Ot 790.5 09/24/2015 ARIAN DERICK S CALL CENTER RN Ot V12.51 09/24/2015 ARIAN DERICK S CALL CENTER RN Ot V12.55 09/24/2015 ARIAN DERICK S CALL CENTER RN Ot V45.71 09/24/2015 ARIAN DERICK S CALL CENTER RN Ot V58.61 09/24/2015 ARIAN DERICK S CALL CENTER RN Ot V58.69 09/24/2015 DONDERICK Schmitz CALL CENTER RN Ot V87.41 09/24/2015 LEMUS , RICHIE Arnold Ot 250.00 09/24/2015 LEMUS , RICHIE K Ot 272.4 09/24/2015 LEMUS , RICHIE Arnold Ot 401.1 09/24/2015 ARIAN DERICK [facility]z CALL CENTER RN Ot 174.9 09/24/2015 ARIAN DERICK S CALL CENTER RN Ot 174.9 09/24/2015 MARQUIS STAFFORD MOMO K Ot 397.0 09/24/2015 MARQUIS STAFFORD, MOMO K Ot 401.9 09/24/2015 MARQUIS STAFFORD MOMO K Ot 414.00 09/24/2015 MARQUIS STAFFORD MOMO K Ot 424.0 09/24/2015 MARQUIS STAFFORD MOMO K Ot 786.09 09/24/2015 ARIAN DERICK S CALL CENTER RN Ot 174.9 09/24/2015 ARIAN DERICK S CALL CENTER RN Ot 250.00 09/24/2015 ARIAN DERICK S CALL CENTER RN Ot 401.9 09/24/2015 ARIAN DERICK S CALL CENTER RN Ot 710.0 09/24/2015 ARIAN DERICK S CALL CENTER RN Ot V12.51 09/24/2015 ARIAN DERICK S CALL CENTER RN Ot V58.61 09/24/2015 ARIAN DERICK S CALL CENTER RN Ot V58.69 09/24/2015 ARIAN DERICK S CALL CENTER RN Ot V87.41 09/24/2015 ARIAN DERICK S CALL CENTER RN Ot V76.12 09/24/2015 SHABNAM HOLMAN DO M Ot 278.01 09/24/2015 SHABNAM HOLMAN DO M Ot 415.19 09/24/2015 SHABNAM HOLMAN DO M Ot 795.79 09/24/2015 SHABNAM HOLMAN DO M Ot 278.01 09/24/2015 SHABNAM HOLMAN DO M Ot 415.19 09/24/2015 SHABNAM HOLMAN DO M Ot 795.79 09/24/2015 ARIAN DERICK S CALL CENTER RN Ot 682.6 09/24/2015 KELLY DONERWIN S CALL CENTER RN Ot 710.0 09/24/2015 DERICK DON S CALL CENTER RN Ot 786.50 09/24/2015 DERICK DON S CALL CENTER RN Ot V10.3 09/24/2015 DERICK DON S CALL CENTER RN Ot V12.51 09/24/2015 DERICK DON S CALL CENTER RN Ot V12.55 09/24/2015 DERICK DON S CALL CENTER RN Ot V45.71 09/24/2015 DERICK DON S CALL CENTER RN Ot V67.2 09/24/2015 DERICK DON S CALL CENTER RN Ot 786.50 09/24/2015 DERICK DON S CALL CENTER RN Ot 416.8 09/24/2015 DONDERICK Schmitz S CALL CENTER RN Ot 710.0 09/24/2015 DONDERICK Schmitz S CALL CENTER RN Ot M32.10 09/24/2015 DONDERICK Schmitz S CALL CENTER RN Ot V10.3 09/24/2015 DONDERICK Schmitz S CALL CENTER RN Ot V12.51 09/24/2015 DONDERICK Schmitz S CALL CENTER RN Ot V12.55 09/24/2015 DERICK DON S CALL CENTER RN Ot V45.71 09/24/2015 DERICK DON S CALL CENTER RN Ot V58.61 09/24/2015 DONDERICK Schmitz S CALL CENTER RN Ot V58.69 09/24/2015 DONDERICK Schmitz S CALL CENTER RN Ot V67.2 09/24/2015 DERICK DON S CALL CENTER RN Ot Z79.01 09/24/2015 DONDERICK Schmitz S CALL CENTER RN Ot Z85.3 09/24/2015 DONDERICK Schmitz S CALL CENTER RN Ot Z86.711 09/24/2015 DONDERICK Schmitz S CALL CENTER RN Ot Z86.718 09/24/2015 DONDERICK Schmitz S CALL CENTER RN Ot Z90.10 09/24/2015 DONDERICK Schmitz S CALL CENTER RN Ot 174.9 09/24/2015 DONDERICK S CALL CENTER RN Ot 174.9 09/24/2015 DONDERICK Schmitz S CALL CENTER RN Ot 197.0 09/24/2015 DONDERICK Schmitz S CALL CENTER RN Ot 416.8 09/24/2015 DONDERICK S CALL CENTER RN Ot 710.0 09/24/2015 ARIAN DERICK S CALL CENTER RN Ot V10.3 09/24/2015 ARIAN DERICK S CALL CENTER RN Ot V12.51 09/24/2015 DONDERICK Schmitz S CALL CENTER RN Ot V12.55 09/24/2015 DONDERICK Schmitz S CALL CENTER RN Ot V45.71 09/24/2015 DERICK DON S CALL CENTER RN Ot V58.61 09/24/2015 DERICK DON S CALL CENTER RN Ot V58.69 09/24/2015 DERICK DON S CALL CENTER RN Ot 786.2 09/24/2015 DERICK DON S CALL CENTER RN Ot R05 09/24/2015 DERICK DON S CALL CENTER RN Ot 174.9 09/24/2015 DERICK DON S CALL CENTER RN Ot 197.0 09/24/2015 DERICK DON S CALL CENTER RN Ot 250.00 09/24/2015 DERICK DON S CALL CENTER RN Ot 401.9 09/24/2015 DONDERICK Schmitz S CALL CENTER RN Ot 416.8 09/24/2015 DONDERICK Schmitz S CALL CENTER RN Ot 710.0 09/24/2015 DONDERICK Schmitz S CALL CENTER RN Ot V12.51 09/24/2015 DONDERICK Schmitz S CALL CENTER RN Ot V12.55 09/24/2015 DONDERICK Schmitz S CALL CENTER RN Ot V58.61 09/24/2015 DONDERICK Schmitz S CALL CENTER RN Ot V58.69 09/24/2015 DERICK DON S CALL CENTER RN Ot V87.41 09/24/2015 SILVNAO MASON N Ot 162.9 09/24/2015 SILVANO MASON N Ot 174.9 09/24/2015 MARLONSILVANO N Ot C34.90 09/24/2015 GIORGI MASONAN N Ot C50.919 09/24/2015 DERICK DON S CALL CENTER RN Ot 197.0 09/24/2015 DONDERICK Schmitz S CALL CENTER RN Ot 416.8 09/24/2015 DONDERICK Schmitz S CALL CENTER RN Ot V10.3 09/24/2015 DONDERICK Schmitz S CALL CENTER RN Ot V12.51 09/24/2015 DONDEIRCK S CALL CENTER RN Ot V12.55 09/24/2015 DONDERICK Schmitz S CALL CENTER RN Ot V58.61 09/24/2015 DONDERICK S CALL CENTER RN Ot V58.69 09/24/2015 ARIAN DERICK S CALL CENTER RN Ot V87.41 09/24/2015 CELESTINA SUAREZ, DIPAK J Ot 174.9 09/24/2015 CELESTINA SUAREZ, DIPAK Cali Ot 401.9 09/24/2015 CELESTINA SUAREZ, DIPAK J Ot 414.9 09/24/2015 CELESTINA SUAREZ, ALMAMATT J Ot 786.09 09/24/2015 CELESTINA SUAREZ, ALMAMATT J Ot 786.50 09/24/2015 CELESTINA SUAREZ, DIPAK J Ot C50.919 09/24/2015 CELESTINA SUAREZ, DIPAK J Ot I10 09/24/2015 CELESTINA SUAREZ, DIPAK J Ot I25.9 09/24/2015 CELESTINA SUAREZ, DIPAK J Ot R07.9 09/24/2015 DERICK DON S CALL CENTER RN Ot 174.9 09/24/2015 ARIAN DERICK S CALL CENTER RN Ot 197.0 09/24/2015 DERICK DON S CALL CENTER RN Ot 250.00 09/24/2015 DERICK DON S CALL CENTER RN Ot 401.9 09/24/2015 KELLY DONERWIN S CALL CENTER RN Ot 416.8 09/24/2015 ARIAN DERICK S CALL CENTER RN Ot 710.0 09/24/2015 ARIAN DERICK S CALL CENTER RN Ot V12.51 09/24/2015 KELLY DONERWIN S CALL CENTER RN Ot V12.55 09/24/2015 ARIAN DERICK S CALL CENTER RN Ot V58.61 09/24/2015 ARIAN DERICK S CALL CENTER RN Ot V58.69 09/24/2015 KELLY DONERWIN S CALL CENTER RN Ot V87.41 09/24/2015 KELLY DONERWIN S CALL CENTER RN Ot 174.9 09/24/2015 ARIAN DERICK S CALL CENTER RN Ot 197.0 09/24/2015 ARIAN DERICK S CALL CENTER RN Ot C50.919 09/24/2015 DERICK DON S CALL CENTER RN Ot C78.00 09/24/2015 DERICK DON S CALL CENTER RN Ot 174.9 09/24/2015 ARIAN DERICK S CALL CENTER RN Ot 196.3 09/24/2015 DERICK DON S CALL CENTER RN Ot 197.0 09/24/2015 DERICK DON S CALL CENTER RN Ot 250.80 09/24/2015 DERICK DON S CALL CENTER RN Ot 356.9 09/24/2015 DERICK DON S CALL CENTER RN Ot 416.8 09/24/2015 DERICK DON S CALL CENTER RN Ot 682.7 09/24/2015 DERICK DON S CALL CENTER RN Ot 707.15 09/24/2015 DERICK DON S CALL CENTER RN Ot 710.0 09/24/2015 DERICK DON S CALL CENTER RN Ot V12.51 09/24/2015 DERICK DON S CALL CENTER RN Ot V12.54 09/24/2015 DERICK DON S CALL CENTER RN Ot V45.71 09/24/2015 DERICK DON S CALL CENTER RN Ot V58.61 09/24/2015 DERICK DON S CALL CENTER RN Ot V58.69 09/24/2015 DERICK DON S CALL CENTER RN Ot C50.912 09/24/2015 DERICK DON S CALL CENTER RN Ot C77.3 09/24/2015 DERICK DON S CALL CENTER RN Ot C78.01 09/24/2015 DERICK DON S CALL CENTER RN Ot C78.02 09/24/2015 DERICK DON S CALL CENTER RN Ot D50.9 09/24/2015 DERICK DON S CALL CENTER RN Ot E11.621 09/24/2015 DERICK DON S CALL CENTER RN Ot G57.90 09/24/2015 DERICK DON S CALL CENTER RN Ot H53.9 09/24/2015 DERICK DON S CALL CENTER RN Ot I27.2 09/24/2015 DERICK DON S CALL CENTER RN Ot L97.519 09/24/2015 DERICK DON S CALL CENTER RN Ot Z79.4 09/24/2015 DERICK DON S CALL CENTER RN Ot Z79.899 09/24/2015 DERICK DON S CALL CENTER RN Ot Z86.711 09/24/2015 DONDERICK Schmitz S CALL CENTER RN Ot Z86.718 09/24/2015 SILVANO MASON N Ot 174.9 09/24/2015 SILVANO MASON N Ot 250.00 09/24/2015 SILVANO MASON N Ot 401.9 09/24/2015 SILVANO MASON N Ot 710.0 09/24/2015 SILVANO MASON N Ot V12.51 09/24/2015 SILVANO MASON Tiffany Ot V58.11 09/24/2015 MARLON SILVANO Allen Ot V58.61 09/24/2015 MARLON SILVANO Allen Ot V58.69 09/24/2015 MARLON SILVANO Allen Ot V87.41 09/24/2015 DERICK DON CALL CENTER RN Ot H53.9 09/24/2015 DERICK DON CALL CENTER RN Ot R26.81 09/28/2015 MARLON SILVANO Allen Ot 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 09/28/2015 MARLONSILVANO Ot C79.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 09/28/2015 MARLON SILVANO Allen Ot 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 09/28/2015 SILVANO MASON Ot E11.649 TYPE 2 DIABETES MELLITUS WITH HYPOGLYCEM 09/28/2015 SILVANO MASON Ot E66.9 OBESITY, UNSPECIFIED 09/28/2015 SILVANO MASON Ot I10 ESSENTIAL (PRIMARY) HYPERTENSION 09/28/2015 MARLONSILVANO Ot L03.032 CELLULITIS OF LEFT TOE 09/28/2015 MARLONSILVANO Ot L03.116 CELLULITIS OF LEFT LOWER LIMB 09/28/2015 MARLONSILVANO Ot N39.0 URINARY TRACT INFECTION, SITE NOT SPECIF 09/28/2015 MARLONSILVANO Ot S91.112A LACERATION W/O FB OF LEFT GREAT TOE W/O 09/28/2015 MARLONSILVANO Ot X58.XXXA EXPOSURE TO OTHER SPECIFIED FACTORS, INI 09/28/2015 SILVANO MASON Ot Z22.330 CARRIER OF GROUP B STREPTOCOCCUS 09/28/2015 SILVANO MASON Ot Z68.41 BODY MASS INDEX (BMI) 40.0-44.9, ADULT 09/28/2015 SILVANO MASON Ot 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 09/28/2015 SILVANO MASON Ot Z79.4 SNF (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 INSULIN 09/28/2015 SILVANO MASON Ot 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 09/28/2015 SILVANO MASON Ot Z85.3 PERSONAL HISTORY OF MALIGNANT NEOPLASM O 09/28/2015 SILVANO MASON Ot Z86.711 PERSONAL HISTORY OF PULMONARY EMBOLISM 09/28/2015 SILVANO MASON Ot Z86.718 PERSONAL HISTORY OF OTHER VENOUS THROMBO 10/02/2015 SILVANO MASON Ot B95.1 STREPTOCOCCUS, GROUP B, CAUSING DISEASES 10/02/2015 SILVANO MASON Ot B96.20 UNSP ESCHERICHIA COLI THE CAUSE OF DI 10/02/2015 SILVANO MASON Ot 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 10/02/2015 SILVANO MASON Ot C79.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 10/02/2015 SILVANO MASON Ot E11.622 TYPE 2 DIABETES MELLITUS WITH OTHER SKIN 10/02/2015 SILVANO MASON Ot L03.032 CELLULITIS OF LEFT TOE 10/02/2015 SILVANO MASON Ot L03.116 CELLULITIS OF LEFT LOWER LIMB 10/02/2015 SILVANO MASON Ot L97.509 NON-PRESSURE CHRONIC ULCER OTH PRT UNSP 10/02/2015 SILVANO MASON Ot N39.0 URINARY TRACT INFECTION, SITE NOT SPECIF 10/13/2015 SILVANO MASON N Ot C34.90 10/13/2015 SILVANO MASON N Ot C50.919 10/13/2015 SILVANO MASON N Ot C34.90 10/13/2015 SILVANO MASON N Ot C50.919 10/13/2015 SILVANO MASON N Ot C34.90 10/13/2015 SILVANO MASON N Ot C50.919 10/13/2015 SILVANO MASON N Ot C34.90 10/13/2015 SILVANO MASON N Ot C50.919 11/12/2015 DERICK [facility] RN Ot C50.912 11/12/2015 DERICK DON CALL CENTER RN Ot C77.3 11/12/2015 DERICK DON CALL CENTER RN Ot C78.01 11/12/2015 DERICK DON CALL CENTER RN Ot C78.02 11/12/2015 DERICK DON CALL CENTER RN Ot D50.9 11/12/2015 DERICK DON CALL CENTER RN Ot E11.621 11/12/2015 DERICK DON CALL CENTER RN Ot G57.90 11/12/2015 DERICK DON CALL CENTER RN Ot H53.9 11/12/2015 DERICK DON CALL CENTER RN Ot I27.2 11/12/2015 DERICK DON CALL CENTER RN Ot L97.519 11/12/2015 DERICK DON CALL CENTER RN Ot Z79.4 11/12/2015 DERICK DON S CALL CENTER RN Ot Z79.899 11/12/2015 DERICK DON S CALL CENTER RN Ot Z86.711 11/12/2015 DERICK DON S CALL CENTER RN Ot Z86.718 11/12/2015 MARLON, BOBAN N Ot 174.9 11/12/2015 MARLON, BOBAN N Ot 250.00 11/12/2015 MARLON, BOBAN N Ot 401.9 11/12/2015 MARLON, BOBAN N Ot 710.0 11/12/2015 MARLON, BOBAN N Ot V12.51 11/12/2015 MARLON, BOBAN N Ot V58.11 11/12/2015 MARLON, BOBAN N Ot V58.61 11/12/2015 MARLON, BOBAN N Ot V58.69 11/12/2015 MARLON, BOBAN N Ot V87.41 11/12/2015 DERICK DON CALL CENTER RN Ot H53.9 11/12/2015 DERICK DON CALL CENTER RN Ot R26.81 11/13/2015 MARLON, BOBAN N Ot 174.9 11/13/2015 MARLON, BOBAN N Ot 250.00 11/13/2015 MARLON, BOBAN N Ot 401.9 11/13/2015 MARLON, BOBAN N Ot 710.0 11/13/2015 MARLON, BOBAN N Ot V12.51 11/13/2015 MARLON, BOBAN N Ot V58.11 11/13/2015 MARLON, BOBAN N Ot V58.61 11/13/2015 MARLON, BOBAN N Ot V58.69 11/13/2015 MARLON, BOBAN N Ot V87.41 11/13/2015 MARLON, BOBAN N Ot C34.90 11/13/2015 MARLON, BOBAN N Ot C50.919 11/25/2015 MARLON, BOBAN N Ot C50.912 MALIGNANT NEOPLASM OF UNSPECIFIED SITE O 11/25/2015 MARLON SILVANO Allen Ot C77.3 SEC AND UNSP MALIG NEOPLASM OF AXILLA AN 11/25/2015 MARLONSILVANO Ot 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 11/25/2015 MARLONISLVANO Ot 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 11/25/2015 MARLON, SILVANO Allen Ot E11.9 TYPE 2 DIABETES MELLITUS WITHOUT COMPLIC 11/25/2015 SILVANO MASON Ot 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 PULMONARY HYPERTENSION 11/25/2015 MARLONSILVANO Ot Z51.11 ENCOUNTER FOR ANTINEOPLASTIC CHEMOTHERAP 11/25/2015 SILVANO MASON Ot Z79.01 SNF (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 11/25/2015 SILVANO MASON Ot Z86.711 PERSONAL HISTORY OF PULMONARY EMBOLISM 11/25/2015 SILVANO MASON Ot Z86.718 PERSONAL HISTORY OF OTHER VENOUS THROMBO 11/25/2015 SILVANO MASON Ot Z90.12 ACQUIRED ABSENCE OF LEFT BREAST AND NIPP 11/25/2015 MARLONSILVANO Ot Z92.21 PERSONAL HISTORY OF ANTINEOPLASTIC CHEMO 11/26/2015 MARLONSILVANO Ot C50.912 11/26/2015 MARLONSILVANO Ot C77.3 11/26/2015 MARLONSILVANO Ot C78.01 11/26/2015 MARLONSILVANO Ot C78.02 11/26/2015 MARLONSILVANO Ot E11.9 11/26/2015 MARLONSILVANO Ot I27.2 11/26/2015 MARLONSILVANO Ot Z51.11 11/26/2015 MARLONSILVANO Ot Z79.01 11/26/2015 MARLONSILVANO N Ot Z86.711 11/26/2015 MARLONSILVANO N Ot Z86.718 11/26/2015 MARLONSILVANO BROOKS N Ot Z90.12 11/26/2015 MARLONSILVANO BROOKS N Ot Z92.21 12/07/2015 MARLONSILVANO BROOKS Ot C34.90 12/07/2015 MARLONSILVANO BROOKS Ot C50.919 12/18/2015 DERICK DON Ot C50.912 12/18/2015 DERICK DON CALL CENTER RN Ot C77.3 12/18/2015 DERICK DON CALL CENTER RN Ot C78.01 12/18/2015 DERICK DON CALL CENTER RN Ot C78.02 12/18/2015 DERICK DON CALL CENTER RN Ot D50.9 12/18/2015 DERICK DON CALL CENTER RN Ot E11.621 12/18/2015 DERICK DON CALL CENTER RN Ot G57.90 12/18/2015 DERICK DON CALL CENTER RN Ot H53.9 12/18/2015 DERICK DON CALL CENTER RN Ot I27.2 12/18/2015 DERICK DON CALL CENTER RN Ot L97.519 12/18/2015 DERICK DON CALL CENTER RN Ot Z79.4 12/18/2015 DERICK DON CALL CENTER RN Ot Z79.899 12/18/2015 DERICK DON CALL CENTER RN Ot Z86.711 12/18/2015 DERICK DON CALL CENTER RN Ot Z86.718 12/18/2015 DERICK DON CALL CENTER RN Ot H53.9 12/18/2015 DERICK DONP Ot R26.81 01/05/2016 Ot 174.9 01/05/2016 Ot 250.00 01/05/2016 Ot 401.9 01/05/2016 Ot 709.9 01/05/2016 Ot 710.0 01/05/2016 Ot V12.51 01/05/2016 Ot V58.61 01/05/2016 Ot V58.69 01/05/2016 Ot 174.9 01/05/2016 SILVANO MASON N Ot 174.9 01/05/2016 MARLONGIORGI BROOKSAN N Ot 397.0 01/05/2016 MARLON, BOBAN N Ot 424.0 01/05/2016 MARLONGIORGI BROOKSAN N Ot V58.69 01/05/2016 MARLONGIORGI BROOKSAN N Ot V87.41 01/05/2016 MARLONSILVANO BROOKS N Ot 174.9 01/05/2016 DIPAK OSCAR MD Ot 786.09 01/05/2016 DERICK DON CALL CENTER RN Ot 174.9 01/05/2016 DERICK DON CALL CENTER RN Ot 196.3 01/05/2016 DONDERICK Schmitz S CALL CENTER RN Ot 250.00 01/05/2016 DERICK DON S CALL CENTER RN Ot 401.9 01/05/2016 DERICK DON S CALL CENTER RN Ot 710.0 01/05/2016 DERICK DON S CALL CENTER RN Ot V12.51 01/05/2016 DONDERICK S CALL CENTER RN Ot V12.55 01/05/2016 DONDERICK Schmitz S CALL CENTER RN Ot V58.61 01/05/2016 DONDERICK S CALL CENTER RN Ot V58.67 01/05/2016 DONDERICK Schmitz S CALL CENTER RN Ot V58.69 01/05/2016 DONDERICK Schmitz S CALL CENTER RN Ot V87.41 01/05/2016 DERICK DON S CALL CENTER RN Ot 174.9 01/05/2016 DONDERICK S CALL CENTER RN Ot 174.9 01/05/2016 DONDERICK Schmitz S CALL CENTER RN Ot 196.3 01/05/2016 DONDERICK Schmitz S CALL CENTER RN Ot 250.00 01/05/2016 DONDERICK Schmitz S CALL CENTER RN Ot 401.9 01/05/2016 DERICK DON S CALL CENTER RN Ot 710.0 01/05/2016 DERICK DON S CALL CENTER RN Ot V12.51 01/05/2016 DERICK DON S CALL CENTER RN Ot V12.55 01/05/2016 DONDERICK Schmitz S CALL CENTER RN Ot V58.61 01/05/2016 DONDERICK Schmitz S CALL CENTER RN Ot V58.67 01/05/2016 DONDERICK Schmitz S CALL CENTER RN Ot V58.69 01/05/2016 DONDERICK Schmitz S CALL CENTER RN Ot V87.41 01/05/2016 CHARLENE RIVERA MD Ot 279.8 01/05/2016 CHARLENE RIVERA MD T Ot 710.0 01/05/2016 DONDERICK Schmitz S CALL CENTER RN Ot 174.9 01/05/2016 DONDERICK Schmitz S CALL CENTER RN Ot 196.3 01/05/2016 DONDERICK S CALL CENTER RN Ot 710.0 01/05/2016 DON DERICK S CALL CENTER RN Ot V12.51 01/05/2016 DONDERICK S CALL CENTER RN Ot V12.55 01/05/2016 DERICK DON CALL CENTER RN Ot V58.61 01/05/2016 DONDERICK Schmitz CALL CENTER RN Ot V58.69 01/05/2016 DERICK DON S CALL CENTER RN Ot V87.41 01/05/2016 DERICK DON S CALL CENTER RN Ot 174.9 01/05/2016 DERICK DON S CALL CENTER RN Ot 196.3 01/05/2016 DONDERICK S CALL CENTER RN Ot 710.0 01/05/2016 DONDERICK S CALL CENTER RN Ot 782.2 01/05/2016 DONDERICK S CALL CENTER RN Ot 786.50 01/05/2016 DONDERICK S CALL CENTER RN Ot 790.5 01/05/2016 DONDERICK Schmitz S CALL CENTER RN Ot V12.51 01/05/2016 DONDERICK S CALL CENTER RN Ot V12.55 01/05/2016 DONDERICK Schmitz CALL CENTER RN Ot V45.71 01/05/2016 DERICK DON S CALL CENTER RN Ot V58.61 01/05/2016 DONDERICK Schmitz S CALL CENTER RN Ot V58.69 01/05/2016 DERICK DON CALL CENTER RN Ot V87.41 01/05/2016 RICHIE LEMUS DO Ot 250.00 01/05/2016 RICHIE LEMUS DO Ot 272.4 01/05/2016 RICHIE LEMUS DO Ot 401.1 01/05/2016 DONDERICK Schmitz CALL CENTER RN Ot 174.9 01/05/2016 DONDERICK Schmitz S CALL CENTER RN Ot 174.9 01/05/2016 MOMO PINO Ot 397.0 01/05/2016 MOMO PINO Ot 401.9 01/05/2016 MOMO PINO Ot 414.00 01/05/2016 MOMO PINO Ot 424.0 01/05/2016 MOMO PINO Ot 786.09 01/05/2016 DONDERICK Schmitz CALL CENTER RN Ot 174.9 01/05/2016 DONDERICK S CALL CENTER RN Ot 250.00 01/05/2016 DONDERICK S CALL CENTER RN Ot 401.9 01/05/2016 DONDERICK S CALL CENTER RN Ot 710.0 01/05/2016 DONDERICK Schmitz CALL CENTER RN Ot V12.51 01/05/2016 AIRANDERICK CALL CENTER RN Ot V58.61 01/05/2016 DONDERICK S CALL CENTER RN Ot V58.69 01/05/2016 DONDERICK Schmitz CALL CENTER RN Ot V87.41 01/05/2016 DONDERICK Schmitz CALL CENTER RN Ot V76.12 01/05/2016 SHABNAM HOLMAN DO Ot 278.01 01/05/2016 SHABNAM HOLMAN DO Ot 415.19 01/05/2016 SHABNAM HOLMAN DO Ot 795.79 01/05/2016 SHABNAM HOLMAN DO Ot 278.01 01/05/2016 SHABNAM HOLMAN DO Ot 415.19 01/05/2016 SHABNAM HOLMAN DO Ot 795.79 01/05/2016 ARIANDERICK CALL CENTER RN Ot 682.6 01/05/2016 ARIANDERICK S CALL CENTER RN Ot 710.0 01/05/2016 DONDERICK Schmitz S CALL CENTER RN Ot 786.50 01/05/2016 DONDERICK Schmitz S CALL CENTER RN Ot V10.3 01/05/2016 DONDERICK S CALL CENTER RN Ot V12.51 01/05/2016 DONDERICK S CALL CENTER RN Ot V12.55 01/05/2016 DONDERICK Schmitz S CALL CENTER RN Ot V45.71 01/05/2016 DONDERICK S CALL CENTER RN Ot V67.2 01/05/2016 ARIANDERICK S CALL CENTER RN Ot 786.50 01/05/2016 DONDERICK S CALL CENTER RN Ot 416.8 01/05/2016 DONDERICK S CALL CENTER RN Ot 710.0 01/05/2016 DONDERICK S CALL CENTER RN Ot M32.10 01/05/2016 ARIAN DERICK S CALL CENTER RN Ot V10.3 01/05/2016 ARIAN DERICK S CALL CENTER RN Ot V12.51 01/05/2016 DONDERICK S CALL CENTER RN Ot V12.55 01/05/2016 ARIAN DERICK S CALL CENTER RN Ot V45.71 01/05/2016 ARIAN DERICK S CALL CENTER RN Ot V58.61 01/05/2016 DERICK DON CALL CENTER RN Ot V58.69 01/05/2016 DERICK DON CALL CENTER RN Ot V67.2 01/05/2016 DERICK DON S CALL CENTER RN Ot Z79.01 01/05/2016 DERICK DON S CALL CENTER RN Ot Z85.3 01/05/2016 DERICK DON S CALL CENTER RN Ot Z86.711 01/05/2016 DONDERICK Schmitz S CALL CENTER RN Ot Z86.718 01/05/2016 DONDERICK Schmitz S CALL CENTER RN Ot Z90.10 01/05/2016 DON, HIL S CALL CENTER RN Ot 174.9 01/05/2016 DON, HIL S CALL CENTER RN Ot 174.9 01/05/2016 DONDERICK Schmitz S CALL CENTER RN Ot 197.0 01/05/2016 DONDERICK Schmitz S CALL CENTER RN Ot 416.8 01/05/2016 DERICK DON S CALL CENTER RN Ot 710.0 01/05/2016 DERICK DON S CALL CENTER RN Ot V10.3 01/05/2016 DONDERICK Schmitz S CALL CENTER RN Ot V12.51 01/05/2016 DONDERICK Schmitz S CALL CENTER RN Ot V12.55 01/05/2016 DON, HIL S CALL CENTER RN Ot V45.71 01/05/2016 DERICK DON S CALL CENTER RN Ot V58.61 01/05/2016 KELLY DON S CALL CENTER RN Ot V58.69 01/05/2016 DERICK DON S CALL CENTER RN Ot 786.2 01/05/2016 DERICK DON S CALL CENTER RN Ot R05 01/05/2016 DONDERICK Schmitz S CALL CENTER RN Ot 174.9 01/05/2016 DON, [facility] S CALL CENTER RN Ot 197.0 01/05/2016 DON, [facility] S CALL CENTER RN Ot 250.00 01/05/2016 DON, [facility] S CALL CENTER RN Ot 401.9 01/05/2016 DON, [facility] S CALL CENTER RN Ot 416.8 01/05/2016 DON, [facility] S CALL CENTER RN Ot 710.0 01/05/2016 DONKELLY S CALL CENTER RN Ot V12.51 01/05/2016 DONKELLY S CALL CENTER RN Ot V12.55 01/05/2016 DONKELLY S CALL CENTER RN Ot V58.61 01/05/2016 DERICK DON S CALL CENTER RN Ot V58.69 01/05/2016 DERICK DON S CALL CENTER RN Ot V87.41 01/05/2016 SILVANO MASON N Ot 162.9 01/05/2016 SILVANO MASON N Ot 174.9 01/05/2016 SILVANO MASON N Ot C34.90 01/05/2016 SILVANO MASON N Ot C50.919 01/05/2016 DONDERICK Schmitz S CALL CENTER RN Ot 197.0 01/05/2016 DONDERICK Schmitz S CALL CENTER RN Ot 416.8 01/05/2016 DONDERICK S CALL CENTER RN Ot V10.3 01/05/2016 DONDERICK S CALL CENTER RN Ot V12.51 01/05/2016 DONDERICK S CALL CENTER RN Ot V12.55 01/05/2016 DONDERICK Schmitz S CALL CENTER RN Ot V58.61 01/05/2016 DONDERICK Schmitz S CALL CENTER RN Ot V58.69 01/05/2016 DERICK DON S CALL CENTER RN Ot V87.41 01/05/2016 CELESTINA SUAREZ, DIPAK Cali Ot 174.9 01/05/2016 CELESTINA SUAREZ, DIPAK Cali Ot 401.9 01/05/2016 CELESTINA SUAREZ, DIPAK Cali Ot 414.9 01/05/2016 CELESTINA SUAREZ, DIPAK Cali Ot 786.09 01/05/2016 CELESTINA SUAREZ, DIPAK Cali Ot 786.50 01/05/2016 CELESTINA SUAREZ, DIPAK Cali Ot C50.919 01/05/2016 CELESTINA SUAREZ, DIPAK Cali Ot I10 01/05/2016 CELESTINA SUAREZ, DIPAK Cali Ot I25.9 01/05/2016 CELESTINA SUAREZ, DIPAK Cali Ot R07.9 01/05/2016 DONDERICK Schmitz S CALL CENTER RN Ot 174.9 01/05/2016 DONDERICK Schmitz S CALL CENTER RN Ot 197.0 01/05/2016 DON DERICK S CALL CENTER RN Ot 250.00 01/05/2016 DON DERICK S CALL CENTER RN Ot 401.9 01/05/2016 DON DERICK S CALL CENTER RN Ot 416.8 01/05/2016 DON DERICK S CALL CENTER RN Ot 710.0 01/05/2016 DERICK DON CALL CENTER RN Ot V12.51 01/05/2016 DERICK DON S CALL CENTER RN Ot V12.55 01/05/2016 DERICK DON S CALL CENTER RN Ot V58.61 01/05/2016 DERICK DON S CALL CENTER RN Ot V58.69 01/05/2016 DERICK DON S CALL CENTER RN Ot V87.41 01/05/2016 DONDERICK Schmitz S CALL CENTER RN Ot 174.9 01/05/2016 DONDERICK Schmitz S CALL CENTER RN Ot 197.0 01/05/2016 DON, HIL S CALL CENTER RN Ot C50.919 01/05/2016 DON, HIL S CALL CENTER RN Ot C78.00 01/05/2016 DERICK DON S CALL CENTER RN Ot 174.9 01/05/2016 DERICK DON S CALL CENTER RN Ot 196.3 01/05/2016 DERICK DON S CALL CENTER RN Ot 197.0 01/05/2016 DERICK DON S CALL CENTER RN Ot 250.80 01/05/2016 DERICK DON S CALL CENTER RN Ot 356.9 01/05/2016 DERICK DON S CALL CENTER RN Ot 416.8 01/05/2016 DERICK DON S CALL CENTER RN Ot 682.7 01/05/2016 DERICK DON S CALL CENTER RN Ot 707.15 01/05/2016 DERICK DON S CALL CENTER RN Ot 710.0 01/05/2016 DERICK DON S CALL CENTER RN Ot V12.51 01/05/2016 DONDERICK Schmitz S CALL CENTER RN Ot V12.54 01/05/2016 DERICK DON S CALL CENTER RN Ot V45.71 01/05/2016 DERICK DON S CALL CENTER RN Ot V58.61 01/05/2016 DERICK DON S CALL CENTER RN Ot V58.69 01/05/2016 DERICK DON S CALL CENTER RN Ot C50.912 01/05/2016 DERICK DON S CALL CENTER RN Ot C77.3 01/05/2016 DONDERICK Schmitz S CALL CENTER RN Ot C78.01 01/05/2016 DONDERICK S CALL CENTER RN Ot C78.02 01/05/2016 DONDERICK S CALL CENTER RN Ot D50.9 01/05/2016 DON, HILAH S CALL CENTER RN Ot E11.621 01/05/2016 DERICK DON CALL CENTER RN Ot G57.90 01/05/2016 DERICK DON CALL CENTER RN Ot H53.9 01/05/2016 DERICK DON CALL CENTER RN Ot I27.2 01/05/2016 DERICK DON CALL CENTER RN Ot L97.519 01/05/2016 DERICK DON CALL CENTER RN Ot Z79.4 01/05/2016 DONDERICK Schmitz CALL CENTER RN Ot Z79.899 01/05/2016 DONDERICK Schmitz CALL CENTER RN Ot Z86.711 01/05/2016 DONDERICK Schmitz CALL CENTER RN Ot Z86.718 01/05/2016 DERICK DON CALL CENTER RN Ot H53.9 01/05/2016 DERICK DON CALL CENTER RN Ot R26.81 01/05/2016 MARLON, GIORGIAN N Ot C34.90 01/05/2016 MARLON, BOBAN N Ot C50.919 01/05/2016 MARLON, BOBAN N Ot C34.90 01/05/2016 MARLON, BOBAN N Ot C50.919 01/05/2016 MARLON, BOBAN N Ot C50.912 01/05/2016 MARLON, GIORGIAN N Ot C77.3 01/05/2016 MARLON, BOBAN N Ot C78.01 01/05/2016 MARLON, BOBAN N Ot C78.02 01/05/2016 MARLON, GIORGIAN N Ot E11.9 01/05/2016 MARLON, GIORGIAN N Ot I27.2 01/05/2016 MARLON, BOBAN N Ot Z51.11 01/05/2016 MARLON, BOBAN N Ot Z79.01 01/05/2016 MARLON, BOBAN N Ot Z86.711 01/05/2016 MARLON, BOBAN N Ot Z86.718 01/05/2016 MARLON, BOBAN N Ot Z90.12 01/05/2016 MARLON, BOBAN N Ot Z92.21 01/12/2016 Ot 174.9 01/12/2016 Ot 250.00 01/12/2016 Ot 401.9 01/12/2016 Ot 710.0 01/12/2016 Ot V58.69 01/12/2016 Ot 174.9 01/12/2016 Ot 397.0 01/12/2016 Ot 424.0 01/12/2016 Ot V58.69 01/12/2016 Ot V58.83 01/12/2016 Ot 174.9 01/12/2016 Ot 710.0 01/12/2016 Ot V58.69 01/12/2016 Ot 518.0 01/12/2016 Ot 786.05 01/12/2016 Ot 786.2 01/12/2016 Ot 397.0 01/12/2016 Ot 424.0 01/12/2016 Ot 786.09 01/12/2016 Ot V58.69 01/12/2016 Ot V58.83 01/12/2016 Ot 780.4 01/12/2016 Ot 786.09 01/12/2016 Ot 174.9 01/12/2016 Ot 250.00 01/12/2016 Ot 401.9 01/12/2016 Ot 709.9 01/12/2016 Ot 710.0 01/12/2016 Ot V12.51 01/12/2016 Ot V58.61 01/12/2016 Ot V58.69 01/12/2016 Ot 174.9 01/13/2016 Ot 174.9 01/13/2016 Ot 250.00 01/13/2016 Ot 401.9 01/13/2016 Ot 710.0 01/13/2016 Ot V58.69 01/13/2016 Ot 174.9 01/13/2016 Ot 397.0 01/13/2016 Ot 424.0 01/13/2016 Ot V58.69 01/13/2016 Ot V58.83 01/13/2016 Ot 174.9 01/13/2016 Ot 710.0 01/13/2016 Ot V58.69 01/13/2016 Ot 518.0 01/13/2016 Ot 786.05 01/13/2016 Ot 786.2 01/13/2016 Ot 397.0 01/13/2016 Ot 424.0 01/13/2016 Ot 786.09 01/13/2016 Ot V58.69 01/13/2016 Ot V58.83 01/13/2016 Ot 780.4 01/13/2016 Ot 786.09 01/13/2016 Ot 174.9 01/13/2016 Ot 250.00 01/13/2016 Ot 401.9 01/13/2016 Ot 709.9 01/13/2016 Ot 710.0 01/13/2016 Ot V12.51 01/13/2016 Ot V58.61 01/13/2016 Ot V58.69 01/13/2016 Ot 174.9 01/20/2016 MARLON, SILVANO N Ot C50.912 01/20/2016 MARLON, BOBAN N Ot C77.3 01/20/2016 MARLON, BOBAN N Ot C78.01 01/20/2016 MARLON, BOBAN N Ot C78.02 01/20/2016 MARLON, BOBAN N Ot E11.9 01/20/2016 MARLON, BOBAN N Ot I27.2 01/20/2016 MARLON, BOBAN N Ot Z51.11 01/20/2016 MARLON, BOBAN N Ot Z79.01 01/20/2016 MARLON, BOBAN N Ot Z86.711 01/20/2016 MARLON, BOBAN N Ot Z86.718 01/20/2016 MARLON, BOBAN N Ot Z90.12 01/20/2016 MARLON, BOBAN N Ot Z92.21 01/27/2016 MARLON, BOBAN N Ot C50.919 02/03/2016 MARLON, BOBAN N Ot C50.919 02/09/2016 MARLON, BOBAN N Ot C50.912 02/09/2016 MARLON, BOBAN N Ot C77.3 02/09/2016 MARLON, BOBAN N Ot C78.01 02/09/2016 MARLON, BOBAN N Ot C78.02 02/09/2016 MARLON, BOBAN N Ot E11.9 02/09/2016 MARLON, BOBAN N Ot I27.2 02/09/2016 MARLON, BOBAN N Ot Z79.01 02/09/2016 MARLON, BOBAN N Ot Z86.711 02/09/2016 MARLON, BOBAN N Ot Z86.718 02/09/2016 MARLON, BOBAN N Ot Z90.12 02/09/2016 MARLON, BOBAN N Ot Z92.21 03/02/2016 MARLON, BOBAN N Ot C50.912 MALIGNANT NEOPLASM OF UNSPECIFIED SITE O 03/02/2016 MARLON, BOBAN N Ot C77.3 SEC AND UNSP MALIG NEOPLASM OF AXILLA AN 03/02/2016 MARLON SILVANO Allen Ot 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 03/02/2016 MARLON SILVANO Allen Ot 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 03/02/2016 MALRON SILVANO Allen Ot E11.9 TYPE 2 DIABETES MELLITUS WITHOUT COMPLIC 03/02/2016 MARLON SILVANO Allen Ot 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 PULMONARY HYPERTENSION 03/02/2016 MARLONSILVANO Ot Z79.01 SNF (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 03/02/2016 MARLON SILVANO Allen Ot Z86.711 PERSONAL HISTORY OF PULMONARY EMBOLISM 03/02/2016 MARLONSILVANO Ot Z86.718 PERSONAL HISTORY OF OTHER VENOUS THROMBO 03/02/2016 MARLONSILVANO Ot Z90.12 ACQUIRED ABSENCE OF LEFT BREAST AND NIPP 03/02/2016 MARLONSILVANO Ot Z92.21 PERSONAL HISTORY OF ANTINEOPLASTIC CHEMO 03/02/2016 SILVANO MASON Ot Z95.2 PRESENCE OF PROSTHETIC HEART VALVE 03/16/2016 MARLONSILVANO Ot 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 03/16/2016 MARLON SILVANO Allen Ot 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 03/16/2016 MARLON SILVANO Allen Ot C79.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 03/16/2016 MARLONSILVANO Ot E11.42 TYPE 2 DIABETES MELLITUS WITH DIABETIC P 03/16/2016 SILVANO MASON Ot E11.622 TYPE 2 DIABETES MELLITUS WITH OTHER SKIN 03/16/2016 SILVANO MASON Ot E66.9 OBESITY, UNSPECIFIED 03/16/2016 SILVANO MASON Ot E87.6 HYPOKALEMIA 03/16/2016 SILVANO MASON Ot I10 ESSENTIAL (PRIMARY) HYPERTENSION 03/16/2016 SILVANO MASON Ot I89.0 LYMPHEDEMA, NOT ELSEWHERE CLASSIFIED 03/16/2016 SILVANO MASON Ot L03.032 CELLULITIS OF LEFT TOE 03/16/2016 SILVANO MASON Ot L03.116 CELLULITIS OF LEFT LOWER LIMB 03/16/2016 SILVANO MASON Ot L60.0 INGROWING NAIL 03/16/2016 SILVANO MASON Ot L97.501 NON-PRS CHR ULCER OTH PRT UNSP FOOT LIMI 03/16/2016 SILVANO MASON Ot Z22.330 CARRIER OF GROUP B STREPTOCOCCUS 03/16/2016 SILVANO MASON Ot Z68.32 BODY MASS INDEX (BMI) 32.0-32.9, ADULT 03/16/2016 SILVANO MASON Ot 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 03/16/2016 SILVANO MASON Ot Z85.3 PERSONAL HISTORY OF MALIGNANT NEOPLASM O 03/16/2016 SILVANO MASON Ot Z86.19 PERSONAL HISTORY OF OTHER INFECTIOUS AND 03/16/2016 SILVANO MASON Ot Z86.711 PERSONAL HISTORY OF PULMONARY EMBOLISM 03/16/2016 SILVANO MASON Ot Z86.718 PERSONAL HISTORY OF OTHER VENOUS THROMBO 04/05/2016 DERICK DONP Ot 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 04/13/2016 MARLONGIORGI BROOKSCOURTNEY Allen Ot 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 04/14/2016 DERICK DONP Ot 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 04/14/2016 DERICK DONP Ot C77.3 SEC AND UNSP MALIG NEOPLASM OF AXILLA AN 04/14/2016 DERICK DONP Ot 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 04/14/2016 DERICK DONP Ot 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 04/14/2016 DERICK DONP Ot E11.9 TYPE 2 DIABETES MELLITUS WITHOUT COMPLIC 04/14/2016 DERICK DONP Ot 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 PULMONARY HYPERTENSION 04/14/2016 DERICK DONP Ot 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 04/14/2016 DERICK DONP Ot Z86.711 PERSONAL HISTORY OF PULMONARY EMBOLISM 04/14/2016 DERICK DONP Ot Z86.718 PERSONAL HISTORY OF OTHER VENOUS THROMBO 04/14/2016 DERICK DONP Ot Z90.12 ACQUIRED ABSENCE OF LEFT BREAST AND NIPP 04/14/2016 DERICK DONP Ot Z92.21 PERSONAL HISTORY OF ANTINEOPLASTIC CHEMO 04/14/2016 DERICK DON CALL CENTER RN Ot Z95.2 PRESENCE OF PROSTHETIC HEART VALVE 04/21/2016 SILVANO MASON Tiffany Ot 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 05/04/2016 ISLVANO MASON Tiffany Ot C50.912 MALIGNANT NEOPLASM OF UNSPECIFIED SITE O 05/04/2016 SILVANO MASON Tiffany Ot C77.3 SEC AND UNSP MALIG NEOPLASM OF AXILLA AN 05/04/2016 SILVANO MASON Tiffany Ot 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 05/04/2016 SILVANO MASON Tiffany Ot 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 05/04/2016 SILVANO MASON N Ot E11.9 TYPE 2 DIABETES MELLITUS WITHOUT COMPLIC 05/04/2016 SILVANO MASON Tiffany Ot 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 PULMONARY HYPERTENSION 05/04/2016 SILVANO MASON Tiffany Ot 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 05/04/2016 SILVANO MASON Tiffany Ot Z86.711 PERSONAL HISTORY OF PULMONARY EMBOLISM 05/04/2016 MARLONSILVANO BROOKS Tiffany Ot Z86.718 PERSONAL HISTORY OF OTHER VENOUS THROMBO 05/04/2016 SILVANO MASON Ot Z90.12 ACQUIRED ABSENCE OF LEFT BREAST AND NIPP 05/04/2016 SILVANO MASON Tiffany Ot Z92.21 PERSONAL HISTORY OF ANTINEOPLASTIC CHEMO 05/05/2016 DERICK DON CALL CENTER RN Ot 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 05/05/2016 DERICK DON CALL CENTER RN Ot C77.3 SEC AND UNSP MALIG NEOPLASM OF AXILLA AN 05/05/2016 DERICK DON CALL CENTER RN Ot 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 05/05/2016 DERICK DON CALL CENTER RN Ot 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 05/05/2016 DERICK DONP Ot E11.9 TYPE 2 DIABETES MELLITUS WITHOUT COMPLIC 05/05/2016 DERICK DON CALL CENTER RN Ot 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 PULMONARY HYPERTENSION 05/05/2016 DERICK DON CALL CENTER RN Ot 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 05/05/2016 DERICK DON CALL CENTER RN Ot Z86.711 PERSONAL HISTORY OF PULMONARY EMBOLISM 05/05/2016 DERICK DON CALL CENTER RN Ot Z86.718 PERSONAL HISTORY OF OTHER VENOUS THROMBO 05/05/2016 ARIAN DERICK Schmitz CALL CENTER RN Ot Z90.12 ACQUIRED ABSENCE OF LEFT BREAST AND NIPP 05/05/2016 ARIAN DERICK Schmitz CALL CENTER RN Ot Z92.21 PERSONAL HISTORY OF ANTINEOPLASTIC CHEMO 05/05/2016 KELLY DONERWIN Schmitz CALL CENTER RN Ot Z95.2 PRESENCE OF PROSTHETIC HEART VALVE 05/16/2016 DERICK DON CALL CENTER RN Ot 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 05/16/2016 DERICK DON CALL CENTER RN Ot C77.3 SEC AND UNSP MALIG NEOPLASM OF AXILLA AN 05/16/2016 [facility] RN Ot 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 05/16/2016 [facility] RN Ot 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 05/16/2016 [facility] RN Ot E11.9 TYPE 2 DIABETES MELLITUS WITHOUT COMPLIC 05/16/2016 [facility] RN Ot 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 PULMONARY HYPERTENSION 05/16/2016 ARIAN DERICK [facility] RN Ot Z79.01 SNF (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 05/16/2016 KELLY DONERWIN [facility] RN Ot Z86.711 PERSONAL HISTORY OF PULMONARY EMBOLISM 05/16/2016 KELLY DON[facility]WIN [facility] RN Ot Z86.718 PERSONAL HISTORY OF OTHER VENOUS THROMBO 05/16/2016 KELLY DONERWIN [facility] RN Ot Z90.12 ACQUIRED ABSENCE OF LEFT BREAST AND NIPP 05/16/2016 [facility] RN Ot Z92.21 PERSONAL HISTORY OF ANTINEOPLASTIC CHEMO 05/16/2016 ARIAN DERICK [facility] RN Ot Z95.2 PRESENCE OF PROSTHETIC HEART VALVE 05/18/2016 [facility] RN Ot 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 05/18/2016 [facility] RN Ot C77.3 SEC AND UNSP MALIG NEOPLASM OF AXILLA AN 05/18/2016 [facility] RN Ot 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 05/18/2016 [facility] RN Ot 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 05/18/2016 [facility]ER[facility] RN Ot E11.9 TYPE 2 DIABETES MELLITUS WITHOUT COMPLIC 05/18/2016 [facility]ER[facility] RN Ot 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 PULMONARY HYPERTENSION 05/18/2016 [facility]ER[facility] RN Ot Z79.01 SNF (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 05/18/2016 [facility]ER[facility] RN Ot Z86.711 PERSONAL HISTORY OF PULMONARY EMBOLISM 05/18/2016 [facility]ER[facility] RN Ot Z86.718 PERSONAL HISTORY OF OTHER VENOUS THROMBO 05/18/2016 [facility]ER[facility] RN Ot Z90.12 ACQUIRED ABSENCE OF LEFT BREAST AND NIPP 05/18/2016 [facility] RN Ot Z92.21 PERSONAL HISTORY OF ANTINEOPLASTIC CHEMO 05/18/2016 [facility] RN Ot Z95.2 PRESENCE OF PROSTHETIC HEART VALVE 05/25/2016 DER[facility] RN Ot 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 05/25/2016 [facility]ER[facility] RN Ot 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 05/27/2016 [facility]ER[facility] RN Ot 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 05/27/2016 [facility]ER[facility] RN Ot 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 05/30/2016 [facility]ER[facility] RN Ot 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 05/30/2016 [facility] RN Ot 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 06/01/2016 [facility]ER[facility] RN Ot 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 06/01/2016 [facility] RN Ot C77.3 SEC AND UNSP MALIG NEOPLASM OF AXILLA AN 06/01/2016 [facility]ER[facility] RN Ot 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 06/01/2016 [facility]ER[facility] RN Ot 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 06/01/2016 [facility]ER[facility] RN Ot E11.9 TYPE 2 DIABETES MELLITUS WITHOUT COMPLIC 06/01/2016 [facility]ER[facility] RN Ot 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 PULMONARY HYPERTENSION 06/01/2016 DER[facility] RN Ot Z79.01 SNF (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 06/01/2016 DERICK [facility] RN Ot Z86.711 PERSONAL HISTORY OF PULMONARY EMBOLISM 06/01/2016 KELLY DONERWIN [facility] RN Ot Z86.718 PERSONAL HISTORY OF OTHER VENOUS THROMBO 06/01/2016 DER[facility] RN Ot Z90.12 ACQUIRED ABSENCE OF LEFT BREAST AND NIPP 06/01/2016 DERICK [facility] RN Ot Z92.21 PERSONAL HISTORY OF ANTINEOPLASTIC CHEMO 06/01/2016 DERICK [facility] RN Ot Z95.2 PRESENCE OF PROSTHETIC HEART VALVE 06/03/2016 DERICK [facility] RN Ot 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 06/03/2016 DERICK [facility] RN Ot C77.3 SEC AND UNSP MALIG NEOPLASM OF AXILLA AN 06/03/2016 [facility]ER[facility] RN Ot 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 06/03/2016 DER[facility] RN Ot 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 06/03/2016 [facility]ER[facility] RN Ot E11.9 TYPE 2 DIABETES MELLITUS WITHOUT COMPLIC 06/03/2016 KELLY DONERWIN [facility] RN Ot 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 PULMONARY HYPERTENSION 06/03/2016 [facility]ER[facility] RN Ot 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 06/03/2016 DERICK [facility] RN Ot Z86.711 PERSONAL HISTORY OF PULMONARY EMBOLISM 06/03/2016 [facility] RN Ot Z86.718 PERSONAL HISTORY OF OTHER VENOUS THROMBO 06/03/2016 [facility] RN Ot Z90.12 ACQUIRED ABSENCE OF LEFT BREAST AND NIPP 06/03/2016 [facility] RN Ot Z92.21 PERSONAL HISTORY OF ANTINEOPLASTIC CHEMO 06/03/2016 [facility] RN Ot Z95.2 PRESENCE OF PROSTHETIC HEART VALVE 06/16/2016 [facility] RN Ot 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 06/16/2016 [facility] RN Ot 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 06/28/2016 [facility] RN Ot 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 06/28/2016 [facility] RN Ot 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 07/01/2016 SILVANO MASON Tiffany Ot C50.912 MALIGNANT NEOPLASM OF UNSPECIFIED SITE O 07/01/2016 SILVANO MASON Tiffany Ot C77.3 SEC AND UNSP MALIG NEOPLASM OF AXILLA AN 07/01/2016 SILVANO MASON Tiffany Ot 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 07/01/2016 SILVANO MASON Tiffany Ot 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 07/01/2016 SILVANO MASON Tiffany Ot E11.9 TYPE 2 DIABETES MELLITUS WITHOUT COMPLIC 07/01/2016 SILVANO MASON Tiffany Ot 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 PULMONARY HYPERTENSION 07/01/2016 SILVANO MASON Tiffany Ot 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 07/01/2016 SILVANO MASON Tiffany Ot Z86.711 PERSONAL HISTORY OF PULMONARY EMBOLISM 07/01/2016 MARLON, GIORGICOURTNEY Tiffany Ot Z86.718 PERSONAL HISTORY OF OTHER VENOUS THROMBO 07/01/2016 MARLONSILVANO BROOKS Tiffany Ot Z90.12 ACQUIRED ABSENCE OF LEFT BREAST AND NIPP 07/01/2016 SILVANO MASON Tiffany Ot Z92.21 PERSONAL HISTORY OF ANTINEOPLASTIC CHEMO 07/05/2016 DERICK DONP Ot 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 07/05/2016 DERICK DONP Ot C77.3 SEC AND UNSP MALIG NEOPLASM OF AXILLA AN 07/05/2016 [facility] RN Ot 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 07/05/2016 DERICK DONP Ot 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 07/05/2016 [facility] RN Ot E11.9 TYPE 2 DIABETES MELLITUS WITHOUT COMPLIC 07/05/2016 [facility] RN Ot 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 PULMONARY HYPERTENSION 07/05/2016 [facility] RN Ot 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 07/05/2016 [facility] RN Ot Z86.711 PERSONAL HISTORY OF PULMONARY EMBOLISM 07/05/2016 [facility] RN Ot Z86.718 PERSONAL HISTORY OF OTHER VENOUS THROMBO 07/05/2016 [facility] RN Ot Z90.12 ACQUIRED ABSENCE OF LEFT BREAST AND NIPP 07/05/2016 ARIAN [facility] Schmitz [facility] RN Ot Z92.21 PERSONAL HISTORY OF ANTINEOPLASTIC CHEMO 07/07/2016 [facility] RN Ot 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 07/07/2016 [facility] RN Ot C77.3 SEC AND UNSP MALIG NEOPLASM OF AXILLA AN 07/07/2016 [facility] RN Ot 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 07/07/2016 KELLY DONERWIN Nadir CALL CENTER RN Ot 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 07/07/2016 [facility] RN Ot E11.9 TYPE 2 DIABETES MELLITUS WITHOUT COMPLIC 07/07/2016 [facility] RN Ot 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 PULMONARY HYPERTENSION 07/07/2016 [facility] RN Ot 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 07/07/2016 [facility] RN Ot Z86.711 PERSONAL HISTORY OF PULMONARY EMBOLISM 07/07/2016 KELLY DONERWIN Nadir CALL CENTER RN Ot Z86.718 PERSONAL HISTORY OF OTHER VENOUS THROMBO 07/07/2016 KELLY DONERWIN Nadir CALL CENTER RN Ot Z90.12 ACQUIRED ABSENCE OF LEFT BREAST AND NIPP 07/07/2016 [facility] RN Ot Z92.21 PERSONAL HISTORY OF ANTINEOPLASTIC CHEMO 07/07/2016 [facility] RN Ot Z95.2 PRESENCE OF PROSTHETIC HEART VALVE 07/07/2016 [facility] RN Ot 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 07/07/2016 [facility] RN Ot C77.3 SEC AND UNSP MALIG NEOPLASM OF AXILLA AN 07/07/2016 [facility] RN Ot 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 07/07/2016 [facility] RN Ot 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 07/07/2016 [facility] RN Ot E11.9 TYPE 2 DIABETES MELLITUS WITHOUT COMPLIC 07/07/2016 [facility] S [facility] RN Ot 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 PULMONARY HYPERTENSION 07/07/2016 [facility] S [facility] RN Ot Z79.01 SNF (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 07/07/2016 [facility] RN Ot Z86.711 PERSONAL HISTORY OF PULMONARY EMBOLISM 07/07/2016 [facility] RN Ot Z86.718 PERSONAL HISTORY OF OTHER VENOUS THROMBO 07/07/2016 DERICK DONP Ot Z90.12 ACQUIRED ABSENCE OF LEFT BREAST AND NIPP 07/07/2016 DERICK DONP Ot Z92.21 PERSONAL HISTORY OF ANTINEOPLASTIC CHEMO 07/07/2016 Ot 174.9 MALIGN NEOPL BREAST NOS 07/07/2016 Ot 250.00 DIAB THOMAS WO COMPL, TYPE II OR UNSPEC TY 07/07/2016 Ot 401.9 HYPERTENSION NOS 07/07/2016 Ot 710.0 SYST LUPUS ERYTHEMATOSIS 07/07/2016 Ot V58.69 OT MED,LT, CURRENT USE 07/07/2016 Ot 174.9 MALIGN NEOPL BREAST NOS 07/07/2016 Ot 397.0 TRICUSPID VALVE DISEASE 07/07/2016 Ot 424.0 MITRAL VALVE DISORDER 07/07/2016 Ot V58.69 OT MED,LT, CURRENT USE 07/07/2016 Ot V58.83 ENCOUNTER FOR THERAPEUTIC DRUG MONITORIN 07/07/2016 Ot 174.9 MALIGN NEOPL BREAST NOS 07/07/2016 Ot 710.0 SYST LUPUS ERYTHEMATOSIS 07/07/2016 Ot V58.69 OT MED,LT, CURRENT USE 07/07/2016 Ot 518.0 PULMONARY COLLAPSE 07/07/2016 Ot 786.05 SHORTNESS OF BREATH 07/07/2016 Ot 786.2 COUGH 07/07/2016 Ot 397.0 TRICUSPID VALVE DISEASE 07/07/2016 Ot 424.0 MITRAL VALVE DISORDER 07/07/2016 Ot 786.09 RESPIRATORY ABNORM NEC 07/07/2016 Ot V58.69 OT MED,LT, CURRENT USE 07/07/2016 Ot V58.83 ENCOUNTER FOR THERAPEUTIC DRUG MONITORIN 07/07/2016 Ot 780.4 DIZZINESS AND GIDDINESS 07/07/2016 Ot 786.09 RESPIRATORY ABNORM NEC 07/07/2016 Ot 174.9 MALIGN NEOPL BREAST NOS 07/07/2016 Ot 250.00 DIAB THOMAS WO COMPL, TYPE II OR UNSPEC TY 07/07/2016 Ot 401.9 HYPERTENSION NOS 07/07/2016 Ot 709.9 SKIN DISORDER NOS 07/07/2016 Ot 710.0 SYST LUPUS ERYTHEMATOSIS 07/07/2016 Ot V12.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 07/07/2016 Ot V58.61 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S,LT,CURRENT USE 07/07/2016 Ot V58.69 OTH MED,LT, CURRENT USE 07/07/2016 Ot 174.9 MALIGN NEOPL BREAST NOS 07/07/2016 SHABNAM HOLMAN DO Ot G47.33 OBSTRUCTIVE SLEEP APNEA (ADULT) (PEDIATR 07/11/2016 SHABNAM HOLMAN DO Ot G47.33 OBSTRUCTIVE SLEEP APNEA (ADULT) (PEDIATR 07/22/2016 DERICK DONP Ot 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 07/22/2016 DERICK DONP Ot C77.3 SEC AND UNSP MALIG NEOPLASM OF AXILLA AN 07/22/2016 DERICK DONP Ot 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 07/22/2016 DERICK DONP Ot 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 07/22/2016 [facility] RN Ot E11.9 TYPE 2 DIABETES MELLITUS WITHOUT COMPLIC 07/22/2016 [facility] RN Ot 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 PULMONARY HYPERTENSION 07/22/2016 [facility]ERICK DONP Ot Z79.01 SNF (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 07/22/2016 [facility] RN Ot Z86.711 PERSONAL HISTORY OF PULMONARY EMBOLISM 07/22/2016 [facility] RN Ot Z86.718 PERSONAL HISTORY OF OTHER VENOUS THROMBO 07/22/2016 DERICK DONP Ot Z90.12 ACQUIRED ABSENCE OF LEFT BREAST AND NIPP 07/22/2016 [facility] RN Ot Z92.21 PERSONAL HISTORY OF ANTINEOPLASTIC CHEMO 07/26/2016 [facility] RN Ot 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 07/26/2016 DERICK DONP Ot C77.3 SEC AND UNSP MALIG NEOPLASM OF AXILLA AN 07/26/2016 [facility] RN Ot 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 07/26/2016 DERICK DONP Ot 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 07/26/2016 [facility] RN Ot E11.9 TYPE 2 DIABETES MELLITUS WITHOUT COMPLIC 07/26/2016 DERICK DONP Ot 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 PULMONARY HYPERTENSION 07/26/2016 DERICK DONP Ot 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 07/26/2016 DERICK DONP Ot Z86.711 PERSONAL HISTORY OF PULMONARY EMBOLISM 07/26/2016 DERICK DONP Ot Z86.718 PERSONAL HISTORY OF OTHER VENOUS THROMBO 07/26/2016 DERICK DONP Ot Z90.12 ACQUIRED ABSENCE OF LEFT BREAST AND NIPP 07/26/2016 DERICK DONP Ot Z92.21 PERSONAL HISTORY OF ANTINEOPLASTIC CHEMO 08/10/2016 MARLONSILVANO BROOKS Tiffany Ot C50.912 MALIGNANT NEOPLASM OF UNSPECIFIED SITE O 08/10/2016 SILVANO MASON Ot C77.3 SEC AND UNSP MALIG NEOPLASM OF AXILLA AN 08/10/2016 SILVANO MASON Ot 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 08/10/2016 MARLONGIORGICOURTNEY Tiffany Ot 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 08/10/2016 MARLONSILVANO BROOKS Tiffany Ot E11.9 TYPE 2 DIABETES MELLITUS WITHOUT COMPLIC 08/10/2016 MARLONSILVANO BROOKS Tiffany Ot 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 PULMONARY HYPERTENSION 08/10/2016 MARLONSILVANO BROOKS Tiffany Ot Z45.2 ENCOUNTER FOR ADJUSTMENT AND MANAGEMENT 08/10/2016 MARLONSILVANO BROOKS Tiffany Ot Z79.01 SNF (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 08/10/2016 MARLONSILVANO BROOKS Tiffany Ot Z86.711 PERSONAL HISTORY OF PULMONARY EMBOLISM 08/10/2016 MARLONSILVANO BROOKS Tiffany Ot Z86.718 PERSONAL HISTORY OF OTHER VENOUS THROMBO 08/10/2016 MARLONSILVANO BROOKS Tiffany Ot Z90.12 ACQUIRED ABSENCE OF LEFT BREAST AND NIPP 08/10/2016 GIORGI MASONCOURTNEY Tiffany Ot Z92.21 PERSONAL HISTORY OF ANTINEOPLASTIC CHEMO 09/06/2016 Ot 174.9 MALIGN NEOPL BREAST NOS 09/06/2016 Ot 250.00 DIAB THOMAS WO COMPL, TYPE II OR UNSPEC TY 09/06/2016 Ot 401.9 HYPERTENSION NOS 09/06/2016 Ot 710.0 SYST LUPUS ERYTHEMATOSIS 09/06/2016 Ot V58.69 OTH MED,LT, CURRENT USE 09/06/2016 Ot 174.9 MALIGN NEOPL BREAST NOS 09/06/2016 Ot 397.0 TRICUSPID VALVE DISEASE 09/06/2016 Ot 424.0 MITRAL VALVE DISORDER 09/06/2016 Ot V58.69 OTH MED,LT, CURRENT USE 09/06/2016 Ot V58.83 ENCOUNTER FOR THERAPEUTIC DRUG MONITORIN 09/06/2016 Ot 174.9 MALIGN NEOPL BREAST NOS 09/06/2016 Ot 710.0 SYST LUPUS ERYTHEMATOSIS 09/06/2016 Ot V58.69 OTH MED,LT, CURRENT USE 09/06/2016 Ot 518.0 PULMONARY COLLAPSE 09/06/2016 Ot 786.05 SHORTNESS OF BREATH 09/06/2016 Ot 786.2 COUGH 09/06/2016 Ot 397.0 TRICUSPID VALVE DISEASE 09/06/2016 Ot 424.0 MITRAL VALVE DISORDER 09/06/2016 Ot 786.09 RESPIRATORY ABNORM NEC 09/06/2016 Ot V58.69 OTH MED,LT, CURRENT USE 09/06/2016 Ot V58.83 ENCOUNTER FOR THERAPEUTIC DRUG MONITORIN 09/06/2016 Ot 780.4 DIZZINESS AND GIDDINESS 09/06/2016 Ot 786.09 RESPIRATORY ABNORM NEC 09/06/2016 Ot 174.9 MALIGN NEOPL BREAST NOS 09/06/2016 Ot 250.00 DIAB THOMAS WO COMPL, TYPE II OR UNSPEC TY 09/06/2016 Ot 401.9 HYPERTENSION NOS 09/06/2016 Ot 709.9 SKIN DISORDER NOS 09/06/2016 Ot 710.0 SYST LUPUS ERYTHEMATOSIS 09/06/2016 Ot V12.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 09/06/2016 Ot V58.61 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S,LT,CURRENT USE 09/06/2016 Ot V58.69 OTH MED,LT, CURRENT USE 09/06/2016 Ot 174.9 MALIGN NEOPL BREAST NOS 09/07/2016 Ot 174.9 MALIGN NEOPL BREAST NOS 09/07/2016 Ot 250.00 DIAB THOMAS WO COMPL, TYPE II OR UNSPEC TY 09/07/2016 Ot 401.9 HYPERTENSION NOS 09/07/2016 Ot 709.9 SKIN DISORDER NOS 09/07/2016 Ot 710.0 SYST LUPUS ERYTHEMATOSIS 09/07/2016 Ot V12.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 09/07/2016 Ot V58.61 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S,LT,CURRENT USE 09/07/2016 Ot V58.69 OTH MED,LT, CURRENT USE 09/07/2016 Ot 174.9 MALIGN NEOPL BREAST NOS 09/07/2016 SILVANO MASON Ot 174.9 MALIGN NEOPL BREAST NOS 09/07/2016 SILVANO MASON Ot 397.0 TRICUSPID VALVE DISEASE 09/07/2016 SILVANO MASON N Ot 424.0 MITRAL VALVE DISORDER 09/07/2016 SILVANO MASON Ot V58.69 OTH MED,LT,CURRENT USE 09/07/2016 SILVANO MASON Ot V87.41 PERSONAL HISTORY OF ANTINEOPLASTIC CHEMO 09/07/2016 SILVANO MASON Tiffany Ot 174.9 MALIGN NEOPL BREAST NOS 09/07/2016 CELESTINA SUAREZ, DIPAK Cali Ot 786.09 RESPIRATORY ABNORM NEC 09/07/2016 [facility] RN Ot 174.9 MALIGN NEOPL BREAST NOS 09/07/2016 [facility] RN Ot 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 09/07/2016 [facility] RN Ot 250.00 DIAB THOMAS WO COMPL, TYPE II OR UNSPEC TY 09/07/2016 [facility] RN Ot 401.9 HYPERTENSION NOS 09/07/2016 [facility] RN Ot 710.0 SYST LUPUS ERYTHEMATOSIS 09/07/2016 [facility] RN Ot V12.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 09/07/2016 [facility] RN Ot V12.55 PERSONAL HISTORY OF PULMONARY EMBOLISM 09/07/2016 [facility] RN Ot V58.61 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S,LT,CURRENT USE 09/07/2016 [facility] RN Ot V58.67 LONG-TERM (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 INSULIN 09/07/2016 DERICK DONP Ot V58.69 OTH MED,LT,CURRENT USE 09/07/2016 [facility] RN Ot V87.41 PERSONAL HISTORY OF ANTINEOPLASTIC CHEMO 09/07/2016 [facility] RN Ot 174.9 MALIGN NEOPL BREAST NOS 09/07/2016 [facility] RN Ot 174.9 MALIGN NEOPL BREAST NOS 09/07/2016 [facility] RN Ot 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 09/07/2016 [facility] RN Ot 250.00 DIAB THOMAS WO COMPL, TYPE II OR UNSPEC TY 09/07/2016 [facility] RN Ot 401.9 HYPERTENSION NOS 09/07/2016 [facility] RN Ot 710.0 SYST LUPUS ERYTHEMATOSIS 09/07/2016 [facility] RN Ot V12.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 09/07/2016 [facility] RN Ot V12.55 PERSONAL HISTORY OF PULMONARY EMBOLISM 09/07/2016 [facility] RN Ot V58.61 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S,LT,CURRENT USE 09/07/2016 [facility] RN Ot V58.67 LONG-TERM (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 INSULIN 09/07/2016 DERICK DONP Ot V58.69 OTH MED,LT,CURRENT USE 09/07/2016 [facility] RN Ot V87.41 PERSONAL HISTORY OF ANTINEOPLASTIC CHEMO 09/07/2016 CHARLENE RIVERA MD Ot 279.8 IMMUNE MECHANISM DIS NEC 09/07/2016 CHARLENE RIVERA MD Ot 710.0 SYST LUPUS ERYTHEMATOSIS 09/07/2016 [facility] RN Ot 174.9 MALIGN NEOPL BREAST NOS 09/07/2016 [facility] RN Ot 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 09/07/2016 [facility] RN Ot 710.0 SYST LUPUS ERYTHEMATOSIS 09/07/2016 [facility] RN Ot V12.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 09/07/2016 [facility] RN Ot V12.55 PERSONAL HISTORY OF PULMONARY EMBOLISM 09/07/2016 [facility] RN Ot V58.61 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S,LT,CURRENT USE 09/07/2016 [facility] RN Ot V58.69 OTH MED,LT,CURRENT USE 09/07/2016 [facility] RN Ot V87.41 PERSONAL HISTORY OF ANTINEOPLASTIC CHEMO 09/07/2016 [facility] RN Ot 174.9 MALIGN NEOPL BREAST NOS 09/07/2016 [facility] S [facility] RN Ot 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 09/07/2016 [facility] RN Ot 710.0 SYST LUPUS ERYTHEMATOSIS 09/07/2016 [facility] RN Ot 782.2 LOCAL SUPRFICIAL SWELLNG 09/07/2016 [facility] RN Ot 786.50 CHEST PAIN NOS 09/07/2016 [facility] RN Ot 790.5 ABN SERUM ENZY LEVEL NEC 09/07/2016 [facility] RN Ot V12.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 09/07/2016 [facility] RN Ot V12.55 PERSONAL HISTORY OF PULMONARY EMBOLISM 09/07/2016 [facility] RN Ot V45.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 09/07/2016 [facility] RN Ot V58.61 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S,LT,CURRENT USE 09/07/2016 [facility] RN Ot V58.69 OTH MED,LT,CURRENT USE 09/07/2016 [facility] RN Ot V87.41 PERSONAL HISTORY OF ANTINEOPLASTIC CHEMO 09/07/2016 RICHIE LEMUS DO Ot 250.00 DIAB THOMAS WO COMPL, TYPE II OR UNSPEC TY 09/07/2016 RICHIE LEMUS DO Ot 272.4 HYPERLIPIDEMIA NEC/NOS 09/07/2016 RICHIE LEMUS DO Ot 401.1 BENIGN HYPERTENSION 09/07/2016 DERICK DONP Ot 174.9 MALIGN NEOPL BREAST NOS 09/07/2016 DERICK DONP Ot 174.9 MALIGN NEOPL BREAST NOS 09/07/2016 MOMO PINO Ot 397.0 TRICUSPID VALVE DISEASE 09/07/2016 MOMO PINO Ot 401.9 HYPERTENSION NOS 09/07/2016 MOMO PINO Ot 414.00 CORON ATHEROSCLER NOS TYPE VESSEL, NATIV 09/07/2016 MOMO PINO Ot 424.0 MITRAL VALVE DISORDER 09/07/2016 MOMO PINO Ot 786.09 RESPIRATORY ABNORM NEC 09/07/2016 [facility] RN Ot 174.9 MALIGN NEOPL BREAST NOS 09/07/2016 [facility] RN Ot 250.00 DIAB THOMAS WO COMPL, TYPE II OR UNSPEC TY 09/07/2016 [facility] RN Ot 401.9 HYPERTENSION NOS 09/07/2016 [facility] RN Ot 710.0 SYST LUPUS ERYTHEMATOSIS 09/07/2016 [facility] RN Ot V12.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 09/07/2016 [facility] RN Ot V58.61 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S,LT,CURRENT USE 09/07/2016 [facility] RN Ot V58.69 OTH MED,LT,CURRENT USE 09/07/2016 [facility] RN Ot V87.41 PERSONAL HISTORY OF ANTINEOPLASTIC CHEMO 09/07/2016 DERICK DONP Ot V76.12 OTH SCREEN MAMMO-MALIGN NEOPLASM OF REID 09/07/2016 SHABNAM HOLMAN DO Ot 278.01 MORBID OBESITY 09/07/2016 SHABNAM HOLMAN DO Ot 415.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/INFARCT 09/07/2016 SHABNAM HOLMAN DO Ot 795.79 OTH AND UNSPEC NONSPECIFIC IMMUNOLOGICAL 09/07/2016 SHABNAM HOLMAN DO Ot 278.01 MORBID OBESITY 09/07/2016 SHABNAM HOLMAN DO Ot 415.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/INFARCT 09/07/2016 SHABNAM HOLMAN DO Ot 795.79 OTH AND UNSPEC NONSPECIFIC IMMUNOLOGICAL 09/07/2016 [facility] RN Ot 682.6 CELLULITIS OF LEG 09/07/2016 [facility] RN Ot 710.0 SYST LUPUS ERYTHEMATOSIS 09/07/2016 [facility] RN Ot 786.50 CHEST PAIN NOS 09/07/2016 [facility] RN Ot V10.3 HX OF BREAST MALIGNANCY 09/07/2016 [facility] RN Ot V12.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 09/07/2016 [facility] RN Ot V12.55 PERSONAL HISTORY OF PULMONARY EMBOLISM 09/07/2016 [facility] RN Ot V45.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 09/07/2016 [facility] RN Ot V67.2 CHEMOTHERAPY FOLLOW-UP 09/07/2016 [facility] RN Ot 786.50 CHEST PAIN NOS 09/07/2016 [facility] RN Ot 416.8 CHR PULMON HEART DIS NEC 09/07/2016 [facility] RN Ot 710.0 SYST LUPUS ERYTHEMATOSIS 09/07/2016 [facility] RN Ot M32.10 SYSTEMIC LUPUS ERYTHEMATOSUS, ORGAN OR S 09/07/2016 [facility] RN Ot V10.3 HX OF BREAST MALIGNANCY 09/07/2016 [facility] RN Ot V12.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 09/07/2016 [facility] RN Ot V12.55 PERSONAL HISTORY OF PULMONARY EMBOLISM 09/07/2016 [facility] RN Ot V45.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 09/07/2016 DERICK DONP Ot V58.61 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S,LT,CURRENT USE 09/07/2016 DERICK DONP Ot V58.69 OTH MED,LT,CURRENT USE 09/07/2016 [facility] RN Ot V67.2 CHEMOTHERAPY FOLLOW-UP 09/07/2016 [facility] RN Ot 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 09/07/2016 [facility] RN Ot Z85.3 PERSONAL HISTORY OF MALIGNANT NEOPLASM O 09/07/2016 [facility] RN Ot Z86.711 PERSONAL HISTORY OF PULMONARY EMBOLISM 09/07/2016 [facility] RN Ot Z86.718 PERSONAL HISTORY OF OTHER VENOUS THROMBO 09/07/2016 [facility] RN Ot Z90.10 ACQUIRED ABSENCE OF UNSPECIFIED BREAST A 09/07/2016 [facility] RN Ot 174.9 MALIGN NEOPL BREAST NOS 09/07/2016 [facility] RN Ot 174.9 MALIGN NEOPL BREAST NOS 09/07/2016 [facility] RN Ot 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 09/07/2016 [facility] RN Ot 416.8 CHR PULMON HEART DIS NEC 09/07/2016 [facility] RN Ot 710.0 SYST LUPUS ERYTHEMATOSIS 09/07/2016 [facility] RN Ot V10.3 HX OF BREAST MALIGNANCY 09/07/2016 [facility] RN Ot V12.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 09/07/2016 [facility] RN Ot V12.55 PERSONAL HISTORY OF PULMONARY EMBOLISM 09/07/2016 [facility] RN Ot V45.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 09/07/2016 [facility] RN Ot V58.61 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S,LT,CURRENT USE 09/07/2016 [facility] RN Ot V58.69 OTH MED,LT,CURRENT USE 09/07/2016 [facility]ER[facility] DON S CALL C[facility] RN Ot 786.2 COUGH 09/07/2016 [facility] RN Ot R05 COUGH 09/07/2016 [facility]ERICK DON S [facility] C[facility] RN Ot 174.9 MALIGN NEOPL BREAST NOS 09/07/2016 [facility] DON S [facility] RN Ot 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 09/07/2016 [facility] S [facility] RN Ot 250.00 DIAB THOMAS WO COMPL, TYPE II OR UNSPEC TY 09/07/2016 [facility] S [facility] RN Ot 401.9 HYPERTENSION NOS 09/07/2016 [facility] S [facility] RN Ot 416.8 CHR PULMON HEART DIS NEC 09/07/2016 KELLY DONERWIN S CALL CENTER RN Ot 710.0 SYST LUPUS ERYTHEMATOSIS 09/07/2016 [facility] RN Ot V12.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 09/07/2016 [facility] S [facility] RN Ot V12.55 PERSONAL HISTORY OF PULMONARY EMBOLISM 09/07/2016 [facility] RN Ot V58.61 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S,LT,CURRENT USE 09/07/2016 [facility] RN Ot V58.69 OTH MED,LT,CURRENT USE 09/07/2016 DERICK DON Nadir CALL CENTER RN Ot V87.41 PERSONAL HISTORY OF ANTINEOPLASTIC CHEMO 09/07/2016 SILVANO MASON Ot 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 09/07/2016 SILVANO MASON Ot 174.9 MALIGN NEOPL BREAST NOS 09/07/2016 SILVANO MASON Ot C34.90 MALIGNANT NEOPLASM OF UNSP PART OF UNSP 09/07/2016 SILVANO MASON Ot 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 09/07/2016 [facility]ER[facility] DON S CALL CENTER RN Ot 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 09/07/2016 [facility] RN Ot 416.8 CHR PULMON HEART DIS NEC 09/07/2016 [facility] RN Ot V10.3 HX OF BREAST MALIGNANCY 09/07/2016 [facility] RN Ot V12.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 09/07/2016 [facility] RN Ot V12.55 PERSONAL HISTORY OF PULMONARY EMBOLISM 09/07/2016 DERICK DONP Ot V58.61 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S,LT,CURRENT USE 09/07/2016 DERICK DONP Ot V58.69 OTH MED,LT,CURRENT USE 09/07/2016 [facility]ER[facility] RN Ot V87.41 PERSONAL HISTORY OF ANTINEOPLASTIC CHEMO 09/07/2016 DIPAK OSCAR MD Ot 174.9 MALIGN NEOPL BREAST NOS 09/07/2016 DIPAK OSCAR MD Ot 401.9 HYPERTENSION NOS 09/07/2016 DIPAK OSCAR MD Ot 414.9 CHR ISCHEMIC HRT DIS NOS 09/07/2016 DIPAK OSCAR MD Ot 786.09 RESPIRATORY ABNORM NEC 09/07/2016 DIPAK OSCAR MD Ot 786.50 CHEST PAIN NOS 09/07/2016 DIPAK OSCAR MD Ot 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 09/07/2016 DIPAK OSCAR MD Ot I10 ESSENTIAL (PRIMARY) HYPERTENSION 09/07/2016 DIPAK OSCAR MD Ot I25.9 CHRONIC ISCHEMIC HEART DISEASE, UNSPECIF 09/07/2016 DIPAK OSCAR MD Ot R07.9 CHEST PAIN, UNSPECIFIED 09/07/2016 DERICK DONP Ot 174.9 MALIGN NEOPL BREAST NOS 09/07/2016 DERICK DONP Ot 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 09/07/2016 [facility] RN Ot 250.00 DIAB THOMAS WO COMPL, TYPE II OR UNSPEC TY 09/07/2016 [facility] RN Ot 401.9 HYPERTENSION NOS 09/07/2016 [facility] RN Ot 416.8 CHR PULMON HEART DIS NEC 09/07/2016 [facility] RN Ot 710.0 SYST LUPUS ERYTHEMATOSIS 09/07/2016 DER[facility] RN Ot V12.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 09/07/2016 DER[facility] RN Ot V12.55 PERSONAL HISTORY OF PULMONARY EMBOLISM 09/07/2016 [facility] RN Ot V58.61 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S,LT,CURRENT USE 09/07/2016 DER[facility] RN Ot V58.69 OTH MED,LT,CURRENT USE 09/07/2016 DER[facility] RN Ot V87.41 PERSONAL HISTORY OF ANTINEOPLASTIC CHEMO 09/07/2016 DER[facility] RN Ot 174.9 MALIGN NEOPL BREAST NOS 09/07/2016 [facility] RN Ot 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 09/07/2016 DER[facility] RN Ot 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 09/07/2016 DER[facility] RN Ot 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 09/07/2016 DER[facility] RN Ot 174.9 MALIGN NEOPL BREAST NOS 09/07/2016 [facility] RN Ot 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 09/07/2016 [facility] RN Ot 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 09/07/2016 [facility] RN Ot 250.80 DIAB W OTH SPEC MANIFEST, TYPE II OR UNS 09/07/2016 [facility] RN Ot 356.9 IDIO PERIPH NEURPTHY NOS 09/07/2016 DER[facility] RN Ot 416.8 CHR PULMON HEART DIS NEC 09/07/2016 [facility]ER[facility] RN Ot 682.7 CELLULITIS OF FOOT 09/07/2016 DERICK [facility] RN Ot 707.15 ULCER OF OTHER PART OF FOOT 09/07/2016 DERICK [facility] RN Ot 710.0 SYST LUPUS ERYTHEMATOSIS 09/07/2016 DERICK [facility] RN Ot V12.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 09/07/2016 DERICK [facility] RN Ot V12.54 PERSONAL HX OF TIA, CEREBRAL INFARCTION 09/07/2016 DERICK [facility] RN Ot V45.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 09/07/2016 DERICK [facility] RN Ot V58.61 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S,LT,CURRENT USE 09/07/2016 DONDERICK [facility] RN Ot V58.69 OTH MED,LT,CURRENT USE 09/07/2016 ARIANDERICK [facility] RN Ot C50.912 MALIGNANT NEOPLASM OF UNSPECIFIED SITE O 09/07/2016 KELLY DONERWIN [facility] RN Ot C77.3 SEC AND UNSP MALIG NEOPLASM OF AXILLA AN 09/07/2016 ARIAN DERICK [facility] RN Ot 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 09/07/2016 ARIAN DERICK [facility] RN Ot 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 09/07/2016 ARIAN DERICK [facility] RN Ot D50.9 IRON DEFICIENCY ANEMIA, UNSPECIFIED 09/07/2016 [facility] RN Ot E11.621 TYPE 2 DIABETES MELLITUS WITH FOOT ULCER 09/07/2016 [facility] RN Ot G57.90 UNSPECIFIED MONONEUROPATHY OF UNSPECIFIE 09/07/2016 [facility] RN Ot H53.9 UNSPECIFIED VISUAL DISTURBANCE 09/07/2016 [facility] RN Ot 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 PULMONARY HYPERTENSION 09/07/2016 [facility] RN Ot L97.519 NON-PRS CHRONIC ULCER OTH PRT RIGHT FOOT 09/07/2016 KELLY DONERWIN [facility] RN Ot Z79.4 SNF (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 INSULIN 09/07/2016 [facility] RN Ot 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 09/07/2016 KELLY DONERWIN [facility] RN Ot Z86.711 PERSONAL HISTORY OF PULMONARY EMBOLISM 09/07/2016 [facility] RN Ot Z86.718 PERSONAL HISTORY OF OTHER VENOUS THROMBO 09/07/2016 [facility] RN Ot H53.9 UNSPECIFIED VISUAL DISTURBANCE 09/07/2016 [facility] RN Ot R26.81 UNSTEADINESS ON FEET 09/07/2016 SILVANO MASON Ot C34.90 MALIGNANT NEOPLASM OF UNSP PART OF UNSP 09/07/2016 SILVANO MASON Ot 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 09/07/2016 SILVANO MASON Ot C34.90 MALIGNANT NEOPLASM OF UNSP PART OF UNSP 09/07/2016 SILVANO MASON Tiffany Ot 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 09/07/2016 SILVANO MASNO Tiffany Ot 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 09/07/2016 SILVANO MASON Tiffany Ot 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 09/07/2016 DERICK DON [facility] RN Ot 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 09/07/2016 [facility] RN Ot C77.3 SEC AND UNSP MALIG NEOPLASM OF AXILLA AN 09/07/2016 [facility] RN Ot 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 09/07/2016 [facility] RN Ot 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 09/07/2016 [facility] RN Ot E11.9 TYPE 2 DIABETES MELLITUS WITHOUT COMPLIC 09/07/2016 DER[facility] RN Ot 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 PULMONARY HYPERTENSION 09/07/2016 DER[facility] RN Ot 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 09/07/2016 DERICK DON [facility] RN Ot Z86.711 PERSONAL HISTORY OF PULMONARY EMBOLISM 09/07/2016 [facility]ER[facility] RN Ot Z86.718 PERSONAL HISTORY OF OTHER VENOUS THROMBO 09/07/2016 [facility] RN Ot Z90.12 ACQUIRED ABSENCE OF LEFT BREAST AND NIPP 09/07/2016 [facility] RN Ot Z92.21 PERSONAL HISTORY OF ANTINEOPLASTIC CHEMO 09/07/2016 [facility]ER[facility] RN Ot Z95.2 PRESENCE OF PROSTHETIC HEART VALVE 09/07/2016 DERICK [facility] RN Ot 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 09/07/2016 [facility]ER[facility] RN Ot C77.3 SEC AND UNSP MALIG NEOPLASM OF AXILLA AN 09/07/2016 DERICK [facility] RN Ot 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 09/07/2016 DER[facility] RN Ot 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 09/07/2016 DER[facility] RN Ot E11.9 TYPE 2 DIABETES MELLITUS WITHOUT COMPLIC 09/07/2016 KELLY DONERWIN [facility] RN Ot 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 PULMONARY HYPERTENSION 09/07/2016 [facility] RN Ot Z79.01 SNF (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 09/07/2016 [facility]ER[facility] RN Ot Z86.711 PERSONAL HISTORY OF PULMONARY EMBOLISM 09/07/2016 [facility]ER[facility] RN Ot Z86.718 PERSONAL HISTORY OF OTHER VENOUS THROMBO 09/07/2016 [facility]ER[facility] RN Ot Z90.12 ACQUIRED ABSENCE OF LEFT BREAST AND NIPP 09/07/2016 KELLY DONERWIN [facility] RN Ot Z92.21 PERSONAL HISTORY OF ANTINEOPLASTIC CHEMO 09/07/2016 [facility] RN Ot Z95.2 PRESENCE OF PROSTHETIC HEART VALVE 09/07/2016 DERICK [facility] RN Ot 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 09/07/2016 [facility]ER[facility] RN Ot 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 09/07/2016 [facility] RN Ot 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 09/07/2016 [facility]ER[facility] RN Ot C77.3 SEC AND UNSP MALIG NEOPLASM OF AXILLA AN 09/07/2016 [facility] RN Ot 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 09/07/2016 DERICK DON Nadir CALL [facility] RN Ot 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 09/07/2016 [facility] RN Ot E11.9 TYPE 2 DIABETES MELLITUS WITHOUT COMPLIC 09/07/2016 DERICK DNO [facility] RN Ot 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 PULMONARY HYPERTENSION 09/07/2016 [facility] RN Ot 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 09/07/2016 [facility] RN Ot Z86.711 PERSONAL HISTORY OF PULMONARY EMBOLISM 09/07/2016 [facility] RN Ot Z86.718 PERSONAL HISTORY OF OTHER VENOUS THROMBO 09/07/2016 [facility] RN Ot Z90.12 ACQUIRED ABSENCE OF LEFT BREAST AND NIPP 09/07/2016 [facility] RN Ot Z92.21 PERSONAL HISTORY OF ANTINEOPLASTIC CHEMO 09/07/2016 Ot 174.9 MALIGN NEOPL BREAST NOS 09/07/2016 Ot 250.00 DIAB THOMAS WO COMPL, TYPE II OR UNSPEC TY 09/07/2016 Ot 401.9 HYPERTENSION NOS 09/07/2016 Ot 710.0 SYST LUPUS ERYTHEMATOSIS 09/07/2016 Ot V58.69 OTH MED,LT, CURRENT USE 09/07/2016 Ot 174.9 MALIGN NEOPL BREAST NOS 09/07/2016 Ot 397.0 TRICUSPID VALVE DISEASE 09/07/2016 Ot 424.0 MITRAL VALVE DISORDER 09/07/2016 Ot V58.69 OTH MED,LT, CURRENT USE 09/07/2016 Ot V58.83 ENCOUNTER FOR THERAPEUTIC DRUG MONITORIN 09/07/2016 Ot 174.9 MALIGN NEOPL BREAST NOS 09/07/2016 Ot 710.0 SYST LUPUS ERYTHEMATOSIS 09/07/2016 Ot V58.69 OTH MED,LT, CURRENT USE 09/07/2016 Ot 518.0 PULMONARY COLLAPSE 09/07/2016 Ot 786.05 SHORTNESS OF BREATH 09/07/2016 Ot 786.2 COUGH 09/07/2016 Ot 397.0 TRICUSPID VALVE DISEASE 09/07/2016 Ot 424.0 MITRAL VALVE DISORDER 09/07/2016 Ot 786.09 RESPIRATORY ABNORM NEC 09/07/2016 Ot V58.69 OTH MED,LT, CURRENT USE 09/07/2016 Ot V58.83 ENCOUNTER FOR THERAPEUTIC DRUG MONITORIN 09/07/2016 Ot 780.4 DIZZINESS AND GIDDINESS 09/07/2016 Ot 786.09 RESPIRATORY ABNORM NEC 09/07/2016 Ot 174.9 MALIGN NEOPL BREAST NOS 09/07/2016 Ot 250.00 DIAB THOMAS WO COMPL, TYPE II OR UNSPEC TY 09/07/2016 Ot 401.9 HYPERTENSION NOS 09/07/2016 Ot 709.9 SKIN DISORDER NOS 09/07/2016 Ot 710.0 SYST LUPUS ERYTHEMATOSIS 09/07/2016 Ot V12.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 09/07/2016 Ot V58.61 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S,LT,CURRENT USE 09/07/2016 Ot V58.69 OTH MED,LT, CURRENT USE 09/07/2016 Ot 174.9 MALIGN NEOPL BREAST NOS 09/08/2016 SILVANO MASON Ot 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 09/08/2016 SILVANO MASON Ot 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 09/23/2016 Ot 174.9 MALIGN NEOPL BREAST NOS 09/23/2016 Ot 250.00 DIAB THOMAS WO COMPL, TYPE II OR UNSPEC TY 09/23/2016 Ot 401.9 HYPERTENSION NOS 09/23/2016 Ot 710.0 SYST LUPUS ERYTHEMATOSIS 09/23/2016 Ot V58.69 OTH MED,LT, CURRENT USE 09/23/2016 Ot 174.9 MALIGN NEOPL BREAST NOS 09/23/2016 Ot 397.0 TRICUSPID VALVE DISEASE 09/23/2016 Ot 424.0 MITRAL VALVE DISORDER 09/23/2016 Ot V58.69 OTH MED,LT, CURRENT USE 09/23/2016 Ot V58.83 ENCOUNTER FOR THERAPEUTIC DRUG MONITORIN 09/23/2016 Ot 174.9 MALIGN NEOPL BREAST NOS 09/23/2016 Ot 710.0 SYST LUPUS ERYTHEMATOSIS 09/23/2016 Ot V58.69 OTH MED,LT, CURRENT USE 09/23/2016 Ot 518.0 PULMONARY COLLAPSE 09/23/2016 Ot 786.05 SHORTNESS OF BREATH 09/23/2016 Ot 786.2 COUGH 09/23/2016 Ot 397.0 TRICUSPID VALVE DISEASE 09/23/2016 Ot 424.0 MITRAL VALVE DISORDER 09/23/2016 Ot 786.09 RESPIRATORY ABNORM NEC 09/23/2016 Ot V58.69 OTH MED,LT, CURRENT USE 09/23/2016 Ot V58.83 ENCOUNTER FOR THERAPEUTIC DRUG MONITORIN 09/23/2016 Ot 780.4 DIZZINESS AND GIDDINESS 09/23/2016 Ot 786.09 RESPIRATORY ABNORM NEC 09/23/2016 Ot 174.9 MALIGN NEOPL BREAST NOS 09/23/2016 Ot 250.00 DIAB THOMAS WO COMPL, TYPE II OR UNSPEC TY 09/23/2016 Ot 401.9 HYPERTENSION NOS 09/23/2016 Ot 709.9 SKIN DISORDER NOS 09/23/2016 Ot 710.0 SYST LUPUS ERYTHEMATOSIS 09/23/2016 Ot V12.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 09/23/2016 Ot V58.61 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S,LT,CURRENT USE 09/23/2016 Ot V58.69 OTH MED,LT, CURRENT USE 09/23/2016 Ot 174.9 MALIGN NEOPL BREAST NOS 09/26/2016 Ot 174.9 MALIGN NEOPL BREAST NOS 09/26/2016 Ot 250.00 DIAB THOMAS WO COMPL, TYPE II OR UNSPEC TY 09/26/2016 Ot 401.9 HYPERTENSION NOS 09/26/2016 Ot 710.0 SYST LUPUS ERYTHEMATOSIS 09/26/2016 Ot V58.69 OTH MED,LT, CURRENT USE 09/26/2016 Ot 174.9 MALIGN NEOPL BREAST NOS 09/26/2016 Ot 397.0 TRICUSPID VALVE DISEASE 09/26/2016 Ot 424.0 MITRAL VALVE DISORDER 09/26/2016 Ot V58.69 OTH MED,LT, CURRENT USE 09/26/2016 Ot V58.83 ENCOUNTER FOR THERAPEUTIC DRUG MONITORIN 09/26/2016 Ot 174.9 MALIGN NEOPL BREAST NOS 09/26/2016 Ot 710.0 SYST LUPUS ERYTHEMATOSIS 09/26/2016 Ot V58.69 OTH MED,LT, CURRENT USE 09/26/2016 Ot 518.0 PULMONARY COLLAPSE 09/26/2016 Ot 786.05 SHORTNESS OF BREATH 09/26/2016 Ot 786.2 COUGH 09/26/2016 Ot 397.0 TRICUSPID VALVE DISEASE 09/26/2016 Ot 424.0 MITRAL VALVE DISORDER 09/26/2016 Ot 786.09 RESPIRATORY ABNORM NEC 09/26/2016 Ot V58.69 OTH MED,LT, CURRENT USE 09/26/2016 Ot V58.83 ENCOUNTER FOR THERAPEUTIC DRUG MONITORIN 09/26/2016 Ot 780.4 DIZZINESS AND GIDDINESS 09/26/2016 Ot 786.09 RESPIRATORY ABNORM NEC 09/26/2016 Ot 174.9 MALIGN NEOPL BREAST NOS 09/26/2016 Ot 250.00 DIAB THOMAS WO COMPL, TYPE II OR UNSPEC TY 09/26/2016 Ot 401.9 HYPERTENSION NOS 09/26/2016 Ot 709.9 SKIN DISORDER NOS 09/26/2016 Ot 710.0 SYST LUPUS ERYTHEMATOSIS 09/26/2016 Ot V12.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 09/26/2016 Ot V58.61 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S,LT,CURRENT USE 09/26/2016 Ot V58.69 OTH MED,LT, CURRENT USE 09/26/2016 Ot 174.9 MALIGN NEOPL BREAST NOS 09/27/2016 SILVANO MASON Ot 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 09/27/2016 SILVANO MASON Ot 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 10/11/2016 SILVANO MASON Ot 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 10/11/2016 SILVANO MASON Ot 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 11/26/2016 JULIEN KENNEDY APRN Ot C50.912 MALIGNANT NEOPLASM OF UNSPECIFIED SITE O 11/26/2016 JULIEN KENNEDY APRN Ot 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 11/26/2016 JULIEN KENNEDY FINANCIAL SYSTEMS MANAGER Ot 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 11/26/2016 JULIEN KENNEDY FINANCIAL SYSTEMS MANAGER Ot E11.9 TYPE 2 DIABETES MELLITUS WITHOUT COMPLIC 11/26/2016 JULIEN KENNEDY FINANCIAL SYSTEMS MANAGER Ot I10 ESSENTIAL (PRIMARY) HYPERTENSION 11/26/2016 JULIEN KENNEDY FINANCIAL SYSTEMS MANAGER Ot J40 BRONCHITIS, NOT SPECIFIED ACUTE OR CH 11/26/2016 JULIEN KENNEDY APRN Ot R05 COUGH 11/26/2016 JULIEN KENNEDY APRN Ot Z79.4 SNF (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 INSULIN 11/26/2016 JULIEN KENNEDY APRN Ot Z79.84 SNF (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 ORAL HYPOGLYC 11/26/2016 JULIEN KENNEDY APRN Ot 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 12/05/2016 SILVANO MASON Ot 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 12/05/2016 SILVANO MASON Ot C77.3 SEC AND UNSP MALIG NEOPLASM OF AXILLA AN 12/05/2016 SILVANO MASON Ot 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 12/05/2016 SILVANO MASON Ot 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 12/05/2016 SILVANO MASON Ot E11.9 TYPE 2 DIABETES MELLITUS WITHOUT COMPLIC 12/05/2016 SILVANO MASON Ot 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 PULMONARY HYPERTENSION 12/05/2016 SILVANO MASON Ot Z45.2 ENCOUNTER FOR ADJUSTMENT AND MANAGEMENT 12/05/2016 SILVANO MASON Ot Z79.01 SNF (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 12/05/2016 SILVANO MASON Ot Z86.711 PERSONAL HISTORY OF PULMONARY EMBOLISM 12/05/2016 SILVANO MASON Ot Z86.718 PERSONAL HISTORY OF OTHER VENOUS THROMBO 12/05/2016 SILVANO MASON Ot Z90.12 ACQUIRED ABSENCE OF LEFT BREAST AND NIPP 12/05/2016 SILVANO MASON Ot Z92.21 PERSONAL HISTORY OF ANTINEOPLASTIC CHEMO 12/13/2016 Ot 174.9 MALIGN NEOPL BREAST NOS 12/13/2016 Ot 250.00 DIAB THOMAS WO COMPL, TYPE II OR UNSPEC TY 12/13/2016 Ot 401.9 HYPERTENSION NOS 12/13/2016 Ot 709.9 SKIN DISORDER NOS 12/13/2016 Ot 710.0 SYST LUPUS ERYTHEMATOSIS 12/13/2016 Ot V12.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 12/13/2016 Ot V58.61 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S,LT,CURRENT USE 12/13/2016 Ot V58.69 OTH MED,LT, CURRENT USE 12/13/2016 Ot 174.9 MALIGN NEOPL BREAST NOS 12/13/2016 SILVANO MASON N Ot 174.9 MALIGN NEOPL BREAST NOS 12/13/2016 SILVANO MASON N Ot 397.0 TRICUSPID VALVE DISEASE 12/13/2016 SILVANO MASON N Ot 424.0 MITRAL VALVE DISORDER 12/13/2016 SILVANO MASON Ot V58.69 OTH MED,LT,CURRENT USE 12/13/2016 SILVANO MASON Ot V87.41 PERSONAL HISTORY OF ANTINEOPLASTIC CHEMO 12/13/2016 SILVANO MASON N Ot 174.9 MALIGN NEOPL BREAST NOS 12/13/2016 CELESTINA SUAREZ, DIPAK Cali Ot 786.09 RESPIRATORY ABNORM NEC 12/13/2016 [facility] RN Ot 174.9 MALIGN NEOPL BREAST NOS 12/13/2016 [facility] RN Ot 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 12/13/2016 [facility] RN Ot 250.00 DIAB THOMAS WO COMPL, TYPE II OR UNSPEC TY 12/13/2016 [facility] RN Ot 401.9 HYPERTENSION NOS 12/13/2016 DERICK DONP Ot 710.0 SYST LUPUS ERYTHEMATOSIS 12/13/2016 DERICK DONP Ot V12.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 12/13/2016 DERICK DONP Ot V12.55 PERSONAL HISTORY OF PULMONARY EMBOLISM 12/13/2016 DERICK DONP Ot V58.61 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S,LT,CURRENT USE 12/13/2016 DERICK DONP Ot V58.67 LONG-TERM (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 INSULIN 12/13/2016 [facility] RN Ot V58.69 OTH MED,LT,CURRENT USE 12/13/2016 [facility] RN Ot V87.41 PERSONAL HISTORY OF ANTINEOPLASTIC CHEMO 12/13/2016 [facility] RN Ot 174.9 MALIGN NEOPL BREAST NOS 12/13/2016 [facility] RN Ot 174.9 MALIGN NEOPL BREAST NOS 12/13/2016 [facility] RN Ot 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 12/13/2016 [facility] RN Ot 250.00 DIAB THOMAS WO COMPL, TYPE II OR UNSPEC TY 12/13/2016 [facility] RN Ot 401.9 HYPERTENSION NOS 12/13/2016 [facility] RN Ot 710.0 SYST LUPUS ERYTHEMATOSIS 12/13/2016 [facility] RN Ot V12.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 12/13/2016 [facility] RN Ot V12.55 PERSONAL HISTORY OF PULMONARY EMBOLISM 12/13/2016 [facility] RN Ot V58.61 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S,LT,CURRENT USE 12/13/2016 [facility]ER[facility] RN Ot V58.67 LONG-TERM (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 INSULIN 12/13/2016 DERICK DONP Ot V58.69 OTH MED,LT,CURRENT USE 12/13/2016 [facility] RN Ot V87.41 PERSONAL HISTORY OF ANTINEOPLASTIC CHEMO 12/13/2016 CHARLENE RIVERA MD Ot 279.8 IMMUNE MECHANISM DIS NEC 12/13/2016 CHARLENE RIVERA MD Ot 710.0 SYST LUPUS ERYTHEMATOSIS 12/13/2016 [facility] RN Ot 174.9 MALIGN NEOPL BREAST NOS 12/13/2016 [facility] RN Ot 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 12/13/2016 [facility] RN Ot 710.0 SYST LUPUS ERYTHEMATOSIS 12/13/2016 [facility] RN Ot V12.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 12/13/2016 [facility] RN Ot V12.55 PERSONAL HISTORY OF PULMONARY EMBOLISM 12/13/2016 [facility] RN Ot V58.61 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S,LT,CURRENT USE 12/13/2016 DER[facility] RN Ot V58.69 OTH MED,LT,CURRENT USE 12/13/2016 [facility]ER[facility] RN Ot V87.41 PERSONAL HISTORY OF ANTINEOPLASTIC CHEMO 12/13/2016 [facility] RN Ot 174.9 MALIGN NEOPL BREAST NOS 12/13/2016 [facility] RN Ot 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 12/13/2016 [facility] RN Ot 710.0 SYST LUPUS ERYTHEMATOSIS 12/13/2016 [facility] RN Ot 782.2 LOCAL SUPRFICIAL SWELLNG 12/13/2016 [facility] RN Ot 786.50 CHEST PAIN NOS 12/13/2016 [facility] RN Ot 790.5 ABN SERUM ENZY LEVEL NEC 12/13/2016 [facility] RN Ot V12.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 12/13/2016 [facility] RN Ot V12.55 PERSONAL HISTORY OF PULMONARY EMBOLISM 12/13/2016 [facility] RN Ot V45.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 12/13/2016 [facility]ER[facility] RN Ot V58.61 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S,LT,CURRENT USE 12/13/2016 DERICK DONP Ot V58.69 OTH MED,LT,CURRENT USE 12/13/2016 [facility] RN Ot V87.41 PERSONAL HISTORY OF ANTINEOPLASTIC CHEMO 12/13/2016 RICHIE LEMUS DO Ot 250.00 DIAB THOMAS WO COMPL, TYPE II OR UNSPEC TY 12/13/2016 RICHIE LEMUS DO Ot 272.4 HYPERLIPIDEMIA NEC/NOS 12/13/2016 RICHIE LEMUS DO Ot 401.1 BENIGN HYPERTENSION 12/13/2016 DERICK DONP Ot 174.9 MALIGN NEOPL BREAST NOS 12/13/2016 DERICK DONP Ot 174.9 MALIGN NEOPL BREAST NOS 12/13/2016 MOMO PINO Ot 397.0 TRICUSPID VALVE DISEASE 12/13/2016 MOMO PINO Ot 401.9 HYPERTENSION NOS 12/13/2016 MOMO PINO Ot 414.00 CORON ATHEROSCLER NOS TYPE VESSEL, NATIV 12/13/2016 MOMO PINO Ot 424.0 MITRAL VALVE DISORDER 12/13/2016 MOMO PINO Ot 786.09 RESPIRATORY ABNORM NEC 12/13/2016 DERICK DON CALL CENTER RN Ot 174.9 MALIGN NEOPL BREAST NOS 12/13/2016 DERICK DON CALL [facility] RN Ot 250.00 DIAB THOMAS WO COMPL, TYPE II OR UNSPEC TY 12/13/2016 DERICK DON CALL [facility] RN Ot 401.9 HYPERTENSION NOS 12/13/2016 DERICK DON CALL [facility] RN Ot 710.0 SYST LUPUS ERYTHEMATOSIS 12/13/2016 DERICK DONP Ot V12.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 12/13/2016 DERICK DONP Ot V58.61 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S,LT,CURRENT USE 12/13/2016 DERICK DONP Ot V58.69 OTH MED,LT,CURRENT USE 12/13/2016 DERICK DON CALL CENTER RN Ot V87.41 PERSONAL HISTORY OF ANTINEOPLASTIC CHEMO 12/13/2016 DERICK DONP Ot V76.12 OTH SCREEN MAMMO-MALIGN NEOPLASM OF REID 12/13/2016 SHABNAM HOLMAN DO Ot 278.01 MORBID OBESITY 12/13/2016 SHABNAM HOLMAN DO Ot 415.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/INFARCT 12/13/2016 SHABNAM HOLMAN DO Ot 795.79 OTH AND UNSPEC NONSPECIFIC IMMUNOLOGICAL 12/13/2016 SHABNAM HOLMAN DO Ot 278.01 MORBID OBESITY 12/13/2016 SHABANM HOLMAN DO Ot 415.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/INFARCT 12/13/2016 SHABNAM HOLMAN DO Ot 795.79 OTH AND UNSPEC NONSPECIFIC IMMUNOLOGICAL 12/13/2016 DERICK DON CALL CENTER RN Ot 682.6 CELLULITIS OF LEG 12/13/2016 DERICK DON CALL CENTER RN Ot 710.0 SYST LUPUS ERYTHEMATOSIS 12/13/2016 DERICK DON CALL CENTER RN Ot 786.50 CHEST PAIN NOS 12/13/2016 DERICK DON CALL CENTER RN Ot V10.3 HX OF BREAST MALIGNANCY 12/13/2016 DERICK DON CALL CENTER RN Ot V12.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 12/13/2016 DERICK DON CALL CENTER RN Ot V12.55 PERSONAL HISTORY OF PULMONARY EMBOLISM 12/13/2016 KELLY DONERWIN Nadir CALL CENTER RN Ot V45.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 12/13/2016 DERICK DON CALL CENTER RN Ot V67.2 CHEMOTHERAPY FOLLOW-UP 12/13/2016 DERICK DON CALL CENTER RN Ot 786.50 CHEST PAIN NOS 12/13/2016 DERICK DON CALL CENTER RN Ot 416.8 CHR PULMON HEART DIS NEC 12/13/2016 DERICK DON CALL CENTER RN Ot 710.0 SYST LUPUS ERYTHEMATOSIS 12/13/2016 KELLY DONERWIN Nadir CALL CENTER RN Ot M32.10 SYSTEMIC LUPUS ERYTHEMATOSUS, ORGAN OR S 12/13/2016 DERICK DON CALL CENTER RN Ot V10.3 HX OF BREAST MALIGNANCY 12/13/2016 DERICK DON CALL CENTER RN Ot V12.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 12/13/2016 DERICK DON CALL CENTER RN Ot V12.55 PERSONAL HISTORY OF PULMONARY EMBOLISM 12/13/2016 DERICK DON CALL CENTER RN Ot V45.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 12/13/2016 DERICK DON CALL CENTER RN Ot V58.61 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S,LT,CURRENT USE 12/13/2016 DERICK DON CALL CENTER RN Ot V58.69 OTH MED,LT,CURRENT USE 12/13/2016 DERICK DON CALL CENTER RN Ot V67.2 CHEMOTHERAPY FOLLOW-UP 12/13/2016 DERICK DON CALL CENTER RN Ot 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 12/13/2016 DERICK DON CALL CENTER RN Ot Z85.3 PERSONAL HISTORY OF MALIGNANT NEOPLASM O 12/13/2016 DERICK DON CALL CENTER RN Ot Z86.711 PERSONAL HISTORY OF PULMONARY EMBOLISM 12/13/2016 DERICK DON CALL CENTER RN Ot Z86.718 PERSONAL HISTORY OF OTHER VENOUS THROMBO 12/13/2016 DERICK DON CALL CENTER RN Ot Z90.10 ACQUIRED ABSENCE OF UNSPECIFIED BREAST A 12/13/2016 DERICK DON CALL CENTER RN Ot 174.9 MALIGN NEOPL BREAST NOS 12/13/2016 DERICK DON CALL CENTER RN Ot 174.9 MALIGN NEOPL BREAST NOS 12/13/2016 DERICK DON CALL CENTER RN Ot 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 12/13/2016 DERICK DON CALL CENTER RN Ot 416.8 CHR PULMON HEART DIS NEC 12/13/2016 DERICK DON CALL CENTER RN Ot 710.0 SYST LUPUS ERYTHEMATOSIS 12/13/2016 DERICK DON CALL CENTER RN Ot V10.3 HX OF BREAST MALIGNANCY 12/13/2016 DERICK DON CALL CENTER RN Ot V12.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 12/13/2016 DERICK DON CALL CENTER RN Ot V12.55 PERSONAL HISTORY OF PULMONARY EMBOLISM 12/13/2016 DERICK DON CALL CENTER RN Ot V45.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 12/13/2016 DERICK DON CALL CENTER RN Ot V58.61 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S,LT,CURRENT USE 12/13/2016 DERICK DON CALL CENTER RN Ot V58.69 OTH MED,LT,CURRENT USE 12/13/2016 DERICK DON CALL CENTER RN Ot 786.2 COUGH 12/13/2016 DERICK DON CALL CENTER RN Ot R05 COUGH 12/13/2016 DERICK DON CALL CENTER RN Ot 174.9 MALIGN NEOPL BREAST NOS 12/13/2016 DERICK [facility] RN Ot 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 12/13/2016 [facility] RN Ot 250.00 DIAB THOMAS WO COMPL, TYPE II OR UNSPEC TY 12/13/2016 [facility] RN Ot 401.9 HYPERTENSION NOS 12/13/2016 [facility] RN Ot 416.8 [facility] PULMON HEART DIS NEC 12/13/2016 [facility] RN Ot 710.0 SYST LUPUS ERYTHEMATOSIS 12/13/2016 [facility] RN Ot V12.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 12/13/2016 [facility] RN Ot V12.55 PERSONAL HISTORY OF PULMONARY EMBOLISM 12/13/2016 [facility] RN Ot V58.61 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S,LT,CURRENT USE 12/13/2016 [facility] RN Ot V58.69 OTH MED,LT,CURRENT USE 12/13/2016 [facility] RN Ot V87.41 PERSONAL HISTORY OF ANTINEOPLASTIC CHEMO 12/13/2016 GIORGI MASONAN N Ot 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 12/13/2016 GIORGI MASONCOURTNEY Allen Ot 174.9 MALIGN NEOPL BREAST NOS 12/13/2016 GIORGI MASONCOURTNEY Allen Ot C34.90 MALIGNANT NEOPLASM OF UNSP PART OF UNSP 12/13/2016 SILVANO MASON Tiffany Ot 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 12/13/2016 [facility] RN Ot 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 12/13/2016 [facility] RN Ot 416.8 CHR PULMON HEART DIS NEC 12/13/2016 [facility] RN Ot V10.3 HX OF BREAST MALIGNANCY 12/13/2016 [facility] RN Ot V12.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 12/13/2016 [facility] RN Ot V12.55 PERSONAL HISTORY OF PULMONARY EMBOLISM 12/13/2016 [facility] RN Ot V58.61 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S,LT,CURRENT USE 12/13/2016 [facility] RN Ot V58.69 OTH MED,LT,CURRENT USE 12/13/2016 [facility] RN Ot V87.41 PERSONAL HISTORY OF ANTINEOPLASTIC CHEMO 12/13/2016 DIPAK OSCAR MD Ot 174.9 MALIGN NEOPL BREAST NOS 12/13/2016 DIPAK OSCAR MD Ot 401.9 HYPERTENSION NOS 12/13/2016 DIPAK OSCAR MD Ot 414.9 CHR ISCHEMIC HRT DIS NOS 12/13/2016 DIPAK OSCAR MD Ot 786.09 RESPIRATORY ABNORM NEC 12/13/2016 DIPAK OSCAR MD Ot 786.50 CHEST PAIN NOS 12/13/2016 DIPAK OSCAR MD Ot 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 12/13/2016 DIPAK OSCAR MD Ot I10 ESSENTIAL (PRIMARY) HYPERTENSION 12/13/2016 DIPAK OSCAR MD Ot I25.9 CHRONIC ISCHEMIC HEART DISEASE, UNSPECIF 12/13/2016 DIPAK OSCAR MD Ot R07.9 CHEST PAIN, UNSPECIFIED 12/13/2016 [facility] RN Ot 174.9 MALIGN NEOPL BREAST NOS 12/13/2016 [facility] RN Ot 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 12/13/2016 [facility] RN Ot 250.00 DIAB THOMAS WO COMPL, TYPE II OR UNSPEC TY 12/13/2016 [facility] RN Ot 401.9 HYPERTENSION NOS 12/13/2016 [facility] RN Ot 416.8 CHR PULMON HEART DIS NEC 12/13/2016 [facility] RN Ot 710.0 SYST LUPUS ERYTHEMATOSIS 12/13/2016 [facility] RN Ot V12.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 12/13/2016 [facility] RN Ot V12.55 PERSONAL HISTORY OF PULMONARY EMBOLISM 12/13/2016 [facility] RN Ot V58.61 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S,LT,CURRENT USE 12/13/2016 [facility] RN Ot V58.69 OTH MED,LT,CURRENT USE 12/13/2016 [facility] RN Ot V87.41 PERSONAL HISTORY OF ANTINEOPLASTIC CHEMO 12/13/2016 [facility] RN Ot 174.9 MALIGN NEOPL BREAST NOS 12/13/2016 [facility] RN Ot 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 12/13/2016 [facility] RN Ot 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 12/13/2016 [facility] RN Ot 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 12/13/2016 [facility] RN Ot 174.9 MALIGN NEOPL BREAST NOS 12/13/2016 [facility] RN Ot 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 12/13/2016 [facility] RN Ot 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 12/13/2016 [facility] RN Ot 250.80 DIAB W OTH SPEC MANIFEST, TYPE II OR UNS 12/13/2016 [facility] RN Ot 356.9 IDIO PERIPH NEURPTHY NOS 12/13/2016 [facility] RN Ot 416.8 CHR PULMON HEART DIS NEC 12/13/2016 [facility] RN Ot 682.7 CELLULITIS OF FOOT 12/13/2016 [facility] RN Ot 707.15 ULCER OF OTHER PART OF FOOT 12/13/2016 [facility] RN Ot 710.0 SYST LUPUS ERYTHEMATOSIS 12/13/2016 [facility] RN Ot V12.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 12/13/2016 [facility] RN Ot V12.54 PERSONAL HX OF TIA, CEREBRAL INFARCTION 12/13/2016 [facility] RN Ot V45.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 12/13/2016 [facility] RN Ot V58.61 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S,LT,CURRENT USE 12/13/2016 [facility]P Ot V58.69 OTH MED,LT,CURRENT USE 12/13/2016 [facility] RN Ot C50.912 MALIGNANT NEOPLASM OF UNSPECIFIED SITE O 12/13/2016 [facility] DONP Ot C77.3 SEC AND UNSP MALIG NEOPLASM OF AXILLA AN 12/13/2016 [facility] DONP Ot 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 12/13/2016 [facility] RN Ot 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 12/13/2016 [facility] RN Ot D50.9 IRON DEFICIENCY ANEMIA, UNSPECIFIED 12/13/2016 [facility] RN Ot E11.621 TYPE 2 DIABETES MELLITUS WITH FOOT ULCER 12/13/2016 [facility] RN Ot G57.90 UNSPECIFIED MONONEUROPATHY OF UNSPECIFIE 12/13/2016 [facility] Ot H53.9 UNSPECIFIED VISUAL DISTURBANCE 12/13/2016 [facility] RN Ot 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 PULMONARY HYPERTENSION 12/13/2016 [facility] RN Ot L97.519 NON-PRS CHRONIC ULCER OTH PRT RIGHT FOOT 12/13/2016 [facility] RN Ot Z79.4 SNF (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 INSULIN 12/13/2016 [facility] RN Ot Z79.899 OTHER SNF (CURRENT) DRUG THERAPY 12/13/2016 [facility] RN Ot Z86.711 PERSONAL HISTORY OF PULMONARY EMBOLISM 12/13/2016 [facility] RN Ot Z86.718 PERSONAL HISTORY OF OTHER VENOUS THROMBO 12/13/2016 [facility] RN Ot H53.9 UNSPECIFIED VISUAL DISTURBANCE 12/13/2016 [facility] RN Ot R26.81 UNSTEADINESS ON FEET 12/13/2016 SILVANO MASON Tiffany Ot C34.90 MALIGNANT NEOPLASM OF UNSP PART OF UNSP 12/13/2016 GIORGI MASONCOURTNEY N Ot 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 12/13/2016 GIORGI MASONCOURTNEY Allen Ot C34.90 MALIGNANT NEOPLASM OF UNSP PART OF UNSP 12/13/2016 MARLON SILVANO Allen Ot 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 12/13/2016 MARLON SILVANO Allen Ot 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 12/13/2016 MARLONSILVANO Ot 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 12/13/2016 [facility]ER[facility] DONP Ot 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 12/13/2016 [facility] RN Ot C77.3 SEC AND UNSP MALIG NEOPLASM OF AXILLA AN 12/13/2016 [facility] RN Ot 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 12/13/2016 [facility] RN Ot 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 12/13/2016 [facility] RN Ot E11.9 TYPE 2 DIABETES MELLITUS WITHOUT COMPLIC 12/13/2016 [facility] DONP Ot 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 PULMONARY HYPERTENSION 12/13/2016 [facility] RN Ot Z79.01 SNF (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 12/13/2016 [facility] RN Ot Z86.711 PERSONAL HISTORY OF PULMONARY EMBOLISM 12/13/2016 [facility] RN Ot Z86.718 PERSONAL HISTORY OF OTHER VENOUS THROMBO 12/13/2016 [facility] RN Ot Z90.12 ACQUIRED ABSENCE OF LEFT BREAST AND NIPP 12/13/2016 [facility] RN Ot Z92.21 PERSONAL HISTORY OF ANTINEOPLASTIC CHEMO 12/13/2016 [facility] RN Ot Z95.2 PRESENCE OF PROSTHETIC HEART VALVE 12/13/2016 [facility] RN Ot 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 12/13/2016 DERICK DONP Ot C77.3 SEC AND UNSP MALIG NEOPLASM OF AXILLA AN 12/13/2016 [facility] RN Ot 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 12/13/2016 [facility]P Ot 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 12/13/2016 [facility] RN Ot E11.9 TYPE 2 DIABETES MELLITUS WITHOUT COMPLIC 12/13/2016 [facility] RN Ot 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 PULMONARY HYPERTENSION 12/13/2016 [facility] DONP Ot Z79.01 SNF (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 12/13/2016 [facility] RN Ot Z86.711 PERSONAL HISTORY OF PULMONARY EMBOLISM 12/13/2016 [facility] RN Ot Z86.718 PERSONAL HISTORY OF OTHER VENOUS THROMBO 12/13/2016 [facility] RN Ot Z90.12 ACQUIRED ABSENCE OF LEFT BREAST AND NIPP 12/13/2016 [facility] RN Ot Z92.21 PERSONAL HISTORY OF ANTINEOPLASTIC CHEMO 12/13/2016 [facility] RN Ot Z95.2 PRESENCE OF PROSTHETIC HEART VALVE 12/13/2016 [facility] RN Ot 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 12/13/2016 [facility] RN Ot 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 12/13/2016 SILVANO MASON Ot 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 12/13/2016 SILVANO MASON Ot 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 12/13/2016 [facility] RN Ot 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 12/13/2016 [facility]P Ot C77.3 SEC AND UNSP MALIG NEOPLASM OF AXILLA AN 12/13/2016 [facility] RN Ot 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 12/13/2016 [facility] RN Ot 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 12/13/2016 [facility] RN Ot E11.9 TYPE 2 DIABETES MELLITUS WITHOUT COMPLIC 12/13/2016 [facility] RN Ot 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 PULMONARY HYPERTENSION 12/13/2016 [facility] RN Ot 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 12/13/2016 [facility] RN Ot Z86.711 PERSONAL HISTORY OF PULMONARY EMBOLISM 12/13/2016 [facility] RN Ot Z86.718 PERSONAL HISTORY OF OTHER VENOUS THROMBO 12/13/2016 [facility] RN Ot Z90.12 ACQUIRED ABSENCE OF LEFT BREAST AND NIPP 12/13/2016 [facility] RN Ot Z92.21 PERSONAL HISTORY OF ANTINEOPLASTIC CHEMO 12/13/2016 MARLON GIORGICOURTNEY Tiffany Ot 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 12/13/2016 MARLON SILVANO Allen Ot C77.3 SEC AND UNSP MALIG NEOPLASM OF AXILLA AN 12/13/2016 MARLON, SILVANO Allen Ot 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 12/13/2016 MARLON, SILVANO Allen Ot 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 12/14/2016 MARLON SILVANO Allen Ot C77.3 SEC AND UNSP MALIG NEOPLASM OF AXILLA AN 12/14/2016 SILVANO MASON Ot 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 12/14/2016 MARLON, BOBAN N Ot 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 12/14/2016 SILVANO MASON N Ot E11.9 TYPE 2 DIABETES MELLITUS WITHOUT COMPLIC 12/14/2016 SILVANO MASON Tiffany Ot 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 PULMONARY HYPERTENSION 12/14/2016 SILVANO MASON Tiffany Ot Z79.01 SNF (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 12/14/2016 SILVANO MASON Tiffany Ot Z86.711 PERSONAL HISTORY OF PULMONARY EMBOLISM 12/14/2016 MARLON GIORGICOURTNEY Tiffany Ot Z86.718 PERSONAL HISTORY OF OTHER VENOUS THROMBO 12/14/2016 MARLON GIORGICOURTNEY N Ot Z90.12 ACQUIRED ABSENCE OF LEFT BREAST AND NIPP 12/14/2016 MARLON GIORGICOURTNEY N Ot Z92.21 PERSONAL HISTORY OF ANTINEOPLASTIC CHEMO 12/14/2016 MARLON SILVANO Allen Ot 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 12/14/2016 MARLON SILVANO Allen Ot 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 12/22/2016 MARLON SILVANO Allen Ot 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 12/22/2016 MARLON SILVANO Allen Ot C77.3 SEC AND UNSP MALIG NEOPLASM OF AXILLA AN 12/22/2016 MARLON SILVANO N Ot 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 12/22/2016 MARLON SILVANO Allen Ot 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 12/22/2016 SILVANO MASON Tiffany Ot E11.9 TYPE 2 DIABETES MELLITUS WITHOUT COMPLIC 12/22/2016 MARLON GIORGICOURTNEY Tiffany Ot 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 PULMONARY HYPERTENSION 12/22/2016 MARLON GIORGICOURTNEY Tiffany Ot Z79.01 SNF (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 12/22/2016 MARLON GIORGICOURTNEY Tiffany Ot Z86.711 PERSONAL HISTORY OF PULMONARY EMBOLISM 12/22/2016 MARLON SILVANO Allen Ot Z86.718 PERSONAL HISTORY OF OTHER VENOUS THROMBO 12/22/2016 MARLON SILVANO Allen Ot Z90.12 ACQUIRED ABSENCE OF LEFT BREAST AND NIPP 12/22/2016 MARLON SILVANO Allen Ot Z92.21 PERSONAL HISTORY OF ANTINEOPLASTIC CHEMO 01/11/2017 MARLON SILVANO Allen Ot 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 01/11/2017 MARLON SILVANO Allen Ot 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 01/19/2017 SILVANO MASON Tiffany Ot 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 01/19/2017 SILVANO MASON Tiffany Ot C77.3 SEC AND UNSP MALIG NEOPLASM OF AXILLA AN 01/19/2017 MARLON GIORGICOURTNEY Tiffany Ot 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 01/19/2017 MARLON GIORGICOURTNEY Tiffany Ot 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 01/19/2017 MARLON GIORGICOURTNEY Tiffany Ot E11.9 TYPE 2 DIABETES MELLITUS WITHOUT COMPLIC 01/19/2017 MARLON SILVANO Allen Ot 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 PULMONARY HYPERTENSION 01/19/2017 MARLON, SILVANO Allen Ot Z79.01 SNF (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 01/19/2017 MARLONSILVANO Ot Z86.711 PERSONAL HISTORY OF PULMONARY EMBOLISM 01/19/2017 SILVANO MASON Ot Z86.718 PERSONAL HISTORY OF OTHER VENOUS THROMBO 01/19/2017 MARLONSILVANO Ot Z90.12 ACQUIRED ABSENCE OF LEFT BREAST AND NIPP 01/19/2017 MARLON SILVANO Allen Ot Z92.21 PERSONAL HISTORY OF ANTINEOPLASTIC CHEMO 01/25/2017 MARLON GIORGICOURTNEY Tiffany Ot 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 01/25/2017 MARLON SILVANO Allen Ot 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 02/16/2017 MARLON GIORGICOURTNEY Tiffany Ot 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 02/16/2017 MARLON SILVANO Allen Ot C77.3 SEC AND UNSP MALIG NEOPLASM OF AXILLA AN 02/16/2017 MARLON SILVANO Allen Ot 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 02/16/2017 MARLON SILVANO Allen Ot 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 02/16/2017 MARLON SILVANO Allen Ot E11.9 TYPE 2 DIABETES MELLITUS WITHOUT COMPLIC 02/16/2017 MARLON SILVANO Allen Ot 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 PULMONARY HYPERTENSION 02/16/2017 MARLONSILVANO Ot 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 02/16/2017 SILVANO MASON Ot Z86.711 PERSONAL HISTORY OF PULMONARY EMBOLISM 02/16/2017 SILVANO MASON Ot Z86.718 PERSONAL HISTORY OF OTHER VENOUS THROMBO 02/16/2017 SILVANO MASON Tiffany Ot Z90.12 ACQUIRED ABSENCE OF LEFT BREAST AND NIPP 02/16/2017 SILVANO MASON Tiffany Ot Z92.21 PERSONAL HISTORY OF ANTINEOPLASTIC CHEMO 03/13/2017 SILVANO MASON Tiffany Ot 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 03/13/2017 SILVANO MASON Tiffany Ot C77.3 SEC AND UNSP MALIG NEOPLASM OF AXILLA AN 03/13/2017 SILVNAO MASON N Ot 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 03/13/2017 SILVANO MASON N Ot 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 03/13/2017 SILVANO MASON N Ot E11.9 TYPE 2 DIABETES MELLITUS WITHOUT COMPLIC 03/13/2017 MARLON GIORGICOURTNEY N Ot 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 PULMONARY HYPERTENSION 03/13/2017 SILVANO MASON Tiffany Ot Z51.0 ENCOUNTER FOR ANTINEOPLASTIC RADIATION T 03/13/2017 SILVANO MASON Tiffany Ot 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 03/13/2017 SILVANO MASON Tiffany Ot Z86.711 PERSONAL HISTORY OF PULMONARY EMBOLISM 03/13/2017 SILVANO MASON N Ot Z86.718 PERSONAL HISTORY OF OTHER VENOUS THROMBO 03/13/2017 SILVANO MASON N Ot Z90.12 ACQUIRED ABSENCE OF LEFT BREAST AND NIPP 03/13/2017 SILVANO MASON N Ot Z92.21 PERSONAL HISTORY OF ANTINEOPLASTIC CHEMO 03/13/2017 [facility] RN Ot 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 03/13/2017 [facility] RN Ot 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 03/17/2017 SILVANO MASON N Ot 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 03/17/2017 SILVANO MASON Tiffany Ot C77.3 SEC AND UNSP MALIG NEOPLASM OF AXILLA AN 03/17/2017 MARLON GIORGICOURTNEY N Ot 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 03/17/2017 MARLON SILVANO N Ot 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 03/17/2017 SILVANO MASON N Ot E11.9 TYPE 2 DIABETES MELLITUS WITHOUT COMPLIC 03/17/2017 MARLON GIORGICOURTNEY N Ot 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 PULMONARY HYPERTENSION 03/17/2017 SILVANO MASON N Ot Z79.01 SNF (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 03/17/2017 SILVANO MASON N Ot Z86.711 PERSONAL HISTORY OF PULMONARY EMBOLISM 03/17/2017 SILVANO MASON N Ot Z86.718 PERSONAL HISTORY OF OTHER VENOUS THROMBO 03/17/2017 SILVANO MASON N Ot Z90.12 ACQUIRED ABSENCE OF LEFT BREAST AND NIPP 03/17/2017 SILVANO MASON N Ot Z92.21 PERSONAL HISTORY OF ANTINEOPLASTIC CHEMO 03/21/2017 SILVANO MASON N Ot 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 03/21/2017 MARLON SILVANO N Ot C77.3 SEC AND UNSP MALIG NEOPLASM OF AXILLA AN 03/21/2017 MARLON SILVANO N Ot 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 03/21/2017 MARLON SILVANO N Ot 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 03/21/2017 MARLON SILVANO N Ot E11.9 TYPE 2 DIABETES MELLITUS WITHOUT COMPLIC 03/21/2017 MARLON SILVANO N Ot 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 PULMONARY HYPERTENSION 03/21/2017 SILVANO MASON N Ot 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 03/21/2017 SILVANO MASON N Ot Z86.711 PERSONAL HISTORY OF PULMONARY EMBOLISM 03/21/2017 SILVANO MASON N Ot Z86.718 PERSONAL HISTORY OF OTHER VENOUS THROMBO 03/21/2017 SILVANO MASON N Ot Z90.12 ACQUIRED ABSENCE OF LEFT BREAST AND NIPP 03/21/2017 SILVANO MASON Tiffany Ot Z92.21 PERSONAL HISTORY OF ANTINEOPLASTIC CHEMO 03/22/2017 MARLON GIORGICOURTNEY Tiffany Ot 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 03/22/2017 MARLON SILVANO N Ot C77.3 SEC AND UNSP MALIG NEOPLASM OF AXILLA AN 03/22/2017 MARLON SILVANO N Ot 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 03/22/2017 MARLON SILVANO N Ot 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 03/22/2017 MARLON SILVANO N Ot E11.9 TYPE 2 DIABETES MELLITUS WITHOUT COMPLIC 03/22/2017 MARLONSILVANO N Ot 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 PULMONARY HYPERTENSION 03/22/2017 SILVANO MASON Tiffany Ot Z79.01 SNF (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 03/22/2017 SILVANO MASON Tiffany Ot Z86.711 PERSONAL HISTORY OF PULMONARY EMBOLISM 03/22/2017 SILVANO MASON Tiffany Ot Z86.718 PERSONAL HISTORY OF OTHER VENOUS THROMBO 03/22/2017 SILVANO MASON Tiffany Ot Z90.12 ACQUIRED ABSENCE OF LEFT BREAST AND NIPP 03/22/2017 SILVANO MASON Tiffany Ot Z92.21 PERSONAL HISTORY OF ANTINEOPLASTIC CHEMO 03/26/2017 SILVANO MASON Tiffany Ot C50.912 MALIGNANT NEOPLASM OF UNSPECIFIED SITE O 03/26/2017 SILVANO MASON Tiffany Ot C77.3 SEC AND UNSP MALIG NEOPLASM OF AXILLA AN 03/26/2017 SILVANO MASON Tiffany Ot 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 03/26/2017 SILVANO MASON Tiffany Ot 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 03/26/2017 SILVANO MASON Tiffany Ot E11.9 TYPE 2 DIABETES MELLITUS WITHOUT COMPLIC 03/26/2017 SILVANO MASON Tiffany Ot 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 PULMONARY HYPERTENSION 03/26/2017 SILVANO MASON Tiffany Ot Z51.11 ENCOUNTER FOR ANTINEOPLASTIC CHEMOTHERAP 03/26/2017 SILVANO MASON Tiffany Ot Z79.01 SNF (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 03/26/2017 SILVANO MASON Tiffany Ot Z86.711 PERSONAL HISTORY OF PULMONARY EMBOLISM 03/26/2017 SILVANO MASON Tiffany Ot Z86.718 PERSONAL HISTORY OF OTHER VENOUS THROMBO 03/26/2017 SILVANO MASON Tiffany Ot Z90.12 ACQUIRED ABSENCE OF LEFT BREAST AND NIPP 03/26/2017 SILVANO MASON Tiffany Ot Z92.21 PERSONAL HISTORY OF ANTINEOPLASTIC CHEMO 03/31/2017 Ot 174.9 MALIGN NEOPL BREAST NOS 03/31/2017 Ot 250.00 DIAB THOMAS WO COMPL, TYPE II OR UNSPEC TY 03/31/2017 Ot 401.9 HYPERTENSION NOS 03/31/2017 Ot 710.0 SYST LUPUS ERYTHEMATOSIS 03/31/2017 Ot V58.69 OTH MED,LT, CURRENT USE 03/31/2017 Ot 174.9 MALIGN NEOPL BREAST NOS 03/31/2017 Ot 397.0 TRICUSPID VALVE DISEASE 03/31/2017 Ot 424.0 MITRAL VALVE DISORDER 03/31/2017 Ot V58.69 OTH MED,LT, CURRENT USE 03/31/2017 Ot V58.83 ENCOUNTER FOR THERAPEUTIC DRUG MONITORIN 03/31/2017 Ot 174.9 MALIGN NEOPL BREAST NOS 03/31/2017 Ot 710.0 SYST LUPUS ERYTHEMATOSIS 03/31/2017 Ot V58.69 OTH MED,LT, CURRENT USE 03/31/2017 Ot 518.0 PULMONARY COLLAPSE 03/31/2017 Ot 786.05 SHORTNESS OF BREATH 03/31/2017 Ot 786.2 COUGH 03/31/2017 Ot 397.0 TRICUSPID VALVE DISEASE 03/31/2017 Ot 424.0 MITRAL VALVE DISORDER 03/31/2017 Ot 786.09 RESPIRATORY ABNORM NEC 03/31/2017 Ot V58.69 OTH MED,LT, CURRENT USE 03/31/2017 Ot V58.83 ENCOUNTER FOR THERAPEUTIC DRUG MONITORIN 03/31/2017 Ot 780.4 DIZZINESS AND GIDDINESS 03/31/2017 Ot 786.09 RESPIRATORY ABNORM NEC 03/31/2017 Ot 174.9 MALIGN NEOPL BREAST NOS 03/31/2017 Ot 250.00 DIAB THOMAS WO COMPL, TYPE II OR UNSPEC TY 03/31/2017 Ot 401.9 HYPERTENSION NOS 03/31/2017 Ot 709.9 SKIN DISORDER NOS 03/31/2017 Ot 710.0 SYST LUPUS ERYTHEMATOSIS 03/31/2017 Ot V12.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 03/31/2017 Ot V58.61 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S,LT,CURRENT USE 03/31/2017 Ot V58.69 OTH MED,LT, CURRENT USE 03/31/2017 Ot 174.9 MALIGN NEOPL BREAST NOS 04/05/2017 DERICK DONP Ot 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 04/05/2017 DREICK DONP Ot 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 04/18/2017 Ot 174.9 MALIGN NEOPL BREAST NOS 04/18/2017 Ot 250.00 DIAB THOMAS WO COMPL, TYPE II OR UNSPEC TY 04/18/2017 Ot 401.9 HYPERTENSION NOS 04/18/2017 Ot 710.0 SYST LUPUS ERYTHEMATOSIS 04/18/2017 Ot V58.69 OTH MED,LT, CURRENT USE 04/18/2017 Ot 174.9 MALIGN NEOPL BREAST NOS 04/18/2017 Ot 397.0 TRICUSPID VALVE DISEASE 04/18/2017 Ot 424.0 MITRAL VALVE DISORDER 04/18/2017 Ot V58.69 OTH MED,LT, CURRENT USE 04/18/2017 Ot V58.83 ENCOUNTER FOR THERAPEUTIC DRUG MONITORIN 04/18/2017 Ot 174.9 MALIGN NEOPL BREAST NOS 04/18/2017 Ot 710.0 SYST LUPUS ERYTHEMATOSIS 04/18/2017 Ot V58.69 OTH MED,LT, CURRENT USE 04/18/2017 Ot 518.0 PULMONARY COLLAPSE 04/18/2017 Ot 786.05 SHORTNESS OF BREATH 04/18/2017 Ot 786.2 COUGH 04/18/2017 Ot 397.0 TRICUSPID VALVE DISEASE 04/18/2017 Ot 424.0 MITRAL VALVE DISORDER 04/18/2017 Ot 786.09 RESPIRATORY ABNORM NEC 04/18/2017 Ot V58.69 OTH MED,LT, CURRENT USE 04/18/2017 Ot V58.83 ENCOUNTER FOR THERAPEUTIC DRUG MONITORIN 04/18/2017 Ot 780.4 DIZZINESS AND GIDDINESS 04/18/2017 Ot 786.09 RESPIRATORY ABNORM NEC 04/18/2017 Ot 174.9 MALIGN NEOPL BREAST NOS 04/18/2017 Ot 250.00 DIAB THOMAS WO COMPL, TYPE II OR UNSPEC TY 04/18/2017 Ot 401.9 HYPERTENSION NOS 04/18/2017 Ot 709.9 SKIN DISORDER NOS 04/18/2017 Ot 710.0 SYST LUPUS ERYTHEMATOSIS 04/18/2017 Ot V12.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 04/18/2017 Ot V58.61 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S,LT,CURRENT USE 04/18/2017 Ot V58.69 OTH MED,LT, CURRENT USE 04/18/2017 Ot 174.9 MALIGN NEOPL BREAST NOS 04/19/2017 Ot 174.9 MALIGN NEOPL BREAST NOS 04/19/2017 Ot 250.00 DIAB THOMAS WO COMPL, TYPE II OR UNSPEC TY 04/19/2017 Ot 401.9 HYPERTENSION NOS 04/19/2017 Ot 710.0 SYST LUPUS ERYTHEMATOSIS 04/19/2017 Ot V58.69 OTH MED,LT, CURRENT USE 04/19/2017 Ot 174.9 MALIGN NEOPL BREAST NOS 04/19/2017 Ot 397.0 TRICUSPID VALVE DISEASE 04/19/2017 Ot 424.0 MITRAL VALVE DISORDER 04/19/2017 Ot V58.69 OTH MED,LT, CURRENT USE 04/19/2017 Ot V58.83 ENCOUNTER FOR THERAPEUTIC DRUG MONITORIN 04/19/2017 Ot 174.9 MALIGN NEOPL BREAST NOS 04/19/2017 Ot 710.0 SYST LUPUS ERYTHEMATOSIS 04/19/2017 Ot V58.69 OTH MED,LT, CURRENT USE 04/19/2017 Ot 518.0 PULMONARY COLLAPSE 04/19/2017 Ot 786.05 SHORTNESS OF BREATH 04/19/2017 Ot 786.2 COUGH 04/19/2017 Ot 397.0 TRICUSPID VALVE DISEASE 04/19/2017 Ot 424.0 MITRAL VALVE DISORDER 04/19/2017 Ot 786.09 RESPIRATORY ABNORM NEC 04/19/2017 Ot V58.69 OTH MED,LT, CURRENT USE 04/19/2017 Ot V58.83 ENCOUNTER FOR THERAPEUTIC DRUG MONITORIN 04/19/2017 Ot 780.4 DIZZINESS AND GIDDINESS 04/19/2017 Ot 786.09 RESPIRATORY ABNORM NEC 04/19/2017 Ot 174.9 MALIGN NEOPL BREAST NOS 04/19/2017 Ot 250.00 DIAB THOMAS WO COMPL, TYPE II OR UNSPEC TY 04/19/2017 Ot 401.9 HYPERTENSION NOS 04/19/2017 Ot 709.9 SKIN DISORDER NOS 04/19/2017 Ot 710.0 SYST LUPUS ERYTHEMATOSIS 04/19/2017 Ot V12.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 04/19/2017 Ot V58.61 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S,LT,CURRENT USE 04/19/2017 Ot V58.69 OTH MED,LT, CURRENT USE 04/19/2017 Ot 174.9 MALIGN NEOPL BREAST NOS 05/04/2017 SILVANO MASON Ot 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 05/04/2017 SILVANO MASON Ot C77.3 SEC AND UNSP MALIG NEOPLASM OF AXILLA AN 05/04/2017 SILVANO MASON Ot 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 05/04/2017 SILVANO MASON Ot 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 05/04/2017 SILVANO MASON Ot E11.9 TYPE 2 DIABETES MELLITUS WITHOUT COMPLIC 05/04/2017 SILVANO MASON Ot 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 PULMONARY HYPERTENSION 05/04/2017 SILVANO MASON Ot Z79.01 SNF (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 05/04/2017 SILVANO MASON Ot Z86.711 PERSONAL HISTORY OF PULMONARY EMBOLISM 05/04/2017 MARLONSILVANO Ot Z86.718 PERSONAL HISTORY OF OTHER VENOUS THROMBO 05/04/2017 MARLONSILVANO Ot Z90.12 ACQUIRED ABSENCE OF LEFT BREAST AND NIPP 05/04/2017 MARLONSILVANO Ot Z92.21 PERSONAL HISTORY OF ANTINEOPLASTIC CHEMO 05/25/2017 SILVANO MASON Ot 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 05/25/2017 SILVANO MASON Ot C77.3 SEC AND UNSP MALIG NEOPLASM OF AXILLA AN 05/25/2017 SILVANO MASON Ot 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 05/25/2017 MARLONSILVANO Ot 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 05/25/2017 SILVANO MASON Ot E11.9 TYPE 2 DIABETES MELLITUS WITHOUT COMPLIC 05/25/2017 SILVANO MASON Ot 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 PULMONARY HYPERTENSION 05/25/2017 SILVANO MASON Ot Z79.01 SNF (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 05/25/2017 SILVANO MASON Ot Z86.711 PERSONAL HISTORY OF PULMONARY EMBOLISM 05/25/2017 SILVANO MASON Ot Z86.718 PERSONAL HISTORY OF OTHER VENOUS THROMBO 05/25/2017 SILVANO MASON Ot Z90.12 ACQUIRED ABSENCE OF LEFT BREAST AND NIPP 05/25/2017 SILVANO MASON Ot Z92.21 PERSONAL HISTORY OF ANTINEOPLASTIC CHEMO 06/11/2017 SILVANO MASON Ot 174.9 MALIGN NEOPL BREAST NOS 06/11/2017 SILVANO MASON Ot 250.00 DIAB THOMAS WO COMPL, TYPE II OR UNSPEC TY 06/11/2017 SILVANO MASON Ot 401.9 HYPERTENSION NOS 06/11/2017 SILVANO MASON Ot 710.0 SYST LUPUS ERYTHEMATOSIS 06/11/2017 SILVANO MASON Ot V12.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 06/11/2017 SILVANO MASON Ot V58.11 ENCOUNTER FOR ANTINEOPLASTIC CHEMOTHERAP 06/11/2017 SILVANO MASON Ot V58.61 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S,LT,CURRENT USE 06/11/2017 SILVANO MASON Ot V58.69 OTH MED,LT,CURRENT USE 06/11/2017 SILVANO MASON Ot V87.41 PERSONAL HISTORY OF ANTINEOPLASTIC CHEMO 06/14/2017 SILVANO MASON Tiffany Ot 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 06/14/2017 MARLON SILVANO Allen Ot C77.3 SEC AND UNSP MALIG NEOPLASM OF AXILLA AN 06/14/2017 MARLON SILVANO N Ot 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 06/14/2017 MARLON SILVANO Allen Ot 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 06/14/2017 MARLON SILVANO Allen Ot E11.9 TYPE 2 DIABETES MELLITUS WITHOUT COMPLIC 06/14/2017 MARLON SILVANO Allen Ot 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 PULMONARY HYPERTENSION 06/14/2017 MARLONSILVANO Ot Z51.0 ENCOUNTER FOR ANTINEOPLASTIC RADIATION T 06/14/2017 SILVANO MASON Ot Z79.01 SNF (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 06/14/2017 SILVANO MASON N Ot Z86.711 PERSONAL HISTORY OF PULMONARY EMBOLISM 06/14/2017 SILVANO MASON Ot Z86.718 PERSONAL HISTORY OF OTHER VENOUS THROMBO 06/14/2017 MARLONSILVANO Ot Z90.12 ACQUIRED ABSENCE OF LEFT BREAST AND NIPP 06/14/2017 MARLONSILVANO Ot Z92.21 PERSONAL HISTORY OF ANTINEOPLASTIC CHEMO 06/16/2017 MARLON SILVANO Allen Ot 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 06/16/2017 MARLON SILVANO Allen Ot C77.3 SEC AND UNSP MALIG NEOPLASM OF AXILLA AN 06/16/2017 MARLON SILVANO Allen Ot 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 06/16/2017 MARLON SILVANO Allen Ot 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 06/16/2017 MARLON SILVANO Allen Ot E11.9 TYPE 2 DIABETES MELLITUS WITHOUT COMPLIC 06/16/2017 SILVANO MASON Ot 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 PULMONARY HYPERTENSION 06/16/2017 SILVANO MASON Ot Z51.11 ENCOUNTER FOR ANTINEOPLASTIC CHEMOTHERAP 06/16/2017 SILVANO MASON Ot Z79.01 SNF (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 06/16/2017 SILVANO MASON Ot Z86.711 PERSONAL HISTORY OF PULMONARY EMBOLISM 06/16/2017 SILVANO MASON Ot Z86.718 PERSONAL HISTORY OF OTHER VENOUS THROMBO 06/16/2017 SILVANO MASON Ot Z90.12 ACQUIRED ABSENCE OF LEFT BREAST AND NIPP 06/16/2017 SILVANO MASON Ot Z92.21 PERSONAL HISTORY OF ANTINEOPLASTIC CHEMO 08/08/2017 KELLY DONERWIN [facility] RN Ot 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 08/08/2017 DERICK DON CALL CENTER RN Ot 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 08/08/2017 KELLY DONERWIN Nadir [facility] CENTER RN Ot C78.7 SECONDARY MALIG NEOPLASM OF LIVER AND IN 08/15/2017 Ot 174.9 MALIGN NEOPL BREAST NOS 08/15/2017 Ot 250.00 DIAB THOMAS WO COMPL, TYPE II OR UNSPEC TY 08/15/2017 Ot 401.9 HYPERTENSION NOS 08/15/2017 Ot 710.0 SYST LUPUS ERYTHEMATOSIS 08/15/2017 Ot V58.69 OTH MED,LT, CURRENT USE 08/15/2017 Ot 174.9 MALIGN NEOPL BREAST NOS 08/15/2017 Ot 397.0 TRICUSPID VALVE DISEASE 08/15/2017 Ot 424.0 MITRAL VALVE DISORDER 08/15/2017 Ot V58.69 OTH MED,LT, CURRENT USE 08/15/2017 Ot V58.83 ENCOUNTER FOR THERAPEUTIC DRUG MONITORIN 08/15/2017 Ot 174.9 MALIGN NEOPL BREAST NOS 08/15/2017 Ot 710.0 SYST LUPUS ERYTHEMATOSIS 08/15/2017 Ot V58.69 OTH MED,LT, CURRENT USE 08/15/2017 Ot 518.0 PULMONARY COLLAPSE 08/15/2017 Ot 786.05 SHORTNESS OF BREATH 08/15/2017 Ot 786.2 COUGH 08/15/2017 Ot 397.0 TRICUSPID VALVE DISEASE 08/15/2017 Ot 424.0 MITRAL VALVE DISORDER 08/15/2017 Ot 786.09 RESPIRATORY ABNORM NEC 08/15/2017 Ot V58.69 OTH MED,LT, CURRENT USE 08/15/2017 Ot V58.83 ENCOUNTER FOR THERAPEUTIC DRUG MONITORIN 08/15/2017 Ot 780.4 DIZZINESS AND GIDDINESS 08/15/2017 Ot 786.09 RESPIRATORY ABNORM NEC 08/15/2017 Ot 174.9 MALIGN NEOPL BREAST NOS 08/15/2017 Ot 250.00 DIAB THOMAS WO COMPL, TYPE II OR UNSPEC TY 08/15/2017 Ot 401.9 HYPERTENSION NOS 08/15/2017 Ot 709.9 SKIN DISORDER NOS 08/15/2017 Ot 710.0 SYST LUPUS ERYTHEMATOSIS 08/15/2017 Ot V12.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 08/15/2017 Ot V58.61 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S,LT,CURRENT USE 08/15/2017 Ot V58.69 OTH MED,LT, CURRENT USE 08/15/2017 Ot 174.9 MALIGN NEOPL BREAST NOS 08/24/2017 MARLON SILVANO Allen Ot 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 08/24/2017 MARLON SILVANO Allen Ot C77.3 SEC AND UNSP MALIG NEOPLASM OF AXILLA AN 08/24/2017 MARLONSILVANO Ot 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 08/24/2017 MARLONSILVANO Ot 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 08/24/2017 MARLONSILVANO Ot E11.9 TYPE 2 DIABETES MELLITUS WITHOUT COMPLIC 08/24/2017 SILVANO MASON Ot 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 PULMONARY HYPERTENSION 08/24/2017 SILVANO MASON Ot Z51.11 ENCOUNTER FOR ANTINEOPLASTIC CHEMOTHERAP 08/24/2017 MARLONSILVANO Ot Z79.01 SNF (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 08/24/2017 MARLONSILVANO Ot Z86.711 PERSONAL HISTORY OF PULMONARY EMBOLISM 08/24/2017 MARLONSILVANO Ot Z86.718 PERSONAL HISTORY OF OTHER VENOUS THROMBO 08/24/2017 MARLONSIVLANO Ot Z90.12 ACQUIRED ABSENCE OF LEFT BREAST AND NIPP 08/24/2017 MARLONSILVANO Ot Z92.21 PERSONAL HISTORY OF ANTINEOPLASTIC CHEMO 08/26/2017 MARLONSILVANO Ot 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 08/26/2017 MARLON SILVANO Allen Ot C77.3 SEC AND UNSP MALIG NEOPLASM OF AXILLA AN 08/26/2017 MARLONSILVANO Ot 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 08/26/2017 MARLONSILVAON Ot 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 08/26/2017 MARLONSILVANO Ot E11.9 TYPE 2 DIABETES MELLITUS WITHOUT COMPLIC 08/26/2017 SILVANO MASON Ot 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 PULMONARY HYPERTENSION 08/26/2017 SILVANO MASON Tiffany Ot Z51.11 ENCOUNTER FOR ANTINEOPLASTIC CHEMOTHERAP 08/26/2017 SILVANO MASON Tiffany Ot 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 08/26/2017 SILVANO MASON Tiffany Ot Z86.711 PERSONAL HISTORY OF PULMONARY EMBOLISM 08/26/2017 SILVANO MASON Tiffany Ot Z86.718 PERSONAL HISTORY OF OTHER VENOUS THROMBO 08/26/2017 SILVANO MASON Tiffany Ot Z90.12 ACQUIRED ABSENCE OF LEFT BREAST AND NIPP 08/26/2017 SILVANO MASON Tiffany Ot Z92.21 PERSONAL HISTORY OF ANTINEOPLASTIC CHEMO 09/01/2017 SILVANO MASON N Ot 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 09/01/2017 MARLON GIORGICOURTNEY Tiffany Ot C77.3 SEC AND UNSP MALIG NEOPLASM OF AXILLA AN 09/01/2017 SILVANO MASON Tiffany Ot 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 09/01/2017 MARLON GIORGICOURTNEY Tiffany Ot 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 09/01/2017 SILVANO MASON Tiffany Ot E11.9 TYPE 2 DIABETES MELLITUS WITHOUT COMPLIC 09/01/2017 SILVANO MASON Tiffany Ot 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 PULMONARY HYPERTENSION 09/01/2017 SILVANO MASON Tiffany Ot Z51.11 ENCOUNTER FOR ANTINEOPLASTIC CHEMOTHERAP 09/01/2017 SILVANO MASON Tiffany Ot Z79.01 SNF (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 09/01/2017 SILVANO MASON Tiffany Ot Z86.711 PERSONAL HISTORY OF PULMONARY EMBOLISM 09/01/2017 MARLON GIORGICOURTNEY Tiffany Ot Z86.718 PERSONAL HISTORY OF OTHER VENOUS THROMBO 09/01/2017 SILVANO MASON Tiffany Ot Z90.12 ACQUIRED ABSENCE OF LEFT BREAST AND NIPP 09/01/2017 SILVANO MASON N Ot Z92.21 PERSONAL HISTORY OF ANTINEOPLASTIC CHEMO 09/01/2017 MARLON GIORGICOURTNEY Tiffany Ot 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 09/01/2017 MARLON GIORGICOURTNEY Tiffany Ot C77.3 SEC AND UNSP MALIG NEOPLASM OF AXILLA AN 09/01/2017 MARLON GIORGICOURTNEY N Ot 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 09/01/2017 MARLON SILVANO N Ot 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 09/01/2017 SILVANO MASON Tiffany Ot E11.9 TYPE 2 DIABETES MELLITUS WITHOUT COMPLIC 09/01/2017 SILVANO MASON Tiffany Ot I27.20 PULMONARY HYPERTENSION, UNSPECIFIED 09/01/2017 SILVANO MASON Tiffany Ot Z51.11 ENCOUNTER FOR ANTINEOPLASTIC CHEMOTHERAP 09/01/2017 SILVANO MASON Tiffany Ot Z79.01 SNF (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 09/01/2017 MARLON GIORGICOURTNEY Tiffany Ot Z86.711 PERSONAL HISTORY OF PULMONARY EMBOLISM 09/01/2017 MARLON GIORGICOURTNEY N Ot Z86.718 PERSONAL HISTORY OF OTHER VENOUS THROMBO 09/01/2017 MARLONGIORGICOURTNEY N Ot Z90.12 ACQUIRED ABSENCE OF LEFT BREAST AND NIPP 09/01/2017 MARLONGIORGICOURTNEY Tiffany Ot Z92.21 PERSONAL HISTORY OF ANTINEOPLASTIC CHEMO 09/20/2017 SILVANO MASON Tiffany Ot 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 09/20/2017 MARLON GIORGICOURTNEY Tiffany Ot C77.3 SEC AND UNSP MALIG NEOPLASM OF AXILLA AN 09/20/2017 SILVANO MASON Tiffany Ot 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 09/20/2017 SILVANO MASON Tiffany Ot 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 09/20/2017 SILVANO MASON Tiffany Ot E11.9 TYPE 2 DIABETES MELLITUS WITHOUT COMPLIC 09/20/2017 SILVANO MASON Tiffany Ot I27.20 PULMONARY HYPERTENSION, UNSPECIFIED 09/20/2017 SILVANO MASON Tiffany Ot Z51.11 ENCOUNTER FOR ANTINEOPLASTIC CHEMOTHERAP 09/20/2017 SILVANO MASON Tiffany Ot 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 09/20/2017 SILVANO MASON N Ot Z86.711 PERSONAL HISTORY OF PULMONARY EMBOLISM 09/20/2017 MARLONGIORGICOURTNEY N Ot Z86.718 PERSONAL HISTORY OF OTHER VENOUS THROMBO 09/20/2017 SILVANO MASON N Ot Z90.12 ACQUIRED ABSENCE OF LEFT BREAST AND NIPP 09/20/2017 MARLONGIORGICOURTNEY N Ot Z92.21 PERSONAL HISTORY OF ANTINEOPLASTIC CHEMO 09/20/2017 Ot 174.9 MALIGN NEOPL BREAST NOS 09/20/2017 Ot 250.00 DIAB THOMAS WO COMPL, TYPE II OR UNSPEC TY 09/20/2017 Ot 401.9 HYPERTENSION NOS 09/20/2017 Ot 710.0 SYST LUPUS ERYTHEMATOSIS 09/20/2017 Ot V58.69 OTH MED,LT, CURRENT USE 09/20/2017 Ot 174.9 MALIGN NEOPL BREAST NOS 09/20/2017 Ot 397.0 TRICUSPID VALVE DISEASE 09/20/2017 Ot 424.0 MITRAL VALVE DISORDER 09/20/2017 Ot V58.69 OTH MED,LT, CURRENT USE 09/20/2017 Ot V58.83 ENCOUNTER FOR THERAPEUTIC DRUG MONITORIN 09/20/2017 Ot 174.9 MALIGN NEOPL BREAST NOS 09/20/2017 Ot 710.0 SYST LUPUS ERYTHEMATOSIS 09/20/2017 Ot V58.69 OTH MED,LT, CURRENT USE 09/20/2017 Ot 518.0 PULMONARY COLLAPSE 09/20/2017 Ot 786.05 SHORTNESS OF BREATH 09/20/2017 Ot 786.2 COUGH 09/20/2017 Ot 397.0 TRICUSPID VALVE DISEASE 09/20/2017 Ot 424.0 MITRAL VALVE DISORDER 09/20/2017 Ot 786.09 RESPIRATORY ABNORM NEC 09/20/2017 Ot V58.69 OTH MED,LT, CURRENT USE 09/20/2017 Ot V58.83 ENCOUNTER FOR THERAPEUTIC DRUG MONITORIN 09/20/2017 Ot 780.4 DIZZINESS AND GIDDINESS 09/20/2017 Ot 786.09 RESPIRATORY ABNORM NEC 09/20/2017 Ot 174.9 MALIGN NEOPL BREAST NOS 09/20/2017 Ot 250.00 DIAB THOMAS WO COMPL, TYPE II OR UNSPEC TY 09/20/2017 Ot 401.9 HYPERTENSION NOS 09/20/2017 Ot 709.9 SKIN DISORDER NOS 09/20/2017 Ot 710.0 SYST LUPUS ERYTHEMATOSIS 09/20/2017 Ot V12.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 09/20/2017 Ot V58.61 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S,LT,CURRENT USE 09/20/2017 Ot V58.69 OTH MED,LT, CURRENT USE 09/20/2017 Ot 174.9 MALIGN NEOPL BREAST NOS 09/25/2017 BEKA VICTOR MD Ot 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 09/25/2017 BEKA VICTOR MD Ot C77.3 SEC AND UNSP MALIG NEOPLASM OF AXILLA AN 09/25/2017 BEKA VICTOR MD Ot 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 09/25/2017 BEKA VICTOR MD Ot 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 09/25/2017 BEKA VICTOR MD Ot C78.7 SECONDARY MALIG NEOPLASM OF LIVER AND IN 09/25/2017 BEKA VICTOR MD Ot E11.9 TYPE 2 DIABETES MELLITUS WITHOUT COMPLIC 09/25/2017 BEKA VICTOR MD Ot I27.20 PULMONARY HYPERTENSION, UNSPECIFIED 09/25/2017 BEKA VICTOR MD Ot Z51.11 ENCOUNTER FOR ANTINEOPLASTIC CHEMOTHERAP 09/25/2017 BEKA VICTOR MD Ot Z79.01 SNF (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 09/25/2017 BEKA VICTOR MD Ot Z86.711 PERSONAL HISTORY OF PULMONARY EMBOLISM 09/25/2017 BEKA VICTOR MD Ot Z86.718 PERSONAL HISTORY OF OTHER VENOUS THROMBO 09/25/2017 BEKA VICTOR MD, Ot Z90.12 ACQUIRED ABSENCE OF LEFT BREAST AND NIPP 09/25/2017 BEKA VICTOR MD Ot Z92.21 PERSONAL HISTORY OF ANTINEOPLASTIC CHEMO 10/02/2017 BEKA VICTOR MD Ot 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 10/02/2017 BEKA VICTOR MD, Ot C77.3 SEC AND UNSP MALIG NEOPLASM OF AXILLA AN 10/02/2017 BEKA VICTOR MD, Ot 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 10/02/2017 BEKA VICTOR MD, Ot 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 10/02/2017 BEKA VICTOR MD, Ot C78.7 SECONDARY MALIG NEOPLASM OF LIVER AND IN 10/02/2017 BEKA VICTOR MD Ot E11.9 TYPE 2 DIABETES MELLITUS WITHOUT COMPLIC 10/02/2017 BEKA VICTOR MD Ot I27.20 PULMONARY HYPERTENSION, UNSPECIFIED 10/02/2017 BEKA VICTOR MD Ot Z51.11 ENCOUNTER FOR ANTINEOPLASTIC CHEMOTHERAP 10/02/2017 BEKA VICTOR MD Ot Z79.01 SNF (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 10/02/2017 BEKA VICTOR MD Ot Z86.711 PERSONAL HISTORY OF PULMONARY EMBOLISM 10/02/2017 BEKA VICTOR MD Ot Z86.718 PERSONAL HISTORY OF OTHER VENOUS THROMBO 10/02/2017 BEKA VICTOR MD Ot Z90.12 ACQUIRED ABSENCE OF LEFT BREAST AND NIPP 10/02/2017 BEKA VICTOR MD Ot Z92.21 PERSONAL HISTORY OF ANTINEOPLASTIC CHEMO 10/07/2017 BEKA VICTOR MD Ot 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 10/07/2017 BEKA VICTOR MD, Ot C77.3 SEC AND UNSP MALIG NEOPLASM OF AXILLA AN 10/07/2017 BEKA VICTOR MD Ot 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 10/07/2017 BEKA VICTOR MD, Ot 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 10/07/2017 BEKA VICTOR MD, Ot C78.7 SECONDARY MALIG NEOPLASM OF LIVER AND IN 10/07/2017 BEKA VICTOR MD Ot E11.9 TYPE 2 DIABETES MELLITUS WITHOUT COMPLIC 10/07/2017 BEKA VICTOR MD, Ot I27.20 PULMONARY HYPERTENSION, UNSPECIFIED 10/07/2017 BEKA VICTOR MD Ot Z51.11 ENCOUNTER FOR ANTINEOPLASTIC CHEMOTHERAP 10/07/2017 BEKA VICTOR MD, Ot Z79.01 SNF (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 10/07/2017 BEKA VICTOR MD, Ot Z86.711 PERSONAL HISTORY OF PULMONARY EMBOLISM 10/07/2017 BEKA VICTOR MD, Ot Z86.718 PERSONAL HISTORY OF OTHER VENOUS THROMBO 10/07/2017 BEKA VICTOR MD, Ot Z90.12 ACQUIRED ABSENCE OF LEFT BREAST AND NIPP 10/07/2017 BEKA VICTOR MD Ot Z92.21 PERSONAL HISTORY OF ANTINEOPLASTIC CHEMO 10/16/2017 BEKA VICTOR MD Ot 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 10/16/2017 BEKA VICTOR MD Ot 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 10/16/2017 BEKA VICTOR MD Ot C78.7 SECONDARY MALIG NEOPLASM OF LIVER AND IN 10/16/2017 BEKA VICTOR MD Ot M84.58XA PATHOLOGICAL FRACTURE IN NEOPLASTIC DISE 10/18/2017 BEKA VICTOR MD Ot 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 10/18/2017 BEKA VICTOR MD Ot C78.7 SECONDARY MALIG NEOPLASM OF LIVER AND IN 10/18/2017 BEKA VICTOR MD Ot C79.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 10/18/2017 BEKA VICTOR MD Ot 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 10/18/2017 BEKA VICTOR MD, Ot C77.3 SEC AND UNSP MALIG NEOPLASM OF AXILLA AN 10/18/2017 BEKA VICTOR MD Ot 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 10/18/2017 BEKA VICTOR MD, Ot 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 10/18/2017 BEKA VICTOR MD, Ot C78.7 SECONDARY MALIG NEOPLASM OF LIVER AND IN 10/18/2017 BEKA VICTOR MD, Ot E11.9 TYPE 2 DIABETES MELLITUS WITHOUT COMPLIC 10/18/2017 BEKA VICTOR MD, Ot I27.20 PULMONARY HYPERTENSION, UNSPECIFIED 10/18/2017 BEKA VICTOR MD, Ot Z51.11 ENCOUNTER FOR ANTINEOPLASTIC CHEMOTHERAP 10/18/2017 BEKA VICTOR MD, Ot 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 10/18/2017 BEKA VICTOR MD, Ot Z86.711 PERSONAL HISTORY OF PULMONARY EMBOLISM 10/18/2017 BEKA VICTOR MD, Ot Z86.718 PERSONAL HISTORY OF OTHER VENOUS THROMBO 10/18/2017 BEKA VICTOR MD, Ot Z90.12 ACQUIRED ABSENCE OF LEFT BREAST AND NIPP 10/18/2017 BEKA VICTOR MD, Ot Z92.21 PERSONAL HISTORY OF ANTINEOPLASTIC CHEMO 11/01/2017 SILVANO MASON Ot 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 11/01/2017 SILVANO MASON Ot C77.3 SEC AND UNSP MALIG NEOPLASM OF AXILLA AN 11/01/2017 SILVANO MASON Ot 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 11/01/2017 SILVANO MASON Ot 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 11/01/2017 SILVANO MASON Ot C78.7 SECONDARY MALIG NEOPLASM OF LIVER AND IN 11/01/2017 SILVANO MASON Ot E11.9 TYPE 2 DIABETES MELLITUS WITHOUT COMPLIC 11/01/2017 SILVANO MASON Ot I27.20 PULMONARY HYPERTENSION, UNSPECIFIED 11/01/2017 SILVANO MASON Ot Z51.11 ENCOUNTER FOR ANTINEOPLASTIC CHEMOTHERAP 11/01/2017 SILVANO MASON Ot 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 11/01/2017 SILVANO MASON Ot Z86.711 PERSONAL HISTORY OF PULMONARY EMBOLISM 11/01/2017 SILVANO MASON Ot Z86.718 PERSONAL HISTORY OF OTHER VENOUS THROMBO 11/01/2017 SILVANO MASON Ot Z90.12 ACQUIRED ABSENCE OF LEFT BREAST AND NIPP 11/01/2017 SILVANO MASON Ot Z92.21 PERSONAL HISTORY OF ANTINEOPLASTIC CHEMO 11/09/2017 BEKA VICTOR MD, Ot 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 11/09/2017 BEKA VICTOR MD, Ot C78.7 SECONDARY MALIG NEOPLASM OF LIVER AND IN 11/09/2017 BEKA VICTOR MD, Ot C79.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 2017 MARLON SILVANO Allen Ot 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 2017 MARLON SILVANO Allen Ot C77.3 SEC AND UNSP MALIG NEOPLASM OF AXILLA AN 2017 MARLON SILVANO Allen Ot 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 2017 MARLON, SILVANO Allen Ot 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 2017 MARLON SILVANO Allen Ot C78.7 SECONDARY MALIG NEOPLASM OF LIVER AND IN 2017 MARLON GIORGICOURTNEY Tiffany Ot E11.9 TYPE 2 DIABETES MELLITUS WITHOUT COMPLIC 2017 MARLON GIORGICOURTNEY Tiffany Ot I27.20 PULMONARY HYPERTENSION, UNSPECIFIED 2017 MARLON SILVANO Allen Ot Z51.11 ENCOUNTER FOR ANTINEOPLASTIC CHEMOTHERAP 2017 MARLON SILVANO Allen Ot Z79.01 SNF (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 2017 MARLON SILVANO Allen Ot Z86.711 PERSONAL HISTORY OF PULMONARY EMBOLISM 2017 MARLONSILVANO Ot Z86.718 PERSONAL HISTORY OF OTHER VENOUS THROMBO 2017 MARLON SILVANO Allen Ot Z90.12 ACQUIRED ABSENCE OF LEFT BREAST AND NIPP 2017 MARLON, SILVANO Allen Ot Z92.21 PERSONAL HISTORY OF ANTINEOPLASTIC CHEMO 11/22/2017 BEKA VICTOR MD, Ot 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 11/22/2017 BEKA VICTOR MD, Ot 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 11/22/2017 BEKA VICTOR MD, Ot C78.7 SECONDARY MALIG NEOPLASM OF LIVER AND IN 11/22/2017 BEKA VICTOR MD Ot M84.58XA PATHOLOGICAL FRACTURE IN NEOPLASTIC DISE 11/22/2017 Ot 174.9 MALIGN NEOPL BREAST NOS 11/22/2017 Ot 710.0 SYST LUPUS ERYTHEMATOSIS 11/22/2017 Ot V58.69 OTH MED,LT, CURRENT USE 11/22/2017 Ot 518.0 PULMONARY COLLAPSE 11/22/2017 Ot 786.05 SHORTNESS OF BREATH 11/22/2017 Ot 786.2 COUGH 11/22/2017 Ot 397.0 TRICUSPID VALVE DISEASE 11/22/2017 Ot 424.0 MITRAL VALVE DISORDER 11/22/2017 Ot 786.09 RESPIRATORY ABNORM NEC 11/22/2017 Ot V58.69 OTH MED,LT, CURRENT USE 11/22/2017 Ot V58.83 ENCOUNTER FOR THERAPEUTIC DRUG MONITORIN 11/22/2017 Ot 780.4 DIZZINESS AND GIDDINESS 11/22/2017 Ot 786.09 RESPIRATORY ABNORM NEC 11/22/2017 Ot 174.9 MALIGN NEOPL BREAST NOS 11/22/2017 Ot 250.00 DIAB THOMAS WO COMPL, TYPE II OR UNSPEC TY 11/22/2017 Ot 401.9 HYPERTENSION NOS 11/22/2017 Ot 709.9 SKIN DISORDER NOS 11/22/2017 Ot 710.0 SYST LUPUS ERYTHEMATOSIS 11/22/2017 Ot V12.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 11/22/2017 Ot V58.61 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S,LT,CURRENT USE 11/22/2017 Ot V58.69 OTH MED,LT, CURRENT USE 11/22/2017 Ot 174.9 MALIGN NEOPL BREAST NOS 11/24/2017 DERICK DON Ot 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 11/24/2017 DERICK DON Ot C79.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 11/24/2017 DERICK DON Ot M47.816 SPONDYLOSIS W/O MYELOPATHY OR RADICULOPA 12/12/2017 SILVANO MASON Ot 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 12/12/2017 SILVANO MASON Ot 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 12/12/2017 SILVANO MASON Ot C78.7 SECONDARY MALIG NEOPLASM OF LIVER AND IN 12/12/2017 SILVANO MASON Ot C79.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 12/12/2017 SILVANO MASON Ot M54.5 LOW BACK PAIN 12/12/2017 SILVANO MASON Ot Z01.89 ENCOUNTER FOR OTHER SPECIFIED SPECIAL EX 12/14/2017 DERICK DON Ot 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 12/14/2017 DERICK DON CALL CENTER RN Ot C79.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 12/14/2017 DERICK DON CALL CENTER RN Ot M47.816 SPONDYLOSIS W/O MYELOPATHY OR RADICULOPA 12/14/2017 SILVANO MASON Ot 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 12/14/2017 SILVANO MASON Ot C77.3 SEC AND UNSP MALIG NEOPLASM OF AXILLA AN 12/14/2017 SILVANO MASON Ot 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 12/14/2017 SILVANO MASON Ot 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 12/14/2017 SILVANO MASON Ot C78.7 SECONDARY MALIG NEOPLASM OF LIVER AND IN 12/14/2017 SILVANO MASON Ot E11.9 TYPE 2 DIABETES MELLITUS WITHOUT COMPLIC 12/14/2017 SILVANO MASON Ot I27.20 PULMONARY HYPERTENSION, UNSPECIFIED 12/14/2017 SILVANO MASON Ot Z51.11 ENCOUNTER FOR ANTINEOPLASTIC CHEMOTHERAP 12/14/2017 SILVANO MASON Ot 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 12/14/2017 SILVANO MASON Ot Z86.711 PERSONAL HISTORY OF PULMONARY EMBOLISM 12/14/2017 SILVANO MASON Ot Z86.718 PERSONAL HISTORY OF OTHER VENOUS THROMBO 12/14/2017 SILVANO MASON Ot Z90.12 ACQUIRED ABSENCE OF LEFT BREAST AND NIPP 12/14/2017 SILVANO MASON Ot Z92.21 PERSONAL HISTORY OF ANTINEOPLASTIC CHEMO 01/08/2018 SILVANO MASON Ot 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 01/08/2018 SILVANO MASON Ot 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 01/08/2018 SILVANO MASON Ot C78.7 SECONDARY MALIG NEOPLASM OF LIVER AND IN 01/08/2018 SILVANO MASON Ot C79.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 01/08/2018 SILVANO MASON Ot M54.5 LOW BACK PAIN 01/08/2018 SILVANO MASON Ot Z01.89 ENCOUNTER FOR OTHER SPECIFIED SPECIAL EX 01/16/2018 SILVANO MASON Ot 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 01/16/2018 SILVANO MASON Tiffany Ot C77.3 SEC AND UNSP MALIG NEOPLASM OF AXILLA AN 01/16/2018 MARLON SILVANO N Ot 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 01/16/2018 MARLON, SILVANO N Ot 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 01/16/2018 MARLON GIORGICOURTNEY Tiffany Ot C78.7 SECONDARY MALIG NEOPLASM OF LIVER AND IN 01/16/2018 MARLON SILVANO Allen Ot E11.9 TYPE 2 DIABETES MELLITUS WITHOUT COMPLIC 01/16/2018 MARLON SILVANO N Ot I27.20 PULMONARY HYPERTENSION, UNSPECIFIED 01/16/2018 MARLONSILVANO N Ot Z51.11 ENCOUNTER FOR ANTINEOPLASTIC CHEMOTHERAP 01/16/2018 MARLONSILVANO N Ot Z79.01 SNF (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 01/16/2018 MARLONSILVANO N Ot Z86.711 PERSONAL HISTORY OF PULMONARY EMBOLISM 01/16/2018 SILVANO MASON Ot Z86.718 PERSONAL HISTORY OF OTHER VENOUS THROMBO 01/16/2018 MARLONSILVANO N Ot Z90.12 ACQUIRED ABSENCE OF LEFT BREAST AND NIPP 01/16/2018 MARLONSILVANO N Ot Z92.21 PERSONAL HISTORY OF ANTINEOPLASTIC CHEMO 01/17/2018 MARLON SILVANO Allen Ot 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 01/17/2018 MARLON GIORGICOURTNEY Tiffany Ot C77.3 SEC AND UNSP MALIG NEOPLASM OF AXILLA AN 01/17/2018 MARLON SILVANO Allen Ot 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 01/17/2018 MARLON SILVANO Allen Ot 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 01/17/2018 MARLON SILVANO Allen Ot C78.7 SECONDARY MALIG NEOPLASM OF LIVER AND IN 01/17/2018 MARLON, SILVANO N Ot E11.9 TYPE 2 DIABETES MELLITUS WITHOUT COMPLIC 01/17/2018 SILVANO MASON N Ot I27.20 PULMONARY HYPERTENSION, UNSPECIFIED 01/17/2018 SILVANO MASON N Ot Z51.11 ENCOUNTER FOR ANTINEOPLASTIC CHEMOTHERAP 01/17/2018 SILVANO MASON Ot 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 01/17/2018 SILVANO MASON N Ot Z86.711 PERSONAL HISTORY OF PULMONARY EMBOLISM 01/17/2018 MARLON SILVANO N Ot Z86.718 PERSONAL HISTORY OF OTHER VENOUS THROMBO 01/17/2018 MARLON SILVANO Allen Ot Z90.12 ACQUIRED ABSENCE OF LEFT BREAST AND NIPP 01/17/2018 MARLON GIORGICOURTNEY N Ot Z92.21 PERSONAL HISTORY OF ANTINEOPLASTIC CHEMO 01/30/2018 MARLON GIORGICOURTNEY Tiffany Ot 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 01/30/2018 MARLON SILVANO Allen Ot C77.3 SEC AND UNSP MALIG NEOPLASM OF AXILLA AN 01/30/2018 MARLON SILVANO Allen Ot 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 01/30/2018 MARLON SILVANO Allen Ot 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 01/30/2018 MARLON SILVANO Allen Ot C78.7 SECONDARY MALIG NEOPLASM OF LIVER AND IN 01/30/2018 MARLON, SILVANO Allen Ot E11.9 TYPE 2 DIABETES MELLITUS WITHOUT COMPLIC 01/30/2018 MARLON SILVANO Allen Ot I27.20 PULMONARY HYPERTENSION, UNSPECIFIED 01/30/2018 MARLON SILVANO Allen Ot Z51.11 ENCOUNTER FOR ANTINEOPLASTIC CHEMOTHERAP 01/30/2018 MARLON SILVANO Allen Ot Z79.01 SNF (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 01/30/2018 MARLON SILVANO Allen Ot Z86.711 PERSONAL HISTORY OF PULMONARY EMBOLISM 01/30/2018 MARLON SILVANO Allen Ot Z86.718 PERSONAL HISTORY OF OTHER VENOUS THROMBO 01/30/2018 MARLON SILVANO Allen Ot Z90.12 ACQUIRED ABSENCE OF LEFT BREAST AND NIPP 01/30/2018 MARLON SILVANO Allen Ot Z92.21 PERSONAL HISTORY OF ANTINEOPLASTIC CHEMO 02/08/2018 MARLON SILVANO Allen Ot 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 02/08/2018 MARLON SILVANO Allen Ot C77.3 SEC AND UNSP MALIG NEOPLASM OF AXILLA AN 02/08/2018 MARLON SILVANO Allen Ot 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 02/08/2018 MARLON SILVANO Allen Ot 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 02/08/2018 MARLON SILVANO Allen Ot C78.7 SECONDARY MALIG NEOPLASM OF LIVER AND IN 02/08/2018 SILVANO MASON Ot E11.9 TYPE 2 DIABETES MELLITUS WITHOUT COMPLIC 02/08/2018 SILVANO MASON Ot I27.20 PULMONARY HYPERTENSION, UNSPECIFIED 02/08/2018 SILVANO MASON Ot Z51.11 ENCOUNTER FOR ANTINEOPLASTIC CHEMOTHERAP 02/08/2018 SILVANO MASON Ot 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 02/08/2018 SILVANO MASON Ot Z86.711 PERSONAL HISTORY OF PULMONARY EMBOLISM 02/08/2018 SILVANO MASON Ot Z86.718 PERSONAL HISTORY OF OTHER VENOUS THROMBO 02/08/2018 SILVANO MASON Ot Z90.12 ACQUIRED ABSENCE OF LEFT BREAST AND NIPP 02/08/2018 SILVANO MASON Ot Z92.21 PERSONAL HISTORY OF ANTINEOPLASTIC CHEMO 03/02/2018 BEKA VICTOR MD Ot C34.90 MALIGNANT NEOPLASM OF UNSP PART OF UNSP 03/02/2018 BEKA VICTOR MD Ot 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 03/02/2018 BEKA VICTOR MD Ot 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 03/02/2018 BEKA VICTOR MD Ot C78.7 SECONDARY MALIG NEOPLASM OF LIVER AND IN 03/02/2018 BEKA VICTOR MD Ot C79.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 03/07/2018 BEKA VICTOR MD, Ot C34.90 MALIGNANT NEOPLASM OF UNSP PART OF UNSP 03/07/2018 BEKA VICTOR MD Ot 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 03/07/2018 BEKA VICTOR MD Ot 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 03/07/2018 BEKA VICTOR MD Ot C78.7 SECONDARY MALIG NEOPLASM OF LIVER AND IN 03/07/2018 BEKA VICTOR MD Ot C79.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 03/07/2018 BEKA VICTOR MD Ot 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 03/07/2018 BEKA VICTOR MD Ot C77.3 SEC AND UNSP MALIG NEOPLASM OF AXILLA AN 03/07/2018 BEKA VICTOR MD Ot 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 03/07/2018 BEKA VICTOR MD Ot 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 03/07/2018 BEKA VICTOR MD Ot C78.7 SECONDARY MALIG NEOPLASM OF LIVER AND IN 03/07/2018 BEKA VICTOR MD Ot E11.9 TYPE 2 DIABETES MELLITUS WITHOUT COMPLIC 03/07/2018 BEKA VICTOR MD Ot I27.20 PULMONARY HYPERTENSION, UNSPECIFIED 03/07/2018 BEKA VICTOR MD Ot R27.9 UNSPECIFIED LACK OF COORDINATION 03/07/2018 BEKA VICTOR MD Ot R35.0 FREQUENCY OF MICTURITION 03/07/2018 BEKA VICTOR MD Ot R39.15 URGENCY OF URINATION 03/07/2018 BEKA VICTOR MD Ot R42 DIZZINESS AND GIDDINESS 03/07/2018 BEKA VICTOR MD Ot R51 HEADACHE 03/07/2018 BEKA VICTOR MD Ot Z51.11 ENCOUNTER FOR ANTINEOPLASTIC CHEMOTHERAP 03/07/2018 BEKA VICTOR MD Ot 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 03/07/2018 BEKA VICTOR MD Ot Z86.711 PERSONAL HISTORY OF PULMONARY EMBOLISM 03/07/2018 BEKA VICTOR MD Ot Z86.718 PERSONAL HISTORY OF OTHER VENOUS THROMBO 03/07/2018 BEKA VICTOR MD Ot Z90.12 ACQUIRED ABSENCE OF LEFT BREAST AND NIPP 03/07/2018 BEKA VICTOR MD Ot Z92.21 PERSONAL HISTORY OF ANTINEOPLASTIC CHEMO 03/07/2018 Ot 174.9 MALIGN NEOPL BREAST NOS 03/07/2018 Ot 250.00 DIAB THOMAS WO COMPL, TYPE II OR UNSPEC TY 03/07/2018 Ot 401.9 HYPERTENSION NOS 03/07/2018 Ot 709.9 SKIN DISORDER NOS 03/07/2018 Ot 710.0 SYST LUPUS ERYTHEMATOSIS 03/07/2018 Ot V12.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 03/07/2018 Ot V58.61 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S,LT,CURRENT USE 03/07/2018 Ot V58.69 OTH MED,LT, CURRENT USE 03/07/2018 Ot 174.9 MALIGN NEOPL BREAST NOS 03/07/2018 SILVANO MASON Ot 174.9 MALIGN NEOPL BREAST NOS 03/07/2018 SILVANO MASON Ot 397.0 TRICUSPID VALVE DISEASE 03/07/2018 SILVANO MASON Ot 424.0 MITRAL VALVE DISORDER 03/07/2018 SILVANO MASON Ot V58.69 OTH MED,LT,CURRENT USE 03/07/2018 MARLON, BOBAN N Ot V87.41 PERSONAL HISTORY OF ANTINEOPLASTIC CHEMO 03/07/2018 SILVANO MASON N Ot 174.9 MALIGN NEOPL BREAST NOS 03/07/2018 CELESTINA SUAREZ, DIPAK Cali Ot 786.09 RESPIRATORY ABNORM NEC 03/07/2018 DERICK DON CALL CENTER RN Ot 174.9 MALIGN NEOPL BREAST NOS 03/07/2018 DERICK DON S CALL CENTER RN Ot 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 03/07/2018 DERICK DON S CALL CENTER RN Ot 250.00 DIAB THOMAS WO COMPL, TYPE II OR UNSPEC TY 03/07/2018 DERICK DON S CALL CENTER RN Ot 401.9 HYPERTENSION NOS 03/07/2018 DERICK DON S CALL CENTER RN Ot 710.0 SYST LUPUS ERYTHEMATOSIS 03/07/2018 DERICK DON S CALL CENTER RN Ot V12.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 03/07/2018 DERICK DON S CALL CENTER RN Ot V12.55 PERSONAL HISTORY OF PULMONARY EMBOLISM 03/07/2018 DERICK DON S CALL CENTER RN Ot V58.61 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S,LT,CURRENT USE 03/07/2018 DERICK DON S CALL CENTER RN Ot V58.67 LONG-TERM (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 INSULIN 03/07/2018 DERICK DON S CALL CENTER RN Ot V58.69 OTH MED,LT,CURRENT USE 03/07/2018 DERICK DON S CALL CENTER RN Ot V87.41 PERSONAL HISTORY OF ANTINEOPLASTIC CHEMO 03/07/2018 DERICK DON S CALL CENTER RN Ot 174.9 MALIGN NEOPL BREAST NOS 03/07/2018 DERICK DON CALL CENTER RN Ot 174.9 MALIGN NEOPL BREAST NOS 03/07/2018 DERICK DON S CALL CENTER RN Ot 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 03/07/2018 DERICK DON S CALL CENTER RN Ot 250.00 DIAB THOMAS WO COMPL, TYPE II OR UNSPEC TY 03/07/2018 DERICK DON S CALL CENTER RN Ot 401.9 HYPERTENSION NOS 03/07/2018 DERICK DON S CALL CENTER RN Ot 710.0 SYST LUPUS ERYTHEMATOSIS 03/07/2018 DERICK DON S CALL CENTER RN Ot V12.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 03/07/2018 DERICK DON S CALL CENTER RN Ot V12.55 PERSONAL HISTORY OF PULMONARY EMBOLISM 03/07/2018 DERICK DON CALL CENTER RN Ot V58.61 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S,LT,CURRENT USE 03/07/2018 DERICK DON CALL CENTER RN Ot V58.67 LONG-TERM (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 INSULIN 03/07/2018 DERICK DONP Ot V58.69 OTH MED,LT,CURRENT USE 03/07/2018 DERICK DON CALL CENTER RN Ot V87.41 PERSONAL HISTORY OF ANTINEOPLASTIC CHEMO 03/07/2018 MIGUEL SUAREZ, CHARLENE Harden Ot 279.8 IMMUNE MECHANISM DIS NEC 03/07/2018 MIGUEL SUAREZ, CHARLENE Harden Ot 710.0 SYST LUPUS ERYTHEMATOSIS 03/07/2018 DERICK DON CALL CENTER RN Ot 174.9 MALIGN NEOPL BREAST NOS 03/07/2018 EDRICK DON CALL CENTER RN Ot 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 03/07/2018 DERICK DON CALL CENTER RN Ot 710.0 SYST LUPUS ERYTHEMATOSIS 03/07/2018 DERICK DON CALL CENTER RN Ot V12.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 03/07/2018 DERICK DON CALL CENTER RN Ot V12.55 PERSONAL HISTORY OF PULMONARY EMBOLISM 03/07/2018 DERICK DONP Ot V58.61 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S,LT,CURRENT USE 03/07/2018 DERICK DONP Ot V58.69 OTH MED,LT,CURRENT USE 03/07/2018 DERICK DON CALL CENTER RN Ot V87.41 PERSONAL HISTORY OF ANTINEOPLASTIC CHEMO 03/07/2018 DERICK DON CALL CENTER RN Ot 174.9 MALIGN NEOPL BREAST NOS 03/07/2018 DERICK DON CALL CENTER RN Ot 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 03/07/2018 DERICK DON CALL CENTER RN Ot 710.0 SYST LUPUS ERYTHEMATOSIS 03/07/2018 DERICK DON CALL CENTER RN Ot 782.2 LOCAL SUPRFICIAL SWELLNG 03/07/2018 DERICK DON CALL CENTER RN Ot 786.50 CHEST PAIN NOS 03/07/2018 DERICK DON CALL CENTER RN Ot 790.5 ABN SERUM ENZY LEVEL NEC 03/07/2018 DERICK DON CALL CENTER RN Ot V12.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 03/07/2018 DERICK DON CALL CENTER RN Ot V12.55 PERSONAL HISTORY OF PULMONARY EMBOLISM 03/07/2018 DERICK DON CALL CENTER RN Ot V45.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 03/07/2018 DERICK DONP Ot V58.61 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S,LT,CURRENT USE 03/07/2018 DERICK DON Ot V58.69 OTH MED,LT,CURRENT USE 03/07/2018 DERICK DONP Ot V87.41 PERSONAL HISTORY OF ANTINEOPLASTIC CHEMO 03/07/2018 RICHIE LEMUS DO Ot 250.00 DIAB THOMAS WO COMPL, TYPE II OR UNSPEC TY 03/07/2018 RICHIE LEMUS DO Ot 272.4 HYPERLIPIDEMIA NEC/NOS 03/07/2018 RICHIE LEMUS DO Ot 401.1 BENIGN HYPERTENSION 03/07/2018 DERICK DONP Ot 174.9 MALIGN NEOPL BREAST NOS 03/07/2018 DERICK DONP Ot 174.9 MALIGN NEOPL BREAST NOS 03/07/2018 MOMO PINO Ot 397.0 TRICUSPID VALVE DISEASE 03/07/2018 MOMO PINO Ot 401.9 HYPERTENSION NOS 03/07/2018 MOMO PINO Ot 414.00 CORON ATHEROSCLER NOS TYPE VESSEL, NATIV 03/07/2018 MOMO PINO Ot 424.0 MITRAL VALVE DISORDER 03/07/2018 MOMO PINO Ot 786.09 RESPIRATORY ABNORM NEC 03/07/2018 DERICK DONP Ot 174.9 MALIGN NEOPL BREAST NOS 03/07/2018 DERICK DONP Ot 250.00 DIAB THOMAS WO COMPL, TYPE II OR UNSPEC TY 03/07/2018 DERICK DONP Ot 401.9 HYPERTENSION NOS 03/07/2018 DERICK DONP Ot 710.0 SYST LUPUS ERYTHEMATOSIS 03/07/2018 DERICK DONP Ot V12.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 03/07/2018 DERICK DONP Ot V58.61 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S,LT,CURRENT USE 03/07/2018 DERICK DONP Ot V58.69 OTH MED,LT,CURRENT USE 03/07/2018 DON, HILAH S CALL CENTER RN Ot V87.41 PERSONAL HISTORY OF ANTINEOPLASTIC CHEMO 03/07/2018 DERICK DON CALL CENTER RN Ot V76.12 OTH SCREEN MAMMO-MALIGN NEOPLASM OF REID 03/07/2018 SHABNAM HOLMAN DO Ot 278.01 MORBID OBESITY 03/07/2018 SHABNAM HOLMAN DO Ot 415.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/INFARCT 03/07/2018 SHABNAM HOLMAN DO Ot 795.79 OTH AND UNSPEC NONSPECIFIC IMMUNOLOGICAL 03/07/2018 SHABNAM HOLMAN DO Ot 278.01 MORBID OBESITY 03/07/2018 SHABNAM HOLMAN DO Ot 415.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/INFARCT 03/07/2018 SHABNAM HOLMAN DO Ot 795.79 OTH AND UNSPEC NONSPECIFIC IMMUNOLOGICAL 03/07/2018 DERICK DON CALL CENTER RN Ot 682.6 CELLULITIS OF LEG 03/07/2018 DERICK DON CALL CENTER RN Ot 710.0 SYST LUPUS ERYTHEMATOSIS 03/07/2018 DERICK DON CALL CENTER RN Ot 786.50 CHEST PAIN NOS 03/07/2018 DERICK DON CALL CENTER RN Ot V10.3 HX OF BREAST MALIGNANCY 03/07/2018 DERICK DON CALL CENTER RN Ot V12.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 03/07/2018 DERICK DON CALL CENTER RN Ot V12.55 PERSONAL HISTORY OF PULMONARY EMBOLISM 03/07/2018 DERICK DON CALL CENTER RN Ot V45.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 03/07/2018 DERICK DON CALL CENTER RN Ot V67.2 CHEMOTHERAPY FOLLOW-UP 03/07/2018 DERICK DON CALL CENTER RN Ot 786.50 CHEST PAIN NOS 03/07/2018 DERICK DON CALL CENTER RN Ot 416.8 CHR PULMON HEART DIS NEC 03/07/2018 DERICK DON CALL CENTER RN Ot 710.0 SYST LUPUS ERYTHEMATOSIS 03/07/2018 DERICK DON CALL CENTER RN Ot M32.10 SYSTEMIC LUPUS ERYTHEMATOSUS, ORGAN OR S 03/07/2018 DERICK DON CALL CENTER RN Ot V10.3 HX OF BREAST MALIGNANCY 03/07/2018 DERICK DON CALL CENTER RN Ot V12.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 03/07/2018 DERICK DON CALL CENTER RN Ot V12.55 PERSONAL HISTORY OF PULMONARY EMBOLISM 03/07/2018 DERICK DON CALL CENTER RN Ot V45.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 03/07/2018 DERICK DON CALL CENTER RN Ot V58.61 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S,LT,CURRENT USE 03/07/2018 DERICK DONP Ot V58.69 OTH MED,LT,CURRENT USE 03/07/2018 DERICK DON CALL CENTER RN Ot V67.2 CHEMOTHERAPY FOLLOW-UP 03/07/2018 DERICK DON CALL CENTER RN Ot Z79.01 SNF (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 03/07/2018 DERICK DON CALL CENTER RN Ot Z85.3 PERSONAL HISTORY OF MALIGNANT NEOPLASM O 03/07/2018 DERICK DON CALL CENTER RN Ot Z86.711 PERSONAL HISTORY OF PULMONARY EMBOLISM 03/07/2018 DERICK DON CALL CENTER RN Ot Z86.718 PERSONAL HISTORY OF OTHER VENOUS THROMBO 03/07/2018 DERICK DON CALL CENTER RN Ot Z90.10 ACQUIRED ABSENCE OF UNSPECIFIED BREAST A 03/07/2018 DERICK DON CALL CENTER RN Ot 174.9 MALIGN NEOPL BREAST NOS 03/07/2018 DERICK DON CALL CENTER RN Ot 174.9 MALIGN NEOPL BREAST NOS 03/07/2018 DERICK DON CALL CENTER RN Ot 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 03/07/2018 DERICK DON CALL CENTER RN Ot 416.8 CHR PULMON HEART DIS NEC 03/07/2018 DERICK DON CALL CENTER RN Ot 710.0 SYST LUPUS ERYTHEMATOSIS 03/07/2018 DERICK DON CALL CENTER RN Ot V10.3 HX OF BREAST MALIGNANCY 03/07/2018 DERICK DON CALL CENTER RN Ot V12.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 03/07/2018 DERICK DON CALL CENTER RN Ot V12.55 PERSONAL HISTORY OF PULMONARY EMBOLISM 03/07/2018 DERICK DON CALL CENTER RN Ot V45.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 03/07/2018 DERICK DON CALL CENTER RN Ot V58.61 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S,LT,CURRENT USE 03/07/2018 DERICK DONP Ot V58.69 OTH MED,LT,CURRENT USE 03/07/2018 DERICK DON CALL CENTER RN Ot 786.2 COUGH 03/07/2018 DERICK DON CALL CENTER RN Ot R05 COUGH 03/07/2018 DERICK DON CALL CENTER RN Ot 174.9 MALIGN NEOPL BREAST NOS 03/07/2018 DERICK DON S CALL CENTER RN Ot 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 03/07/2018 DERICK DON S CALL CENTER RN Ot 250.00 DIAB THOMAS WO COMPL, TYPE II OR UNSPEC TY 03/07/2018 DERICK DON S CALL CENTER RN Ot 401.9 HYPERTENSION NOS 03/07/2018 DERICK DON S CALL CENTER RN Ot 416.8 CHR PULMON HEART DIS NEC 03/07/2018 DERICK DON S CALL CENTER RN Ot 710.0 SYST LUPUS ERYTHEMATOSIS 03/07/2018 DERICK DON S CALL CENTER RN Ot V12.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 03/07/2018 DERICK DON CALL CENTER RN Ot V12.55 PERSONAL HISTORY OF PULMONARY EMBOLISM 03/07/2018 DERICK DON CALL CENTER RN Ot V58.61 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S,LT,CURRENT USE 03/07/2018 DERICK DON CALL CENTER RN Ot V58.69 OTH MED,LT,CURRENT USE 03/07/2018 DERICK DON S CALL CENTER RN Ot V87.41 PERSONAL HISTORY OF ANTINEOPLASTIC CHEMO 03/07/2018 SILVANO MASON Ot 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 03/07/2018 SILVANO MASON Ot 174.9 MALIGN NEOPL BREAST NOS 03/07/2018 SILVANO MASON Ot C34.90 MALIGNANT NEOPLASM OF UNSP PART OF UNSP 03/07/2018 SILVANO MASON Ot 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 03/07/2018 DERICK DON CALL CENTER RN Ot 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 03/07/2018 DERICK DON CALL CENTER RN Ot 416.8 CHR PULMON HEART DIS NEC 03/07/2018 DERICK DON CALL CENTER RN Ot V10.3 HX OF BREAST MALIGNANCY 03/07/2018 DERICK DON CALL CENTER RN Ot V12.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 03/07/2018 DERICK DON CALL CENTER RN Ot V12.55 PERSONAL HISTORY OF PULMONARY EMBOLISM 03/07/2018 DERICK DON CALL CENTER RN Ot V58.61 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S,LT,CURRENT USE 03/07/2018 DERICK DONP Ot V58.69 OTH MED,LT,CURRENT USE 03/07/2018 DERICK DONP Ot V87.41 PERSONAL HISTORY OF ANTINEOPLASTIC CHEMO 03/07/2018 DIPAK OSCAR MD Ot 174.9 MALIGN NEOPL BREAST NOS 03/07/2018 DIPAK OSCAR MD Ot 401.9 HYPERTENSION NOS 03/07/2018 DIPAK OSCAR MD Ot 414.9 CHR ISCHEMIC HRT DIS NOS 03/07/2018 DIPAK OSCAR MD Ot 786.09 RESPIRATORY ABNORM NEC 03/07/2018 DIPAK OSCAR MD Ot 786.50 CHEST PAIN NOS 03/07/2018 DIPAK OSCAR MD Ot 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 03/07/2018 DIPAK OSCAR MD Ot I10 ESSENTIAL (PRIMARY) HYPERTENSION 03/07/2018 DIPAK OSCAR MD Ot I25.9 CHRONIC ISCHEMIC HEART DISEASE, UNSPECIF 03/07/2018 DIPAK OSCAR MD Ot R07.9 CHEST PAIN, UNSPECIFIED 03/07/2018 DERICK DONP Ot 174.9 MALIGN NEOPL BREAST NOS 03/07/2018 DREICK DON CALL CENTER RN Ot 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 03/07/2018 DERICK DON CALL CENTER RN Ot 250.00 DIAB THOMAS WO COMPL, TYPE II OR UNSPEC TY 03/07/2018 DERICK DON CALL CENTER RN Ot 401.9 HYPERTENSION NOS 03/07/2018 DERICK DON CALL CENTER RN Ot 416.8 CHR PULMON HEART DIS NEC 03/07/2018 DERICK DON CALL CENTER RN Ot 710.0 SYST LUPUS ERYTHEMATOSIS 03/07/2018 DERICK DON CALL CENTER RN Ot V12.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 03/07/2018 DERICK DON CALL CENTER RN Ot V12.55 PERSONAL HISTORY OF PULMONARY EMBOLISM 03/07/2018 DERICK DON CALL CENTER RN Ot V58.61 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S,LT,CURRENT USE 03/07/2018 DERICK DONP Ot V58.69 OTH MED,LT,CURRENT USE 03/07/2018 DERICK DON CALL CENTER RN Ot V87.41 PERSONAL HISTORY OF ANTINEOPLASTIC CHEMO 03/07/2018 DERICK DON CALL CENTER RN Ot 174.9 MALIGN NEOPL BREAST NOS 03/07/2018 DERICK DON CALL CENTER RN Ot 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 03/07/2018 DERICK DON CALL CENTER RN Ot 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 03/07/2018 DERICK DON CALL CENTER RN Ot 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 03/07/2018 DERICK DON CALL CENTER RN Ot 174.9 MALIGN NEOPL BREAST NOS 03/07/2018 DERICK DON CALL CENTER RN Ot 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 03/07/2018 DERICK DON CALL CENTER RN Ot 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 03/07/2018 DERICK DON CALL CENTER RN Ot 250.80 DIAB W OTH SPEC MANIFEST, TYPE II OR UNS 03/07/2018 DERICK DON CALL CENTER RN Ot 356.9 IDIO PERIPH NEURPTHY NOS 03/07/2018 DERICK DON CALL CENTER RN Ot 416.8 CHR PULMON HEART DIS NEC 03/07/2018 DERICK DON CALL CENTER RN Ot 682.7 CELLULITIS OF FOOT 03/07/2018 DERICK DON CALL CENTER RN Ot 707.15 ULCER OF OTHER PART OF FOOT 03/07/2018 DERICK DON CALL CENTER RN Ot 710.0 SYST LUPUS ERYTHEMATOSIS 03/07/2018 DERICK DON CALL CENTER RN Ot V12.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 03/07/2018 DERICK DON CALL CENTER RN Ot V12.54 PERSONAL HX OF TIA, CEREBRAL INFARCTION 03/07/2018 DERICK DON CALL CENTER RN Ot V45.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 03/07/2018 DERICK DON CALL CENTER RN Ot V58.61 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S,LT,CURRENT USE 03/07/2018 DERICK DON CALL CENTER RN Ot V58.69 OTH MED,LT,CURRENT USE 03/07/2018 DERICK DON CALL CENTER RN Ot C50.912 MALIGNANT NEOPLASM OF UNSPECIFIED SITE O 03/07/2018 DERICK DON CALL CENTER RN Ot C77.3 SEC AND UNSP MALIG NEOPLASM OF AXILLA AN 03/07/2018 DERICK DON CALL CENTER RN Ot 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 03/07/2018 DERICK DON CALL CENTER RN Ot 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 03/07/2018 DERICK DON CALL CENTER RN Ot D50.9 IRON DEFICIENCY ANEMIA, UNSPECIFIED 03/07/2018 DERICK DON CALL CENTER RN Ot E11.621 TYPE 2 DIABETES MELLITUS WITH FOOT ULCER 03/07/2018 DERICK DON CALL CENTER RN Ot G57.90 UNSPECIFIED MONONEUROPATHY OF UNSPECIFIE 03/07/2018 DERICK DON CALL CENTER RN Ot H53.9 UNSPECIFIED VISUAL DISTURBANCE 03/07/2018 DERICK DON CALL CENTER RN Ot 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 PULMONARY HYPERTENSION 03/07/2018 DERICK DON CALL CENTER RN Ot L97.519 NON-PRS CHRONIC ULCER OTH PRT RIGHT FOOT 03/07/2018 DERICK DON CALL CENTER RN Ot 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 03/07/2018 DERICK DON CALL CENTER RN Ot 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 03/07/2018 DERICK DON CALL CENTER RN Ot Z86.711 PERSONAL HISTORY OF PULMONARY EMBOLISM 03/07/2018 DERICK DON CALL CENTER RN Ot Z86.718 PERSONAL HISTORY OF OTHER VENOUS THROMBO 03/07/2018 DERICK DON CALL CENTER RN Ot H53.9 UNSPECIFIED VISUAL DISTURBANCE 03/07/2018 DERICK DON CALL CENTER RN Ot R26.81 UNSTEADINESS ON FEET 03/07/2018 SILVANO MASON Ot C34.90 MALIGNANT NEOPLASM OF UNSP PART OF UNSP 03/07/2018 SILVANO MASON Ot 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 03/07/2018 SILVANO MASON Ot C34.90 MALIGNANT NEOPLASM OF UNSP PART OF UNSP 03/07/2018 SILVANO MASON Ot 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 03/07/2018 SILVANO MASON Ot 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 03/07/2018 SILVANO MASON Ot 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 03/07/2018 ARIAN DERICK Schmitz CALL CENTER RN Ot 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 03/07/2018 DERICK DON CALL CENTER RN Ot C77.3 SEC AND UNSP MALIG NEOPLASM OF AXILLA AN 03/07/2018 DERICK DON CALL CENTER RN Ot 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 03/07/2018 DERICK DON CALL CENTER RN Ot 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 03/07/2018 DERICK DON CALL CENTER RN Ot E11.9 TYPE 2 DIABETES MELLITUS WITHOUT COMPLIC 03/07/2018 DERICK DON CALL CENTER RN Ot 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 PULMONARY HYPERTENSION 03/07/2018 DERICK DON CALL CENTER RN Ot Z79.01 SNF (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 03/07/2018 DERICK DON CALL CENTER RN Ot Z86.711 PERSONAL HISTORY OF PULMONARY EMBOLISM 03/07/2018 DERICK DON CALL CENTER RN Ot Z86.718 PERSONAL HISTORY OF OTHER VENOUS THROMBO 03/07/2018 DERICK DON CALL CENTER RN Ot Z90.12 ACQUIRED ABSENCE OF LEFT BREAST AND NIPP 03/07/2018 DERICK DON CALL CENTER RN Ot Z92.21 PERSONAL HISTORY OF ANTINEOPLASTIC CHEMO 03/07/2018 DERICK DON CALL CENTER RN Ot Z95.2 PRESENCE OF PROSTHETIC HEART VALVE 03/07/2018 DERICK DON CALL CENTER RN Ot 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 03/07/2018 DERICK DONP Ot C77.3 SEC AND UNSP MALIG NEOPLASM OF AXILLA AN 03/07/2018 DERICK DON CALL CENTER RN Ot 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 03/07/2018 DERICK DON CALL CENTER RN Ot 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 03/07/2018 DERICK DON CALL CENTER RN Ot E11.9 TYPE 2 DIABETES MELLITUS WITHOUT COMPLIC 03/07/2018 DERICK DON CALL CENTER RN Ot 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 PULMONARY HYPERTENSION 03/07/2018 DERICK DON CALL CENTER RN Ot 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 03/07/2018 DERICK DON CALL CENTER RN Ot Z86.711 PERSONAL HISTORY OF PULMONARY EMBOLISM 03/07/2018 DERICK DON CALL CENTER RN Ot Z86.718 PERSONAL HISTORY OF OTHER VENOUS THROMBO 03/07/2018 DERICK DON CALL CENTER RN Ot Z90.12 ACQUIRED ABSENCE OF LEFT BREAST AND NIPP 03/07/2018 ARIAN DERICK Schmitz CALL CENTER RN Ot Z92.21 PERSONAL HISTORY OF ANTINEOPLASTIC CHEMO 03/07/2018 DERICK DON CALL CENTER RN Ot Z95.2 PRESENCE OF PROSTHETIC HEART VALVE 03/07/2018 DERICK DON CALL CENTER RN Ot 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 03/07/2018 DERICK DON CALL CENTER RN Ot 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 03/07/2018 MARLONSILVANO N Ot 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 03/07/2018 MARLONSILVANO BROOKS N Ot 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 03/07/2018 DERICK DON Nadir CALL CENTER RN Ot 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 03/07/2018 DERICK DON CALL CENTER RN Ot C77.3 SEC AND UNSP MALIG NEOPLASM OF AXILLA AN 03/07/2018 DERICK DON CALL CENTER RN Ot 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 03/07/2018 KELLY DONERWIN Schmitz CALL CENTER RN Ot 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 03/07/2018 KELLY DONERWIN Schmitz CALL CENTER RN Ot E11.9 TYPE 2 DIABETES MELLITUS WITHOUT COMPLIC 03/07/2018 KELLY DONERWIN Schmitz CALL CENTER RN Ot 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 PULMONARY HYPERTENSION 03/07/2018 DERICK DON CALL CENTER RN Ot Z79.01 SNF (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 03/07/2018 DERICK DON CALL CENTER RN Ot Z86.711 PERSONAL HISTORY OF PULMONARY EMBOLISM 03/07/2018 DERICK DON CALL CENTER RN Ot Z86.718 PERSONAL HISTORY OF OTHER VENOUS THROMBO 03/07/2018 KELLY DONERWIN Schmitz CALL CENTER RN Ot Z90.12 ACQUIRED ABSENCE OF LEFT BREAST AND NIPP 03/07/2018 DERICK DON CALL CENTER RN Ot Z92.21 PERSONAL HISTORY OF ANTINEOPLASTIC CHEMO 03/07/2018 SILVANO MASON N Ot 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 03/07/2018 MARLONSILVANO BROOKS Ot 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 03/07/2018 DERICK DON CALL CENTER RN Ot 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 03/07/2018 DERICK DON CALL CENTER RN Ot 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 03/07/2018 DERICK DON CALL CENTER RN Ot 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 03/07/2018 DERICK DON CALL CENTER RN Ot 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 03/07/2018 DERICK DON CALL CENTER RN Ot C78.7 SECONDARY MALIG NEOPLASM OF LIVER AND IN 03/07/2018 BEKA VICTOR MD, Ot 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 03/07/2018 BEKA VICTOR MD, Ot C78.7 SECONDARY MALIG NEOPLASM OF LIVER AND IN 03/07/2018 BEKA VICTOR MD Ot C79.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 03/07/2018 BEKA VICTOR MD, Ot 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 03/07/2018 BEKA VICTOR MD, Ot 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 03/07/2018 BEKA VICTOR MD, Ot C78.7 SECONDARY MALIG NEOPLASM OF LIVER AND IN 03/07/2018 BEKA VICTOR MD Ot M84.58XA PATHOLOGICAL FRACTURE IN NEOPLASTIC DISE 03/07/2018 [facility] RN Ot 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 03/07/2018 [facility]ER[facility] RN Ot C79.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 03/07/2018 DERICK DON S [facility] RN Ot M47.816 SPONDYLOSIS W/O MYELOPATHY OR RADICULOPA 03/07/2018 SILVANO MASON Ot 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 03/07/2018 SILVANO MASON Ot 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 03/07/2018 SILVANO MASON Ot C78.7 SECONDARY MALIG NEOPLASM OF LIVER AND IN 03/07/2018 SILVANO MASON Ot C79.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 03/07/2018 SILVANO MASON Ot M54.5 LOW BACK PAIN 03/07/2018 SILVANO MASON Ot Z01.89 ENCOUNTER FOR OTHER SPECIFIED SPECIAL EX 03/07/2018 BEKA VICTOR MD Ot C34.90 MALIGNANT NEOPLASM OF UNSP PART OF UNSP 03/07/2018 BEKA VICTOR MD Ot 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 03/07/2018 BEKA VICTOR MD Ot 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 03/07/2018 BEKA VICTOR MD Ot C78.7 SECONDARY MALIG NEOPLASM OF LIVER AND IN 03/07/2018 BEKA VICTOR MD Ot C79.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 03/07/2018 MARLONSILVANO Ot 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 03/07/2018 MARLON, SILVANO Allen Ot C77.3 SEC AND UNSP MALIG NEOPLASM OF AXILLA AN 03/07/2018 MARLONSILVANO Ot 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 03/07/2018 MARLONSILVANO Ot 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 03/07/2018 MARLONSILVANO Ot C78.7 SECONDARY MALIG NEOPLASM OF LIVER AND IN 03/07/2018 MARLONSILVANO N Ot E11.9 TYPE 2 DIABETES MELLITUS WITHOUT COMPLIC 03/07/2018 SILVANO MASON Ot I27.20 PULMONARY HYPERTENSION, UNSPECIFIED 03/07/2018 SILVANO MASON Ot Z51.11 ENCOUNTER FOR ANTINEOPLASTIC CHEMOTHERAP 03/07/2018 SILVANO MASON Ot 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 03/07/2018 SILVANO MASON Ot Z86.711 PERSONAL HISTORY OF PULMONARY EMBOLISM 03/07/2018 SILVANO MASON N Ot Z86.718 PERSONAL HISTORY OF OTHER VENOUS THROMBO 03/07/2018 SILVANO MASON Ot Z90.12 ACQUIRED ABSENCE OF LEFT BREAST AND NIPP 03/07/2018 SILVANO MASON Ot Z92.21 PERSONAL HISTORY OF ANTINEOPLASTIC CHEMO 03/07/2018 SILVANO MASON Ot 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 03/07/2018 MARLON, SILVANO Allen Ot C77.3 SEC AND UNSP MALIG NEOPLASM OF AXILLA AN 03/07/2018 SILVANO MASON Ot 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 03/07/2018 MARLONSILVANO N Ot 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 03/07/2018 MARLONSILVANO N Ot C78.7 SECONDARY MALIG NEOPLASM OF LIVER AND IN 03/07/2018 SILVANO MASON N Ot E11.9 TYPE 2 DIABETES MELLITUS WITHOUT COMPLIC 03/07/2018 SILVANO MASON Ot I27.20 PULMONARY HYPERTENSION, UNSPECIFIED 03/07/2018 SILVANO MASON Ot Z51.11 ENCOUNTER FOR ANTINEOPLASTIC CHEMOTHERAP 03/07/2018 SILVANO MASON Ot Z79.01 SNF (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 03/07/2018 SILVANO MASON Ot Z86.711 PERSONAL HISTORY OF PULMONARY EMBOLISM 03/07/2018 SILVANO MASON Ot Z86.718 PERSONAL HISTORY OF OTHER VENOUS THROMBO 03/07/2018 SILVANO MASON Ot Z90.12 ACQUIRED ABSENCE OF LEFT BREAST AND NIPP 03/07/2018 SILVANO MASON Ot Z92.21 PERSONAL HISTORY OF ANTINEOPLASTIC CHEMO 03/07/2018 Ot 174.9 MALIGN NEOPL BREAST NOS 03/07/2018 Ot 250.00 DIAB THOMAS WO COMPL, TYPE II OR UNSPEC TY 03/07/2018 Ot 401.9 HYPERTENSION NOS 03/07/2018 Ot 709.9 SKIN DISORDER NOS 03/07/2018 Ot 710.0 SYST LUPUS ERYTHEMATOSIS 03/07/2018 Ot V12.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 03/07/2018 Ot V58.61 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S,LT,CURRENT USE 03/07/2018 Ot V58.69 OTH MED,LT, CURRENT USE 03/07/2018 Ot 174.9 MALIGN NEOPL BREAST NOS 03/07/2018 SILVANO MASON Ot 174.9 MALIGN NEOPL BREAST NOS 03/07/2018 SILVANO MASON Ot 397.0 TRICUSPID VALVE DISEASE 03/07/2018 SILVANO MASON N Ot 424.0 MITRAL VALVE DISORDER 03/07/2018 SILVANO MASON Ot V58.69 OTH MED,LT,CURRENT USE 03/07/2018 SILVANO MASON Ot V87.41 PERSONAL HISTORY OF ANTINEOPLASTIC CHEMO 03/07/2018 SILVANO MASON Ot 174.9 MALIGN NEOPL BREAST NOS 03/07/2018 CELESTINA SUAREZ, DIPAK Cali Ot 786.09 RESPIRATORY ABNORM NEC 03/07/2018 DERICK [facility] CALL [facility] RN Ot 174.9 MALIGN NEOPL BREAST NOS 03/07/2018 [facility] RN Ot 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 03/07/2018 [facility] RN Ot 250.00 DIAB THOMAS WO COMPL, TYPE II OR UNSPEC TY 03/07/2018 DERICK DON S CALL CENTER RN Ot 401.9 HYPERTENSION NOS 03/07/2018 DERICK DON S [facility] RN Ot 710.0 SYST LUPUS ERYTHEMATOSIS 03/07/2018 DERICK DON S CALL C[facility] RN Ot V12.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 03/07/2018 DERICK DON S [facility] RN Ot V12.55 PERSONAL HISTORY OF PULMONARY EMBOLISM 03/07/2018 DERICK DON S [facility] RN Ot V58.61 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S,LT,CURRENT USE 03/07/2018 DERICK DON S [facility] RN Ot V58.67 LONG-TERM (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 INSULIN 03/07/2018 DERICK DON S [facility] RN Ot V58.69 OTH MED,LT,CURRENT USE 03/07/2018 DERICK DON S [facility] RN Ot V87.41 PERSONAL HISTORY OF ANTINEOPLASTIC CHEMO 03/07/2018 DERICK DON S [facility] RN Ot 174.9 MALIGN NEOPL BREAST NOS 03/07/2018 DERICK [facility] S [facility] RN Ot 174.9 MALIGN NEOPL BREAST NOS 03/07/2018 DERICK DON S [facility] RN Ot 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 03/07/2018 DERICK DON S [facility] RN Ot 250.00 DIAB THOMAS WO COMPL, TYPE II OR UNSPEC TY 03/07/2018 DERICK DON S [facility] RN Ot 401.9 HYPERTENSION NOS 03/07/2018 DERICK [facility] S [facility] RN Ot 710.0 SYST LUPUS ERYTHEMATOSIS 03/07/2018 DERICK DON S [facility] RN Ot V12.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 03/07/2018 DERICK DON S [facility] RN Ot V12.55 PERSONAL HISTORY OF PULMONARY EMBOLISM 03/07/2018 DERICK DON [facility] RN Ot V58.61 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S,LT,CURRENT USE 03/07/2018 DERICK DON S [facility] RN Ot V58.67 LONG-TERM (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 INSULIN 03/07/2018 DERICK DON S [facility] RN Ot V58.69 OTH MED,LT,CURRENT USE 03/07/2018 DERICK DON S [facility] RN Ot V87.41 PERSONAL HISTORY OF ANTINEOPLASTIC CHEMO 03/07/2018 CHARLENE RIVERA MD Ot 279.8 IMMUNE MECHANISM DIS NEC 03/07/2018 MIGUEL SUAREZ, CHARLENE Harden Ot 710.0 SYST LUPUS ERYTHEMATOSIS 03/07/2018 [facility] RN Ot 174.9 MALIGN NEOPL BREAST NOS 03/07/2018 [facility] RN Ot 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 03/07/2018 DERICK DON S [facility] RN Ot 710.0 SYST LUPUS ERYTHEMATOSIS 03/07/2018 [facility] RN Ot V12.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 03/07/2018 DERICK DON S [facility] RN Ot V12.55 PERSONAL HISTORY OF PULMONARY EMBOLISM 03/07/2018 [facility] RN Ot V58.61 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S,LT,CURRENT USE 03/07/2018 [facility] RN Ot V58.69 OTH MED,LT,CURRENT USE 03/07/2018 [facility] RN Ot V87.41 PERSONAL HISTORY OF ANTINEOPLASTIC CHEMO 03/07/2018 [facility] RN Ot 174.9 MALIGN NEOPL BREAST NOS 03/07/2018 DERICK DON S CALL [facility] RN Ot 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 03/07/2018 [facility]ERICK [facility] S [facility] RN Ot 710.0 SYST LUPUS ERYTHEMATOSIS 03/07/2018 [facility] RN Ot 782.2 LOCAL SUPRFICIAL SWELLNG 03/07/2018 [facility]ERICK [facility] RN Ot 786.50 CHEST PAIN NOS 03/07/2018 DERICK [facility] S [facility] RN Ot 790.5 ABN SERUM ENZY LEVEL NEC 03/07/2018 [facility] RN Ot V12.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 03/07/2018 [facility] RN Ot V12.55 PERSONAL HISTORY OF PULMONARY EMBOLISM 03/07/2018 [facility] RN Ot V45.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 03/07/2018 [facility] RN Ot V58.61 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S,LT,CURRENT USE 03/07/2018 [facility] RN Ot V58.69 OTH MED,LT,CURRENT USE 03/07/2018 [facility] RN Ot V87.41 PERSONAL HISTORY OF ANTINEOPLASTIC CHEMO 03/07/2018 RICHIE LEMUS DO Ot 250.00 DIAB THOMAS WO COMPL, TYPE II OR UNSPEC TY 03/07/2018 RICHIE LEMUS DO Ot 272.4 HYPERLIPIDEMIA NEC/NOS 03/07/2018 RICHIE LEMUS DO Ot 401.1 BENIGN HYPERTENSION 03/07/2018 [facility] RN Ot 174.9 MALIGN NEOPL BREAST NOS 03/07/2018 DERICK DONP Ot 174.9 MALIGN NEOPL BREAST NOS 03/07/2018 MOMO PINO Ot 397.0 TRICUSPID VALVE DISEASE 03/07/2018 MOMO PINO Ot 401.9 HYPERTENSION NOS 03/07/2018 MOMO PINO Ot 414.00 CORON ATHEROSCLER NOS TYPE VESSEL, NATIV 03/07/2018 MOMO PINO Ot 424.0 MITRAL VALVE DISORDER 03/07/2018 MOMO PINO Ot 786.09 RESPIRATORY ABNORM NEC 03/07/2018 DERICK DONP Ot 174.9 MALIGN NEOPL BREAST NOS 03/07/2018 DERICK DONP Ot 250.00 DIAB THOMAS WO COMPL, TYPE II OR UNSPEC TY 03/07/2018 DERICK DONP Ot 401.9 HYPERTENSION NOS 03/07/2018 DERICK DONP Ot 710.0 SYST LUPUS ERYTHEMATOSIS 03/07/2018 [facility] RN Ot V12.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 03/07/2018 [facility] RN Ot V58.61 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S,LT,CURRENT USE 03/07/2018 DERICK DONP Ot V58.69 OTH MED,LT,CURRENT USE 03/07/2018 DERICK DONP Ot V87.41 PERSONAL HISTORY OF ANTINEOPLASTIC CHEMO 03/07/2018 DERICK DONP Ot V76.12 OTH SCREEN MAMMO-MALIGN NEOPLASM OF REID 03/07/2018 SHABNAM HOLMAN DO Ot 278.01 MORBID OBESITY 03/07/2018 SHABNAM HOLMAN DO Ot 415.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/INFARCT 03/07/2018 SHABNAM HOLMAN DO Ot 795.79 OTH AND UNSPEC NONSPECIFIC IMMUNOLOGICAL 03/07/2018 SHABNAM HOLMAN DO Ot 278.01 MORBID OBESITY 03/07/2018 SHABNAM HOLMAN DO Ot 415.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/INFARCT 03/07/2018 RIVERSHABNAM GAR DO Ot 795.79 OTH AND UNSPEC NONSPECIFIC IMMUNOLOGICAL 03/07/2018 [facility] RN Ot 682.6 CELLULITIS OF LEG 03/07/2018 [facility]ERICK DON S CALL [facility] RN Ot 710.0 SYST LUPUS ERYTHEMATOSIS 03/07/2018 [facility] RN Ot 786.50 CHEST PAIN NOS 03/07/2018 [facility] RN Ot V10.3 HX OF BREAST MALIGNANCY 03/07/2018 [facility] RN Ot V12.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 03/07/2018 [facility] RN Ot V12.55 PERSONAL HISTORY OF PULMONARY EMBOLISM 03/07/2018 [facility] RN Ot V45.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 03/07/2018 [facility] RN Ot V67.2 CHEMOTHERAPY FOLLOW-UP 03/07/2018 [facility] RN Ot 786.50 CHEST PAIN NOS 03/07/2018 [facility] RN Ot 416.8 CHR PULMON HEART DIS NEC 03/07/2018 [facility] RN Ot 710.0 SYST LUPUS ERYTHEMATOSIS 03/07/2018 [facility] RN Ot M32.10 SYSTEMIC LUPUS ERYTHEMATOSUS, ORGAN OR S 03/07/2018 [facility] RN Ot V10.3 HX OF BREAST MALIGNANCY 03/07/2018 [facility] RN Ot V12.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 03/07/2018 [facility] RN Ot V12.55 PERSONAL HISTORY OF PULMONARY EMBOLISM 03/07/2018 [facility] RN Ot V45.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 03/07/2018 [facility] RN Ot V58.61 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S,LT,CURRENT USE 03/07/2018 [facility] RN Ot V58.69 OTH MED,LT,CURRENT USE 03/07/2018 [facility] RN Ot V67.2 CHEMOTHERAPY FOLLOW-UP 03/07/2018 [facility] RN Ot Z79.01 SNF (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 03/07/2018 [facility] RN Ot Z85.3 PERSONAL HISTORY OF MALIGNANT NEOPLASM O 03/07/2018 [facility] RN Ot Z86.711 PERSONAL HISTORY OF PULMONARY EMBOLISM 03/07/2018 [facility] DON Nadir CALL CENTER RN Ot Z86.718 PERSONAL HISTORY OF OTHER VENOUS THROMBO 03/07/2018 [facility] RN Ot Z90.10 ACQUIRED ABSENCE OF UNSPECIFIED BREAST A 03/07/2018 [facility]ERICK DON S CALL [facility] RN Ot 174.9 MALIGN NEOPL BREAST NOS 03/07/2018 DERICK DON S [facility] RN Ot 174.9 MALIGN NEOPL BREAST NOS 03/07/2018 DERICK DON S CALL [facility] RN Ot 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 03/07/2018 DERICK DON S [facility] RN Ot 416.8 CHR PULMON HEART DIS NEC 03/07/2018 [facility] RN Ot 710.0 SYST LUPUS ERYTHEMATOSIS 03/07/2018 [facility] RN Ot V10.3 HX OF BREAST MALIGNANCY 03/07/2018 KELLY DONERWIN Schmitz CALL CENTER RN Ot V12.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 03/07/2018 KELLY DONERWIN Nadir CALL CENTER RN Ot V12.55 PERSONAL HISTORY OF PULMONARY EMBOLISM 03/07/2018 [facility] RN Ot V45.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 03/07/2018 [facility] RN Ot V58.61 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S,LT,CURRENT USE 03/07/2018 KELLY DONERWIN Nadir CALL CENTER RN Ot V58.69 OTH MED,LT,CURRENT USE 03/07/2018 [facility]ER[facility] DON Nadir CALL CENTER RN Ot 786.2 COUGH 03/07/2018 [facility] RN Ot R05 COUGH 03/07/2018 [facility] RN Ot 174.9 MALIGN NEOPL BREAST NOS 03/07/2018 DERICK DON S CALL C[facility] RN Ot 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 03/07/2018 DERICK DON S CALL CENTER RN Ot 250.00 DIAB THOMAS WO COMPL, TYPE II OR UNSPEC TY 03/07/2018 DERICK DON S [facility] RN Ot 401.9 HYPERTENSION NOS 03/07/2018 DERICK DON S CALL C[facility] RN Ot 416.8 CHR PULMON HEART DIS NEC 03/07/2018 DERICK DON S CALL C[facility] RN Ot 710.0 SYST LUPUS ERYTHEMATOSIS 03/07/2018 ARIAN DERICK S CALL CENTER RN Ot V12.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 03/07/2018 ARIAN DERICK S CALL CENTER RN Ot V12.55 PERSONAL HISTORY OF PULMONARY EMBOLISM 03/07/2018 DERICK DON Nadir CALL CENTER RN Ot V58.61 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S,LT,CURRENT USE 03/07/2018 ARIAN DERICK Schmitz CALL CENTER RN Ot V58.69 OTH MED,LT,CURRENT USE 03/07/2018 ARIAN DERICK Schmitz CALL CENTER RN Ot V87.41 PERSONAL HISTORY OF ANTINEOPLASTIC CHEMO 03/07/2018 SILVAON MASON Ot 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 03/07/2018 SILVANO MASON N Ot 174.9 MALIGN NEOPL BREAST NOS 03/07/2018 SILVANO MASON Ot C34.90 MALIGNANT NEOPLASM OF UNSP PART OF UNSP 03/07/2018 SILVANO MASON Ot 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 03/07/2018 KELLY DONERWIN Nadir CALL CENTER RN Ot 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 03/07/2018 KELLY DONERWIN Schmitz CALL CENTER RN Ot 416.8 CHR PULMON HEART DIS NEC 03/07/2018 [facility] RN Ot V10.3 HX OF BREAST MALIGNANCY 03/07/2018 KELLY DONERWIN Schmitz CALL CENTER RN Ot V12.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 03/07/2018 KELLY DONERWIN Schmitz CALL CENTER RN Ot V12.55 PERSONAL HISTORY OF PULMONARY EMBOLISM 03/07/2018 DER[facility] DON Nadir CALL CENTER RN Ot V58.61 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S,LT,CURRENT USE 03/07/2018 ARIAN DERICK Schmitz CALL CENTER RN Ot V58.69 OTH MED,LT,CURRENT USE 03/07/2018 ARIAN DERICK S CALL CENTER RN Ot V87.41 PERSONAL HISTORY OF ANTINEOPLASTIC CHEMO 03/07/2018 CELESTINA SUAREZ, DIPAK Cali Ot 174.9 MALIGN NEOPL BREAST NOS 03/07/2018 DIPAK OSCAR MD Ot 401.9 HYPERTENSION NOS 03/07/2018 DIPAK OSCAR MD Ot 414.9 CHR ISCHEMIC HRT DIS NOS 03/07/2018 DIPAK OSCAR MD Ot 786.09 RESPIRATORY ABNORM NEC 03/07/2018 DIPAK OSCAR MD Ot 786.50 CHEST PAIN NOS 03/07/2018 DIPAK OSCAR MD Ot 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 03/07/2018 DIPAK OSCAR MD Ot I10 ESSENTIAL (PRIMARY) HYPERTENSION 03/07/2018 DIPAK OSCAR MD Ot I25.9 CHRONIC ISCHEMIC HEART DISEASE, UNSPECIF 03/07/2018 DIPAK OSCAR MD Ot R07.9 CHEST PAIN, UNSPECIFIED 03/07/2018 [facility] RN Ot 174.9 MALIGN NEOPL BREAST NOS 03/07/2018 [facility] RN Ot 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 03/07/2018 [facility] RN Ot 250.00 DIAB THOMAS WO COMPL, TYPE II OR UNSPEC TY 03/07/2018 [facility] RN Ot 401.9 HYPERTENSION NOS 03/07/2018 [facility] RN Ot 416.8 CHR PULMON HEART DIS NEC 03/07/2018 [facility] RN Ot 710.0 SYST LUPUS ERYTHEMATOSIS 03/07/2018 [facility] RN Ot V12.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 03/07/2018 [facility] RN Ot V12.55 PERSONAL HISTORY OF PULMONARY EMBOLISM 03/07/2018 [facility] RN Ot V58.61 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S,LT,CURRENT USE 03/07/2018 [facility] RN Ot V58.69 OTH MED,LT,CURRENT USE 03/07/2018 [facility] RN Ot V87.41 PERSONAL HISTORY OF ANTINEOPLASTIC CHEMO 03/07/2018 [facility] RN Ot 174.9 MALIGN NEOPL BREAST NOS 03/07/2018 [facility] RN Ot 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 03/07/2018 [facility] RN Ot 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 03/07/2018 [facility] RN Ot 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 03/07/2018 [facility] RN Ot 174.9 MALIGN NEOPL BREAST NOS 03/07/2018 DON, HILAH S CALL CENTER RN Ot 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 03/07/2018 [facility] RN Ot 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 03/07/2018 [facility] RN Ot 250.80 DIAB W OTH SPEC MANIFEST, TYPE II OR UNS 03/07/2018 [facility] RN Ot 356.9 IDIO PERIPH NEURPTHY NOS 03/07/2018 [facility] RN Ot 416.8 CHR PULMON HEART DIS NEC 03/07/2018 [facility] RN Ot 682.7 CELLULITIS OF FOOT 03/07/2018 [facility] RN Ot 707.15 ULCER OF OTHER PART OF FOOT 03/07/2018 [facility] RN Ot 710.0 SYST LUPUS ERYTHEMATOSIS 03/07/2018 [facility] RN Ot V12.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 03/07/2018 [facility] RN Ot V12.54 PERSONAL HX OF TIA, CEREBRAL INFARCTION 03/07/2018 [facility] RN Ot V45.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 03/07/2018 [facility] RN Ot V58.61 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S,LT,CURRENT USE 03/07/2018 [facility]ER[facility] RN Ot V58.69 OTH MED,LT,CURRENT USE 03/07/2018 [facility] RN Ot C50.912 MALIGNANT NEOPLASM OF UNSPECIFIED SITE O 03/07/2018 [facility] RN Ot C77.3 SEC AND UNSP MALIG NEOPLASM OF AXILLA AN 03/07/2018 [facility] RN Ot 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 03/07/2018 [facility] RN Ot 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 03/07/2018 [facility] RN Ot D50.9 IRON DEFICIENCY ANEMIA, UNSPECIFIED 03/07/2018 [facility]ER[facility] CALL [facility] RN Ot E11.621 TYPE 2 DIABETES MELLITUS WITH FOOT ULCER 03/07/2018 [facility] RN Ot G57.90 UNSPECIFIED MONONEUROPATHY OF UNSPECIFIE 03/07/2018 [facility] RN Ot H53.9 UNSPECIFIED VISUAL DISTURBANCE 03/07/2018 DONDERICK Schmitz CALL CENTER RN Ot 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 PULMONARY HYPERTENSION 03/07/2018 [facility] RN Ot L97.519 NON-PRS CHRONIC ULCER OTH PRT RIGHT FOOT 03/07/2018 DONDERICK Schmitz CALL CENTER RN Ot Z79.4 SNF (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 INSULIN 03/07/2018 DON DERICK Schmitz CALL CENTER RN Ot Z79.899 OTHER SNF (CURRENT) DRUG THERAPY 03/07/2018 DONDERICK Schmitz CALL CENTER RN Ot Z86.711 PERSONAL HISTORY OF PULMONARY EMBOLISM 03/07/2018 ARIAN DERICK Schmitz CALL CENTER RN Ot Z86.718 PERSONAL HISTORY OF OTHER VENOUS THROMBO 03/07/2018 DONDERICK Schmitz CALL CENTER RN Ot H53.9 UNSPECIFIED VISUAL DISTURBANCE 03/07/2018 DONDERICK Schmitz CALL CENTER RN Ot R26.81 UNSTEADINESS ON FEET 03/07/2018 SILVANO MASON Ot C34.90 MALIGNANT NEOPLASM OF UNSP PART OF UNSP 03/07/2018 SILVANO MASON N Ot 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 03/07/2018 SILVANO MASON N Ot C34.90 MALIGNANT NEOPLASM OF UNSP PART OF UNSP 03/07/2018 SILVANO MASON Ot 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 03/07/2018 SILVANO MASON N Ot 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 03/07/2018 SILVANO MASON Ot 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 03/07/2018 ARIAN DERICK Nadir CALL CENTER RN Ot 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 03/07/2018 DERICK DON CALL C[facility] RN Ot C77.3 SEC AND UNSP MALIG NEOPLASM OF AXILLA AN 03/07/2018 [facility] RN Ot 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 03/07/2018 KELLY DONERWIN Nadir CALL CENTER RN Ot 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 03/07/2018 [facility]ER[facility] CALL [facility] RN Ot E11.9 TYPE 2 DIABETES MELLITUS WITHOUT COMPLIC 03/07/2018 KELLY DONERWIN Schmitz CALL CENTER RN Ot 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 PULMONARY HYPERTENSION 03/07/2018 DON DERICK Schmitz CALL CENTER RN Ot 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 03/07/2018 KELLY DONERWIN Schmitz CALL CENTER RN Ot Z86.711 PERSONAL HISTORY OF PULMONARY EMBOLISM 03/07/2018 ARIAN DERICK Schmitz CALL CENTER RN Ot Z86.718 PERSONAL HISTORY OF OTHER VENOUS THROMBO 03/07/2018 ARIAN DERICK Schmitz CALL CENTER RN Ot Z90.12 ACQUIRED ABSENCE OF LEFT BREAST AND NIPP 03/07/2018 ARIAN DERICK Schmitz CALL CENTER RN Ot Z92.21 PERSONAL HISTORY OF ANTINEOPLASTIC CHEMO 03/07/2018 ARIAN DERICK Schmitz CALL CENTER RN Ot Z95.2 PRESENCE OF PROSTHETIC HEART VALVE 03/07/2018 ARIAN DERICK Schmitz CALL CENTER RN Ot 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 03/07/2018 KELLY DONERWIN Schmitz CALL CENTER RN Ot C77.3 SEC AND UNSP MALIG NEOPLASM OF AXILLA AN 03/07/2018 KELLY DONERWIN Schmitz CALL CENTER RN Ot 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 03/07/2018 ARIAN DERICK Schmitz CALL CENTER RN Ot 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 03/07/2018 ARIAN DERICK Schmitz CALL CENTER RN Ot E11.9 TYPE 2 DIABETES MELLITUS WITHOUT COMPLIC 03/07/2018 ARIAN DERICK Schmitz CALL CENTER RN Ot 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 PULMONARY HYPERTENSION 03/07/2018 ARIAN DERICK Schmitz CALL CENTER RN Ot 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 03/07/2018 KELLY DONERWIN Schmitz CALL CENTER RN Ot Z86.711 PERSONAL HISTORY OF PULMONARY EMBOLISM 03/07/2018 KELLY DONERWIN Schmitz CALL CENTER RN Ot Z86.718 PERSONAL HISTORY OF OTHER VENOUS THROMBO 03/07/2018 ARIAN DERICK Schmitz CALL CENTER RN Ot Z90.12 ACQUIRED ABSENCE OF LEFT BREAST AND NIPP 03/07/2018 ARIAN DERICK Schmitz CALL CENTER RN Ot Z92.21 PERSONAL HISTORY OF ANTINEOPLASTIC CHEMO 03/07/2018 ARIAN DERICK Schmitz CALL CENTER RN Ot Z95.2 PRESENCE OF PROSTHETIC HEART VALVE 03/07/2018 ARIAN DERICK Schmitz CALL CENTER RN Ot 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 03/07/2018 ARIAN DERICK Schmitz CALL CENTER RN Ot 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 03/07/2018 SILVANO MASON Ot 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 03/07/2018 SILVANO MASON Ot 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 03/07/2018 DERICK DON CALL CENTER RN Ot 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 03/07/2018 DERICK DON CALL CENTER RN Ot C77.3 SEC AND UNSP MALIG NEOPLASM OF AXILLA AN 03/07/2018 DERICK DON CALL CENTER RN Ot 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 03/07/2018 DERICK DON CALL CENTER RN Ot 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 03/07/2018 DERICK DON CALL CENTER RN Ot E11.9 TYPE 2 DIABETES MELLITUS WITHOUT COMPLIC 03/07/2018 DERICK DON S CALL CENTER RN Ot 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 PULMONARY HYPERTENSION 03/07/2018 DERICK DON S CALL CENTER RN Ot Z79.01 SNF (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 03/07/2018 DERICK DON S CALL CENTER RN Ot Z86.711 PERSONAL HISTORY OF PULMONARY EMBOLISM 03/07/2018 DERICK DON S CALL CENTER RN Ot Z86.718 PERSONAL HISTORY OF OTHER VENOUS THROMBO 03/07/2018 DERICK DON S CALL CENTER RN Ot Z90.12 ACQUIRED ABSENCE OF LEFT BREAST AND NIPP 03/07/2018 DERICK DON S CALL CENTER RN Ot Z92.21 PERSONAL HISTORY OF ANTINEOPLASTIC CHEMO 03/07/2018 SILVANO MASON Ot 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 03/07/2018 SILVANO MASON Ot 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 03/07/2018 DERICK DON CALL CENTER RN Ot 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 03/07/2018 DERICK DON S CALL CENTER RN Ot 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 03/07/2018 DERICK DON S CALL CENTER RN Ot 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 03/07/2018 DERICK DON S CALL CENTER RN Ot 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 03/07/2018 DERICK DON S CALL CENTER RN Ot C78.7 SECONDARY MALIG NEOPLASM OF LIVER AND IN 03/07/2018 BEKA VICTOR MD Ot 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 03/07/2018 BEKA VICTOR MD Ot C78.7 SECONDARY MALIG NEOPLASM OF LIVER AND IN 03/07/2018 BEKA VICTOR MD Ot C79.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 03/07/2018 BEKA VICTOR MD Ot 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 03/07/2018 EBKA VICTOR MD, Ot 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 03/07/2018 BEKA VICTOR MD, Ot C78.7 SECONDARY MALIG NEOPLASM OF LIVER AND IN 03/07/2018 BEKA VICTOR MD Ot M84.58XA PATHOLOGICAL FRACTURE IN NEOPLASTIC DISE 03/07/2018 DERICK DON CALL CENTER RN Ot 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 03/07/2018 DERICK DON CALL CENTER RN Ot C79.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 03/07/2018 DERICK DON CALL CENTER RN Ot M47.816 SPONDYLOSIS W/O MYELOPATHY OR RADICULOPA 03/07/2018 SILVANO MASON Ot 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 03/07/2018 SILVANO MASON Ot 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 03/07/2018 SILVANO MASON Ot C78.7 SECONDARY MALIG NEOPLASM OF LIVER AND IN 03/07/2018 SILVANO MASON Ot C79.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 03/07/2018 SILAVNO MASON Ot M54.5 LOW BACK PAIN 03/07/2018 SILVANO MASON Ot Z01.89 ENCOUNTER FOR OTHER SPECIFIED SPECIAL EX 03/07/2018 BEKA VICTOR MD Ot C34.90 MALIGNANT NEOPLASM OF UNSP PART OF UNSP 03/07/2018 BEKA VICTOR MD Ot 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 03/07/2018 BEKA VICTOR MD Ot 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 03/07/2018 BEKA VICTOR MD Ot C78.7 SECONDARY MALIG NEOPLASM OF LIVER AND IN 03/07/2018 BEKA VICTOR MD Ot C79.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 03/07/2018 SILVANO MASON Ot 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 03/07/2018 SILVANO MASON Ot C77.3 SEC AND UNSP MALIG NEOPLASM OF AXILLA AN 03/07/2018 SILVANO MASON Tiffany Ot 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 03/07/2018 SILVANO MASON iTffany Ot 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 03/07/2018 SILVANO MASON Tiffany Ot C78.7 SECONDARY MALIG NEOPLASM OF LIVER AND IN 03/07/2018 SILVANO MASON Tiffany Ot E11.9 TYPE 2 DIABETES MELLITUS WITHOUT COMPLIC 03/07/2018 SILVANO MASON Tiffany Ot I27.20 PULMONARY HYPERTENSION, UNSPECIFIED 03/07/2018 SILVANO MASON Tiffany Ot Z51.11 ENCOUNTER FOR ANTINEOPLASTIC CHEMOTHERAP 03/07/2018 SILVANO MASON Tiffany Ot Z79.01 SNF (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 03/07/2018 SILVANO MASON Tiffany Ot Z86.711 PERSONAL HISTORY OF PULMONARY EMBOLISM 03/07/2018 MARLONGIORGICOURTNEY Tiffany Ot Z86.718 PERSONAL HISTORY OF OTHER VENOUS THROMBO 03/07/2018 SILVANO MASON Tiffany Ot Z90.12 ACQUIRED ABSENCE OF LEFT BREAST AND NIPP 03/07/2018 SILVANO MASON Tiffany Ot Z92.21 PERSONAL HISTORY OF ANTINEOPLASTIC CHEMO 03/08/2018 Ot 174.9 MALIGN NEOPL BREAST NOS 03/08/2018 Ot 250.00 DIAB THOMAS WO COMPL, TYPE II OR UNSPEC TY 03/08/2018 Ot 401.9 HYPERTENSION NOS 03/08/2018 Ot 709.9 SKIN DISORDER NOS 03/08/2018 Ot 710.0 SYST LUPUS ERYTHEMATOSIS 03/08/2018 Ot V12.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 03/08/2018 Ot V58.61 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S,LT,CURRENT USE 03/08/2018 Ot V58.69 OTH MED,LT, CURRENT USE 03/08/2018 Ot 174.9 MALIGN NEOPL BREAST NOS 03/08/2018 SILVANO MASON Tiffany Ot 174.9 MALIGN NEOPL BREAST NOS 03/08/2018 MARLONSILVANO Ot 397.0 TRICUSPID VALVE DISEASE 03/08/2018 MARLONSILVANO Ot 424.0 MITRAL VALVE DISORDER 03/08/2018 MARLON SILVANO Tiffany Ot V58.69 OTH MED,LT,CURRENT USE 03/08/2018 SILVANO MASON Tiffany Ot V87.41 PERSONAL HISTORY OF ANTINEOPLASTIC CHEMO 03/08/2018 MARLONSILVANO Ot 174.9 MALIGN NEOPL BREAST NOS 03/08/2018 CELESTINA SUAREZ, DIPAK Cali Ot 786.09 RESPIRATORY ABNORM NEC 03/08/2018 DERICK [facility] RN Ot 174.9 MALIGN NEOPL BREAST NOS 03/08/2018 DERICK DON S [facility] RN Ot 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 03/08/2018 DERICK DON S [facility] RN Ot 250.00 DIAB THOMAS WO COMPL, TYPE II OR UNSPEC TY 03/08/2018 DERICK DON S [facility] RN Ot 401.9 HYPERTENSION NOS 03/08/2018 DERICK DON S [facility] RN Ot 710.0 SYST LUPUS ERYTHEMATOSIS 03/08/2018 DERICK DON S [facility] RN Ot V12.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 03/08/2018 DERICK DON S [facility] RN Ot V12.55 PERSONAL HISTORY OF PULMONARY EMBOLISM 03/08/2018 DERICK [facility] RN Ot V58.61 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S,LT,CURRENT USE 03/08/2018 DERICK [facility] RN Ot V58.67 LONG-TERM (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 INSULIN 03/08/2018 DERICK DON S [facility] RN Ot V58.69 OTH MED,LT,CURRENT USE 03/08/2018 DERICK [facility] RN Ot V87.41 PERSONAL HISTORY OF ANTINEOPLASTIC CHEMO 03/08/2018 DER[facility] RN Ot 174.9 MALIGN NEOPL BREAST NOS 03/08/2018 DERICK [facility] RN Ot 174.9 MALIGN NEOPL BREAST NOS 03/08/2018 DERICK [facility] RN Ot 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 03/08/2018 DERICK DON S [facility] RN Ot 250.00 DIAB THOMAS WO COMPL, TYPE II OR UNSPEC TY 03/08/2018 DERICK DON S [facility] RN Ot 401.9 HYPERTENSION NOS 03/08/2018 [facility] S [facility] RN Ot 710.0 SYST LUPUS ERYTHEMATOSIS 03/08/2018 [facility] RN Ot V12.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 03/08/2018 [facility] RN Ot V12.55 PERSONAL HISTORY OF PULMONARY EMBOLISM 03/08/2018 [facility] RN Ot V58.61 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S,LT,CURRENT USE 03/08/2018 DERCIK [facility] RN Ot V58.67 LONG-TERM (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 INSULIN 03/08/2018 [facility] RN Ot V58.69 OTH MED,LT,CURRENT USE 03/08/2018 [facility] RN Ot V87.41 PERSONAL HISTORY OF ANTINEOPLASTIC CHEMO 03/08/2018 CHARLENE RIVERA MD Ot 279.8 IMMUNE MECHANISM DIS NEC 03/08/2018 CHARLENE RIVERA MD Ot 710.0 SYST LUPUS ERYTHEMATOSIS 03/08/2018 [facility] RN Ot 174.9 MALIGN NEOPL BREAST NOS 03/08/2018 [facility] RN Ot 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 03/08/2018 [facility] RN Ot 710.0 SYST LUPUS ERYTHEMATOSIS 03/08/2018 [facility] RN Ot V12.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 03/08/2018 [facility] RN Ot V12.55 PERSONAL HISTORY OF PULMONARY EMBOLISM 03/08/2018 [facility] RN Ot V58.61 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S,LT,CURRENT USE 03/08/2018 DERICK DONP Ot V58.69 OTH MED,LT,CURRENT USE 03/08/2018 [facility] RN Ot V87.41 PERSONAL HISTORY OF ANTINEOPLASTIC CHEMO 03/08/2018 [facility] RN Ot 174.9 MALIGN NEOPL BREAST NOS 03/08/2018 [facility] RN Ot 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 03/08/2018 [facility] RN Ot 710.0 SYST LUPUS ERYTHEMATOSIS 03/08/2018 [facility] RN Ot 782.2 LOCAL SUPRFICIAL SWELLNG 03/08/2018 [facility] RN Ot 786.50 CHEST PAIN NOS 03/08/2018 EDR[facility] RN Ot 790.5 ABN SERUM ENZY LEVEL NEC 03/08/2018 [facility] RN Ot V12.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 03/08/2018 [facility] RN Ot V12.55 PERSONAL HISTORY OF PULMONARY EMBOLISM 03/08/2018 [facility] RN Ot V45.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 03/08/2018 [facility] RN Ot V58.61 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S,LT,CURRENT USE 03/08/2018 [facility] RN Ot V58.69 OTH MED,LT,CURRENT USE 03/08/2018 DERICK DONP Ot V87.41 PERSONAL HISTORY OF ANTINEOPLASTIC CHEMO 03/08/2018 RICHIE LEMUS DO Ot 250.00 DIAB THOMAS WO COMPL, TYPE II OR UNSPEC TY 03/08/2018 RICHIE LEMUS DO Ot 272.4 HYPERLIPIDEMIA NEC/NOS 03/08/2018 RICHIE LEMUS DO Ot 401.1 BENIGN HYPERTENSION 03/08/2018 DERICK DONP Ot 174.9 MALIGN NEOPL BREAST NOS 03/08/2018 DERICK DONP Ot 174.9 MALIGN NEOPL BREAST NOS 03/08/2018 MOMO PINO Ot 397.0 TRICUSPID VALVE DISEASE 03/08/2018 MOMO PINO Ot 401.9 HYPERTENSION NOS 03/08/2018 MOMO PINO Ot 414.00 CORON ATHEROSCLER NOS TYPE VESSEL, NATIV 03/08/2018 MOMO PINO Ot 424.0 MITRAL VALVE DISORDER 03/08/2018 MOMO PINO Ot 786.09 RESPIRATORY ABNORM NEC 03/08/2018 [facility] RN Ot 174.9 MALIGN NEOPL BREAST NOS 03/08/2018 DERICK DONP Ot 250.00 DIAB THOMAS WO COMPL, TYPE II OR UNSPEC TY 03/08/2018 [facility] RN Ot 401.9 HYPERTENSION NOS 03/08/2018 [facility] RN Ot 710.0 SYST LUPUS ERYTHEMATOSIS 03/08/2018 [facility] RN Ot V12.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 03/08/2018 [facility] RN Ot V58.61 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S,LT,CURRENT USE 03/08/2018 DERICK DONP Ot V58.69 OTH MED,LT,CURRENT USE 03/08/2018 [facility] RN Ot V87.41 PERSONAL HISTORY OF ANTINEOPLASTIC CHEMO 03/08/2018 DON, HILAH S CALL [facility] RN Ot V76.12 OTH SCREEN MAMMO-MALIGN NEOPLASM OF REID 03/08/2018 SHABNAM HOLMAN DO Ot 278.01 MORBID OBESITY 03/08/2018 SHABNAM HOLMAN DO Ot 415.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/INFARCT 03/08/2018 SHABNAM HOLMAN DO Ot 795.79 OTH AND UNSPEC NONSPECIFIC IMMUNOLOGICAL 03/08/2018 SHABNAM HOLMAN DO Ot 278.01 MORBID OBESITY 03/08/2018 SHABNAM HOLMAN DO Ot 415.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/INFARCT 03/08/2018 SHABNAM HOLMAN DO Ot 795.79 OTH AND UNSPEC NONSPECIFIC IMMUNOLOGICAL 03/08/2018 [facility] RN Ot 682.6 CELLULITIS OF LEG 03/08/2018 [facility] RN Ot 710.0 SYST LUPUS ERYTHEMATOSIS 03/08/2018 [facility] RN Ot 786.50 CHEST PAIN NOS 03/08/2018 [facility] RN Ot V10.3 HX OF BREAST MALIGNANCY 03/08/2018 [facility] RN Ot V12.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 03/08/2018 [facility] RN Ot V12.55 PERSONAL HISTORY OF PULMONARY EMBOLISM 03/08/2018 [facility] RN Ot V45.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 03/08/2018 [facility] RN Ot V67.2 CHEMOTHERAPY FOLLOW-UP 03/08/2018 [facility] RN Ot 786.50 CHEST PAIN NOS 03/08/2018 [facility] RN Ot 416.8 CHR PULMON HEART DIS NEC 03/08/2018 [facility] RN Ot 710.0 SYST LUPUS ERYTHEMATOSIS 03/08/2018 [facility] RN Ot M32.10 SYSTEMIC LUPUS ERYTHEMATOSUS, ORGAN OR S 03/08/2018 [facility] RN Ot V10.3 HX OF BREAST MALIGNANCY 03/08/2018 [facility] RN Ot V12.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 03/08/2018 [facility] RN Ot V12.55 PERSONAL HISTORY OF PULMONARY EMBOLISM 03/08/2018 [facility] RN Ot V45.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 03/08/2018 [facility] RN Ot V58.61 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S,LT,CURRENT USE 03/08/2018 [facility] RN Ot V58.69 OTH MED,LT,CURRENT USE 03/08/2018 [facility] RN Ot V67.2 CHEMOTHERAPY FOLLOW-UP 03/08/2018 [facility] RN Ot Z79.01 SNF (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 03/08/2018 [facility] RN Ot Z85.3 PERSONAL HISTORY OF MALIGNANT NEOPLASM O 03/08/2018 [facility] RN Ot Z86.711 PERSONAL HISTORY OF PULMONARY EMBOLISM 03/08/2018 [facility] RN Ot Z86.718 PERSONAL HISTORY OF OTHER VENOUS THROMBO 03/08/2018 [facility] RN Ot Z90.10 ACQUIRED ABSENCE OF UNSPECIFIED BREAST A 03/08/2018 [facility] RN Ot 174.9 MALIGN NEOPL BREAST NOS 03/08/2018 [facility] RN Ot 174.9 MALIGN NEOPL BREAST NOS 03/08/2018 [facility] RN Ot 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 03/08/2018 [facility] RN Ot 416.8 CHR PULMON HEART DIS NEC 03/08/2018 [facility] RN Ot 710.0 SYST LUPUS ERYTHEMATOSIS 03/08/2018 [facility] RN Ot V10.3 HX OF BREAST MALIGNANCY 03/08/2018 [facility] RN Ot V12.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 03/08/2018 [facility] RN Ot V12.55 PERSONAL HISTORY OF PULMONARY EMBOLISM 03/08/2018 [facility] RN Ot V45.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 03/08/2018 [facility] RN Ot V58.61 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S,LT,CURRENT USE 03/08/2018 [facility] RN Ot V58.69 OTH MED,LT,CURRENT USE 03/08/2018 [facility] RN Ot 786.2 COUGH 03/08/2018 [facility] RN Ot R05 COUGH 03/08/2018 DON, HILAH S CALL [facility] RN Ot 174.9 MALIGN NEOPL BREAST NOS 03/08/2018 [facility] DON Nadir [facility] RN Ot 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 03/08/2018 [facility] RN Ot 250.00 DIAB THOMAS WO COMPL, TYPE II OR UNSPEC TY 03/08/2018 [facility] RN Ot 401.9 HYPERTENSION NOS 03/08/2018 [facility] RN Ot 416.8 CHR PULMON HEART DIS NEC 03/08/2018 [facility] RN Ot 710.0 SYST LUPUS ERYTHEMATOSIS 03/08/2018 [facility] RN Ot V12.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 03/08/2018 [facility] RN Ot V12.55 PERSONAL HISTORY OF PULMONARY EMBOLISM 03/08/2018 [facility] RN Ot V58.61 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S,LT,CURRENT USE 03/08/2018 [facility] RN Ot V58.69 OTH MED,LT,CURRENT USE 03/08/2018 [facility] RN Ot V87.41 PERSONAL HISTORY OF ANTINEOPLASTIC CHEMO 03/08/2018 SILVANO MASON Ot 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 03/08/2018 SILVANO MASON Ot 174.9 MALIGN NEOPL BREAST NOS 03/08/2018 SILVANO MASON Ot C34.90 MALIGNANT NEOPLASM OF UNSP PART OF UNSP 03/08/2018 SILVANO MASON Ot 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 03/08/2018 [facility] RN Ot 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 03/08/2018 [facility] RN Ot 416.8 CHR PULMON HEART DIS NEC 03/08/2018 [facility] RN Ot V10.3 HX OF BREAST MALIGNANCY 03/08/2018 [facility] RN Ot V12.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 03/08/2018 [facility] RN Ot V12.55 PERSONAL HISTORY OF PULMONARY EMBOLISM 03/08/2018 [facility] RN Ot V58.61 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S,LT,CURRENT USE 03/08/2018 [facility] RN Ot V58.69 OTH MED,LT,CURRENT USE 03/08/2018 DERICK DONP Ot V87.41 PERSONAL HISTORY OF ANTINEOPLASTIC CHEMO 03/08/2018 DIPAK OSCAR MD Ot 174.9 MALIGN NEOPL BREAST NOS 03/08/2018 DIPAK OSCAR MD Ot 401.9 HYPERTENSION NOS 03/08/2018 DIPAK OSCAR MD Ot 414.9 CHR ISCHEMIC HRT DIS NOS 03/08/2018 DIPAK OSCAR MD Ot 786.09 RESPIRATORY ABNORM NEC 03/08/2018 DIPAK OSCAR MD Ot 786.50 CHEST PAIN NOS 03/08/2018 DIPAK OSCAR MD Ot 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 03/08/2018 DIPAK OSCAR MD Ot I10 ESSENTIAL (PRIMARY) HYPERTENSION 03/08/2018 DIPAK OSCAR MD Ot I25.9 CHRONIC ISCHEMIC HEART DISEASE, UNSPECIF 03/08/2018 DIPAK OSCAR MD Ot R07.9 CHEST PAIN, UNSPECIFIED 03/08/2018 DERICK DONP Ot 174.9 MALIGN NEOPL BREAST NOS 03/08/2018 [facility] RN Ot 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 03/08/2018 [facility] RN Ot 250.00 DIAB THOMAS WO COMPL, TYPE II OR UNSPEC TY 03/08/2018 [facility] RN Ot 401.9 HYPERTENSION NOS 03/08/2018 [facility] RN Ot 416.8 CHR PULMON HEART DIS NEC 03/08/2018 [facility] RN Ot 710.0 SYST LUPUS ERYTHEMATOSIS 03/08/2018 [facility] RN Ot V12.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 03/08/2018 [facility] RN Ot V12.55 PERSONAL HISTORY OF PULMONARY EMBOLISM 03/08/2018 [facility] RN Ot V58.61 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S,LT,CURRENT USE 03/08/2018 DERICK DONP Ot V58.69 OTH MED,LT,CURRENT USE 03/08/2018 [facility] RN Ot V87.41 PERSONAL HISTORY OF ANTINEOPLASTIC CHEMO 03/08/2018 [facility] RN Ot 174.9 MALIGN NEOPL BREAST NOS 03/08/2018 [facility] RN Ot 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 03/08/2018 [facility] RN Ot 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 03/08/2018 [facility] RN Ot 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 03/08/2018 [facility] RN Ot 174.9 MALIGN NEOPL BREAST NOS 03/08/2018 [facility] RN Ot 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 03/08/2018 [facility] RN Ot 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 03/08/2018 [facility] RN Ot 250.80 DIAB W OTH SPEC MANIFEST, TYPE II OR UNS 03/08/2018 [facility] RN Ot 356.9 IDIO PERIPH NEURPTHY NOS 03/08/2018 [facility] RN Ot 416.8 CHR PULMON HEART DIS NEC 03/08/2018 [facility] RN Ot 682.7 CELLULITIS OF FOOT 03/08/2018 [facility] RN Ot 707.15 ULCER OF OTHER PART OF FOOT 03/08/2018 [facility] RN Ot 710.0 SYST LUPUS ERYTHEMATOSIS 03/08/2018 [facility] RN Ot V12.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 03/08/2018 [facility] RN Ot V12.54 PERSONAL HX OF TIA, CEREBRAL INFARCTION 03/08/2018 [facility] RN Ot V45.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 03/08/2018 [facility] RN Ot V58.61 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S,LT,CURRENT USE 03/08/2018 [facility] RN Ot V58.69 OTH MED,LT,CURRENT USE 03/08/2018 [facility] RN Ot C50.912 MALIGNANT NEOPLASM OF UNSPECIFIED SITE O 03/08/2018 [facility] RN Ot C77.3 SEC AND UNSP MALIG NEOPLASM OF AXILLA AN 03/08/2018 [facility] RN Ot 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 03/08/2018 [facility] RN Ot 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 03/08/2018 [facility] RN Ot D50.9 IRON DEFICIENCY ANEMIA, UNSPECIFIED 03/08/2018 [facility] RN Ot E11.621 TYPE 2 DIABETES MELLITUS WITH FOOT ULCER 03/08/2018 [facility] RN Ot G57.90 UNSPECIFIED MONONEUROPATHY OF UNSPECIFIE 03/08/2018 [facility] RN Ot H53.9 UNSPECIFIED VISUAL DISTURBANCE 03/08/2018 [facility] RN Ot 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 PULMONARY HYPERTENSION 03/08/2018 [facility] RN Ot L97.519 NON-PRS CHRONIC ULCER OTH PRT RIGHT FOOT 03/08/2018 [facility] RN Ot 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90 MALIGNANT NEOPLASM OF UNSP PART OF UNSP 03/08/2018 SILVANO MASON Ot 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 03/08/2018 SILVANO MASON Ot 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 03/08/2018 SILVANO MASON Ot 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 03/08/2018 DON DERICK Schmitz CALL [facility] RN Ot 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 03/08/2018 DON DERICK [facility] RN Ot C77.3 SEC AND UNSP MALIG NEOPLASM OF AXILLA AN 03/08/2018 DERICK DON Nadir CALL [facility] RN Ot 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 03/08/2018 KELLY DONERWIN Sch[facility]z CALL [facility] RN Ot 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 03/08/2018 KELLY DONERWIN [facility] RN Ot E11.9 TYPE 2 DIABETES MELLITUS WITHOUT COMPLIC 03/08/2018 KELLY DONERWIN [facility] RN Ot 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 PULMONARY HYPERTENSION 03/08/2018 [facility] RN Ot 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 03/08/2018 [facility] RN Ot Z86.711 PERSONAL HISTORY OF PULMONARY EMBOLISM 03/08/2018 [facility] RN Ot Z86.718 PERSONAL HISTORY OF OTHER VENOUS THROMBO 03/08/2018 [facility] RN Ot Z90.12 ACQUIRED ABSENCE OF LEFT BREAST AND NIPP 03/08/2018 [facility] RN Ot Z92.21 PERSONAL HISTORY OF ANTINEOPLASTIC CHEMO 03/08/2018 [facility] RN Ot Z95.2 PRESENCE OF PROSTHETIC HEART VALVE 03/08/2018 [facility] RN Ot 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 03/08/2018 [facility] RN Ot C77.3 SEC AND UNSP MALIG NEOPLASM OF AXILLA AN 03/08/2018 [facility] RN Ot 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 03/08/2018 [facility] RN Ot 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 03/08/2018 [facility] RN Ot E11.9 TYPE 2 DIABETES MELLITUS WITHOUT COMPLIC 03/08/2018 [facility] RN Ot 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 PULMONARY HYPERTENSION 03/08/2018 [facility] RN Ot 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 03/08/2018 [facility] RN Ot Z86.711 PERSONAL HISTORY OF PULMONARY EMBOLISM 03/08/2018 [facility] RN Ot Z86.718 PERSONAL HISTORY OF OTHER VENOUS THROMBO 03/08/2018 [facility] RN Ot Z90.12 ACQUIRED ABSENCE OF LEFT BREAST AND NIPP 03/08/2018 [facility] RN Ot Z92.21 PERSONAL HISTORY OF ANTINEOPLASTIC CHEMO 03/08/2018 DER[facility] DON Nad[facility] RN Ot Z95.2 PRESENCE OF PROSTHETIC HEART VALVE 03/08/2018 [facility] RN Ot 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 03/08/2018 DER[facility] DON Nadir [facility] RN Ot 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 03/08/2018 SILVANO MASON Ot 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 03/08/2018 MARLONSILVANO BROOKS N Ot 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 03/08/2018 [facility]ER[facility] DON [facility] RN Ot 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 03/08/2018 [facility] RN Ot C77.3 SEC AND UNSP MALIG NEOPLASM OF AXILLA AN 03/08/2018 [facility] RN Ot 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 03/08/2018 [facility] RN Ot 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 03/08/2018 KELLY DONERWIN [facility] CALL [facility] RN Ot E11.9 TYPE 2 DIABETES MELLITUS WITHOUT COMPLIC 03/08/2018 KELLY DONERWIN [facility] RN Ot 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 PULMONARY HYPERTENSION 03/08/2018 [facility] RN Ot 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 03/08/2018 DER[facility] DON Nadir [facility] RN Ot Z86.711 PERSONAL HISTORY OF PULMONARY EMBOLISM 03/08/2018 [facility] RN Ot Z86.718 PERSONAL HISTORY OF OTHER VENOUS THROMBO 03/08/2018 [facility] RN Ot Z90.12 ACQUIRED ABSENCE OF LEFT BREAST AND NIPP 03/08/2018 KELLY DONERWIN Sch[facility] CALL [facility] RN Ot Z92.21 PERSONAL HISTORY OF ANTINEOPLASTIC CHEMO 03/08/2018 SILVANO MASON Ot 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 03/08/2018 MARLONSILVANO BROOKS N Ot 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 03/08/2018 [facility] RN Ot 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 03/08/2018 [facility] RN Ot 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 03/08/2018 [facility] RN Ot 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 03/08/2018 [facility] RN Ot 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 03/08/2018 [facility] RN Ot C78.7 SECONDARY MALIG NEOPLASM OF LIVER AND IN 03/08/2018 BEKA VICTOR MD Ot 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 03/08/2018 BEKA VICTOR MD, Ot C78.7 SECONDARY MALIG NEOPLASM OF LIVER AND IN 03/08/2018 BEKA VICTOR MD Ot C79.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 03/08/2018 BEAK VICTOR MD Ot 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 03/08/2018 BEKA VICTOR MD, Ot 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 03/08/2018 BEKA VICTOR MD, Ot C78.7 SECONDARY MALIG NEOPLASM OF LIVER AND IN 03/08/2018 BEKA VICTOR MD Ot M84.58XA PATHOLOGICAL FRACTURE IN NEOPLASTIC DISE 03/08/2018 [facility] RN Ot 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 03/08/2018 [facility] RN Ot C79.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 03/08/2018 DERICK DON S CALL CENTER RN Ot M47.816 SPONDYLOSIS W/O MYELOPATHY OR RADICULOPA 03/08/2018 SILVANO MASON Ot 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 03/08/2018 SILVANO MASON N Ot 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 03/08/2018 SILVANO MASON N Ot C78.7 SECONDARY MALIG NEOPLASM OF LIVER AND IN 03/08/2018 SILVANO MASON N Ot C79.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 03/08/2018 SILVANO MASON Ot M54.5 LOW BACK PAIN 03/08/2018 SILVANO MASON Ot Z01.89 ENCOUNTER FOR OTHER SPECIFIED SPECIAL EX 03/08/2018 BEKA VICTOR MD Ot C34.90 MALIGNANT NEOPLASM OF UNSP PART OF UNSP 03/08/2018 BEKA VICTOR MD Ot 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 03/08/2018 BEKA VCITOR MD Ot 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 03/08/2018 BEKA VICTOR MD Ot C78.7 SECONDARY MALIG NEOPLASM OF LIVER AND IN 03/08/2018 BEKA VICTOR MD Ot C79.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 03/08/2018 MARLONSILVANO Ot 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 03/08/2018 MARLON SILVANO Allen Ot C77.3 SEC AND UNSP MALIG NEOPLASM OF AXILLA AN 03/08/2018 MARLON SILVANO Allen Ot 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 03/08/2018 MARLONSILVANO Ot 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 03/08/2018 MARLON, SILVANO Allen Ot C78.7 SECONDARY MALIG NEOPLASM OF LIVER AND IN 03/08/2018 MARLONSILVANO N Ot E11.9 TYPE 2 DIABETES MELLITUS WITHOUT COMPLIC 03/08/2018 SILVANO MASON N Ot I27.20 PULMONARY HYPERTENSION, UNSPECIFIED 03/08/2018 SILVANO MASON Ot Z51.11 ENCOUNTER FOR ANTINEOPLASTIC CHEMOTHERAP 03/08/2018 SILVANO MASON Ot Z79.01 SNF (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 03/08/2018 MARLONSILVANO Ot Z86.711 PERSONAL HISTORY OF PULMONARY EMBOLISM 03/08/2018 SILVANO MASON Ot Z86.718 PERSONAL HISTORY OF OTHER VENOUS THROMBO 03/08/2018 MARLONSILVANO Ot Z90.12 ACQUIRED ABSENCE OF LEFT BREAST AND NIPP 03/08/2018 MARLONSILVANO Ot Z92.21 PERSONAL HISTORY OF ANTINEOPLASTIC CHEMO 03/23/2018 MARLONSILVANO Ot 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 03/23/2018 MARLON SILVANO Allen Ot C77.3 SEC AND UNSP MALIG NEOPLASM OF AXILLA AN 03/23/2018 MARLONSILVANO N Ot 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 03/23/2018 MARLONSILVANO Ot 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 03/23/2018 MARLON SILVANO N Ot C78.7 SECONDARY MALIG NEOPLASM OF LIVER AND IN 03/23/2018 MARLONSILVANO N Ot E11.9 TYPE 2 DIABETES MELLITUS WITHOUT COMPLIC 03/23/2018 SILVANO MASON N Ot I27.20 PULMONARY HYPERTENSION, UNSPECIFIED 03/23/2018 SILVANO MASON Tiffany Ot Z51.11 ENCOUNTER FOR ANTINEOPLASTIC CHEMOTHERAP 03/23/2018 MARLON, GIORGICOURTNEY Tiffany Ot 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 03/23/2018 MARLON GIORGICOURTNEY Tiffany Ot Z86.711 PERSONAL HISTORY OF PULMONARY EMBOLISM 03/23/2018 MARLON, GIORGICOURTNEY Tiffany Ot Z86.718 PERSONAL HISTORY OF OTHER VENOUS THROMBO 03/23/2018 MARLON, SILVANO Allen Ot Z90.12 ACQUIRED ABSENCE OF LEFT BREAST AND NIPP 03/23/2018 MARLON, SILVANO Allen Ot Z92.21 PERSONAL HISTORY OF ANTINEOPLASTIC CHEMO 04/02/2018 BEKA VICTOR MD Ot C34.90 MALIGNANT NEOPLASM OF UNSP PART OF UNSP 04/02/2018 BEKA VICTOR MD Ot 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 04/02/2018 BEKA VICTOR MD Ot 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 04/02/2018 BEKA VICTOR MD Ot C78.7 SECONDARY MALIG NEOPLASM OF LIVER AND IN 04/02/2018 BEKA VICTOR MD Ot C79.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 04/04/2018 SILVANO MASON Ot 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 04/04/2018 MARLONSILVANO Ot C77.3 SEC AND UNSP MALIG NEOPLASM OF AXILLA AN 04/04/2018 MARLONSILVANO Ot 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 04/04/2018 MARLONSILVANO Ot 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 04/04/2018 SILVANO MASON Ot C78.7 SECONDARY MALIG NEOPLASM OF LIVER AND IN 04/04/2018 MARLON, GIORGICOURTNEY Tiffany Ot E11.9 TYPE 2 DIABETES MELLITUS WITHOUT COMPLIC 04/04/2018 MARLON, SILVANO Allen Ot I27.20 PULMONARY HYPERTENSION, UNSPECIFIED 04/04/2018 MARLON, GIORGICOURTNEY Tiffany Ot Z51.11 ENCOUNTER FOR ANTINEOPLASTIC CHEMOTHERAP 04/04/2018 SILVANO MASON Tiffany Ot 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 04/04/2018 MARLON, SILVANO Allen Ot Z86.711 PERSONAL HISTORY OF PULMONARY EMBOLISM 04/04/2018 SILVANO MASON Ot Z86.718 PERSONAL HISTORY OF OTHER VENOUS THROMBO 04/04/2018 SILVANO MASON N Ot Z90.12 ACQUIRED ABSENCE OF LEFT BREAST AND NIPP 04/04/2018 MARLON GIORGICOURTNEY N Ot Z92.21 PERSONAL HISTORY OF ANTINEOPLASTIC CHEMO 04/20/2018 MARLON GIORGICOURTNEY Tiffany Ot 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 04/20/2018 MARLON SILVANO Allen Ot C77.3 SEC AND UNSP MALIG NEOPLASM OF AXILLA AN 04/20/2018 MARLON SILVANO Allen Ot 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 04/20/2018 MARLON SILVANO Allen Ot 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 04/20/2018 MARLON SILVANO Allen Ot C78.7 SECONDARY MALIG NEOPLASM OF LIVER AND IN 04/20/2018 MARLON, SILVANO Allen Ot E11.9 TYPE 2 DIABETES MELLITUS WITHOUT COMPLIC 04/20/2018 MARLON, SILVANO Allen Ot I27.20 PULMONARY HYPERTENSION, UNSPECIFIED 04/20/2018 MARLON, SILVANO Allen Ot 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 04/20/2018 MARLON GIORGICOURTNEY Tiffany Ot Z86.711 PERSONAL HISTORY OF PULMONARY EMBOLISM 04/20/2018 MARLON SILVANO N Ot Z86.718 PERSONAL HISTORY OF OTHER VENOUS THROMBO 04/20/2018 MARLON GIORGICOURTNEY Tiffany Ot Z90.12 ACQUIRED ABSENCE OF LEFT BREAST AND NIPP 04/20/2018 MARLON GIORGICOURTNEY N Ot Z92.21 PERSONAL HISTORY OF ANTINEOPLASTIC CHEMO 05/31/2018 MARLONSILVANO Ot 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 05/31/2018 MARLON SILVANO Allen Ot 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 05/31/2018 MARLON SILVANO Allen Ot C78.7 SECONDARY MALIG NEOPLASM OF LIVER AND IN 05/31/2018 MARLONSILVANO Ot C79.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 05/31/2018 MARLONSILVANO Ot Z01.89 ENCOUNTER FOR OTHER SPECIFIED SPECIAL EX 06/04/2018 MARLONSILVANO Ot 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 06/04/2018 MARLON SILVANO Allen Ot C77.3 SEC AND UNSP MALIG NEOPLASM OF AXILLA AN 06/04/2018 MARLONSILVANO Ot 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 06/04/2018 SILVANO MASON N Ot 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 06/04/2018 SILVANO MASON N Ot C78.7 SECONDARY MALIG NEOPLASM OF LIVER AND IN 06/04/2018 SILVANO MASON N Ot E11.9 TYPE 2 DIABETES MELLITUS WITHOUT COMPLIC 06/04/2018 SILVANO MASON N Ot I27.20 PULMONARY HYPERTENSION, UNSPECIFIED 06/04/2018 MARLON GIORGICOURTNEY N Ot Z79.01 SNF (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 06/04/2018 MARLON GIORGICOURTNEY N Ot Z86.711 PERSONAL HISTORY OF PULMONARY EMBOLISM 06/04/2018 MARLONSILVANO N Ot Z86.718 PERSONAL HISTORY OF OTHER VENOUS THROMBO 06/04/2018 MARLONSILVANO N Ot Z90.12 ACQUIRED ABSENCE OF LEFT BREAST AND NIPP 06/04/2018 MARLONSILVANO N Ot Z92.21 PERSONAL HISTORY OF ANTINEOPLASTIC CHEMO 06/06/2018 MARLONSILVANO N Ot 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 06/06/2018 MARLON SILVANO N Ot C77.3 SEC AND UNSP MALIG NEOPLASM OF AXILLA AN 06/06/2018 SILVANO MASON N Ot 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 06/06/2018 SILVANO MASON N Ot 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 06/06/2018 SILVANO MASON N Ot C78.7 SECONDARY MALIG NEOPLASM OF LIVER AND IN 06/06/2018 SILVANO MASON N Ot E11.9 TYPE 2 DIABETES MELLITUS WITHOUT COMPLIC 06/06/2018 MARLON GIORGICOURTNEY N Ot I27.20 PULMONARY HYPERTENSION, UNSPECIFIED 06/06/2018 MARLON GIROGICOURTNEY N Ot 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 06/06/2018 MARLON SILVANO N Ot Z86.711 PERSONAL HISTORY OF PULMONARY EMBOLISM 06/06/2018 MARLONSILVANO N Ot Z86.718 PERSONAL HISTORY OF OTHER VENOUS THROMBO 06/06/2018 MARLONSILVANO N Ot Z90.12 ACQUIRED ABSENCE OF LEFT BREAST AND NIPP 06/06/2018 MARLONSILVANO N Ot Z92.21 PERSONAL HISTORY OF ANTINEOPLASTIC CHEMO 06/06/2018 MARLONSILVANO N Ot 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 06/06/2018 SILVANO MASON N Ot C77.3 SEC AND UNSP MALIG NEOPLASM OF AXILLA AN 06/06/2018 MARLON SILVANO N Ot 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 06/06/2018 MARLON SILVANO N Ot 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 06/06/2018 MARLON SILVANO N Ot C78.7 SECONDARY MALIG NEOPLASM OF LIVER AND IN 06/06/2018 MARLON SILVANO N Ot E11.9 TYPE 2 DIABETES MELLITUS WITHOUT COMPLIC 06/06/2018 MARLONSILVANO N Ot I27.20 PULMONARY HYPERTENSION, UNSPECIFIED 06/06/2018 SILVANO MASON N Ot 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 06/06/2018 SILVANO MASON N Ot Z86.711 PERSONAL HISTORY OF PULMONARY EMBOLISM 06/06/2018 SILVANO MASON N Ot Z86.718 PERSONAL HISTORY OF OTHER VENOUS THROMBO 06/06/2018 SILVANO MASON Ot Z90.12 ACQUIRED ABSENCE OF LEFT BREAST AND NIPP 06/06/2018 MARLONSILVANO N Ot Z92.21 PERSONAL HISTORY OF ANTINEOPLASTIC CHEMO 06/07/2018 MARLON GIORGICOURTNEY N Ot 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 06/07/2018 MARLON GIORGICOURTNEY N Ot C77.3 SEC AND UNSP MALIG NEOPLASM OF AXILLA AN 06/07/2018 MARLON SILVANO N Ot 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 06/07/2018 MARLON SILVANO N Ot 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 06/07/2018 MARLON SILVANO N Ot C78.7 SECONDARY MALIG NEOPLASM OF LIVER AND IN 06/07/2018 MARLON, SILVANO N Ot E11.9 TYPE 2 DIABETES MELLITUS WITHOUT COMPLIC 06/07/2018 SILVANO MASON N Ot I27.20 PULMONARY HYPERTENSION, UNSPECIFIED 06/07/2018 SILVANO MASON Ot Z45.2 ENCOUNTER FOR ADJUSTMENT AND MANAGEMENT 06/07/2018 SILVANO MASON Ot Z79.01 SNF (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 06/07/2018 SILVANO MASON N Ot Z86.711 PERSONAL HISTORY OF PULMONARY EMBOLISM 06/07/2018 SILVANO MASON N Ot Z86.718 PERSONAL HISTORY OF OTHER VENOUS THROMBO 06/07/2018 SILVANO MASON N Ot Z90.12 ACQUIRED ABSENCE OF LEFT BREAST AND NIPP 06/07/2018 SILVANO MASON N Ot Z92.21 PERSONAL HISTORY OF ANTINEOPLASTIC CHEMO 06/11/2018 SILVANO MASON N Ot 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 06/11/2018 MARLON GIORGICOURTNEY N Ot C77.3 SEC AND UNSP MALIG NEOPLASM OF AXILLA AN 06/11/2018 MARLON SILVANO N Ot 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 06/11/2018 MARLON SILVANO N Ot 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 06/11/2018 MARLON, SILVANO N Ot C78.7 SECONDARY MALIG NEOPLASM OF LIVER AND IN 06/11/2018 MARLONSILVANO N Ot E11.9 TYPE 2 DIABETES MELLITUS WITHOUT COMPLIC 06/11/2018 MARLONSILVANO N Ot I27.20 PULMONARY HYPERTENSION, UNSPECIFIED 06/11/2018 MARLON SILVANO N Ot 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 06/11/2018 SILVANO MASON N Ot Z86.711 PERSONAL HISTORY OF PULMONARY EMBOLISM 06/11/2018 MARLONGIORGICOURTNEY N Ot Z86.718 PERSONAL HISTORY OF OTHER VENOUS THROMBO 06/11/2018 SILVANO MASON N Ot Z90.12 ACQUIRED ABSENCE OF LEFT BREAST AND NIPP 06/11/2018 SILVANO MASON N Ot Z92.21 PERSONAL HISTORY OF ANTINEOPLASTIC CHEMO 06/12/2018 MARLON GIORGICOURTNEY Tiffany Ot 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 06/12/2018 MARLON GIORGICOURTNEY N Ot C77.3 SEC AND UNSP MALIG NEOPLASM OF AXILLA AN 06/12/2018 MARLON SILVANO N Ot 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 06/12/2018 MARLON SILVANO N Ot 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 06/12/2018 MARLON SILVANO N Ot C78.7 SECONDARY MALIG NEOPLASM OF LIVER AND IN 06/12/2018 MARLONSILVANO N Ot E11.9 TYPE 2 DIABETES MELLITUS WITHOUT COMPLIC 06/12/2018 MARLONSILVANO N Ot I27.20 PULMONARY HYPERTENSION, UNSPECIFIED 06/12/2018 SILVANO MASON N Ot Z79.01 SNF (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 06/12/2018 SILVANO MASON N Ot Z86.711 PERSONAL HISTORY OF PULMONARY EMBOLISM 06/12/2018 MARLON GIORGICOURTNEY N Ot Z86.718 PERSONAL HISTORY OF OTHER VENOUS THROMBO 06/12/2018 MARLON GIORGICOURTNEY N Ot Z90.12 ACQUIRED ABSENCE OF LEFT BREAST AND NIPP 06/12/2018 MARLON GIORGICOURTNEY N Ot Z92.21 PERSONAL HISTORY OF ANTINEOPLASTIC CHEMO 06/13/2018 MARLON GIORGICOURTNEY N Ot 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 06/13/2018 MARLON SILVANO N Ot C77.3 SEC AND UNSP MALIG NEOPLASM OF AXILLA AN 06/13/2018 MARLONSILVANO N Ot 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 06/13/2018 MARLONSILVANO N Ot 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 06/13/2018 MARLON, SILVANO N Ot C78.7 SECONDARY MALIG NEOPLASM OF LIVER AND IN 06/13/2018 MARLON GIORGICOURTNEY Tiffany Ot E11.9 TYPE 2 DIABETES MELLITUS WITHOUT COMPLIC 06/13/2018 MARLON GIORGICOURTNEY Tiffany Ot I27.20 PULMONARY HYPERTENSION, UNSPECIFIED 06/13/2018 MARLON GIORGICOURTNEY Tiffany Ot Z51.11 ENCOUNTER FOR ANTINEOPLASTIC CHEMOTHERAP 06/13/2018 SILVANO AMSON Tiffany Ot Z79.01 SNF (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 06/13/2018 MARLON GIORGICOURTNEY Tiffany Ot Z86.711 PERSONAL HISTORY OF PULMONARY EMBOLISM 06/13/2018 MARLON GIORGICOURTNEY Tiffany Ot Z86.718 PERSONAL HISTORY OF OTHER VENOUS THROMBO 06/13/2018 MARLON SILVANO Allen Ot Z90.12 ACQUIRED ABSENCE OF LEFT BREAST AND NIPP 06/13/2018 MARLON SILVANO N Ot Z92.21 PERSONAL HISTORY OF ANTINEOPLASTIC CHEMO 07/17/2018 MARLONSILVANO Ot 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 07/17/2018 MARLON SILVANO N Ot C77.3 SEC AND UNSP MALIG NEOPLASM OF AXILLA AN 07/17/2018 MARLONSILVANO N Ot 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 07/17/2018 MARLONSILVANO N Ot 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 07/17/2018 SILVANO MASON Ot C78.7 SECONDARY MALIG NEOPLASM OF LIVER AND IN 07/17/2018 SILVANO MASON Ot E11.9 TYPE 2 DIABETES MELLITUS WITHOUT COMPLIC 07/17/2018 SILVANO MASON Ot I27.20 PULMONARY HYPERTENSION, UNSPECIFIED 07/17/2018 SILVANO MASON Ot Z51.11 ENCOUNTER FOR ANTINEOPLASTIC CHEMOTHERAP 07/17/2018 SILVANO MASON Ot Z79.01 SNF (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 07/17/2018 SILVANO MASON Ot Z86.711 PERSONAL HISTORY OF PULMONARY EMBOLISM 07/17/2018 SILVANO MASON Ot Z86.718 PERSONAL HISTORY OF OTHER VENOUS THROMBO 07/17/2018 SILVANO MASON Ot Z90.12 ACQUIRED ABSENCE OF LEFT BREAST AND NIPP 07/17/2018 SILVANO MASON Ot Z92.21 PERSONAL HISTORY OF ANTINEOPLASTIC CHEMO Procedures There is no data. Results Test Result Range Complete urinalysis with reflex to culture - 05/11/17 14:00 Urine color determination SUKHJINDER NRG Urine clarity determination CLEAR NRG Urine pH measurement by test strip 5 5-9 Specific gravity of urine by test strip 1.025 1.016- 1.022 Urine protein assay by test strip, semi-quantitative 2+ NEGATIVE Urine glucose detection by automated test strip 2+ NEGATIVE Erythrocytes detection in urine sediment by light microscopy 1+ NEGATIVE Urine ketones detection by automated test strip 1+ NEGATIVE Urine nitrite detection by test strip NEGATIVE NEGATIVE Urine total bilirubin detection by test strip 1+ NEGATIVE Urine urobilinogen measurement by automated test strip (mass/volume) 4 mg/dL NORMAL Urine leukocyte esterase detection by dipstick 2+ NEGATIVE Automated urine sediment erythrocyte count by microscopy (number/high power field) [HPF] NRG Automated urine sediment leukocyte count by microscopy (number/high power field ) [HPF] NRG Bacteria detection in urine sediment by light microscopy FEW NRG Squamous epithelial cells detection in urine sediment by light microscopy 2-5 NRG Crystals detection in urine sediment by light microscopy PRESENT NRG Casts detection in urine sediment by light microscopy NONE NRG Mucus detection in urine sediment by light microscopy MODERATE NRG Complete urinalysis with reflex to culture YES NRG Amorphous sediment detection in urine sediment by light microscopy FEW HENRIK URATES NRG Bacterial urine culture - 05/11/17 14:00 URINE CULTURE RESULTS <10,000/ML [facility] Complete blood count (CBC) with automated white blood cell (WBC) differential - 11/23/17 10:05 Blood leukocytes automated count (number/volume) 7.8 10*3/uL 4.3-11.0 Blood erythrocytes automated count (number/volume) 4.20 10*6/uL 4.35-5.85 Venous blood hemoglobin measurement (mass/volume) 12.5 g/dL 11.5-16.0 Blood hematocrit (volume fraction) 37 % 35-52 Automated erythrocyte mean corpuscular volume 88 [foz_us] 80-99 Automated erythrocyte mean corpuscular hemoglobin (mass per erythrocyte) 30 pg 25-34 Automated erythrocyte mean corpuscular hemoglobin concentration measurement ( mass/volume) 34 g/dL 32-36 Automated erythrocyte distribution width ratio 15.5 % 10.0-14.5 Automated blood platelet count (count/volume) 300 10*3/uL 130-400 Automated blood platelet mean volume measurement 10.0 [foz_us] 7.4-10.4 Automated blood neutrophils/100 leukocytes 66 % 42-75 Automated blood lymphocytes/100 leukocytes 27 % 12-44 Blood monocytes/100 leukocytes 6 % 0-12 Automated blood eosinophils/100 leukocytes 0 % 0-10 Automated blood basophils/100 leukocytes 0 % 0-10 Blood neutrophils automated count (number/volume) 5.1 10*3 1.8-7.8 Blood lymphocytes automated count (number/volume) 2.1 10*3 1.0-4.0 Blood monocytes automated count (number/volume) 0.5 10*3 0.0-1.0 Automated eosinophil count 0.0 10*3/uL 0.0-0.3 Automated blood basophil count (count/volume) 0.0 10*3/uL 0.0-0.1 Whole blood basic metabolic panel - 11/23/17 10:05 Serum or plasma sodium measurement (moles/volume) 136 mmol/L 135-145 Serum or plasma potassium measurement (moles/volume) 3.9 mmol/L 3.6-5.0 Serum or plasma chloride measurement (moles/volume) 103 mmol/L 98-107 Carbon dioxide 21 mmol/L 21-32 Serum or plasma anion gap determination (moles/volume) 12 mmol/L 5-14 Serum or plasma urea nitrogen measurement (mass/volume) 11 mg/dL 7-18 Serum or plasma creatinine measurement (mass/volume) 0.76 mg/dL 0.60-1.30 Serum or plasma urea nitrogen/creatinine mass ratio 14 NRG Serum or plasma creatinine measurement with calculation of estimated glomerular filtration rate > NRG Serum or plasma glucose measurement (mass/volume) 313 mg/dL 70-105 Serum or plasma calcium measurement (mass/volume) 8.8 mg/dL 8.5-10.1 Complete blood count (CBC) with automated white blood cell (WBC) differential - 01/11/18 13:15 Blood leukocytes automated count (number/volume) 5.9 10*3/uL 4.3-11.0 Blood erythrocytes automated count (number/volume) 4.41 10*6/uL 4.35-5.85 Venous blood hemoglobin measurement (mass/volume) 13.0 g/dL 11.5-16.0 Blood hematocrit (volume fraction) 39 % 35-52 Automated erythrocyte mean corpuscular volume 88 [foz_us] 80-99 Automated erythrocyte mean corpuscular hemoglobin (mass per erythrocyte) 30 pg 25-34 Automated erythrocyte mean corpuscular hemoglobin concentration measurement ( mass/volume) 34 g/dL 32-36 Automated erythrocyte distribution width ratio 15.1 % 10.0-14.5 Automated blood platelet count (count/volume) 305 10*3/uL 130-400 Automated blood platelet mean volume measurement 9.5 [foz_us] 7.4-10.4 Automated blood neutrophils/100 leukocytes 62 % 42-75 Automated blood lymphocytes/100 leukocytes 29 % 12-44 Blood monocytes/100 leukocytes 9 % 0-12 Automated blood eosinophils/100 leukocytes 1 % 0-10 Automated blood basophils/100 leukocytes 0 % 0-10 Blood neutrophils automated count (number/volume) 3.6 10*3 1.8-7.8 Blood lymphocytes automated count (number/volume) 1.7 10*3 1.0-4.0 Blood monocytes automated count (number/volume) 0.5 10*3 0.0-1.0 Automated eosinophil count 0.0 10*3/uL 0.0-0.3 Automated blood basophil count (count/volume) 0.0 10*3/uL 0.0-0.1 Comprehensive metabolic panel - 02/15/18 13:15 Serum or plasma sodium measurement (moles/volume) 137 mmol/L 135-145 Serum or plasma potassium measurement (moles/volume) 4.2 mmol/L 3.6-5.0 Serum or plasma chloride measurement (moles/volume) 103 mmol/L 98-107 Carbon dioxide 21 mmol/L 21-32 Serum or plasma anion gap determination (moles/volume) 13 mmol/L 5-14 Serum or plasma urea nitrogen measurement (mass/volume) 7 mg/dL 7-18 Serum or plasma creatinine measurement (mass/volume) 0.80 mg/dL 0.60-1.30 Serum or plasma urea nitrogen/creatinine mass ratio 9 NRG Serum or plasma creatinine measurement with calculation of estimated glomerular filtration rate > NRG Serum or plasma glucose measurement (mass/volume) 373 mg/dL 70-105 Serum or plasma calcium measurement (mass/volume) 8.7 mg/dL 8.5-10.1 Serum or plasma total bilirubin measurement (mass/volume) 0.4 mg/dL 0.1-1.0 Serum or plasma alkaline phosphatase measurement (enzymatic activity/volume) 172 U/L 40-136 Serum or plasma aspartate aminotransferase measurement (enzymatic activity/ volume) 22 U/L 5-34 Serum or plasma alanine aminotransferase measurement (enzymatic activity/volume ) 18 U/L 0-55 Serum or plasma protein measurement (mass/volume) 6.8 g/dL 6.4-8.2 Serum or plasma albumin measurement (mass/volume) 3.6 g/dL 3.2-4.5 Bacterial urine culture - 02/22/18 15:00 Bacterial urine culture [id number] NRG COLONY COUNT <10,000 NRG FTX;REPORTABLE SENSITIVITY REPORTED 02/24 11:50 NRG FREE TEXT ENTRY 2 MIXED GRAM POSITIVE GRETCHEN NR Bacterial susceptibility panel - 02/22/18 15:00 Gentamicin susceptibility test by minimum inhibitory concentration < = NRG Trimethoprim/sulfamethoxazole susceptibility test by minimum inhibitoryconcentration S NRG Ampicillin susceptibility test by minimum inhibitory concentration > = NRG Tobramycin susceptibility test by minimum inhibitory concentration < = NRG Cefazolin susceptibility test by minimum inhibitory concentration < = NRG Ceftriaxone susceptibility test by minimum inhibitory concentration <= NRG Ampicillin/sulbactam susceptibility test by minimum inhibitory concentration S NRG Piperacillin/tazobactam susceptibility test by minimum inhibitory concentration S NRG Ciprofloxacin susceptibility test by minimum inhibitory concentration <= NRG Meropenem susceptibility test by minimum inhibitory concentration < = NRG Nitrofurantoin susceptibility test by minimum inhibitory concentration 64 NRG Aztreonam susceptibility test by minimum inhibitory concentration < = NRG Extended spectrum beta lactamase (ESBL) producing bacteria susceptibility test by minimum inhibitory concentration - NRG Bacterial urine culture - 06/25/18 15:43 Bacterial urine culture [id number] NRG COLONY COUNT >100,000/ML NRG FTX;REPORTABLE RML REPORTED ID/SENSITIVITY 06/28/18 12:05 NRG RML Sensitivity Panel - 06/25/18 15:43 Gentamicin susceptibility test by minimum inhibitory concentration < = NRG Trimethoprim/sulfamethoxazole susceptibility test by minimum inhibitoryconcentration <= NRG Levofloxacin susceptibility test by minimum inhibitory concentration <= NRG Ampicillin susceptibility test by minimum inhibitory concentration > NRG Cefazolin susceptibility test by minimum inhibitory concentration 2 NRG Ceftriaxone susceptibility test by minimum inhibitory concentration <= NRG Ciprofloxacin susceptibility test by minimum inhibitory concentration <= NRG Meropenem susceptibility test by minimum inhibitory concentration < = NRG Nitrofurantoin susceptibility test by minimum inhibitory concentration 32 NRG Amoxicillin and clavulanate potassium susc NICHOLAS <= NRG Encounters ACCT No. Visit Date/Time Discharge Status Pt. Type Provider Facility Loc./Unit Complaint [id number] 07/17/2018 14:06:00 07/17/2018 23:59:59 CLS Outpatient SILVANO MASON [facility] ONC [id number] 06/04/2018 09:45:00 06/06/2018 00:01:00 DIS Outpatient SILVANO MASON [facility] ONC [id number] 05/29/2018 10:35:00 05/29/2018 23:59:59 CLS Outpatient SILVANO MASON [facility] CARD ENCOUNTER FOR IMAGING STUDY TO RESTAGE NEOPLASM [id number] 03/01/2018 09:49:00 03/07/2018 11:45:00 DIS Outpatient BEKA VICTOR MD [facility] ONC [id number] 03/01/2018 10:01:00 03/01/2018 23:59:59 CLS Outpatient BEKA VICTOR MD [facility] RAD 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 [id number] 02/01/2018 13:27:00 02/08/2018 14:09:00 DIS Outpatient SILVANO MASON [facility] ONC [id number] 01/11/2018 13:06:00 01/16/2018 00:01:00 DIS Outpatient SILVANO MASON [facility] ONC [id number] 12/11/2017 11:20:00 12/11/2017 23:59:59 CLS Outpatient SILVANO MASON [facility] CARD C50.112 CA OF CENTRAL PORTION OF LT BREST [id number] 12/06/2017 16:51:00 12/06/2017 23:59:59 CLS Preadmit SILVANO MASON [facility] RAD C50.112 CA OF CENTRAL PORTION OF LT BREAST [id number] 11/23/2017 13:28:00 11/23/2017 23:59:59 CLS Outpatient EDRICK DON [facility] RAD [id number] 10/13/2017 12:35:00 10/18/2017 09:08:00 DIS Outpatient BEKA VICTOR MD [facility] ONC [id number] 10/17/2017 11:48:00 10/17/2017 23:59:59 CLS Outpatient BEKA VICTOR MD [facility] RAD C50.112 CANCER OF CENTRAL PORTION OF LEFT BREAST [id number] 10/13/2017 13:11:00 10/13/2017 23:59:59 CLS Outpatient BEKA VICTOR MD [facility] RAD BREAST CA, LIVER MET [id number] 09/14/2017 13:56:00 09/20/2017 13:54:00 DIS Outpatient SILVANO MASON [facility] ONC [id number] 08/24/2017 14:06:00 08/26/2017 00:01:00 DIS Outpatient SILVANO MASON [facility] ONC [id number] 07/20/2017 16:27:00 07/20/2017 23:59:59 CLS Preadmit SILVANO MASON [facility] RAD DIZZY R42,HD PAIN R51 [id number] 07/17/2017 12:15:00 07/17/2017 23:59:59 CLS Preadmit DERICK DON S CALL CENTER RN [facility] RAD C50.112 [id number] 07/17/2017 11:43:00 07/17/2017 23:59:59 CLS Outpatient DERICK DON S CALL CENTER RN [facility] CARD C50.112 [id number] 06/08/2017 09:35:00 06/14/2017 00:01:00 DIS Outpatient SILVANO MASON [facility] ONC [id number] 05/01/2017 08:27:00 05/01/2017 23:59:59 CLS Preadmit DONDERICK S CALL CENTER RN [facility] RAD [id number] 03/09/2017 11:24:00 03/13/2017 00:01:00 DIS Outpatient SILVANO MASON [facility] ONC [id number] 03/09/2017 12:07:00 03/09/2017 23:59:59 CLS Outpatient DERICK DON S CALL CENTER RN [facility] CARD C50.112 [id number] 12/13/2016 11:35:00 12/13/2016 23:59:59 CLS Outpatient SILVANO MASON [facility] CARD PULMONARY METASTASES [id number] 10/18/2016 10:32:00 12/05/2016 00:01:00 DIS Outpatient SILVANO MASON [facility] ONC [id number] 11/26/2016 16:03:00 11/26/2016 17:30:00 DIS Emergency JULIEN KENNEDY APRN [facility] ER SOA, COUGH, LUNG/BACK PAIN [id number] 09/06/2016 11:42:00 09/06/2016 23:59:59 CLS Outpatient SILVANO MASON [facility] CARD CA OF CENTRAL PORTION OF LT BREAST,PULM METASTASES [id number] 07/28/2016 14:09:00 08/10/2016 00:01:00 DIS Outpatient SILVANO MASON [facility] ONC [id number] 07/07/2016 13:00:00 07/07/2016 13:32:00 DIS Outpatient SHABNAM HOLMAN DO [facility] SLEEP CHRIS,SNORING,PULM HTN [id number] 07/01/2016 13:20:00 07/01/2016 23:59:59 CLS Outpatient DONDERICK Schmitz CALL CENTER RN [facility] ONC [id number] 05/24/2016 12:05:00 05/24/2016 23:59:59 CLS Outpatient DERICK DON S CALL CENTER RN [facility] CARD CANCER OF LEFT FEMALE BREAST,PULMONARY METASTASES [id number] 05/12/2016 08:50:00 05/12/2016 23:59:59 CLS Outpatient DERICK DON CALL CENTER RN [facility] ONC [id number] 03/31/2016 10:49:00 03/31/2016 23:59:59 CLS Outpatient DERICK DON CALL CENTER RN [facility] ONC [id number] 03/22/2016 10:49:00 03/22/2016 23:59:59 CLS Outpatient SILVANO MASON N [facility] CARD BREAST CA [id number] 03/13/2016 01:12:00 03/16/2016 15:36:00 DIS Inpatient SILVANO MASON N [facility] CSD CELLULITIS L FOOT; DIABETES, METASTATIC BREAST CAN [id number] 02/18/2016 10:06:00 03/02/2016 00:01:00 DIS Outpatient SILVANO MASON N [facility] ONC [id number] 01/05/2016 10:33:00 01/05/2016 23:59:59 CLS Outpatient SILVANO MASON N [facility] CARD BREAST CANCER [id number] 11/09/2015 11:30:00 11/25/2015 00:01:00 DIS Outpatient SILVANO MASON N [facility] ONC [id number] 10/12/2015 11:58:00 10/12/2015 23:59:59 CLS Outpatient SILVANO MASON N [facility] RAD [id number] 10/12/2015 11:51:00 10/12/2015 23:59:59 CLS Outpatient SILVANO MASON [facility] CARD BREAST CA, LUNG CA [id number] 09/28/2015 16:41:00 10/02/2015 19:45:00 DIS Inpatient SILVANO MASON [facility] 4TH SWB, LLE CELLULITIS, METASTATIC BREAST CA [id number] 09/24/2015 10:25:00 09/28/2015 16:40:00 DIS Inpatient SILVANO MASON [facility] 4TH CELLULITIS LLE METASTATIC BREAST CA [id number] 09/08/2015 09:26:00 09/08/2015 12:00:00 DIS Outpatient JHON MELO MD [facility] WOUNDCARE [id number] 08/28/2015 12:39:00 08/28/2015 23:59:59 CLS Outpatient DERICK DONP [facility] RAD UNSTEADY GAIT, VISUAL CHANGES [id number] 08/27/2015 13:42:00 08/27/2015 23:59:59 CLS Outpatient DERICK DON CALL CENTER RN [facility] ONC [id number] 08/13/2015 14:14:00 08/26/2015 00:01:00 DIS Outpatient SILVANO MASON [facility] ONC [id number] 08/19/2015 01:40:00 08/24/2015 18:35:00 DIS Inpatient SILVANO MASON [facility] CSD RECURRENT CELLULITIS R FOOT;METASTATIC BREAST CA [id number] 06/25/2015 10:00:00 06/25/2015 23:59:59 CLS Outpatient DERICK DON CALL CENTER RN [facility] ONC [id number] 06/18/2015 13:00:00 06/24/2015 00:01:00 DIS Outpatient SILVANO MASON [facility] ONC [id number] 06/01/2015 08:15:00 06/02/2015 10:00:00 DIS Outpatient JHON MELO MD [facility] WOUNDCARE [id number] 05/26/2015 11:50:00 05/26/2015 23:59:59 CLS Outpatient DERICK DON [facility] CARD DCIS,PULMONARY METS [id number] 05/17/2015 21:11:00 05/21/2015 19:10:00 DIS Inpatient SILVANO MASON [facility] 4TH CELLULITIS R LEG CHEMOTHERAPY FOR BREAST CANCER [id number] 05/12/2015 21:38:00 05/12/2015 23:39:00 DIS Emergency ROBY , DARBY K [facility] ER BLOOD SUGAR PROBLEMS [id number] 04/30/2015 10:46:00 04/30/2015 23:59:59 CLS Outpatient DERICK DON [facility] ONC [id number] 04/10/2015 13:43:00 04/10/2015 23:59:59 CLS Outpatient CELESTINA SUAREZ, DIPAK Cali [facility] CARD CAD,HTN,CP [id number] 03/19/2015 10:55:00 03/25/2015 00:01:00 DIS Outpatient SILVANO MASON [facility] ONC [id number] 03/22/2015 15:57:00 03/22/2015 17:50:00 DIS Emergency VENKATESH SUAREZ, KIMO Harden [facility] ER EYE SWELLING; CONGESTION;POST CHEMO [id number] 03/05/2015 10:48:00 03/05/2015 23:59:59 CLS Outpatient DERICK DON [facility] ONC [id number] 03/02/2015 08:19:00 03/02/2015 23:59:59 CLS Outpatient SILVANO MASON [facility] RAD BREAST LUNG CANCER [id number] 01/01/2015 14:38:00 01/01/2015 23:59:59 CLS Outpatient DERICK DONP [facility] ONC [id number] 12/18/2014 11:11:00 12/18/2014 23:59:59 CLS Outpatient DERICK DONP [facility] RAD [id number] 12/18/2014 16:35:00 12/18/2014 00:01:00 DIS Outpatient SILVANO MASON [facility] ONC [id number] 12/08/2014 09:10:00 12/08/2014 12:48:00 DIS Emergency DARBY CA DO [facility] ER WEAKNESS,CANCER PT [id number] 12/05/2014 11:32:00 12/05/2014 23:59:59 CLS Preadmit DERICK DON CALL CENTER RN [facility] RAD [id number] 12/05/2014 10:17:00 12/05/2014 23:59:59 CLS Outpatient DERICK DON CALL CENTER RN [facility] ONC [id number] 11/25/2014 07:23:00 11/25/2014 23:59:59 CLS Outpatient DERICK DON CALL CENTER RN [facility] RAD BREAST CA [id number] 11/18/2014 08:01:00 11/18/2014 23:59:59 CLS Outpatient DERICK DON CALL CENTER RN [facility] RAD BREAST CA [id number] 11/04/2014 08:58:00 11/04/2014 23:59:59 CLS Outpatient DERICK DON S CALL CENTER RN [facility] ONC [id number] 10/31/2014 21:14:00 11/01/2014 02:15:00 DIS Emergency KIMO RIDDLE MD [facility] ER POSS INFECTION L FOOT [id number] 09/23/2014 14:36:00 09/23/2014 16:53:00 DIS Emergency ZIA CORRIGAN [facility] ER LOW BLOOD SUGAR [id number] 07/30/2014 10:13:00 09/17/2014 00:01:00 DIS Outpatient MARLON SILVANO Allen [facility] ONC [id number] 07/15/2014 11:30:00 07/15/2014 23:59:59 CLS Outpatient DERICK DON CALL CENTER RN [facility] RAD CHEST PAIN [id number] 07/15/2014 09:23:00 07/15/2014 23:59:59 CLS Outpatient DERICK DON CALL CENTER RN [facility] ONC [id number] 07/07/2014 12:55:00 07/07/2014 23:59:59 CLS Outpatient SHABNAM HOLMAN DO [facility] RT BILAT PULMONARY EMBOLISM, OBESITY, [id number] 07/06/2014 12:23:00 07/06/2014 14:55:00 DIS Emergency TENNILLE MASON [facility] ER POSSIBLE BLOOD CLOT R FOOT [id number] 06/19/2014 14:38:00 06/19/2014 23:59:59 CLS Outpatient SHABNAM HOLMAN DO [facility] LAB [id number] 05/20/2014 09:37:00 05/20/2014 23:59:59 CLS Outpatient DERICK DON CALL CENTER RN [facility] RAD SCREENING [id number] 03/27/2014 13:45:00 05/14/2014 00:01:00 DIS Outpatient SILVANO MASON [facility] ONC [id number] 05/08/2014 12:23:00 05/08/2014 23:59:59 CLS Outpatient DERICK DON CALL CENTER RN [facility] ONC [id number] 03/15/2014 22:09:00 03/15/2014 23:54:00 DIS Emergency ROBY DODARBY K [facility] ER SOA;CONGESTION [id number] 12/27/2013 12:55:00 02/12/2014 00:01:00 DIS Outpatient SILVANO MASON [facility] ONC [id number] 01/10/2014 09:12:00 01/10/2014 23:59:59 CLS Outpatient MOMO PINO [facility] CARD CAD,DYSPNEA, HTN [id number] 01/07/2014 07:59:00 01/07/2014 23:59:59 CLS Outpatient DERICK DON CALL CENTER RN [facility] RAD BREAST CA [id number] 12/31/2013 07:54:00 12/31/2013 23:59:59 CLS Outpatient DERICK DON CALL CENTER RN [facility] RAD BREAST CA [id number] 12/27/2013 13:08:00 12/27/2013 23:59:59 CLS Outpatient LEMUS RICHIE HATCH [facility] LAB [id number] 12/27/2013 12:57:00 12/27/2013 23:59:59 CLS Outpatient DERICK DON CALL CENTER RN [facility] ONC [id number] 11/14/2013 10:01:00 11/14/2013 23:59:59 CLS Outpatient DERICK DON CALL CENTER RN [facility] ONC [id number] 09/04/2013 14:03:00 11/13/2013 00:01:00 DIS Outpatient SILVANO MASON [facility] ONC [id number] 09/04/2013 14:04:00 09/04/2013 23:59:59 CLS Outpatient CHARLENE RIVERA MD [facility] LAB [id number] 08/07/2013 13:56:00 08/14/2013 00:01:00 DIS Outpatient SILVANO MASON [facility] ONC [id number] 06/26/2013 10:30:00 06/26/2013 23:59:59 CLS Outpatient DERICK DON CALL CENTER RN [facility] ONC [id number] 06/18/2013 07:48:00 06/18/2013 23:59:59 CLS Outpatient DERICK DON CALL CENTER RN [facility] RAD BREAST CA [id number] 05/21/2013 13:56:00 05/21/2013 23:59:59 CLS Outpatient DERICK DON S CALL CENTER RN [facility] ONC [id number] 05/16/2013 13:19:00 05/16/2013 23:59:59 CLS Outpatient SILVANO MASON [facility] RAD BREAST CA [id number] 05/09/2013 15:35:00 05/12/2013 00:01:00 DIS Outpatient SILVANO MASON [facility] ONC [id number] 04/18/2013 15:17:00 04/18/2013 23:59:59 CLS Outpatient DIPAK OSCAR MD [facility] RAD DYSPENA [id number] 04/04/2013 12:32:00 04/04/2013 23:59:59 CLS Outpatient SILVANO MASON Tiffany [facility] CARD CARDIOTOXIC CHEMO, BREAST CA [id number] 04/01/2013 11:50:00 04/01/2013 12:07:00 DIS Outpatient SILVANO MASON Tiffany [facility] WOUNDCARE LT CHEST WOUND [id number] 05/26/2015 10:08:00 Document Registration [id number] 05/26/2015 10:08:00 Document Registration [id number] 05/26/2015 10:07:00 Document Registration [id number] 05/25/2015 15:02:00 Document Registration [id number] 05/25/2015 15:02:00 Document Registration [id number] 01/28/2015 22:10:00 Document Registration [id number] 01/14/2015 16:08:00 Document Registration [id number] 11/10/2014 09:23:00 Document Registration [id number] 01/28/2013 14:22:00 Document Registration [id number] 01/10/2013 10:23:00 Document Registration [id number] 12/04/2012 12:52:00 Document Registration [id number] 11/13/2012 13:50:00 Document Registration [id number] 09/10/2012 08:38:00 Document Registration [id number] 08/15/2012 06:41:00 Document Registration [id number] 08/12/2012 18:47:00 Document Registration [id number] 08/08/2012 08:04:00 Document Registration [id number] 07/31/2012 12:49:00 Document Registration [id number] 07/27/2012 14:30:00 Document Registration [id number] 07/26/2012 11:28:00 Document Registration [id number] 06/07/2012 07:18:00 Document Registration [id number] 06/01/2012 10:33:00 Document Registration [id number] 04/30/2010 08:31:00 Document Registration [id number] 04/16/2010 15:54:00 Document Registration [id number] 04/13/2010 20:54:00 Document Registration
[2018-07-30] MEDS ORDERED: LACTATED RINGERS 1,000 ML IV ONE (18:16)
--- NOTE | 2018-07-30 18:38 | ED General ---
General Chief Complaint: General Problems/Pain Stated Complaint: HEART RACING, BACK PAIN Nursing Triage Note: PT STATES CA, BREAST, SKULL, LUNGS, LIVER, HIPS, AND BACK. STATES 3RD ROUND OF CHEMO AND SHE FEELS LIKE SHE DID AFTER THE 2ND ROUIND, HEART RACING WHEN SHE STANDS, NOT EATING WELL, AND FEELS WEAK. LAST TIME HER MAG WAS LOW AND DR. MONTEZ WANTS HER CHECKED OUT. PT ALSO HAS PAIN BELOW THE LT SCAPULA SINCE THIS MORNING, HX OF A FX AFTER COUGHING. Nursing Sepsis Screen: No Definite Risk Source of Information: Patient Exam Limitations: No Limitations History of Present Illness Date Seen by Provider: Jul 30, 2018 Time Seen by Provider: 18:10 Initial Comments PT WITH MULTIPLE COMPLAINTS PT IS CURRENTLY BEING TREATED FOR METASTATIC BREAST CANCER--RECEIVED 3RD ROUND OF NEW CHEMO LAST WEEK--IXEMPRA THINKS SHE IS FEELING BAD FROM CHEMO--STATES SHE FELT THE SAME WAY AFTER THE SECOND ROUND OF THIS CHEMO--LAST TIME SHE WAS DEHYDRATED AND HAD LOW MAGNESIUM. STATES SHE GOT IV FLUIDS AND MAGNESIUM IN [facility] HAS APPOINTMENT IN THE MORNING FOR LAB C/O ONGOING POOR APPETITE, HAS ONLY EATEN AN APPLE WITH PEANUT BUTTER, BUT HAS BEEN DRINKING LOTS OF WATER C/O GENERALIZED WEAKNESS C/O FEELING LIKE HER HEART IS RACING WHEN SHE STANDS UP--HAS HISTORY OF TACHYCARDIA--10 YEARS AGO. PT STATES WHEN SHE STANDS UP IT ALSO FEELS LIKE SHE IS SHORT OF BREATH, STATES SHE CAN BREATHE, IT JUST FEELS LIKE SHE IS SHORT OB BREATH ALSO STATES WHEN SHE GOT OUT OF BED, SHE HAD PAIN IN LEFT POSTERIOR RIB AREA THAT RADIATES AROUND TO LEFT CHEST--THIS PAIN IS WORSE WITH ANY MOVEMENTS OR DEEP BREATHS HAS HISTORY OF COMPRESSION FRACTURE WITH COUGHING IN THE PAST NO COUGH NO FEVER NOW. STATES WITH THIS CHEMO, SHE HAD FEVER ON DAYS 3 AND 4 OF TREATMENT , BUT NONE SINCE NO SWELLING IN LEGS/ FEET OR PAIN IN CALVES PT HAS HISTORY OF HTN, BUT HAS NOT TAKEN HER BLOOD PRESSURE MEDICATION FOR THE LAST 2 DAYS DUE TO LOW BLOOD PRESSURE--90/[address] MASON AND WAS ADVISED TO COME HERE AND GET LAB DONE AND IV FLUIDS AND MAGNESIUM. BREAST CANCER DX IN 2011, DX WITH METASTATIC DISEASE "THE FIRST TIME" IN 2013 PT HAS METS TO BOTH LUNGS, LIVER, SKULL, RIGHT HUMERUS, T7, L3, LEFT SACRUM, LEFT HIP. PT HAS HAD LEFT MASTECTOMY Allergies and Home Medications Allergies Coded Allergies: erythromycin base (Verified Allergy, Unknown, 09/28/15) Home Medications Acetaminophen/Diphenhydramine 1 Each Tablet, 1,000 MG PO Q6H PRN for PAIN, ( Reported) TAKES 2 (500MG) TABLETS Amoxicillin/Potassium Clav 1 Each Tablet, 875 MG PO BID WITH MEALS Prescribed by: SILVANO MASON on 03/16/16 1505 Amoxicillin/Potassium Clav 1 Each Tablet, 1 EACH PO BID Prescribed by: JULIEN KENNEDY on 11/26/16 1724 Carvedilol 3.125 Mg Tablet, 3.125 MG PO BID, (Reported) Furosemide 20 Mg Tablet, 20 MG PO DAILY, (Reported) Hydrocodone Bit/Acetaminophen 1 Each Tablet, 1 TAB PO Q8H PRN for PAIN, ( Reported) Insulin Detemir 100 Unit/1 Ml Insuln.pen, 80-134 UNITS SQ DAILY, (Reported) DEPENDING ON BLOOD SUGAR DUE TO CHEMO, UNITS MAY DIFFER Insulin Detemir 100 Unit/1 Ml Insuln.pen, 30 UNIT SQ HS PRN for BLOOD SUGAR, ( Reported) Metformin HCl 1,000 Mg Tablet, 1,000 MG PO BID, (Reported) Mupirocin 22 Gm Oint...g., 0 GM TOP BID Prescribed by: SILVANO MASON on 03/16/16 1505 Omeprazole 40 Mg Capsule.dr, 40 MG PO DAILY, (Reported) Ondansetron HCl 8 Mg Tablet, 8 MG PO Q8H PRN for NAUSEA, (Reported) Pioglitazone HCl 30 Mg Tablet, 30 MG PO DAILY, (Reported) Rivaroxaban 20 Mg Tablet, 20 MG PO HS, (Reported) Patient Home Medication List Home Medication List Reviewed: Yes Review of Systems Review of Systems Constitutional: No chills, No diaphoresis, No dizziness, No fever; weakness EENTM: no symptoms reported Respiratory: No cough; short of breath Cardiovascular: see HPI, chest pain; No edema; palpitations Gastrointestinal: No abdominal pain; loss of appetite; No nausea, No vomiting Genitourinary: no symptoms reported; No decreased output, No dysuria, No frequency, No hematuria, No hesitancy, No pain Musculoskeletal: see HPI, back pain Skin: no symptoms reported Psychiatric/Neurological: No Symptoms Reported; Denies Headache, Denies Numbness, Denies Paresthesia, Denies Seizure, Denies Weakness Hematologic/Lymphatic: Other (ON CHEMO) Immunological/Allergic: see HPI (ON CHEMO) Past [id number]-[id number]-Wvhebt Hx Patient Social History Alcohol Use: Denies Use Recreational Drug Use: No Smoking Status: Never a Smoker Recent Foreign Travel: No Contact w/Someone Who Travel: No Recent Infectious Disease Expo: No Recent Hopitalizations: No (2014) Immunizations Up To Date Tetanus Booster (TDap): Unknown PED Vaccines UTD: No Date of Pneumonia Vaccine: Mar 13, 2013 Seasonal Allergies Seasonal Allergies: No Past Medical History Surgeries: Yes (TUMORS REMOVED FROM BACK, D&C, VENA CAVA FILTER, L MASTECTOMY, PORT PLACED RIGHT CHEST) Adenoidectomy, Breast, Eye Surgery, Gallbladder, Tonsillectomy, Vascular Surgery Respiratory: Yes (MULTIPLE BILATERAL P.E.'S --VENA CAVA FILTER IN PLACE; LUNG METS) Pneumonia, Pulmonary Embolism Currently Using CPAP: No Currently Using BIPAP: No Cardiac: Yes (PULMONARY HYPERTENSION, SWELLING IN ANKLES AND FEET; TACHYCARDIA) Deep Vein Thrombosis, Hypertension, Palpitations Neurological: Yes Neuropathy Reproductive Disorders: Yes Female Reproductive Disorders: Denies, Polycystic Ovarian 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 SKULL, T7, L3, L SACRUM, L HIP, R HUMERUS--DX 04/2012, METS 10/2014) Lung, Breast Did You Recieve Any Treatments: Yes What Type of Treatment Did You: Chemotherapy, Surgical Intervention Psychosocial: No Integumentary: Yes (LUPUS) Blood Disorders: No Adverse Reaction/Blood Tranf: No Family Medical History Alzheimer's disease 19 MOTHER Asthma 19 FATHER, Onset:Unknown Cardiovascular disease 19 MOTHER, Onset:Unknown Diabetes mellitus 19 FATHER, Onset:Unknown 19 MOTHER, Onset:Unknown G8 BROTHER, Onset:Unknown FH: COPD (chronic obstructive pulmonary disease) 19 FATHER, Onset:Unknown FH: heart disease 19 MOTHER, Onset:Unknown FH: lung cancer 19 FATHER, Onset:Unknown Fibromyalgia G8 SISTER, Onset:Unknown No Family History of: AIDS Abdominal aortic aneurysm Suhas's disease Alcoholism Aphasia Arthritis Cancer of mouth Cataracts Colon cancer Completed stroke Congenital disease Congenital heart disease Coronary thrombosis Cystic fibrosis Deafness or hearing loss Dementia Drug abuse Dysphasia Fibrocystic disease of breast Gastroenteritis Glaucoma Headache disorder Hypercholesterolemia Hypertension Infertility Kidney disease Myocardial infarction Neoplasm Not obtainable due to adoption Osteoporosis Parkinson's disease Prostate cancer Psychosocial problem Respiratory disorder Seizure disorder Severe allergy Thyroid disease Tuberculosis Visual disorder Physical Exam Vital Signs Vital Signs - First Documented 07/30/18 18:01 Temp 96.7 Pulse 138 Resp 20 B/P (MAP) 141/92 (108) Pulse Ox 96 O2 Delivery Room Air Capillary Refill : Less Than 3 Seconds Height, Weight, BMI Height: 5'7.00" Weight: 240lbs. 0.0oz. 108.953227lo; 32.2 BMI Method:Stated General Appearance: No Apparent Distress, Obese HEENT: PERRL/EOMI, Normal ENT Inspection Neck: Normal Inspection Respiratory: Normal Breath Sounds, No Accessory Muscle Use, No Respiratory Distress, Other (LEFT CHEST WALL TENDERNESS, DIRECTLY ALONG MID AND LOWER RIBS ANTERIORLY, LATERALLY AND POSTERIORLY) Cardiovascular: No JVD, No Murmur, Tachycardia Gastrointestinal: Normal Bowel Sounds, No Organomegaly, No Pulsatile Mass, Non Tender, Soft Extremity: Normal Capillary Refill, Normal Range of Motion, Non Tender, No Calf Tenderness, Pedal Edema (TRACE BILATERALLY) Neurologic/Psychiatric: Alert, Oriented x3, No Motor/Sensory Deficits, Normal 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, 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 as Tested Skin: Warm/Dry, Pallor Focused Exam Lactate Level 07/30/18 19:30: Lactic Acid Level 2.04*H 07/30/18 21:59: Lactic Acid Level 1.82 Progress/Results/Core Measures Suspected Sepsis Recent Fever Within 48 Hours: No Infection Criteria Present: None New/Unexplained Altered Menta: No Sepsis Screen: No Definite Risk SIRS Temperature:96.7 Pulse: 138 Respiratory Rate: 20 Laboratory Tests 07/30/18 19:00: White Blood Count 4.1L 07/31/18 06:45: White Blood Count 3.3L Blood Pressure 141 /92 Mean: 108 07/30/18 19:30: Lactic Acid Level 2.04*H 07/30/18 21:59: Lactic Acid Level 1.82 Laboratory Tests 07/30/18 19:00: Creatinine 0.78, INR Comment 1.1, Platelet Count 224, Total Bilirubin 0.7 07/31/18 06:45: Creatinine 0.71, Platelet Count 195, Total Bilirubin 0.6 Results/Orders Lab Results Laboratory Tests Test 07/30/18 18:42 07/30/18 19:00 07/30/18 19:30 07/30/18 21:59 Range/Units Urine Color YELLOW Urine Clarity VERY CLOUDY H Urine pH 6 5-9 Urine Specific [place] 1.015 L 1.016-1.022 Urine Protein 2+ H NEGATIVE Urine Glucose (UA) 3+ H NEGATIVE Urine Ketones 1+ H NEGATIVE Urine Nitrite POSITIVE H NEGATIVE Urine Bilirubin 1+ H NEGATIVE Urine Urobilinogen 1 NORMAL MG/DL Urine Leukocyte Esterase 3+ H NEGATIVE Urine RBC (Auto) 3+ H NEGATIVE Urine RBC RARE /HPF Urine WBC >100 H /HPF Urine Squamous Epithelial Cells 2-5 /HPF Urine Renal Epithelial Cells NONE /HPF Urine Crystals NONE /LPF Urine Bacteria LARGE H /HPF Urine Casts PRESENT /LPF Urine Hyaline Casts 0-2 H /LPF Urine Mucus MODERATE H /LPF Urine Culture Indicated YES White Blood Count 4.1 L 4.3-11.0 10^3/uL Red Blood Count 4.29 L 4.35-5.85 10^6/uL Hemoglobin 13.1 11.5-16.0 G/DL Hematocrit 38 35-52 % Mean Corpuscular Volume 88 80-99 FL Mean Corpuscular Hemoglobin 31 25-34 PG Mean Corpuscular Hemoglobin Concent 35 32-36 G/DL Red Cell Distribution Width 14.0 10.0-14.5 % Platelet Count 224 130-400 10^3/uL Mean Platelet Volume 10.0 7.4-10.4 FL Neutrophils (%) (Auto) 61 42-75 % Lymphocytes (%) (Auto) 35 12-44 % Monocytes (%) (Auto) 4 0-12 % Eosinophils (%) (Auto) 0 0-10 % Basophils (%) (Auto) 0 0-10 % Neutrophils # (Auto) 2.5 1.8-7.8 X 10^3 Lymphocytes # (Auto) 1.4 1.0-4.0 X 10^3 Monocytes # (Auto) 0.2 0.0-1.0 X 10^3 Eosinophils # (Auto) 0.0 0.0-0.3 10^3/uL Basophils # (Auto) 0.0 0.0-0.1 10^3/uL Prothrombin Time 14.5 12.2-14.7 SEC INR Comment 1.1 0.8-1.4 Activated Partial Thromboplast Time 27 24-35 SEC Sodium Level 133 L 135-145 MMOL/L Potassium Level 4.1 3.6-5.0 MMOL/L Chloride Level 100 98-107 MMOL/L Carbon Dioxide Level 20 L 21-32 MMOL/L Anion Gap 13 5-14 MMOL/L Blood Urea Nitrogen 9 7-18 MG/DL Creatinine 0.78 0.60-1.30 MG/DL Estimat Glomerular Filtration Rate > 60 BUN/Creatinine Ratio 12 Glucose Level 292 H 70-105 MG/DL Calcium Level 9.4 8.5-10.1 MG/DL Corrected Calcium 9.5 8.5-10.1 MG/DL Magnesium Level 1.7 L 1.8-2.4 MG/DL Total Bilirubin 0.7 0.1-1.0 MG/DL Aspartate Amino Transf (AST/SGOT) 21 5-34 U/L Alanine Aminotransferase (ALT/SGPT) 22 0-55 U/L Alkaline Phosphatase 154 H 40-136 U/L Troponin I < 0.30 <0.30 NG/ML Total Protein 7.3 6.4-8.2 GM/DL Albumin 3.9 3.2-4.5 GM/DL TSH [place] Testing 2.36 0.35-4.94 UIU/ML Lactic Acid Level 2.04 *H 1.82 0.50-2.00 MMOL/L Test 07/31/18 05:23 07/31/18 06:45 Range/Units Glucometer 294 H 70-110 MG/DL White Blood Count 3.3 L 4.3-11.0 10^3/uL Red Blood Count 3.57 L 4.35-5.85 10^6/uL Hemoglobin 10.9 L 11.5-16.0 G/DL Hematocrit 32 L 35-52 % Mean Corpuscular Volume 90 80-99 FL Mean Corpuscular Hemoglobin 31 25-34 PG Mean Corpuscular Hemoglobin Concent 34 32-36 G/DL Red Cell Distribution Width 14.1 10.0-14.5 % Platelet Count 195 130-400 10^3/uL Mean Platelet Volume 9.9 7.4-10.4 FL Neutrophils (%) (Auto) 62 42-75 % Lymphocytes (%) (Auto) 31 12-44 % Monocytes (%) (Auto) 6 0-12 % Eosinophils (%) (Auto) 0 0-10 % Basophils (%) (Auto) 0 0-10 % Neutrophils # (Auto) 2.0 1.8-7.8 X 10^3 Lymphocytes # (Auto) 1.0 1.0-4.0 X 10^3 Monocytes # (Auto) 0.2 0.0-1.0 X 10^3 Eosinophils # (Auto) 0.0 0.0-0.3 10^3/uL Basophils # (Auto) 0.0 0.0-0.1 10^3/uL Sodium Level 135 135-145 MMOL/L Potassium Level 3.9 3.6-5.0 MMOL/L Chloride Level 104 98-107 MMOL/L Carbon Dioxide Level 23 21-32 MMOL/L Anion Gap 8 5-14 MMOL/L Blood Urea Nitrogen 6 L 7-18 MG/DL Creatinine 0.71 0.60-1.30 MG/DL Estimat Glomerular Filtration Rate > 60 BUN/Creatinine Ratio 8 Glucose Level 328 H 70-105 MG/DL Calcium Level 8.2 L 8.5-10.1 MG/DL Corrected Calcium 8.9 8.5-10.1 MG/DL Magnesium Level 1.8 1.8-2.4 MG/DL Total Bilirubin 0.6 0.1-1.0 MG/DL Aspartate Amino Transf (AST/SGOT) 18 5-34 U/L Alanine Aminotransferase (ALT/SGPT) 17 0-55 U/L Alkaline Phosphatase 125 40-136 U/L Total Protein 5.7 L 6.4-8.2 GM/DL Albumin 3.1 L 3.2-4.5 GM/DL My Orders Orders - DARBY CA DO Saline Lock/Iv-Start (07/30/18 18:16) Ekg Tracing (07/30/18 18:16) Monitor-Rhythm Ecg Trace Only (07/30/18 18:16) Chest 1 View, Ap/Pa Only (07/30/18 18:16) Cbc With Automated Diff (07/30/18 18:16) Comprehensive Metabolic Panel (07/30/18 18:16) Magnesium (07/30/18 18:16) Protime With Inr (07/30/18 18:16) Partial Thromboplastin Time (07/30/18 18:16) Thyroid Analyzer (07/30/18 18:16) Troponin I (07/30/18 18:16) Ua Culture If Indicated (07/30/18 18:16) Saline Lock/Iv-Start (07/30/18 18:16) Lactated Ringers (Lr 1000 Ml Iv Solution (07/30/18 18:16) Urine Culture (07/30/18 18:42) Lactic Acid Analyzer (07/30/18:18) Blood Culture (07/30/18:18) Ceftriaxone For Iv Use (Rocephin For I (07/30/18 20:00) Magnesium 1 Gm/100 Ml Ivpb (Magnesium [place] (07/30/18 20:00) Magnesium Oxide Tablet (Mag Ox Tablet) (07/30/18 20:00) Ceftriaxone For Iv Use (Rocephin For I (07/30/18 20:08) Ns (Ivpb) (Sodium Chloride 0.9% Ivpb Bag (07/30/18 20:08) Saline Lock/Iv-Start (07/30/18 20:33) Ns Iv 1000 Ml (Sodium Chloride 0.9%) (07/30/18 20:33) Fentanyl Injection (Sublimaze Injection (07/30/18 20:33) Magnesium 1 Gm/100 Ml Ivpb (Magnesium [place] (07/30/18 20:08) Magnesium Oxide Tablet (Mag Ox Tablet) (07/30/18 20:08) Code/Resuscitation (07/31/18 01:38) Initiate Admission Nursing Pro .admission (07/31/18 01:38) Isolation Central Supply Req (07/31/18 01:38) Telemetry (07/31/18 01:38) Telemetry Nursing Assessment ( (07/31/18 01:38) Accucheck Achs ACHS (07/31/18 01:38) Heart Healthy (07/31/18 Breakfast) Cbc With Automated Diff (07/31/18 05:00) Comprehensive Metabolic Panel (07/31/18 05:00) Magnesium (07/31/18 05:00) Medications Given in ED Vital Signs/I&O 07/30/18 07/30/18 07/31/18 07/31/18 21:09 22:00 00:05 02:37 Temp 98.9 98.0 Pulse 123 130 118 Resp 7 19 B/P (MAP) 151/80 162/87 (112) Pulse Ox 96 97 96 O2 Delivery Room Air Room Air Room Air 07/31/18 07/31/18 04:05 07:00 Temp 97.7 Pulse 120 105 Resp 18 B/P (MAP) 162/66 (98) Pulse Ox 95 O2 Delivery Room Air 07/31/18 00:00 Intake Total 1000 ml Balance 1000 ml Capillary Refill : Less Than 3 Seconds Blood Pressure Mean: 108 Progress Note : Progress Note UNEVENTFUL ER STAY ECG Initial ECG Impression Date: Jul 30, 2018 Initial ECG Impression Time: 18:31 Initial ECG Rate: 126 Initial ECG Rhythm: S.Tach Diagnostic Imaging Comments CXR--LOW LUNG VOLUMES, NO ACUTE PROCESS, PER RADIOLOGIST REPORT @ 1932 Reviewed: Reviewed by Me Departure Communication (Admissions) 1999-SPOKE WITH DR. MASON, HE ADVISES HIGH POTENCY ANTIBIOTICS AND ADMIT TO ONCOLOGY--DR. 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 2005--SPOKE WITH DR. PRASAD, ACCEPTS PT FOR ADMIT. Impression Primary Impression: Sepsis Additional Impressions: UTI (urinary tract infection) Breast cancer metastasized to multiple sites IDDM (insulin dependent diabetes mellitus) Hypomagnesemia CURRENTLY ON CHEMOTHERAPY MILD NEUTROPENIA Disposition: ADMITTED INPATIENT Condition: Stable Admissions Decision to Admit Reason: Admit from ER (General) Decision to Admit/Date: Jul 30, 2018 Time/Decision to Admit Time: 20:00 Departure-Patient Inst. Referrals: RICHIE LEMUS JR, DO (PCP/Family) Primary Care Physician DARBY CA DO Jul 30, 2018 18:38
[2018-07-30 18:49] LABS: CLARITY,URINE VERY CLOUDY; COLOR,URINE YELLOW; GLUCOSE, URINE (UA) 3+ (NEGATIVE); KETONES,URINE 1+ (NEGATIVE); LEUKOCYTE ESTERASE ,URINE 3+ (NEGATIVE); NITRITE,URINE POSITIVE (NEGATIVE); PH,URINE 6 (5-9); PROTEIN,URINE 2+ (NEGATIVE); UROBILINOGEN,URINE 1 MG/DL (NORMAL)
[2018-07-30 19:05] LABS: BACTERIA,URINE LARGE /HPF; BILIRUBIN,URINE 1+ (NEGATIVE); HYALINE CASTS, URINE 0-2 /LPF; RBC,URINE RARE /HPF; WBC,URINE >100 /HPF
[2018-07-30 19:13] LABS: BASOPHILS % (AUTO) 0 % (0-10); EOSINOPHILS % (AUTO) 0 % (0-10); HEMATOCRIT 38 % (35-52); HEMOGLOBIN 13.1 G/DL (11.5-16.0); LYMPHOCYTES # (AUTO) 1.4 X 10^3 (1.0-4.0); LYMPHOCYTES % (AUTO) 35 % (12-44); MEAN CORPUSCULAR HEMOGLOBIN 31 PG (25-34); MEAN CORPUSCULAR HGB CONC 35 G/DL (32-36); MEAN CORPUSCULAR VOLUME 88 FL (80-99); MONOCYTES # (AUTO) 0.2 X 10^3 (0.0-1.0); MONOCYTES % (AUTO) 4 % (0-12); NEUTROPHILS # (AUTO) 2.5 X 10^3 (1.8-7.8); NEUTROPHILS % (AUTO) 61 % (42-75); PLATELET COUNT 224 10^3/uL (130-400); RED BLOOD COUNT 4.29 10^6/uL (4.35-5.85); WHITE BLOOD COUNT 4.1 10^3/uL (4.3-11.0)
[2018-07-30 19:22] LABS: INR 1.1 (0.8-1.4); PROTHROMBIN TIME PATIENT 14.5 SEC (12.2-14.7)
--- NOTE | 2018-07-30 19:22 | Diagnostic Imaging Report ---
EXAM: CHEST 1 VIEW, AP/PA ONLY INDICATION: Mid back pain. Tachycardia. Weakness. COMPARISON: CT chest 05/29/2018. FINDINGS: Normal heart size and pulmonary vascularity. Right subclavian tunneled port CVC tip in RA. Low lung volumes. No dense consolidation, pleural effusion or pneumothorax. No acute osseous findings. Postoperative changes in the left axilla. IMPRESSION: Low lung volumes. Remainder unremarkable. Dictated by: Dictated on workstation # [id number]
[2018-07-30 19:32] LABS: ALANINE AMINOTRANSFERASE 22 U/L (0-55); ALBUMIN 3.9 GM/DL (3.2-4.5); ALKALINE PHOSPHATASE 154 U/L (40-136); BILIRUBIN,TOTAL 0.7 MG/DL (0.1-1.0); BUN/CREATININE RATIO 12; CALCIUM 9.4 MG/DL (8.5-10.1); CARBON DIOXIDE 20 MMOL/L (21-32); CHLORIDE 100 MMOL/L (98-107); CREATININE SERUM 0.78 MG/DL (0.60-1.30); GFR ESTIMATED > 60; GLUCOSE 292 MG/DL (70-105); MAGNESIUM 1.7 MG/DL (1.8-2.4); POTASSIUM 4.1 MMOL/L (3.6-5.0); SODIUM 133 MMOL/L (135-145); TOTAL PROTEIN 7.3 GM/DL (6.4-8.2)
[2018-07-30 19:52] LABS: TSH (THYROID ANALYZER) 2.36 UIU/ML (0.35-4.94)
[2018-07-30] MEDS ORDERED: MAGNESIUM 1 GM/100 ML IVPB 100 ML IV ONE ×2 (20:00→20:08)
[2018-07-30] MEDS ORDERED: cefTRIAXone FOR IV USE 1,000 MG in NS (IVPB) 50 ML IV ONE (20:00)
[2018-07-30] MEDS ORDERED: MAGNESIUM OXIDE (MAG-OX)400 MG TAB PO ONE (20:00)
[2018-07-30] MEDS ORDERED: cefTRIAXone 1 GM/10 ML for IV (ROCEPHIN) IV ONE (20:08)
[2018-07-30] MEDS ORDERED: NS (IVPB) 50 ML ONE (20:08)
[2018-07-30] MEDS ORDERED: MAGNESIUM OXIDE (MAG-OX)400 MG TAB ONE (20:08)
[2018-07-30] MEDS ORDERED: NS IV 1000 ML 1,000 ML IV ONE (20:33)
[2018-07-30] MEDS ORDERED: fentaNYL INJECTION 100 MCG/2 ML AMP IVP STA (20:33)
[2018-07-31 00:05] VITALS: BP 162/87
[2018-07-31] MEDS ORDERED: NS IV 1000 ML 1,000 ML ONE ×2 (02:09→06:33)
[2018-07-31 04:05] VITALS: BP 162/66
[2018-07-31] MEDS ORDERED: fentaNYL INJECTION 100 MCG/2 ML AMP IV PRN (06:45)
[2018-07-31] MEDS ORDERED: CATHETER FLUSH 10 ML SYR IV PRN (06:45)
[2018-07-31] MEDS ORDERED: ACETAMINOPHEN 500 MG TAB (TYLENOL) PO PRN ×2 (06:45→10:00)
[2018-07-31 06:52] LABS: BASOPHILS % (AUTO) 0 % (0-10); EOSINOPHILS % (AUTO) 0 % (0-10); HEMATOCRIT 32 % (35-52); HEMOGLOBIN 10.9 G/DL (11.5-16.0); LYMPHOCYTES % (AUTO) 31 % (12-44); MEAN CORPUSCULAR HEMOGLOBIN 31 PG (25-34); MEAN CORPUSCULAR HGB CONC 34 G/DL (32-36); MEAN CORPUSCULAR VOLUME 90 FL (80-99); MEAN PLATELET VOLUME 9.9 FL (7.4-10.4); MONOCYTES # (AUTO) 0.2 X 10^3 (0.0-1.0); MONOCYTES % (AUTO) 6 % (0-12); NEUTROPHILS % (AUTO) 62 % (42-75); PLATELET COUNT 195 10^3/uL (130-400); RED BLOOD COUNT 3.57 10^6/uL (4.35-5.85); RED CELL DISTRIBUTION WIDTH 14.1 % (10.0-14.5); WHITE BLOOD COUNT 3.3 10^3/uL (4.3-11.0)
[2018-07-31 07:12] LABS: ALANINE AMINOTRANSFERASE 17 U/L (0-55); ALBUMIN 3.1 GM/DL (3.2-4.5); ALKALINE PHOSPHATASE 125 U/L (40-136); BILIRUBIN,TOTAL 0.6 MG/DL (0.1-1.0); BUN/CREATININE RATIO 8; CALCIUM 8.2 MG/DL (8.5-10.1); CARBON DIOXIDE 23 MMOL/L (21-32); CHLORIDE 104 MMOL/L (98-107); CREATININE SERUM 0.71 MG/DL (0.60-1.30); GFR ESTIMATED > 60; GLUCOSE 328 MG/DL (70-105); MAGNESIUM 1.8 MG/DL (1.8-2.4); POTASSIUM 3.9 MMOL/L (3.6-5.0); SODIUM 135 MMOL/L (135-145); TOTAL PROTEIN 5.7 GM/DL (6.4-8.2)
[2018-07-31 08:00] VITALS: BP 108/64
[2018-07-31] MEDS: inSUlin ASPART (NovoLOG) 1 UNIT/0.01 ML (CHARGE PER UNIT) SC SCH ×4 (08:02→21:57)
[2018-07-31] MEDS ORDERED: RIVA20TA PO (08:46)
[2018-07-31] MEDS ORDERED: CARV3.122 PO (08:46)
[2018-07-31] MEDS ORDERED: OXYC10TA7 PO (08:46)
[2018-07-31] MEDS ORDERED: ACET-2267 PO (08:46)
[2018-07-31] MEDS ORDERED: OXYC5CAP18 PO (08:46)
[2018-07-31] MEDS ORDERED: ALBU18HF2 INH (08:46)
[2018-07-31] MEDS ORDERED: IBUP-30 PO (08:46)
[2018-07-31] MEDS ORDERED: CYCL10TA9 PO ×2 (08:46)
[2018-07-31] MEDS ORDERED: PROC10TA10 PO (08:46)
[2018-07-31] MEDS ORDERED: RT-ALBUTEROL SULF 2.5 MG/3 ML PRE-MIX VIAL INH PRN (09:00)
[2018-07-31] MEDS ORDERED: CYCLOBENZAPRINE 10 MG (FLEXERIL) TAB PO PRN (09:00)
[2018-07-31] MEDS ORDERED: PROCHLORPERAZINE 10 MG TAB (COMPAZINE) PO PRN (09:00)
[2018-07-31] MEDS ORDERED: PATIENT MAY USE OWN MEDS, ALL PO SCH (09:00)
[2018-07-31] MEDS ORDERED: METFORMIN HCL 1000 MG PO SCH (09:43)
[2018-07-31] MEDS ORDERED: ONDANSETRON 8 MG (ZOFRAN) ORAL DISSOLVE TAB PO PRN (10:00)
[2018-07-31] MEDS ORDERED: IBUPROFEN TABLET 200 MG TAB PO PRN (10:00)
--- NOTE | 2018-07-31 10:11 | HISTORY AND PHYSICAL ---
DATE OF SERVICE: ADMISSION HISTORY AND PHYSICAL The patient is admitted to room 418. PRESENTING COMPLAINT: Increased back pain and palpitations. HISTORY OF PRESENT ILLNESS: The patient is a 52-year-old female with a history of metastatic triple negative breast cancer since 2013. She has been on multiple chemotherapy regimens in the past and is currently on treatment with Ixempra. She completed the last course one week ago. Over the weekend, she started noticing increased mid back pain and worsening palpitations with any activity. She denied any fevers or chills. No urinary symptoms. No cough. She came to the emergency room and was evaluated. She was found to have significant urinary tract infection with probable early sepsis with elevation in lactic acid level, but with maintained blood pressure. She was admitted to the hospital for broad spectrum antibiotic therapy and other supportive care. PAST MEDICAL HISTORY: Significant for triple negative breast cancer diagnosed in 2011. She was treated with neoadjuvant chemotherapy followed by lumpectomy and radiation therapy. Diagnosed with metastatic breast cancer in early 2014 and on palliative chemotherapy with multiple agents including Abraxane, Halavan, PARP inhibitor, Ixempra etc. 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 She also has a history of recurrent UTIs in the past. Other medical problems include diabetes mellitus type 2, which is insulin requiring for more than 15 years, hypertension, history of lupus, but not on any active treatment for few years. 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 PAST SURGICAL HISTORY: Include tonsillectomy and adenoidectomy in 1987, cholecystectomy in 2005 and breast surgery 2008. SOCIAL HISTORY: The patient is , currently lives in [place], [place]. She has not been able to work for several years because of her disease and treatment. She has a son and a daughter, both of whom live close by. No history of tobacco, alcohol or recreational drug use. FAMILY HISTORY: Significant for her father with lung cancer at 69 years. Maternal grandmother with ovarian cancer in her 70s. Maternal grandfather with colon cancer in his 70s. The patient was diagnosed with a mutation in BRCA2 gene at a nontraditional locus. Her sister also has the same mutation. PHYSICAL EXAMINATION: GENERAL: A middle-aged female, obese, awake and oriented and in no acute distress. VITAL SIGNS: Temperature is 98.5, pulse rate of 104, respirations 20, blood pressure 108/64 and oxygen saturation 95% on room air. HEENT: Normocephalic with thinning hair, extraocular muscles intact, conjunctivae pink, oral mucosa moist. NECK: Supple. No JVD. No lymphadenopathy. CHEST: Examination showed a port. LUNGS: Slightly diminished breath sounds at the bases. No wheeze or rales. CARDIOVASCULAR: Regular rate and rhythm, borderline tachycardic, no murmurs or gallops. ABDOMEN: Obese, soft, nontender with no hepatosplenomegaly or other masses palpable. EXTREMITIES: Showed trace edema. LABORATORY DATA: CBC done at the time of admission showed white count of 4.1, hemoglobin 13.1 and platelet count of 224,000 with neutrophil count of 2.5. CBC repeated today morning showed white count of 3.3, hemoglobin 10.9 and platelet count 195,000 with neutrophil count of 2.0. Chemistry panel today showed normal electrolytes. BUN was 6 and creatinine 0.71 with GFR more than 60 mL per minute. Glucose was 328. Liver function studies are within normal limits except albumin level of 3.1. Urinalysis done in the emergency room was very cloudy with urine glucose 3+, nitrites positive, leukocyte esterase 3+ , WBC more than 100, NRBC rare and urine bacteria was large. Culture was done with results pending. Chest x-ray done at the emergency room showed right subclavian port. Low lung volumes. No consolidation, pleural effusion or pneumothorax. Postoperative changes in the left axilla. ASSESSMENT: 1. Urinary tract infection with identity of the organism pending. 2. Metastatic triple negative breast cancer and undergoing outpatient chemotherapy with Ixempra. 3. Borderline neutropenia secondary to chemotherapy. 4. Back pain of undetermined etiology, probable pyelonephritis versus pleurisy. PLAN: 1. We will admit the patient to the hospital and aggressive hydration initially. 2. Broad spectrum antibiotics. The patient has been started on ceftriaxone. Continue this until urine culture and sensitivity available. 3. Borderline hypomagnesemia during evaluation at the ER, status post replacement parenterally and monitor serially. 4. Continue home medications. 5. Add incentive spirometry. 6. Patient does not need DVT prophylaxis as she is on full anticoagulation with Eliquis. 7. Anticipated length of stay is more than 2 midnights for parenteral antibiotic therapy. 8. Increase activity as tolerated. Job ID: [id number] DocumentID: [id number] Dictated Date: 07/31/2018 09:23:56 Bag Machine Adjuster Date: 07/31/2018 10:11:04 Dictated By: MD FLORECITA LOVETT
[2018-07-31] MEDS: OXYCODONE 5 MG PO SCH ×5 (10:23→22:14)
[2018-07-31] MEDS: PIOGLITAZONE 30MG (ACTOS) TAB PO SCH (10:24)
[2018-07-31] MEDS: Omeprazole 40 MG PO SCH (10:25)
[2018-07-31] MEDS: CARVEDILOL 3.125 MG PO SCH ×2 (10:26→21:53)
[2018-07-31] MEDS: INSULIN DETEMIR SQ SCH (10:28)
[2018-07-31 12:00] VITALS: BP 97/64
[2018-07-31] MEDS: NS IV 1000 ML 1,000 ML IV SCH ×2 (13:37→16:57)
[2018-07-31] MEDS: CATHETER FLUSH 10 ML SYR IV SCH ×2 (14:03→21:57)
[2018-07-31 16:00] VITALS: BP 107/61
[2018-07-31 19:39] VITALS: BP 104/61
[2018-07-31] MEDS: cefTRIAXone 1 GM/NS 50 ML IVPB IV SCH ×2 (21:53)
[2018-07-31] MEDS: OXYCODONE HCL 10 MG PO SCH (21:54)
[2018-07-31] MEDS: METFORMIN HCL 1000 MG PO SCH (21:54)
[2018-07-31] MEDS: RIVAROXABAN 20 MG TABLET (XARELTO) PO SCH (21:55)
[2018-07-31] MEDS: CYCLOBENZAPRINE 10 MG (FLEXERIL) TAB PO SCH (21:55)
[2018-07-31] MEDS: ONDANSETRON 4 MG/2 ML (SDV) Z0FRAN IV PRN (22:51)
[2018-08-01] MEDS: OXYCODONE 5 MG PO SCH ×8 (00:20→21:30)
[2018-08-01] MEDS: NS IV 1000 ML 1,000 ML IV SCH ×3 (00:20→21:22)
[2018-08-01 00:45] VITALS: BP 113/62
[2018-08-01 04:03] VITALS: BP 108/63
[2018-08-01 04:49] LABS: BASOPHILS % (AUTO) 0 % (0-10); EOSINOPHILS % (AUTO) 1 % (0-10); HEMATOCRIT 31 % (35-52); HEMOGLOBIN 10.5 G/DL (11.5-16.0); LYMPHOCYTES # (AUTO) 0.9 X 10^3 (1.0-4.0); LYMPHOCYTES % (AUTO) 22 % (12-44); MEAN CORPUSCULAR HEMOGLOBIN 31 PG (25-34); MEAN CORPUSCULAR HGB CONC 34 G/DL (32-36); MEAN CORPUSCULAR VOLUME 90 FL (80-99); MEAN PLATELET VOLUME 9.7 FL (7.4-10.4); MONOCYTES # (AUTO) 0.3 X 10^3 (0.0-1.0); MONOCYTES % (AUTO) 7 % (0-12); NEUTROPHILS % (AUTO) 71 % (42-75); PLATELET COUNT 211 10^3/uL (130-400); RED BLOOD COUNT 3.39 10^6/uL (4.35-5.85); RED CELL DISTRIBUTION WIDTH 14.2 % (10.0-14.5); WHITE BLOOD COUNT 4.2 10^3/uL (4.3-11.0)
[2018-08-01 05:05] LABS: BUN/CREATININE RATIO 4; CALCIUM 8.5 MG/DL (8.5-10.1); CARBON DIOXIDE 19 MMOL/L (21-32); CHLORIDE 109 MMOL/L (98-107); CREATININE SERUM 0.68 MG/DL (0.60-1.30); GFR ESTIMATED > 60; GLUCOSE 128 MG/DL (70-105); MAGNESIUM 1.7 MG/DL (1.8-2.4); POTASSIUM 3.2 MMOL/L (3.6-5.0); SODIUM 139 MMOL/L (135-145)
[2018-08-01] MEDS: inSUlin ASPART (NovoLOG) 1 UNIT/0.01 ML (CHARGE PER UNIT) SC SCH ×4 (07:42→21:29)
[2018-08-01] MEDS: CATHETER FLUSH 10 ML SYR IV SCH ×3 (07:42→21:29)
[2018-08-01] MEDS: PIOGLITAZONE 30MG (ACTOS) TAB PO SCH (07:42)
[2018-08-01] MEDS: Omeprazole 40 MG PO SCH (09:29)
[2018-08-01] MEDS: METFORMIN HCL 1000 MG PO SCH ×2 (09:29→21:23)
[2018-08-01] MEDS: CARVEDILOL 3.125 MG PO SCH ×2 (09:31→21:23)
[2018-08-01] MEDS: INSULIN DETEMIR SQ SCH (09:32)
[2018-08-01] MEDS: MAGNESIUM 1 GM/100 ML IVPB 100 ML IV SCH ×2 (09:37→10:50)
[2018-08-01 12:00] VITALS: BP 96/67
[2018-08-01] MEDS: POTASSIUM CL 10MEQ/50ML IVPB 50 ML IV SCH ×3 (13:24→15:34)
--- NOTE | 2018-08-01 13:42 | Progress Note-Standard ---
Standard Progress Note Progress Notes/Assess & Plan Date Seen by Provider: Aug 01, 2018 Time Seen by Provider: 13:30 Progress/Assessment & Plan 52-year-old female with metastatic triple negative breast cancer diagnosed more than 4 years ago and on chemotherapy with Ixempra with the last course administered approximately 10 days ago. Admitted with back pain and found to have a gram-negative UTI. Currently on treatment with ceftriaxone with sensitivity pending. Patient still complained of palpitations with any exertion. She had low blood sugars last night and is using less insulin today. She has not been eating well. Complained of 1 or 2 episodes of visual aura but no headaches. Vital Sign - Last 12Hours Date Time Temp Pulse Resp B/P (MAP) Pulse Ox O2 Delivery O2 Flow Rate FiO2 08/01/18 12:53 85 08/01/18 12:00 97.3 20 96/67 (77) 96 Room Air Physical examination today showed a middle-aged female, obese, awake and oriented, in no acute distress. HEENT normocephalic, extraocular muscles intact, conjunctivae pink, oral mucosa moist. Neck was supple with no JVD. No cervical, supraclavicular or axillary lymphadenopathy palpable. Chest was symmetrical. Lungs fairly clear to auscultation without wheezes or rales. Cardiovascular exam was borderline tachycardic, regular in rate and rhythm, no murmurs heard. Abdomen was obese, soft, nontender with no hepatosplenomegaly or other masses palpable. Extremities showed 1+ edema around the ankles. Neurological examination grossly intact without focal motor deficits. Laboratory Tests 08/01/18 04:40 Serum magnesium 1.7. Urine culture growing more than 100,000 colonies of gram-negative bacilli. A/P: 1. Gram-negative UTI, currently on ceftriaxone. Await sensitivity report and change antibiotics if necessary. 2. Sinus tachycardia of undetermined etiology. Patient is not dehydrated clinically and her anemia is not significant to cause these symptoms. I will consult Dr. Chadwick for a cardiology evaluation and recommendations. 3. Previous history of DVT and bilateral PE, on chronic anticoagulation with Eliquis. Continue. 4. Metastatic triple negative breast cancer, currently on palliative chemotherapy with Ixempra. Patient completed third course approximately 10 days ago. Borderline low WBC most likely due to chemotherapy but patient is not neutropenic. Monitor. 5. Mild hypokalemia and hypomagnesemia, we'll replace parenterally. 6. Intermittent visual symptoms of undetermined etiology. Once she is better from the urinary tract infection, if these symptoms persist, we will obtain an MRI of the head to rule out [employer] metastasis. Focused Exam Lactate Level 07/30/18 19:30: Lactic Acid Level 2.04*H 07/30/18 21:59: Lactic Acid Level 1.82 SILVANO MASON Aug 01, 2018 13:42
--- NOTE | 2018-08-01 14:18 | Consultation-Cardiology ---
HPI-Cardiology Cardiology Consultation Date of Consultation 08/01/18 Date of Admission Time Seen by Provider: 14:13 Indication: sinus tachycardia HPI 52 years old lady with history of metastatic breast cancer, had metastases to the bones. Started on chemotherapy, recently noted that she has been having palpitation and feeling her heart racing with minimal exertion after standing up and walking to the bathroom. Deteriorated and admitted through the emergency room last night. She was noted to be tachycardic in the hospital. Admit having palpitation and feeling lightheaded. No syncope was reported. No chest pain. She admitted having mild pedal edema which has been worsening since she has been receiving IV fluid in the hospital. She was noted to have urinary tract infection and started on antibiotics Home Medications & Allergies Allergies: Coded Allergies: erythromycin base (Verified Allergy, Unknown, 09/28/15) Home Medication List Reviewed: Yes [id number] Hx Patient Social History Marital Status: Employed/Student: retired Alcohol Use: Denies Use Recreational Drug Use: No Smoking Status: Never a Smoker Recent Foreign Travel: No Recent Infectious Disease Expo: No Recent Hopitalizations: No (2014) Physical Abuse Screen: No Sexual Abuse: No Immunizations Up To Date Tetanus Booster (TDap): Unknown Date of Pneumonia Vaccine: Mar 13, 2013 Past Medical History Past medical history as described below Family Medical History Family History: Alzheimer's disease 19 MOTHER Asthma 19 FATHER, Onset:Unknown Cardiovascular disease 19 MOTHER, Onset:Unknown Diabetes mellitus 19 FATHER, Onset:Unknown 19 MOTHER, Onset:Unknown G8 BROTHER, Onset:Unknown FH: COPD (chronic obstructive pulmonary disease) 19 FATHER, Onset:Unknown FH: heart disease 19 MOTHER, Onset:Unknown FH: lung cancer 19 FATHER, Onset:Unknown Fibromyalgia G8 SISTER, Onset:Unknown No Family History of: AIDS Abdominal aortic aneurysm Mckean's disease Alcoholism Aphasia Arthritis Cancer of mouth Cataracts Colon cancer Completed stroke Congenital disease Congenital heart disease Coronary thrombosis Cystic fibrosis Deafness or hearing loss Dementia Drug abuse Dysphasia Fibrocystic disease of breast Gastroenteritis Glaucoma Headache disorder Hypercholesterolemia Hypertension Infertility Kidney disease Myocardial infarction Neoplasm Not obtainable due to adoption Osteoporosis Parkinson's disease Prostate cancer Psychosocial problem Respiratory disorder Seizure disorder Severe allergy Thyroid disease Tuberculosis Visual disorder Review of Systems Constitutional: see HPI, dizziness, malaise, weakness EENTM: see HPI, no symptoms reported Respiratory: see HPI; No cough, No dyspnea on exertion, No hemoptysis, No orthopnea, No phlegm, No short of breath, No stridor, No wheezing, No other Cardiovascular: see HPI; No chest pain, No edema, No Hx of Intervention; palpitations; No syncope, No vascular heart diseas, No other Gastrointestinal: no symptoms reported, see HPI Genitourinary: no symptoms reported, see HPI Musculoskeletal: see HPI, back pain, joint pain Skin: no symptoms reported, see HPI Psychiatric/Neurological: No Symptoms Reported, See HPI Reviewed Test Results Reviewed Test Results Lab Laboratory Tests Test 07/31/18 15:57 07/31/18 20:43 08/01/18 04:40 08/01/18 06:13 Range/Units Glucometer 109 120 H 163 H 70-110 MG/DL White Blood Count 4.2 L 4.3-11.0 10^3/uL Red Blood Count 3.39 L 4.35-5.85 10^6/uL Hemoglobin 10.5 L 11.5-16.0 G/DL Hematocrit 31 L 35-52 % Mean Corpuscular Volume 90 80-99 FL Mean Corpuscular Hemoglobin 31 25-34 PG Mean Corpuscular Hemoglobin Concent 34 32-36 G/DL Red Cell Distribution Width 14.2 10.0-14.5 % Platelet Count 211 130-400 10^3/uL Mean Platelet Volume 9.7 7.4-10.4 FL Neutrophils (%) (Auto) 71 42-75 % Lymphocytes (%) (Auto) 22 12-44 % Monocytes (%) (Auto) 7 0-12 % Eosinophils (%) (Auto) 1 0-10 % Basophils (%) (Auto) 0 0-10 % Neutrophils # (Auto) 3.0 1.8-7.8 X 10^3 Lymphocytes # (Auto) 0.9 L 1.0-4.0 X 10^3 Monocytes # (Auto) 0.3 0.0-1.0 X 10^3 Eosinophils # (Auto) 0.0 0.0-0.3 10^3/uL Basophils # (Auto) 0.0 0.0-0.1 10^3/uL Sodium Level 139 135-145 MMOL/L Potassium Level 3.2 L 3.6-5.0 MMOL/L Chloride Level 109 H 98-107 MMOL/L Carbon Dioxide Level 19 L 21-32 MMOL/L Anion Gap 11 5-14 MMOL/L Blood Urea Nitrogen 3 L 7-18 MG/DL Creatinine 0.68 0.60-1.30 MG/DL Estimat Glomerular Filtration Rate > 60 BUN/Creatinine Ratio 4 Glucose Level 128 H 70-105 MG/DL Calcium Level 8.5 8.5-10.1 MG/DL Magnesium Level 1.7 L 1.8-2.4 MG/DL Test 08/01/18 10:59 Range/Units Glucometer 120 H 70-110 MG/DL Physical Exam Vital Signs Vital Signs - First Documented 07/30/18 18:01 Temp 96.7 Pulse 138 Resp 20 B/P (MAP) 141/92 (108) Pulse Ox 96 O2 Delivery Room Air Capillary Refill : Less Than 3 Seconds Height, Weight, BMI Height: 5'7.00" Weight: 240lbs. 8.0oz. [id number]; 37.7 BMI Method:Stated General Appearance: No Apparent Distress, WD/WN Eyes: Bilateral Eye Normal Inspection, Bilateral Eye PERRL, Bilateral Eye EOMI HEENT: PERRL/EOMI, TMs Normal, Normal ENT Inspection, Pharynx Normal Neck: Full Range of Motion, Normal Inspection, Non Tender, Supple, Carotid Bruit Respiratory: Chest Non Tender, Lungs Clear, Normal Breath Sounds, No Accessory Muscle Use, No Respiratory Distress Cardiovascular: No Edema, No Gallop, No JVD, No Murmur, Normal Peripheral Pulses, Tachycardia Gastrointestinal: Normal Bowel Sounds, No Organomegaly, No Pulsatile Mass, Non Tender, Soft Back: Normal Inspection, No CVA Tenderness, No Vertebral Tenderness Extremity: Normal Capillary Refill, Normal Inspection, Normal Range of Motion, Non Tender, No Calf Tenderness, No Pedal Edema Neurologic/Psychiatric: Alert, Oriented x3, No Motor/Sensory Deficits, Normal Mood/Affect Skin: Normal Color, Warm/Dry Lymphatic: No Adenopathy A/P-Cardiology Admission Diagnosis Sinus tachycardia Palpitation Urinary tract infection Metastatic breast cancer Assessment/Plan Sinus tachycardia, worsening with minimal exertion, has been maintained on Coreg as an outpatient, I will change it to Toprol and monitor her blood pressure, evaluate 2-D echocardiogram. Metastatic breast cancer, triple negative, has been on palliative chemotherapy with Ixempra which has side effect including neutropenia, arrhythmia and ventricular dysfunction and cardiomyopathy. Planning to evaluate 2-D echocardiogram. Urinary tract infection, started on ceftriaxone, has gram-negative. Sensitivities pending, managed by primary care team History of cardiac catheterization done in 2011 with mild coronary artery disease nonobstructive disease History of DV this thrombosis and bilateral PE on Eliquis. 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 Possible MRI of the head. Clinical Quality Measures DVT/VTE Risk/Contraindication: Risk Factor Score Per Nursin RFS Level Per Nursing on Admit: 4+=Very High DIPAK OSCAR MD Aug 01, 2018 14:18
[2018-08-01 16:15] VITALS: BP 116/56
[2018-08-01 19:30] VITALS: BP 131/77
[2018-08-01] MEDS: cefTRIAXone 1 GM/NS 50 ML IVPB IV SCH ×2 (21:22)
[2018-08-01] MEDS: RIVAROXABAN 20 MG TABLET (XARELTO) PO SCH (21:23)
[2018-08-01] MEDS: CYCLOBENZAPRINE 10 MG (FLEXERIL) TAB PO SCH (21:24)
[2018-08-01] MEDS: OXYCODONE HCL 10 MG PO SCH (21:25)
[2018-08-02] MEDS: OXYCODONE 5 MG PO SCH ×8 (00:26→21:54)
[2018-08-02 00:28] VITALS: BP 111/59
[2018-08-02 04:25] VITALS: BP 135/78
[2018-08-02] MEDS: inSUlin ASPART (NovoLOG) 1 UNIT/0.01 ML (CHARGE PER UNIT) SC SCH ×4 (05:35→21:53)
[2018-08-02] MEDS: PIOGLITAZONE 30MG (ACTOS) TAB PO SCH (06:07)
[2018-08-02] MEDS: NS IV 1000 ML 1,000 ML IV SCH ×2 (06:10→16:51)
[2018-08-02] MEDS: CATHETER FLUSH 10 ML SYR IV SCH ×3 (06:10→21:55)
[2018-08-02 06:55] LABS: BASOPHILS % (AUTO) 0 % (0-10); EOSINOPHILS % (AUTO) 1 % (0-10); HEMATOCRIT 31 % (35-52); HEMOGLOBIN 10.2 G/DL (11.5-16.0); LYMPHOCYTES % (AUTO) 24 % (12-44); MEAN CORPUSCULAR HEMOGLOBIN 30 PG (25-34); MEAN CORPUSCULAR HGB CONC 33 G/DL (32-36); MEAN CORPUSCULAR VOLUME 91 FL (80-99); MONOCYTES # (AUTO) 0.4 X 10^3 (0.0-1.0); MONOCYTES % (AUTO) 9 % (0-12); NEUTROPHILS # (AUTO) 2.7 X 10^3 (1.8-7.8); NEUTROPHILS % (AUTO) 66 % (42-75); PLATELET COUNT 253 10^3/uL (130-400); RED BLOOD COUNT 3.37 10^6/uL (4.35-5.85); RED CELL DISTRIBUTION WIDTH 14.3 % (10.0-14.5); WHITE BLOOD COUNT 4.1 10^3/uL (4.3-11.0)
[2018-08-02 07:12] LABS: ALANINE AMINOTRANSFERASE 15 U/L (0-55); ALBUMIN 3.1 GM/DL (3.2-4.5); ALKALINE PHOSPHATASE 114 U/L (40-136); BILIRUBIN,TOTAL 0.3 MG/DL (0.1-1.0); BUN/CREATININE RATIO 3; CALCIUM 8.3 MG/DL (8.5-10.1); CARBON DIOXIDE 21 MMOL/L (21-32); CHLORIDE 110 MMOL/L (98-107); GFR ESTIMATED > 60; GLUCOSE 190 MG/DL (70-105); MAGNESIUM 1.6 MG/DL (1.8-2.4); POTASSIUM 3.4 MMOL/L (3.6-5.0); SODIUM 138 MMOL/L (135-145); TOTAL PROTEIN 5.9 GM/DL (6.4-8.2)
--- NOTE | 2018-08-02 07:41 | Cardiology Progress Note ---
Subjective Date Seen by Provider: Aug 02, 2018 Time Seen by Provider: 07:38 Subjective/Events-last exam Patient is laying down in bed, feeling better, heart rate is better. Review of Systems General: No Chills, No Night Sweats, No Fatigue, No Malaise, No Appetite, No Other HEENT: No Head Aches, No Visual Changes, No Eye Pain, No Ear Pain, No Dysphasia , No Sinus Congestion, No Post Nasal Drip, No Sore Throat, No Other Pulmonary: No Dyspnea, No Cough, No Pleuritic Chest Pain, No Other Cardiovascular: No: Chest Pain, Palpitations, Orthopnea, Paroxysmal Noc. Dyspnea, Edema, Lt Headedness, Other Focused Exam Lactate Level 07/30/18 19:30: Lactic Acid Level 2.04*H 07/30/18 21:59: Lactic Acid Level 1.82 Objective-Cardiology Exam Last Set of Vital Signs Vital Signs 08/02/18 04:25 Temp 98.1 Pulse 100 Resp 17 B/P (MAP) 135/78 (97) Pulse Ox 96 O2 Delivery Room Air Capillary Refill : Less Than 3 Seconds I&O Intake and Output 08/02/18 00:00 Intake Total 1900 ml Output Total 1300 ml Balance 600 ml Intake Oral 1550 ml IV Total 350 ml Output Urine Total 1300 ml # Voids 3 # Bowel Movements 1 General: Alert, Oriented X3, Cooperative HEENT: Atraumatic, PERRLA Neck: Supple, No JVD, No Thyromegaly Lungs: Clear to Auscultation, Normal Air Movement Heart: Regular Rate, Normal S1, Normal S2, No Murmurs Abdomen: Normal Bowel Sounds, Soft, No Tenderness, No Hepatosplenomegaly, No Masses Extremities: No Clubbing, No Cyanosis, No Edema, Normal Pulses, No Tenderness/ Swelling Skin: No Rashes, No Breakdown, No Significant Lesion Neuro: Normal Gait, Normal Speech, Strength at 5/5 X4 Ext, Normal Tone, Sensation Intact Psych/Mental Status: Mental Status NL, Mood NL Results Lab Laboratory Tests 08/02/18 06:45 A/P-Cardiology Admission Diagnosis Sinus tachycardia Palpitation Urinary tract infection Metastatic breast cancer Assessment/Plan Sinus tachycardia, worsening with minimal exertion, heart rate is better. Continue on Toprol and monitor. Metastatic breast cancer, triple negative, has been on palliative chemotherapy with Ixempra which has side effect including neutropenia, arrhythmia and ventricular dysfunction and cardiomyopathy. Echo showed normal left ventricular size and function with ejection fraction 55-65 percent, mildly dilated left atrium, pulmonary hypertension with estimated PA pressure of 40 mmHg Urinary tract infection, receiving ceftriaxone, has gram-negative. 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 Possible MRI of the head. Clinical Quality Measures DVT/VTE Risk/Contraindication: Risk Factor Score Per Nursin RFS Level Per Nursing on Admit: 4+=Very High DIPAK OSCAR MD Aug 02, 2018 07:41
[2018-08-02 08:28] VITALS: BP 115/57
[2018-08-02] MEDS: METFORMIN HCL 1000 MG PO SCH ×2 (09:59→21:52)
[2018-08-02] MEDS: CARVEDILOL 3.125 MG PO SCH ×2 (10:00→21:51)
[2018-08-02] MEDS: Omeprazole 40 MG PO SCH (10:04)
[2018-08-02] MEDS: INSULIN DETEMIR SQ SCH (10:04)
[2018-08-02 12:00] VITALS: BP 111/66
[2018-08-02] MEDS: ONDANSETRON 4 MG/2 ML (SDV) Z0FRAN IV PRN (13:41)
[2018-08-02 16:15] VITALS: BP 116/60
--- NOTE | 2018-08-02 18:06 | Progress Note-Standard ---
Standard Progress Note Progress Notes/Assess & Plan Date Seen by Provider: Aug 02, 2018 Time Seen by Provider: 18:01 Progress/Assessment & Plan 52-year-old female with metastatic triple negative breast cancer diagnosed more than 4 years ago and on chemotherapy with Ixempra with the last course administered approximately 10 days ago. Admitted with back pain and found to have Klebsiella UTI. Currently on treatment with ceftriaxone with sensitivity pending. Patient was having palpitations with any exertion. Dr. Chadwick has evaluated the patient and is adjusting her medications. She did not have significant palpitations today. She is having low blood sugars last night and today. She is using long-acting insulin but her oral intake is not normal. Vital Sign - Last 12Hours Date Time Temp Pulse Resp B/P (MAP) Pulse Ox O2 Delivery O2 Flow Rate FiO2 08/02/18 16:15 97.0 88 16 116/60 (78) 96 Room Air Physical examination today showed a middle-aged female, obese, awake and oriented, in no acute distress. HEENT normocephalic, extraocular muscles intact, conjunctivae pink, oral mucosa moist. Neck was supple with no JVD. No cervical, supraclavicular or axillary lymphadenopathy palpable. Chest was symmetrical. Lungs fairly clear to auscultation without wheezes or rales. Cardiovascular exam was borderline tachycardic, regular in rate and rhythm, no murmurs heard. Abdomen was obese, soft, nontender with no hepatosplenomegaly or other masses palpable. Extremities showed 1+ edema around the ankles. Neurological examination grossly intact without focal motor deficits. Laboratory Tests 08/02/18 06:45 Serum magnesium 1.6. Urine culture growing more than 100,000 colonies of Klebsiella. A/P: 1. Klebsiella UTI, currently on ceftriaxone. Await sensitivity report and change antibiotics if necessary. 2. Sinus tachycardia of undetermined etiology. Appreciate cardiology evaluation and recommendations. Patient started on Toprol with clinical improvement. Blood pressure continues the low-normal range. 3. Previous history of DVT and bilateral PE, on chronic anticoagulation with Eliquis. Continue. 4. Metastatic triple negative breast cancer, currently on palliative chemotherapy with Ixempra. Patient completed third course approximately 10 days ago. Borderline low WBC most likely due to chemotherapy but patient is not neutropenic. Monitor. 5. Mild hypokalemia and hypomagnesemia, we'll replace parenterally. We will decrease IV fluids to 75 mL per hour. 6. Intermittent visual symptoms of undetermined etiology. Once she is better from the urinary tract infection, if these symptoms persist, we will obtain an MRI of the head to rule out [employer] MA[employer]GER TRAIN[employer] metastasis. Focused Exam Lactate Level 07/30/18 19:30: Lactic Acid Level 2.04*H 07/30/18 21:59: Lactic Acid Level 1.82 SILVANO MASON Aug 02, 2018 18:06
[2018-08-02] MEDS: MAGNESIUM 1 GM/100 ML IVPB 100 ML IV SCH ×3 (18:15→21:50)
[2018-08-02 19:45] VITALS: BP 129/74
[2018-08-02] MEDS: cefTRIAXone 1 GM/NS 50 ML IVPB IV SCH ×2 (21:50)
[2018-08-02] MEDS: CYCLOBENZAPRINE 10 MG (FLEXERIL) TAB PO SCH (21:51)
[2018-08-02] MEDS: RIVAROXABAN 20 MG TABLET (XARELTO) PO SCH (21:53)
[2018-08-02] MEDS: OXYCODONE HCL 10 MG PO SCH (21:54)
[2018-08-02] MEDS: POTASSIUM CL 10MEQ/50ML IVPB 50 ML IV SCH ×2 (22:32→23:37)
[2018-08-03 00:14] VITALS: BP 130/72
[2018-08-03] MEDS: OXYCODONE 5 MG PO SCH ×6 (00:43→16:09)
[2018-08-03 04:21] VITALS: BP 119/58
[2018-08-03 05:19] LABS: BASOPHILS % (AUTO) 0 % (0-10); EOSINOPHILS % (AUTO) 1 % (0-10); HEMATOCRIT 29 % (35-52); HEMOGLOBIN 9.7 G/DL (11.5-16.0); LYMPHOCYTES # (AUTO) 1.5 X 10^3 (1.0-4.0); LYMPHOCYTES % (AUTO) 34 % (12-44); MEAN CORPUSCULAR HEMOGLOBIN 30 PG (25-34); MEAN CORPUSCULAR HGB CONC 33 G/DL (32-36); MEAN CORPUSCULAR VOLUME 91 FL (80-99); MEAN PLATELET VOLUME 9.4 FL (7.4-10.4); MONOCYTES # (AUTO) 0.4 X 10^3 (0.0-1.0); MONOCYTES % (AUTO) 10 % (0-12); NEUTROPHILS # (AUTO) 2.4 X 10^3 (1.8-7.8); NEUTROPHILS % (AUTO) 55 % (42-75); PLATELET COUNT 260 10^3/uL (130-400); RED BLOOD COUNT 3.25 10^6/uL (4.35-5.85); RED CELL DISTRIBUTION WIDTH 14.4 % (10.0-14.5); WHITE BLOOD COUNT 4.4 10^3/uL (4.3-11.0)
[2018-08-03 05:43] LABS: ALANINE AMINOTRANSFERASE 15 U/L (0-55); ALBUMIN 2.9 GM/DL (3.2-4.5); ALKALINE PHOSPHATASE 114 U/L (40-136); BILIRUBIN,TOTAL 0.2 MG/DL (0.1-1.0); BUN/CREATININE RATIO 3; CALCIUM 8.2 MG/DL (8.5-10.1); CARBON DIOXIDE 19 MMOL/L (21-32); CHLORIDE 111 MMOL/L (98-107); CREATININE SERUM 0.63 MG/DL (0.60-1.30); GFR ESTIMATED > 60; GLUCOSE 87 MG/DL (70-105); MAGNESIUM 2.1 MG/DL (1.8-2.4); POTASSIUM 3.4 MMOL/L (3.6-5.0); SODIUM 138 MMOL/L (135-145); TOTAL PROTEIN 5.4 GM/DL (6.4-8.2)
[2018-08-03] MEDS: inSUlin ASPART (NovoLOG) 1 UNIT/0.01 ML (CHARGE PER UNIT) SC SCH ×4 (06:02→21:14)
[2018-08-03] MEDS: PIOGLITAZONE 30MG (ACTOS) TAB PO SCH (06:02)
[2018-08-03] MEDS: CATHETER FLUSH 10 ML SYR IV SCH ×3 (06:03→20:54)
[2018-08-03] MEDS: NS IV 1000 ML 1,000 ML IV SCH ×2 (06:03→18:34)
--- NOTE | 2018-08-03 07:02 | Cardiology Progress Note ---
Subjective Date Seen by Provider: Aug 03, 2018 Time Seen by Provider: 07:01 Subjective/Events-last exam Patient is laying down in bed, feeling better. No further episodes of palpitation, still borderline tachycardic Review of Systems General: No Chills, No Night Sweats, No Fatigue, No Malaise, No Appetite, No Other HEENT: No Head Aches, No Visual Changes, No Eye Pain, No Ear Pain, No Dysphasia , No Sinus Congestion, No Post Nasal Drip, No Sore Throat, No Other Pulmonary: No Dyspnea, No Cough, No Pleuritic Chest Pain, No Other Cardiovascular: No: Chest Pain, Palpitations, Orthopnea, Paroxysmal Noc. Dyspnea, Edema, Lt Headedness, Other Objective-Cardiology Exam Last Set of Vital Signs Vital Signs 08/03/18 04:21 Temp 97.4 Pulse 100 Resp 17 B/P (MAP) 119/58 (78) Pulse Ox 97 O2 Delivery Room Air Capillary Refill : Less Than 3 Seconds I&O Intake and Output 08/03/18 00:00 Intake Total 1850 ml Output Total 1225 ml Balance 625 ml Intake Oral 1450 ml IV Total 400 ml Output Urine Total 1225 ml # Voids 1 # Bowel Movements 1 General: Alert, Oriented X3, Cooperative HEENT: Atraumatic, PERRLA Neck: Supple, No JVD, No Thyromegaly Lungs: Clear to Auscultation, Normal Air Movement Heart: Regular Rate, Normal S1, Normal S2, No Murmurs Abdomen: Normal Bowel Sounds, Soft, No Tenderness, No Hepatosplenomegaly, No Masses Extremities: No Clubbing, No Cyanosis, No Edema, Normal Pulses, No Tenderness/ Swelling Skin: No Rashes, No Breakdown, No Significant Lesion Neuro: Normal Gait, Normal Speech, Strength at 5/5 X4 Ext, Normal Tone, Sensation Intact Psych/Mental Status: Mental Status NL, Mood NL Results Lab Laboratory Tests 08/03/18 05:05 A/P-Cardiology Admission Diagnosis Sinus tachycardia Palpitation Urinary tract infection Metastatic breast cancer Assessment/Plan Sinus tachycardia, worsening with minimal exertion, heart rate is improving, I will increase Toprol dose to 25 mg twice daily and monitor her tolerance and response. Metastatic breast cancer, triple negative, has been on palliative chemotherapy with Ixempra which has side effect including neutropenia, arrhythmia and ventricular dysfunction and cardiomyopathy. Echo showed normal left ventricular size and function with ejection fraction 55-65 percent, mildly dilated left atrium, pulmonary hypertension with estimated PA pressure of 40 mmHg Urinary tract infection, receiving ceftriaxone, has gram-negative. 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 Possible MRI of the head. Clinical Quality Measures DVT/VTE Risk/Contraindication: Risk Factor Score Per Nursin RFS Level Per Nursing on Admit: 4+=Very High DIPAK OSCAR MD Aug 03, 2018 07:01
[2018-08-03 08:00] VITALS: BP 113/58
[2018-08-03] MEDS: CARVEDILOL 3.125 MG PO SCH ×2 (09:18→21:15)
[2018-08-03] MEDS: METFORMIN HCL 1000 MG PO SCH ×2 (09:19→21:15)
[2018-08-03] MEDS: Omeprazole 40 MG PO SCH (09:19)
[2018-08-03] MEDS: INSULIN DETEMIR SQ SCH (09:21)
[2018-08-03 16:00] VITALS: BP 109/53
--- NOTE | 2018-08-03 17:29 | Progress Note-Standard ---
Standard Progress Note Progress Notes/Assess & Plan Date Seen by Provider: Aug 03, 2018 Time Seen by Provider: 17:23 Progress/Assessment & Plan 52-year-old female with metastatic triple negative breast cancer diagnosed more than 4 years ago and on chemotherapy with Ixempra with the last course administered approximately 10 days ago. Admitted with back pain and found to have Klebsiella UTI. Currently on treatment with ceftriaxone. She did not have significant palpitations today. She is eating better today and the blood sugars have been better. Activity level is low. Vital Sign - Last 12Hours Date Time Temp Pulse Resp B/P (MAP) Pulse Ox O2 Delivery O2 Flow Rate FiO2 08/03/18 16:00 97.3 83 16 109/53 (71) 97 Room Air Physical examination today showed a middle-aged female, obese, awake and oriented, in no acute distress. HEENT normocephalic, extraocular muscles intact, conjunctivae pink, oral mucosa moist. Neck was supple with no JVD. No cervical, supraclavicular or axillary lymphadenopathy palpable. Chest was symmetrical. Lungs fairly clear to auscultation without wheezes or rales. Cardiovascular exam was regular in rate and rhythm, no murmurs heard. Abdomen was obese, soft, nontender with no hepatosplenomegaly or other masses palpable. Extremities showed 1-2+ edema around the ankles. Neurological examination grossly intact without focal motor deficits. Laboratory Tests 08/02/18 21:11: Glucometer 116H 08/03/18 05:05: White Blood Count 4.4, Red Blood Count 3.25L, Hemoglobin 9.7L, Hematocrit 29L, Mean Corpuscular Volume 91, Mean Corpuscular Hemoglobin 30, Mean Corpuscular Hemoglobin Concent 33, Red Cell Distribution Width 14.4, Platelet Count 260, Mean Platelet Volume 9.4, Neutrophils (%) (Auto) 55, Lymphocytes (%) (Auto) 34, Monocytes (%) (Auto) 10, Eosinophils (%) (Auto) 1, Basophils (%) (Auto) 0, Neutrophils # (Auto) 2.4, Lymphocytes # (Auto) 1.5, Monocytes # (Auto) 0.4, Eosinophils # (Auto) 0.0, Basophils # (Auto) 0.0, Sodium Level 138, Potassium Level 3.4L, Chloride Level 111H, Carbon Dioxide Level 19L, Anion Gap 8, Blood Urea Nitrogen < 2L, Creatinine 0.63, Estimat Glomerular Filtration Rate > 60, BUN/Creatinine Ratio 3, Glucose Level 87, Calcium Level 8.2L, Corrected Calcium 9.1, Magnesium Level 2.1, Total Bilirubin 0.2, Aspartate Amino Transf (AST/SGOT ) 16, Alanine Aminotransferase (ALT/SGPT) 15, Alkaline Phosphatase 114, Total Protein 5.4L, Albumin 2.9L 08/03/18 10:17: Glucometer 95 08/03/18 11:14: Glucometer 105 08/03/18 16:03: Glucometer 199H Microbiology 07/30/18 Blood Culture - Preliminary, Resulted No growth 07/30/18 Urine Culture - Final, Complete Klebsiella pneumoniae Klebsiella pneumoniae#2 Both strains of Klebsiella is sensitive to ceftriaxone. A/P: 1. Klebsiella UTI, currently on ceftriaxone. Both strains of Klebsiella is sensitive to ceftriaxone. Continue. 2. Sinus tachycardia of undetermined etiology. Heart rate is controlled now and blood pressure in the lower normal range. Monitor. 3. Previous history of DVT and bilateral PE, on chronic anticoagulation with Eliquis. Continue. 4. Metastatic triple negative breast cancer, currently on palliative chemotherapy with Ixempra. Patient completed third course approximately 10 days ago. 5. Mild hypokalemia and hypomagnesemia, status post parenteral replacement. Magnesium normal today with potassium borderline low. Monitor. We will decrease IV fluids to 50 mL per hour. 6. We will consult physical therapy for strengthening and ambulation. Change oxycodone to when necessary basis. Home soon. SILVANO MASON Aug 03, 2018 17:29
[2018-08-03 19:55] VITALS: BP 120/59
[2018-08-03] MEDS: cefTRIAXone 1 GM/NS 50 ML IVPB IV SCH ×2 (21:12)
[2018-08-03] MEDS: OXYCODONE HCL 10 MG PO SCH (21:13)
[2018-08-03] MEDS: RIVAROXABAN 20 MG TABLET (XARELTO) PO SCH (21:16)
[2018-08-03] MEDS: CYCLOBENZAPRINE 10 MG (FLEXERIL) TAB PO SCH (21:17)
[2018-08-04] VITALS: BP 125/62
[2018-08-04 04:00] VITALS: BP 133/88
[2018-08-04] MEDS: CATHETER FLUSH 10 ML SYR IV SCH ×3 (04:45→21:24)
[2018-08-04 05:39] LABS: BASOPHILS % (AUTO) 0 % (0-10); EOSINOPHILS % (AUTO) 0 % (0-10); HEMATOCRIT 29 % (35-52); HEMOGLOBIN 9.4 G/DL (11.5-16.0); LYMPHOCYTES # (AUTO) 1.3 X 10^3 (1.0-4.0); LYMPHOCYTES % (AUTO) 35 % (12-44); MEAN CORPUSCULAR HEMOGLOBIN 30 PG (25-34); MEAN CORPUSCULAR HGB CONC 33 G/DL (32-36); MEAN CORPUSCULAR VOLUME 91 FL (80-99); MEAN PLATELET VOLUME 9.5 FL (7.4-10.4); MONOCYTES # (AUTO) 0.4 X 10^3 (0.0-1.0); MONOCYTES % (AUTO) 11 % (0-12); NEUTROPHILS % (AUTO) 53 % (42-75); PLATELET COUNT 278 10^3/uL (130-400); RED BLOOD COUNT 3.13 10^6/uL (4.35-5.85); RED CELL DISTRIBUTION WIDTH 14.6 % (10.0-14.5); WHITE BLOOD COUNT 3.8 10^3/uL (4.3-11.0)
[2018-08-04 05:56] LABS: BUN/CREATININE RATIO 3; CALCIUM 8.2 MG/DL (8.5-10.1); CARBON DIOXIDE 20 MMOL/L (21-32); CHLORIDE 110 MMOL/L (98-107); CREATININE SERUM 0.71 MG/DL (0.60-1.30); GFR ESTIMATED > 60; GLUCOSE 233 MG/DL (70-105); MAGNESIUM 1.6 MG/DL (1.8-2.4); POTASSIUM 3.8 MMOL/L (3.6-5.0); SODIUM 139 MMOL/L (135-145)
[2018-08-04] MEDS: inSUlin ASPART (NovoLOG) 1 UNIT/0.01 ML (CHARGE PER UNIT) SC SCH ×4 (06:46→21:23)
[2018-08-04] MEDS: PIOGLITAZONE 30MG (ACTOS) TAB PO SCH (06:46)
[2018-08-04 08:00] VITALS: BP 117/84
[2018-08-04] MEDS: METFORMIN HCL 1000 MG PO SCH ×2 (08:33→21:22)
[2018-08-04] MEDS: Omeprazole 40 MG PO SCH (08:34)
[2018-08-04] MEDS: INSULIN DETEMIR SQ SCH (08:35)
[2018-08-04] MEDS: CARVEDILOL 3.125 MG PO SCH (08:35)
--- NOTE | 2018-08-04 08:42 | Physical Therapy Evaluation ---
PT Evaluation-General Medical Diagnosis Admission Date Jul 30, 2018 at 20:00 Medical Diagnosis: sepsis/UTI/metastatic breast cancer Onset Date: Jul 30, 2018 Therapy Diagnosis Therapy Diagnosis: debility Height/Weight Height (Feet): 5 Height (Inches): 7.00 Weight (Pounds): 240 Weight (Ounces): 8.0 Precautions Precautions/Isolations: Standard Precautions Weight Bear Status Right Lower Extremity: Right Full Weight Bearing Left Lower Extremity: Left Full Weight Bearing Referral Physician: Abraham Reason for Referral: Evaluation/Treatment Medical History Pertinent Medical History: DM, HTN Additional Medical History PE/DVT Current History ED secondary to back pain/metastatic skull, liver,hips,back Reviewed History: Yes Social History Home: Single Level Current Living Status: Alone Prior/Core FIM Prior Level of Function Functional [place] Measure 0=Not Assessed/NA 4=Minimal Assistance 1=Total Assistance 5=Supervision or Setup 2=Maximal Assistance 6=Modified [place] 3=Moderate Assistance 7=Complete [place] Bed Mobility: 7 Transfers (B,C,W/C) (FIM): 7 Gait: 7 Locomotion: 7 PT Evaluation-Current Subjective Patient agrees to PT. Pain Numeric Pain Scale: 0-No Pain Location: No Pain Reported Objective Patient Orientation: Normal For Age Problem Solving: Fair Attachments: IV ROM/Strength ROM Lower Extremities bilateral LE WNL (noted edema) Strength Lower Extremities 4+5 grossly bilaterally Integumentary/Posture Integumentary refer to nursing notes Bowel Incontinence: No Bladder Incontinence: No Posture WFL Neuromuscular (Tone, Coordination, Reflexes) grossly intact Sensory Vision: Wears Glasses Hearing: Functional Sensation Right Lower Extremit: Impaired Sensation Left Lower Extremity: Impaired Transfers Functional [place] Measure 0=Not Assessed/NA 4=Minimal Assistance 1=Total Assistance 5=Supervision or Setup 2=Maximal Assistance 6=Modified [place] 3=Moderate Assistance 7=Complete [place] Transfers (B, C, W/C) (FIM): 7 Scootin Rollin Supine to/from Sit: 7 Sit to/from Stand: 7 Gait Mode of Locomotion: Walk Anticipated Mode of Locomotion: Walk Gait (FIM): 7 Distance (FIM): 3=150 ft Distance: >600' Gait Level of Assist: 7 Gait Assistive Device: None Comments/Gait Description safe and functional Balance Sitting Static: Normal Sitting Dynamic: Normal Standing Static: Normal Standing Dynamic: Normal Assessment/Needs 52 y.o. female, is currently at [facility] with all gross motor skills and does not require skilled PT intervention. PT encouraged patient to ambulate PRN in hallway independently and nursing staff notified. Rehab Potential: Poor PT Plan Treatment/Plan Treatment Plan: Discontinue PT, goals met Treatment Plan: Other Treatment Duration: Aug 04, 2018 Frequency: 1 time per week Estimated Hrs Per Day: .25 hour per day Patient and/or Family Agrees t: Yes Time/GCodes Time In: 747 Time Out: 803 Total Billed Treatment Time: 16 Total Billed Treatment 1 visit [facility] 16 min APURVA CAZARES PT Aug 04, 2018 08:41
--- NOTE | 2018-08-04 09:27 | Cardiology Progress Note ---
Subjective Date Seen by Provider: Aug 04, 2018 Time Seen by Provider: 09:26 Subjective/Events-last exam Patient is sitting in a chair, feeling better. Denied any chest pain or shortness of breath. No palpitation. Heart rate is better Review of Systems General: No Chills, No Night Sweats, No Fatigue, No Malaise, No Appetite, No Other HEENT: No Head Aches, No Visual Changes, No Eye Pain, No Ear Pain, No Dysphasia , No Sinus Congestion, No Post Nasal Drip, No Sore Throat, No Other Pulmonary: No Dyspnea, No Cough, No Pleuritic Chest Pain, No Other Cardiovascular: No: Chest Pain, Palpitations, Orthopnea, Paroxysmal Noc. Dyspnea, Edema, Lt Headedness, Other Objective-Cardiology Exam Last Set of Vital Signs Vital Signs 08/04/18 08/04/18 04:00 07:00 Temp 97.9 Pulse 90 Resp 20 B/P (MAP) 133/88 (103) Pulse Ox 97 O2 Delivery Room Air Capillary Refill : Less Than 3 Seconds I&O Intake and Output 08/04/18 00:00 Intake Total 2650 ml Output Total 1950 ml Balance 700 ml Intake Oral 1600 ml IV Total 1050 ml Output Urine Total 1950 ml # Bowel Movements 1 General: Alert, Oriented X3, Cooperative HEENT: Atraumatic, PERRLA Neck: Supple, No JVD, No Thyromegaly Lungs: Clear to Auscultation, Normal Air Movement Heart: Regular Rate, Normal S1, Normal S2, No Murmurs Abdomen: Normal Bowel Sounds, Soft, No Tenderness, No Hepatosplenomegaly, No Masses Extremities: No Clubbing, No Cyanosis, No Edema, Normal Pulses, No Tenderness/ Swelling Skin: No Rashes, No Breakdown, No Significant Lesion Neuro: Normal Gait, Normal Speech, Strength at 5/5 X4 Ext, Normal Tone, Sensation Intact Psych/Mental Status: Mental Status NL, Mood NL Results Lab Laboratory Tests 08/04/18 05:32 A/P-Cardiology Admission Diagnosis Sinus tachycardia Palpitation Urinary tract infection Metastatic breast cancer Assessment/Plan Sinus tachycardia, worsening with minimal exertion, heart rate is better, planning to change Toprol to 50 mg daily tomorrow Metastatic breast cancer, triple negative, has been on palliative chemotherapy with Ixempra which has side effect including neutropenia, arrhythmia and ventricular dysfunction and cardiomyopathy. Echo showed normal left ventricular size and function with ejection fraction 55-65 percent, mildly dilated left atrium, pulmonary hypertension with estimated PA pressure of 40 mmHg Urinary tract infection, receiving ceftriaxone, has gram-negative. 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 Possible MRI of the head. Clinical Quality Measures DVT/VTE Risk/Contraindication: Risk Factor Score Per Nursin RFS Level Per Nursing on Admit: 4+=Very High DIPAK OSCAR MD Aug 04, 2018 09:27
--- NOTE | 2018-08-04 11:14 | Progress Note-Standard ---
Standard Progress Note Progress Notes/Assess & Plan Date Seen by Provider: Aug 04, 2018 Time Seen by Provider: 11:08 Progress/Assessment & Plan 52-year-old female with metastatic triple negative breast cancer diagnosed more than 4 years ago and on chemotherapy with Ixempra with the last course administered approximately 2 weeks ago. Admitted with back pain and found to have Klebsiella UTI sensitive to ceftriaxone. History of palpitations and sinus tachycardia on monitor. Started on metoprolol with resolution of symptoms. She is eating better today and the blood sugars have been better. Restart long-acting insulin today morning at 30 units and titrate. Activity level improving and ambulated with physical therapy in hallway. Vital Sign - Last 12Hours Date Time Temp Pulse Resp B/P (MAP) Pulse Ox O2 Delivery O2 Flow Rate FiO2 08/04/18 08:00 98.0 92 18 117/84 (95) 96 Room Air Physical examination today showed a middle-aged female, obese, awake and oriented, in no acute distress. HEENT normocephalic, extraocular muscles intact, conjunctivae pink, oral mucosa moist. Neck was supple with no JVD. No cervical, supraclavicular or axillary lymphadenopathy palpable. Chest was symmetrical. Lungs fairly clear to auscultation without wheezes or rales. Cardiovascular exam was regular in rate and rhythm, no murmurs heard. Abdomen was obese, soft, nontender with no hepatosplenomegaly or other masses palpable. Extremities showed 1+ edema around the ankles. Neurological examination grossly intact without focal motor deficits. Laboratory Tests 08/04/18 05:32 Magnesium level I.6. A/P: 1. Klebsiella UTI, currently on ceftriaxone. Both strains of Klebsiella is sensitive to ceftriaxone day # 6. Continue. 2. Sinus tachycardia of undetermined etiology. Started on metoprolol 25 mg twice daily. Heart rate is controlled now and blood pressure in the lower normal range. 3. Previous history of DVT and bilateral PE, on chronic anticoagulation with Eliquis. Continue. 4. Metastatic triple negative breast cancer, currently on palliative chemotherapy with Ixempra. Patient completed third course approximately 2 weeks ago. 5. Mild hypomagnesemia, we will replace 3 g IV today and start the patient on magnesium oxide 300 mg twice daily. 6. Continue physical therapy for strengthening and ambulation. Home soon. SILVANO MASON Aug 04, 2018 11:14
[2018-08-04 12:00] VITALS: BP 129/68
[2018-08-04] MEDS: MAGNESIUM 1 GM/100 ML IVPB 100 ML IV SCH ×3 (12:33→15:00)
[2018-08-04 16:07] VITALS: BP 135/60
[2018-08-04] MEDS: MAGNESIUM OXIDE (MAG-OX)400 MG TAB PO SCH (18:04)
[2018-08-04 19:45] VITALS: BP 148/70
[2018-08-04] MEDS: INSULIN DETEMIR SQ PRN (21:12)
[2018-08-04] MEDS: OXYCODONE HCL 10 MG PO SCH (21:20)
[2018-08-04] MEDS: cefTRIAXone 1 GM/NS 50 ML IVPB IV SCH ×2 (21:20)
[2018-08-04] MEDS: RIVAROXABAN 20 MG TABLET (XARELTO) PO SCH (21:21)
[2018-08-04] MEDS: CYCLOBENZAPRINE 10 MG (FLEXERIL) TAB PO SCH (21:22)
[2018-08-05] VITALS: BP 144/85
[2018-08-05 04:00] VITALS: BP 128/67
[2018-08-05] MEDS: inSUlin ASPART (NovoLOG) 1 UNIT/0.01 ML (CHARGE PER UNIT) SC SCH ×4 (05:30→21:04)
[2018-08-05] MEDS: CATHETER FLUSH 10 ML SYR IV SCH ×3 (06:02→21:07)
[2018-08-05] MEDS: PIOGLITAZONE 30MG (ACTOS) TAB PO SCH (06:02)
[2018-08-05 06:33] LABS: BASOPHILS % (AUTO) 0 % (0-10); EOSINOPHILS % (AUTO) 1 % (0-10); HEMATOCRIT 33 % (35-52); LYMPHOCYTES # (AUTO) 1.4 X 10^3 (1.0-4.0); LYMPHOCYTES % (AUTO) 33 % (12-44); MEAN CORPUSCULAR HEMOGLOBIN 30 PG (25-34); MEAN CORPUSCULAR HGB CONC 34 G/DL (32-36); MEAN CORPUSCULAR VOLUME 90 FL (80-99); MEAN PLATELET VOLUME 8.9 FL (7.4-10.4); MONOCYTES # (AUTO) 0.5 X 10^3 (0.0-1.0); MONOCYTES % (AUTO) 12 % (0-12); NEUTROPHILS # (AUTO) 2.4 X 10^3 (1.8-7.8); NEUTROPHILS % (AUTO) 55 % (42-75); PLATELET COUNT 352 10^3/uL (130-400); RED BLOOD COUNT 3.66 10^6/uL (4.35-5.85); RED CELL DISTRIBUTION WIDTH 14.7 % (10.0-14.5); WHITE BLOOD COUNT 4.3 10^3/uL (4.3-11.0)
[2018-08-05 06:51] LABS: BUN/CREATININE RATIO 5; CALCIUM 8.8 MG/DL (8.5-10.1); CARBON DIOXIDE 19 MMOL/L (21-32); CHLORIDE 110 MMOL/L (98-107); CREATININE SERUM 0.65 MG/DL (0.60-1.30); GFR ESTIMATED > 60; GLUCOSE 97 MG/DL (70-105); POTASSIUM 3.4 MMOL/L (3.6-5.0); SODIUM 141 MMOL/L (135-145)
--- NOTE | 2018-08-05 07:46 | Cardiology Progress Note ---
Subjective Date Seen by Provider: Aug 05, 2018 Time Seen by Provider: 07:45 Subjective/Events-last exam Patient is laying down in bed, feeling better. Denied any chest pain. No palpitation was noted. Review of Systems General: No Chills, No Night Sweats; Fatigue; No Malaise, No Appetite, No Other HEENT: No Head Aches, No Visual Changes, No Eye Pain, No Ear Pain, No Dysphasia , No Sinus Congestion, No Post Nasal Drip, No Sore Throat, No Other Pulmonary: No Dyspnea, No Cough, No Pleuritic Chest Pain, No Other Cardiovascular: No: Chest Pain, Palpitations, Orthopnea, Paroxysmal Noc. Dyspnea, Edema, Lt Headedness, Other Objective-Cardiology Exam Last Set of Vital Signs Vital Signs 08/05/18 08/05/18 08/05/18 04:00 06:59 07:00 Temp 98.3 Pulse 89 Resp 20 B/P (MAP) 128/67 (87) Pulse Ox 91 O2 Delivery Room Air Capillary Refill : Less Than 3 Seconds I&O Intake and Output 08/05/18 00:00 Intake Total 3000 ml Output Total 700 ml Balance 2300 ml Intake Oral 2000 ml IV Total 1000 ml Output Urine Total 700 ml # Voids 9 # Bowel Movements 2 General: Alert, Oriented X3, Cooperative HEENT: Atraumatic, PERRLA Neck: Supple, No JVD, No Thyromegaly Lungs: Clear to Auscultation, Normal Air Movement Heart: Regular Rate, Normal S1, Normal S2, No Murmurs Abdomen: Normal Bowel Sounds, Soft, No Tenderness, No Hepatosplenomegaly, No Masses Extremities: No Clubbing, No Cyanosis, No Edema, Normal Pulses, No Tenderness/ Swelling Skin: No Rashes, No Breakdown, No Significant Lesion Neuro: Normal Gait, Normal Speech, Strength at 5/5 X4 Ext, Normal Tone, Sensation Intact Psych/Mental Status: Mental Status NL, Mood NL Results Lab Laboratory Tests 08/05/18 06:27 A/P-Cardiology Admission Diagnosis Sinus tachycardia Palpitation Urinary tract infection Metastatic breast cancer Assessment/Plan Inappropriate sinus tachycardia, improved after started on Toprol, dose was changed to 50 mg daily. Continue to monitor Metastatic breast cancer, triple negative, has been on palliative chemotherapy with Ixempra which has side effect including neutropenia, arrhythmia and ventricular dysfunction and cardiomyopathy. Echo showed normal left ventricular size and function with ejection fraction 55-65 percent, mildly dilated left atrium, pulmonary hypertension with estimated PA pressure of 40 mmHg Urinary tract infection, receiving ceftriaxone, has gram-negative. 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 Possible MRI of the head. Clinical Quality Measures DVT/VTE Risk/Contraindication: Risk Factor Score Per Nursin RFS Level Per Nursing on Admit: 4+=Very High DIPAK OSCAR MD Aug 05, 2018 07:46
[2018-08-05 08:00] VITALS: BP 118/62
[2018-08-05] MEDS ORDERED: NON-FORMULARY MEDICATION 1 EA EA (Insulin Detemir (Levemir Flextouch) 30 UNITS) SQ SCH (09:00)
[2018-08-05] MEDS: meTOproloL SUCCINATE 50 MG (TOPROL XL) TAB PO SCH (09:21)
[2018-08-05] MEDS: Omeprazole 40 MG PO SCH (09:22)
[2018-08-05] MEDS: METFORMIN HCL 1000 MG PO SCH ×2 (09:23→21:06)
[2018-08-05] MEDS: MAGNESIUM OXIDE (MAG-OX)400 MG TAB PO SCH ×2 (09:25→17:06)
[2018-08-05] MEDS: INSULIN DETEMIR SQ SCH ×2 (09:54→11:39)
[2018-08-05] MEDS ORDERED: MAGNESIUM 1 GM/100 ML IVPB 100 ML IV ONE (11:15)
--- NOTE | 2018-08-05 11:19 | Progress Note-Standard ---
Standard Progress Note Progress Notes/Assess & Plan Date Seen by Provider: Aug 05, 2018 Time Seen by Provider: 11:16 Progress/Assessment & Plan 52-year-old female with metastatic triple negative breast cancer diagnosed more than 4 years ago and on chemotherapy with Ixempra with the last course administered approximately 2 weeks ago. Admitted with back pain and found to have Klebsiella UTI sensitive to ceftriaxone. History of palpitations and sinus tachycardia on monitor. Started on metoprolol with resolution of symptoms. She is eating better. Ambulated well in hallway yesterday. Fatigued today. Vital Sign - Last 12Hours Date Time Temp Pulse Resp B/P (MAP) Pulse Ox O2 Delivery O2 Flow Rate FiO2 08/05/18 10:07 Room Air 08/05/18 07:00 89 08/05/18 06:59 91 08/05/18 04:00 98.3 20 128/67 (87) Physical examination today showed a middle-aged female, obese, awake and oriented, in no acute distress. HEENT normocephalic, extraocular muscles intact, conjunctivae pink, oral mucosa moist. Neck was supple with no JVD. No cervical, supraclavicular or axillary lymphadenopathy palpable. Chest was symmetrical. Lungs fairly clear to auscultation without wheezes or rales. Cardiovascular exam was regular in rate and rhythm, no murmurs heard. Abdomen was obese, soft, nontender with no hepatosplenomegaly or other masses palpable. Extremities showed 1+ edema around the ankles. Neurological examination grossly intact without focal motor deficits. Laboratory Tests 08/05/18 06:27 A/P: 1. Klebsiella UTI, currently on ceftriaxone. Both strains of Klebsiella is sensitive to ceftriaxone day # 7. Continue. 2. Sinus tachycardia of undetermined etiology. Started on metoprolol 50 mg daily. Heart rate is controlled now and blood pressure in the normal range. 3. Previous history of DVT and bilateral PE, on chronic anticoagulation with Eliquis. Continue. 4. Metastatic triple negative breast cancer, currently on palliative chemotherapy with Ixempra. Patient completed third course approximately 2 weeks ago. 5. Mild hypokalemia, we will replace magnesium 1 g IV today and potassium 20 mEq IV. 6. Continue physical therapy for strengthening and ambulation. Home tomorrow if stable. SILVANO MASON Aug 05, 2018 11:19
[2018-08-05] MEDS: POTASSIUM CL 10MEQ/50ML IVPB 50 ML IV SCH ×2 (11:36→12:46)
[2018-08-05 12:00] VITALS: BP 108/59
[2018-08-05 16:12] VITALS: BP 119/62
[2018-08-05 20:07] VITALS: BP 138/63
[2018-08-05] MEDS: INSULIN DETEMIR SQ PRN (21:04)
[2018-08-05] MEDS: RIVAROXABAN 20 MG TABLET (XARELTO) PO SCH (21:05)
[2018-08-05] MEDS: cefTRIAXone 1 GM/NS 50 ML IVPB IV SCH ×2 (21:05)
[2018-08-05] MEDS: OXYCODONE HCL 10 MG PO SCH (21:05)
[2018-08-05] MEDS: CYCLOBENZAPRINE 10 MG (FLEXERIL) TAB PO SCH (21:06)
[2018-08-06 00:01] VITALS: BP 139/64
[2018-08-06 04:59] VITALS: BP 111/55
[2018-08-06] MEDS: PIOGLITAZONE 30MG (ACTOS) TAB PO SCH (06:02)
[2018-08-06] MEDS: CATHETER FLUSH 10 ML SYR IV SCH ×2 (06:02→12:07)
[2018-08-06] MEDS: inSUlin ASPART (NovoLOG) 1 UNIT/0.01 ML (CHARGE PER UNIT) SC SCH ×3 (06:02→16:07)
[2018-08-06 06:14] LABS: BASOPHILS % (AUTO) 0 % (0-10); EOSINOPHILS % (AUTO) 0 % (0-10); HEMATOCRIT 31 % (35-52); HEMOGLOBIN 10.3 G/DL (11.5-16.0); LYMPHOCYTES # (AUTO) 1.2 X 10^3 (1.0-4.0); LYMPHOCYTES % (AUTO) 31 % (12-44); MEAN CORPUSCULAR HEMOGLOBIN 30 PG (25-34); MEAN CORPUSCULAR HGB CONC 33 G/DL (32-36); MEAN CORPUSCULAR VOLUME 91 FL (80-99); MEAN PLATELET VOLUME 9.2 FL (7.4-10.4); MONOCYTES # (AUTO) 0.6 X 10^3 (0.0-1.0); MONOCYTES % (AUTO) 14 % (0-12); NEUTROPHILS # (AUTO) 2.1 X 10^3 (1.8-7.8); NEUTROPHILS % (AUTO) 54 % (42-75); PLATELET COUNT 359 10^3/uL (130-400); RED BLOOD COUNT 3.41 10^6/uL (4.35-5.85); RED CELL DISTRIBUTION WIDTH 14.9 % (10.0-14.5); WHITE BLOOD COUNT 3.9 10^3/uL (4.3-11.0)
[2018-08-06 06:36] LABS: ALANINE AMINOTRANSFERASE 11 U/L (0-55); ALBUMIN 3.1 GM/DL (3.2-4.5); ALKALINE PHOSPHATASE 147 U/L (40-136); BILIRUBIN,TOTAL 0.3 MG/DL (0.1-1.0); BUN/CREATININE RATIO 4; CALCIUM 8.7 MG/DL (8.5-10.1); CARBON DIOXIDE 25 MMOL/L (21-32); CHLORIDE 108 MMOL/L (98-107); GFR ESTIMATED > 60; GLUCOSE 117 MG/DL (70-105); MAGNESIUM 2.1 MG/DL (1.8-2.4); POTASSIUM 3.5 MMOL/L (3.6-5.0); SODIUM 140 MMOL/L (135-145)
--- NOTE | 2018-08-06 07:57 | Cardiology Progress Note ---
Subjective Date Seen by Provider: Aug 06, 2018 Time Seen by Provider: 07:53 Subjective/Events-last exam Patient is in bed, feeling better, no new complaint, heart rate is better Review of Systems General: No Chills, No Night Sweats, No Fatigue, No Malaise, No Appetite, No Other HEENT: No Head Aches, No Visual Changes, No Eye Pain, No Ear Pain, No Dysphasia , No Sinus Congestion, No Post Nasal Drip, No Sore Throat, No Other Pulmonary: No Dyspnea, No Cough, No Pleuritic Chest Pain, No Other Cardiovascular: No: Chest Pain, Palpitations, Orthopnea, Paroxysmal Noc. Dyspnea, Edema, Lt Headedness, Other Objective-Cardiology Exam Last Set of Vital Signs Vital Signs 08/06/18 08/06/18 04:59 07:00 Temp 97.8 Pulse 88 Resp 17 B/P (MAP) 111/55 (73) Pulse Ox 97 O2 Delivery Room Air Capillary Refill : Less Than 3 Seconds I&O Intake and Output 08/06/18 00:00 Intake Total 2300 ml Output Total 2250 ml Balance 50 ml Intake Oral 2250 ml IV Total 50 ml Output Urine Total 2250 ml # Bowel Movements 2 General: Alert, Oriented X3, Cooperative HEENT: Atraumatic, PERRLA Neck: Supple, No JVD, No Thyromegaly Lungs: Clear to Auscultation, Normal Air Movement Heart: Regular Rate, Normal S1, Normal S2, No Murmurs Abdomen: Normal Bowel Sounds, Soft, No Tenderness, No Hepatosplenomegaly, No Masses Extremities: No Clubbing, No Cyanosis, No Edema, Normal Pulses, No Tenderness/ Swelling Skin: No Rashes, No Breakdown, No Significant Lesion Neuro: Normal Gait, Normal Speech, Strength at 5/5 X4 Ext, Normal Tone, Sensation Intact Psych/Mental Status: Mental Status NL, Mood NL Results Lab Laboratory Tests 08/06/18 05:33 A/P-Cardiology Admission Diagnosis Sinus tachycardia Palpitation Urinary tract infection Metastatic breast cancer Assessment/Plan Inappropriate sinus tachycardia, improved after started on Toprol, Continue to monitor Metastatic breast cancer, triple negative, has been on palliative chemotherapy with Ixempra which has side effect including neutropenia, arrhythmia and ventricular dysfunction and cardiomyopathy. Echo showed normal left ventricular size and function with ejection fraction 55-65 percent, mildly dilated left atrium, pulmonary hypertension with estimated PA pressure of 40 mmHg, continue to monitor Urinary tract infection, receiving ceftriaxone, has gram-negative. 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 Possible MRI of the head. Clinical Quality Measures DVT/VTE Risk/Contraindication: Risk Factor Score Per Nursin RFS Level Per Nursing on Admit: 4+=Very High DIPAK OSCAR MD Aug 06, 2018 07:57
[2018-08-06 08:00] VITALS: BP 109/51
[2018-08-06] MEDS: meTOproloL SUCCINATE 50 MG (TOPROL XL) TAB PO SCH (09:18)
[2018-08-06] MEDS: MAGNESIUM OXIDE (MAG-OX)400 MG TAB PO SCH (09:18)
[2018-08-06] MEDS: METFORMIN HCL 1000 MG PO SCH (09:19)
[2018-08-06] MEDS: Omeprazole 40 MG PO SCH (09:20)
[2018-08-06 12:00] VITALS: BP 124/67
[2018-08-06] MEDS ORDERED: HEParin (CENTRAL IV FLUSH) 500 UNIT/5 ML SYR IV NR (15:30)
[2018-08-06] MEDS ORDERED: METO-370 PO (15:34)
--- NOTE | 2018-08-07 01:57 | DISCHARGE SUMMARY ---
DATE OF SERVICE: The patient was admitted to room 418. FINAL DIAGNOSES: 1. Urinary tract infection with Klebsiella. 2. Leukopenia and neutropenia. 3. Metastatic breast cancer and on chemotherapy. 4. Sinus tachycardia. 5. Hypomagnesemia. 6. Hypokalemia. BRIEF HISTORY: The patient is a 52-year-old female with metastatic triple negative breast cancer diagnosed since 2013. She has been on multiple chemotherapy regimens in the past and is currently on treatment with Ixempra. She presented to the emergency room on 07/30/2018 with increased back pain as well as significant palpitations with minimal exertion. She did not have any urinary symptoms, fevers or chills. She was evaluated in the emergency room and found to have a urinary tract infection with probable early sepsis with slight elevation of lactic acid level and sinus tachycardia. Her blood pressure was within the normal range. She was started on broad-spectrum antibiotic therapy with ceftriaxone as well as IV fluids. She was found to be hypomagnesemic and hypokalemic, which was replaced parenterally. Morales cultures were obtained and the urine cultures grew out more than 100,000 colonies of Klebsiella, which was resistant to ampicillin and trimethoprim sulfa and had intermediate resistance to nitrofurantoin. Ceftriaxone was continued daily for 7 days. At the time of admission, she had borderline leukopenia, neutropenia and this was monitored serially during her hospital stay which did not change significantly. She did not require growth factors. Her back pain improved with continued antibiotic therapy and a consultation was obtained with physical therapy who evaluated the patient and strengthening and ambulation. Her blood sugars were low at times with symptoms and her long-acting insulin dose was decreased. Because of persistent sinus tachycardia which was symptomatic at times, consultation was obtained with cardiology. Dr. Chadwick evaluated the patient. Echocardiogram showed maintained left ventricular ejection fraction. Mild pulmonary hypertension. She was started on Toprol 25 mg daily, which was increased to b.i.d. and eventually changed to 50 mg daily. This did control the sinus tachycardia and the patient felt clinically better. On 08/06/2018, she was felt stable enough to be discharged home with all of her home medications with the only change being in the dose of the Levemir. Her new medication was metoprolol 50 mg daily. Rest of her home medications were continued. She will have weekly blood work monitored and return on 08/16/2018 to the cancer center for an office visit and next round of chemotherapy. If she is having any new or unusual symptoms prior to followup, she was instructed to contact us at the cancer center. Job ID: [id number] DocumentID: [id number] Dictated Date: 08/06/2018 16:22:56 [employer] Date: 08/07/2018 01:56:15 Dictated By: SILVANO MASON MD
--- NOTE | 2018-08-09 15:27 | Physician Query Clarification ---
PQ-Uncertain Diagnosis Admission/Discharge Admission Date: Jul 30, 2018 at 20:00 Discharge Date: Aug 06, 2018 at 16:25 The medical record reflects the following clinical scenario: History/Risk Factors: UTI, metastatic breast CA, Sinus tachycardia Clinical Findings: T96.7, P 138, BP 141.92, R20, Lactic 204, WBC 3.3 Treatment: IV Rocephin Question: Is sepsis a clinically valid diagnosis? probably early sepsis was documented in the HPI of the H&P and the brief history of the DS with no further documentation in the medical record. Please document a response below. PHYSICIAN RESPONSE Diagnosis clinically valid: No, conditon ruled out Explanation of clincal finding Patient did not have sepsis clinically even though it was in the differential diagnosis at the time of admission. She had neutropenic fever, UTI due to Klebsiella, metastatic breast cancer and on chemotherapy causing the neutropenia , sinus tachycardia. She did not have hypotension or organ dysfunction. In responding to this query, please exercise your independent professional judgment. The purpose of this communication is to more accurately reflect the complexity of your patients condition. The fact that a question is asked does not imply that any particular answer is desired or expected. Thank you for your timely response to this clarification. Requestors name: Tommy THIS PHYSICIAN QUERY FORM IS A PERMANENT PART OF THE MEDICAL RECORD TOMMY KOTHARI Aug 09, 2018 15:27 SILVANO MASON Aug 20, 2018 12:45
== END 2018-08-06 16:25 | disposition home or self-care (01) | DRG 690 ==
LOC: EDUNIT# 17:26 → ER 17:27 → 4TH 20:00
PROVIDERS: ADMIT Internal Medicine Hematology & Oncology; ATTEND Internal Medicine Hematology & Oncology
DX: N39.0 Urinary tract infection, site not specified (principal); B96.1 Klebsiella pneumoniae [K. pneumoniae] as the cause of diseases classified elsewhere; D70.1 Agranulocytosis secondary to cancer chemotherapy; R00.0 Tachycardia, unspecified; D70.9 Neutropenia, unspecified; C79.51 Secondary malignant neoplasm of bone; C78.01 Secondary malignant neoplasm of right lung; C78.02 Secondary malignant neoplasm of left lung; C78.7 Secondary malignant neoplasm of liver and intrahepatic bile duct; Z90.12 Acquired absence of left breast and nipple; E87.6 Hypokalemia; E83.42 Hypomagnesemia; R50.81 Fever presenting with conditions classified elsewhere; I10 Essential (primary) hypertension; I27.20 Pulmonary hypertension, unspecified; E11.9 Type 2 diabetes mellitus without complications; H53.8 Other visual disturbances; Z79.4 Long term (current) use of insulin; K21.9 Gastro-esophageal reflux disease without esophagitis; Z22.330 Carrier of Group B streptococcus; I25.10 Atherosclerotic heart disease of native coronary artery without angina pectoris; Z79.01 Long term (current) use of anticoagulants; Z86.718 Personal history of other venous thrombosis and embolism; Z86.711 Personal history of pulmonary embolism
CPT/HCPCS: 36415; 71045; 80048; 80053; 81000; 82962; 83605; 83735; 84443; 84484; 85025; 85027; 85610; 85730; 87040; 87077; 87088; 87186; 93005; 93041; 93306; 94760; 96361; 96365; 96375

== ENCOUNTER 2018-08-23 11:20 | Outpatient (RCR) | payer MEDICARE, OTHER ==
[2018-06-18 16:02] LABS: BASOPHILS % (AUTO) 0 % (0-10); EOSINOPHILS % (AUTO) 1 % (0-10); HEMATOCRIT 37 % (35-52); HEMOGLOBIN 12.7 G/DL (11.5-16.0); LYMPHOCYTES # (AUTO) 1.2 X 10^3 (1.0-4.0); LYMPHOCYTES % (AUTO) 38 % (12-44); MEAN CORPUSCULAR HEMOGLOBIN 31 PG (25-34); MEAN CORPUSCULAR HGB CONC 34 G/DL (32-36); MEAN CORPUSCULAR VOLUME 91 FL (80-99); MEAN PLATELET VOLUME 9.7 FL (7.4-10.4); MONOCYTES # (AUTO) 0.2 X 10^3 (0.0-1.0); MONOCYTES % (AUTO) 5 % (0-12); NEUTROPHILS # (AUTO) 1.8 X 10^3 (1.8-7.8); NEUTROPHILS % (AUTO) 56 % (42-75); PLATELET COUNT 268 10^3/uL (130-400); RED BLOOD COUNT 4.12 10^6/uL (4.35-5.85); RED CELL DISTRIBUTION WIDTH 16.1 % (10.0-14.5); WHITE BLOOD COUNT 3.2 10^3/uL (4.3-11.0)
[2018-06-18 16:16] LABS: BUN/CREATININE RATIO 11; CALCIUM 9.4 MG/DL (8.5-10.1); CARBON DIOXIDE 24 MMOL/L (21-32); CHLORIDE 108 MMOL/L (98-107); CREATININE SERUM 0.73 MG/DL (0.60-1.30); GFR ESTIMATED > 60; GLUCOSE 127 MG/DL (70-105); POTASSIUM 3.8 MMOL/L (3.6-5.0); SODIUM 139 MMOL/L (135-145)
[2018-06-25 15:46] LABS: BASOPHILS % (AUTO) 0 % (0-10); EOSINOPHILS % (AUTO) 1 % (0-10); HEMATOCRIT 35 % (35-52); LYMPHOCYTES # (AUTO) 1.5 X 10^3 (1.0-4.0); LYMPHOCYTES % (AUTO) 45 % (12-44); MEAN CORPUSCULAR HEMOGLOBIN 31 PG (25-34); MEAN CORPUSCULAR HGB CONC 34 G/DL (32-36); MEAN CORPUSCULAR VOLUME 92 FL (80-99); MEAN PLATELET VOLUME 9.6 FL (7.4-10.4); MONOCYTES # (AUTO) 0.5 X 10^3 (0.0-1.0); MONOCYTES % (AUTO) 14 % (0-12); NEUTROPHILS # (AUTO) 1.4 X 10^3 (1.8-7.8); NEUTROPHILS % (AUTO) 40 % (42-75); PLATELET COUNT 361 10^3/uL (130-400); RED BLOOD COUNT 3.84 10^6/uL (4.35-5.85); RED CELL DISTRIBUTION WIDTH 16.1 % (10.0-14.5); WHITE BLOOD COUNT 3.4 10^3/uL (4.3-11.0)
[2018-06-25 15:48] LABS: BILIRUBIN,URINE NEGATIVE (NEGATIVE); CLARITY,URINE CLEAR; COLOR,URINE YELLOW; GLUCOSE, URINE (UA) NEGATIVE (NEGATIVE); KETONES,URINE NEGATIVE (NEGATIVE); LEUKOCYTE ESTERASE ,URINE 1+ (NEGATIVE); NITRITE,URINE NEGATIVE (NEGATIVE); PH,URINE 5 (5-9); PROTEIN,URINE 1+ (NEGATIVE); UROBILINOGEN,URINE NORMAL (NORMAL)
[2018-06-25 16:07] LABS: BUN/CREATININE RATIO 9; CALCIUM 9.5 MG/DL (8.5-10.1); CARBON DIOXIDE 23 MMOL/L (21-32); CHLORIDE 104 MMOL/L (98-107); CREATININE SERUM 0.74 MG/DL (0.60-1.30); GFR ESTIMATED > 60; GLUCOSE 194 MG/DL (70-105); SODIUM 138 MMOL/L (135-145)
[2018-06-25 16:12] LABS: BACTERIA,URINE TRACE /HPF; WBC,URINE 25-50 /HPF
[2018-07-03 11:15] LABS: BASOPHILS % (AUTO) 0 % (0-10); EOSINOPHILS % (AUTO) 0 % (0-10); HEMATOCRIT 39 % (35-52); HEMOGLOBIN 13.4 G/DL (11.5-16.0); LYMPHOCYTES # (AUTO) 1.3 X 10^3 (1.0-4.0); LYMPHOCYTES % (AUTO) 25 % (12-44); MEAN CORPUSCULAR HEMOGLOBIN 31 PG (25-34); MEAN CORPUSCULAR HGB CONC 34 G/DL (32-36); MEAN CORPUSCULAR VOLUME 90 FL (80-99); MEAN PLATELET VOLUME 9.4 FL (7.4-10.4); MONOCYTES # (AUTO) 0.6 X 10^3 (0.0-1.0); MONOCYTES % (AUTO) 12 % (0-12); NEUTROPHILS # (AUTO) 3.3 X 10^3 (1.8-7.8); NEUTROPHILS % (AUTO) 63 % (42-75); PLATELET COUNT 352 10^3/uL (130-400); RED BLOOD COUNT 4.38 10^6/uL (4.35-5.85); RED CELL DISTRIBUTION WIDTH 16.4 % (10.0-14.5); WHITE BLOOD COUNT 5.3 10^3/uL (4.3-11.0)
[2018-07-03 11:37] LABS: ALANINE AMINOTRANSFERASE 21 U/L (0-55); ALBUMIN 4.1 GM/DL (3.2-4.5); ALKALINE PHOSPHATASE 172 U/L (40-136); BILIRUBIN,TOTAL 0.4 MG/DL (0.1-1.0); BUN/CREATININE RATIO 8; CALCIUM 9.7 MG/DL (8.5-10.1); CARBON DIOXIDE 19 MMOL/L (21-32); CHLORIDE 104 MMOL/L (98-107); CREATININE SERUM 0.83 MG/DL (0.60-1.30); GFR ESTIMATED > 60; GLUCOSE 272 MG/DL (70-105); MAGNESIUM 1.6 MG/DL (1.8-2.4); SODIUM 134 MMOL/L (135-145); TOTAL PROTEIN 7.5 GM/DL (6.4-8.2)
[2018-07-10 14:01] LABS: BASOPHILS % (AUTO) 0 % (0-10); EOSINOPHILS % (AUTO) 0 % (0-10); HEMATOCRIT 38 % (35-52); HEMOGLOBIN 13.4 G/DL (11.5-16.0); LYMPHOCYTES # (AUTO) 0.9 X 10^3 (1.0-4.0); LYMPHOCYTES % (AUTO) 25 % (12-44); MEAN CORPUSCULAR HEMOGLOBIN 31 PG (25-34); MEAN CORPUSCULAR HGB CONC 35 G/DL (32-36); MEAN CORPUSCULAR VOLUME 88 FL (80-99); MONOCYTES # (AUTO) 0.2 X 10^3 (0.0-1.0); MONOCYTES % (AUTO) 4 % (0-12); NEUTROPHILS # (AUTO) 2.5 X 10^3 (1.8-7.8); NEUTROPHILS % (AUTO) 70 % (42-75); PLATELET COUNT 244 10^3/uL (130-400); RED BLOOD COUNT 4.32 10^6/uL (4.35-5.85); RED CELL DISTRIBUTION WIDTH 14.6 % (10.0-14.5); WHITE BLOOD COUNT 3.6 10^3/uL (4.3-11.0)
[2018-07-10 14:17] LABS: BUN/CREATININE RATIO 5; CALCIUM 9.5 MG/DL (8.5-10.1); CARBON DIOXIDE 22 MMOL/L (21-32); CHLORIDE 99 MMOL/L (98-107); CREATININE SERUM 0.83 MG/DL (0.60-1.30); GFR ESTIMATED > 60; POTASSIUM 3.7 MMOL/L (3.6-5.0); SODIUM 133 MMOL/L (135-145)
[2018-07-10 14:18] LABS: GLUCOSE 406 MG/DL (70-105)
[2018-07-17 14:28] LABS: BASOPHILS % (AUTO) 0 % (0-10); EOSINOPHILS % (AUTO) 1 % (0-10); HEMATOCRIT 40 % (35-52); HEMOGLOBIN 13.6 G/DL (11.5-16.0); LYMPHOCYTES # (AUTO) 1.6 X 10^3 (1.0-4.0); LYMPHOCYTES % (AUTO) 37 % (12-44); MEAN CORPUSCULAR HEMOGLOBIN 30 PG (25-34); MEAN CORPUSCULAR HGB CONC 34 G/DL (32-36); MEAN CORPUSCULAR VOLUME 89 FL (80-99); MEAN PLATELET VOLUME 9.2 FL (7.4-10.4); MONOCYTES # (AUTO) 0.5 X 10^3 (0.0-1.0); MONOCYTES % (AUTO) 12 % (0-12); NEUTROPHILS # (AUTO) 2.2 X 10^3 (1.8-7.8); NEUTROPHILS % (AUTO) 50 % (42-75); PLATELET COUNT 413 10^3/uL (130-400); RED BLOOD COUNT 4.51 10^6/uL (4.35-5.85); RED CELL DISTRIBUTION WIDTH 15.5 % (10.0-14.5); WHITE BLOOD COUNT 4.3 10^3/uL (4.3-11.0)
[2018-07-17 14:50] LABS: BUN/CREATININE RATIO 12; CALCIUM 9.7 MG/DL (8.5-10.1); CARBON DIOXIDE 28 MMOL/L (21-32); CHLORIDE 103 MMOL/L (98-107); CREATININE SERUM 0.75 MG/DL (0.60-1.30); GFR ESTIMATED > 60; GLUCOSE 210 MG/DL (70-105); POTASSIUM 4.1 MMOL/L (3.6-5.0); SODIUM 138 MMOL/L (135-145)
[2018-07-24 11:16] LABS: BASOPHILS % (AUTO) 0 % (0-10); EOSINOPHILS % (AUTO) 0 % (0-10); HEMATOCRIT 39 % (35-52); HEMOGLOBIN 13.1 G/DL (11.5-16.0); LYMPHOCYTES # (AUTO) 1.7 X 10^3 (1.0-4.0); LYMPHOCYTES % (AUTO) 24 % (12-44); MEAN CORPUSCULAR HEMOGLOBIN 30 PG (25-34); MEAN CORPUSCULAR HGB CONC 34 G/DL (32-36); MEAN CORPUSCULAR VOLUME 91 FL (80-99); MEAN PLATELET VOLUME 9.2 FL (7.4-10.4); MONOCYTES # (AUTO) 1.1 X 10^3 (0.0-1.0); MONOCYTES % (AUTO) 16 % (0-12); NEUTROPHILS # (AUTO) 4.2 X 10^3 (1.8-7.8); NEUTROPHILS % (AUTO) 60 % (42-75); PLATELET COUNT 362 10^3/uL (130-400); RED BLOOD COUNT 4.31 10^6/uL (4.35-5.85); WHITE BLOOD COUNT 6.9 10^3/uL (4.3-11.0)
[2018-07-24 11:36] LABS: ALANINE AMINOTRANSFERASE 21 U/L (0-55); ALBUMIN 3.7 GM/DL (3.2-4.5); ALKALINE PHOSPHATASE 184 U/L (40-136); BILIRUBIN,TOTAL 0.3 MG/DL (0.1-1.0); BUN/CREATININE RATIO 15; CALCIUM 9.4 MG/DL (8.5-10.1); CARBON DIOXIDE 20 MMOL/L (21-32); CHLORIDE 103 MMOL/L (98-107); CREATININE SERUM 0.75 MG/DL (0.60-1.30); GFR ESTIMATED > 60; GLUCOSE 211 MG/DL (70-105); MAGNESIUM 1.8 MG/DL (1.8-2.4); POTASSIUM 4.1 MMOL/L (3.6-5.0); SODIUM 136 MMOL/L (135-145); TOTAL PROTEIN 7.2 GM/DL (6.4-8.2)
[2018-08-13 14:07] LABS: ALANINE AMINOTRANSFERASE 19 U/L (0-55); ALKALINE PHOSPHATASE 200 U/L (40-136); BILIRUBIN,TOTAL 0.6 MG/DL (0.1-1.0); BUN/CREATININE RATIO 11; CALCIUM 9.8 MG/DL (8.5-10.1); CARBON DIOXIDE 25 MMOL/L (21-32); CHLORIDE 98 MMOL/L (98-107); CREATININE SERUM 0.83 MG/DL (0.60-1.30); GFR ESTIMATED > 60; GLUCOSE 308 MG/DL (70-105); MAGNESIUM 1.6 MG/DL (1.8-2.4); POTASSIUM 4.4 MMOL/L (3.6-5.0); SODIUM 133 MMOL/L (135-145); TOTAL PROTEIN 7.7 GM/DL (6.4-8.2)
[2018-08-16 11:27] LABS: BASOPHILS % (AUTO) 0 % (0-10); EOSINOPHILS % (AUTO) 0 % (0-10); HEMATOCRIT 39 % (35-52); HEMOGLOBIN 13.5 G/DL (11.5-16.0); LYMPHOCYTES # (AUTO) 1.9 X 10^3 (1.0-4.0); LYMPHOCYTES % (AUTO) 18 % (12-44); MEAN CORPUSCULAR HEMOGLOBIN 30 PG (25-34); MEAN CORPUSCULAR HGB CONC 34 G/DL (32-36); MEAN CORPUSCULAR VOLUME 88 FL (80-99); MEAN PLATELET VOLUME 9.5 FL (7.4-10.4); MONOCYTES # (AUTO) 1.1 X 10^3 (0.0-1.0); MONOCYTES % (AUTO) 10 % (0-12); NEUTROPHILS % (AUTO) 72 % (42-75); PLATELET COUNT 357 10^3/uL (130-400); RED BLOOD COUNT 4.44 10^6/uL (4.35-5.85); RED CELL DISTRIBUTION WIDTH 14.2 % (10.0-14.5); WHITE BLOOD COUNT 11.1 10^3/uL (4.3-11.0)
[~2018-08-23] VITALS: Ht 171.4 cm; Wt 110.7 kg
[~2018-08-23 11:20] MED LIST changes: -BARIUM SUSPENSION 2.1% (VANILLA SILQ) 450 ML PO ONE; -CATHETER FLUSH 10 ML SYR IV PRN; +FAMOTIDINE 20MG/2ML IV (CANCER CTR) IV SCH; -IOHEXOL 350 MG/ML 100 ML (OMNIPAQUE 350) VIAL IV ONE; +LACTATED RINGERS 1,000 ML IV SCH; +MAGNESIUM SULFATE 2 GM in NS (IVPB) CANCER CENTER 100 ML IV ONE; +MAGNESIUM SULFATE IV SCH; -NS 250 ML (IVPB) BAG IV ONE; +NS IV 1000 ML (CANCER CTR) 1,000 ML ONE; +NS IV 500 ML (CANCER CENTER) 500 ML ONE; +NS IV SCH; +PALONOSETRON HCL 0.25 MG, DEXAMETHASONE INJECTION 10 MG in NS (IVPB) CANCER CENTER 50 ML IV SCH; -RECEIVED CONTRAST (Hold Metformin) IV SCH; +RINGERS LACTATED IV SCH; +[UNRECOGNIZED DRUG - OTHER] IV SCH; +diphenhydrAMINE 50 MG/ML INJ (CANCER CENTER) IV PRN; +morphine INJ 4 MG/ML 1 ML (CANCER CTR) IV PRN
== END 2018-08-27 13:00 | disposition home or self-care (01) ==
LOC: ONC 11:20
PROVIDERS: ATTEND Internal Medicine Hematology & Oncology
DX: Z51.11 Encounter for antineoplastic chemotherapy (principal); C50.112 Malignant neoplasm of central portion of left female breast; C77.3 Secondary and unspecified malignant neoplasm of axilla and upper limb lymph nodes; C78.01 Secondary malignant neoplasm of right lung; C78.02 Secondary malignant neoplasm of left lung; C78.7 Secondary malignant neoplasm of liver and intrahepatic bile duct; I27.20 Pulmonary hypertension, unspecified; E11.9 Type 2 diabetes mellitus without complications; Z79.01 Long term (current) use of anticoagulants; Z86.711 Personal history of pulmonary embolism; Z86.718 Personal history of other venous thrombosis and embolism; Z90.12 Acquired absence of left breast and nipple; Z92.21 Personal history of antineoplastic chemotherapy
CPT/HCPCS: 36415; 36591; 80048; 80053; 81000; 83735; 85025; 87088; 87186; 96361; 96365; 96375; 96413; 96415; 96523

== ENCOUNTER → 2018-08-23 | Outpatient (CLI) | payer MEDICARE ==
[~2018-08-23] MED LIST changes: +ACET-2267 PO; +ALBU18HF2 INH; +BARIUM SUSPENSION 2.1% (VANILLA SILQ) 450 ML PO ONE; +CATHETER FLUSH 10 ML SYR IV PRN; +CYCL10TA9 PO; +IOHEXOL 350 MG/ML 100 ML (OMNIPAQUE 350) VIAL IV ONE; +METO-370 PO; +NS 250 ML (IVPB) BAG IV ONE; +OXYC10TA7 PO; +OXYC5CAP18 PO; +PROC10TA10 PO; +RECEIVED CONTRAST (Hold Metformin) IV SCH; +RIVA20TA PO
--- NOTE | 2018-08-23 12:56 | Diagnostic Imaging Report ---
PROCEDURE: CT head with and without contrast. TECHNIQUE: Multiple contiguous axial images were obtained through the brain before and after the administration of intravenous contrast. INDICATION: Visual disturbance. Comparison is made study of 07/20/2017. FINDINGS: Ventricles and sulci are within normal limits for size. There is no evidence of hemorrhage. There is no abnormal mass effect or shift of midline structures. No abnormal contrast enhancement is identified. There has been near complete resolution of the lytic lesions involving the calvarium. IMPRESSION: No acute abnormality or enhancing lesion is identified. In addition, lytic lesion seen in the calvarium on previous study has shown near complete resolution. Dictated by: Dictated on workstation # [id number]
--- NOTE | 2018-08-23 13:31 | Diagnostic Imaging Report ---
PROCEDURE: CT chest, abdomen, and pelvis with contrast. TECHNIQUE: Multiple contiguous axial images were obtained through the chest, abdomen, and pelvis after the administration of intravenous contrast. INDICATION: Metastatic breast cancer. COMPARISON: Comparison is made to study of 05/29/2018. FINDINGS: There are numerous bilateral pulmonary nodules, similar to the previous study. Largest nodule in the posterolateral right lower lobe measures 2.1 x 1.9 cm. This may be slightly decreased when compared to previous measurement of 2.5 x 2.0 cm. There are, however, multiple additional small nodules seen within both lungs. There is no significant pleural or pericardial fluid. No pathologic adenopathy is seen within the mediastinum or pulmonary marck. There surgical changes of left mastectomy. No pathologically enlarged axillary adenopathy is identified. There is mild hiatal hernia. Lytic focus within the right humeral head is again noted without significant interval change. IMPRESSION: There may be mild decrease in size of dominant right lower lobe pulmonary mass, however there are numerous bilateral pulmonary nodules which persist with occasional new lesions in both lungs. Overall findings would suggest worsening of pulmonary metastatic disease. CT abdomen and pelvis: Similar to the previous study, multiple hypodense nodules are seen throughout both lobes of the liver. The largest lesion measured on the previous study is in the anterior aspect of the medial segment of the left hepatic lobe and measures 1.5 cm in size. This previously measured approximately 2.5 cm in diameter. Gallbladder is surgically absent. There is no evidence of biliary ductal dilatation. No pancreatic or adrenal gland lesion is identified. Spleen and kidneys are stable and unremarkable in appearance. Inferior venocaval filter is in stable position. There is no evidence of pathologic adenopathy seen within the abdomen or pelvis. No free fluid is seen. Partially opacified urinary bladder is unremarkable. Mixed lytic and sclerotic densities are seen within the right pedicles and vertebral bodies of L4 and L5 which are somewhat more conspicuous than on the previous examination. Similar finding is noted in the upper sacrum. No other significant change is identified. IMPRESSION: 1. Findings remain consistent with hepatic metastatic disease. There may be mild overall decrease in volume of major hepatic lesions. 2. Increasing abnormal densities within L4 and L5 vertebrae as well as upper sacrum are suspicious for progressive osseous metastatic disease. 3. There is developing sclerosis within the previously identified lytic lesion in the left iliac bone. Dictated by: Dictated on workstation # [id number]
--- NOTE | 2018-08-23 19:56 | Diagnostic Imaging Report ---
INDICATION: Pulmonary metastatic disease. EXAMINATION: Whole body bone scan. This study was performed following administration of 26.3 mCi of 99m technetium MDP. Anterior and posterior whole-body images were obtained. Spot films of the calvarium and thorax were also performed. FINDINGS: The previous whole-body bone scan performed on 05/29/2018 noted areas of abnormal uptake involving the left calvarium, the proximal right humerus, the vertebral body of T8 and the proximal left eighth rib. Those findings are again evident and no different. The slightly increased activity in the lower lumbar spine, sacrum and knee joints, seen previously, is also unchanged. These areas of altered uptake are probably related to degenerative disease. There is no new area of abnormal uptake to suggest neoplastic disease. Both kidneys do show excretion of the radiotracer. IMPRESSION: The appearance of the bone scan is stable when compared to the prior exam. No new area of metastatic disease has developed and there is no sign of an acute bony abnormality. Dictated by: Dictated on workstation # [id number]
== END ==
LOC: CARD 11:36
PROVIDERS: ATTEND Internal Medicine Hematology & Oncology
DX: H53.9 Unspecified visual disturbance (principal); C50.112 Malignant neoplasm of central portion of left female breast; C78.01 Secondary malignant neoplasm of right lung; C79.51 Secondary malignant neoplasm of bone; C78.7 Secondary malignant neoplasm of liver and intrahepatic bile duct
CPT/HCPCS: 70470; 71260; 74177; 78306

== ENCOUNTER → 2018-10-17 | Outpatient (CLI) | payer MEDICARE ==
[~2018-10-17] MED LIST changes: -FAMOTIDINE 20MG/2ML IV (CANCER CTR) IV SCH; -LACTATED RINGERS 1,000 ML IV SCH; -MAGNESIUM SULFATE 2 GM in NS (IVPB) CANCER CENTER 100 ML IV ONE; -MAGNESIUM SULFATE IV SCH; -NS IV 1000 ML (CANCER CTR) 1,000 ML ONE; -NS IV 500 ML (CANCER CENTER) 500 ML ONE; -NS IV SCH; -PALONOSETRON HCL 0.25 MG, DEXAMETHASONE INJECTION 10 MG in NS (IVPB) CANCER CENTER 50 ML IV SCH; -RINGERS LACTATED IV SCH; -[UNRECOGNIZED DRUG - OTHER] IV SCH; -diphenhydrAMINE 50 MG/ML INJ (CANCER CENTER) IV PRN; -morphine INJ 4 MG/ML 1 ML (CANCER CTR) IV PRN
--- NOTE | 2018-10-17 16:58 | Diagnostic Imaging Report ---
INDICATION: Shortness of breath. EXAMINATION: PA and lateral chest. COMPARISON: 07/30/2018. FINDINGS: Right subclavian Port-A-Cath tip is at the cavoatrial junction. There are numerous pulmonary nodules throughout the lungs that have increased in size and number since 07/30/2018. There are no infiltrates, effusions or pneumothoraces. IMPRESSION: There has been interval progression of the metastatic lung disease since 07/30/2018. Multiple nodules measuring up to 14 mm in diameter are now present. Dictated by: Dictated on workstation # [id number]
== END ==
LOC: RAD 14:47
PROVIDERS: ATTEND Nurse Practitioner Adult Health
DX: C34.90 Malignant neoplasm of unspecified part of unspecified bronchus or lung (principal); R91.8 Other nonspecific abnormal finding of lung field
CPT/HCPCS: 71046

== ENCOUNTER 2018-11-14 14:22 | Outpatient (RCR) | payer MEDICARE ==
[2018-08-27 13:22] LABS: BASOPHILS % (AUTO) 0 % (0-10); EOSINOPHILS % (AUTO) 0 % (0-10); HEMATOCRIT 41 % (35-52); HEMOGLOBIN 13.8 G/DL (11.5-16.0); LYMPHOCYTES # (AUTO) 1.8 X 10^3 (1.0-4.0); LYMPHOCYTES % (AUTO) 19 % (12-44); MEAN CORPUSCULAR HEMOGLOBIN 29 PG (25-34); MEAN CORPUSCULAR HGB CONC 33 G/DL (32-36); MEAN CORPUSCULAR VOLUME 88 FL (80-99); MEAN PLATELET VOLUME 9.7 FL (7.4-10.4); MONOCYTES % (AUTO) 10 % (0-12); NEUTROPHILS # (AUTO) 6.8 X 10^3 (1.8-7.8); NEUTROPHILS % (AUTO) 71 % (42-75); PLATELET COUNT 399 10^3/uL (130-400); RED CELL DISTRIBUTION WIDTH 14.4 % (10.0-14.5); WHITE BLOOD COUNT 9.6 10^3/uL (4.3-11.0)
[2018-08-27 13:46] LABS: ALBUMIN 4.1 GM/DL (3.2-4.5); BILIRUBIN,TOTAL 0.8 MG/DL (0.1-1.0); CALCIUM 10.2 MG/DL (8.5-10.1); CREATININE SERUM 0.99 MG/DL (0.60-1.30); MAGNESIUM 1.8 MG/DL (1.8-2.4); TOTAL PROTEIN 8.2 GM/DL (6.4-8.2)
[2018-09-13 13:16] LABS: BASOPHILS % (AUTO) 0 % (0-10); EOSINOPHILS % (AUTO) 0 % (0-10); HEMATOCRIT 39 % (35-52); HEMOGLOBIN 13.2 G/DL (11.5-16.0); LYMPHOCYTES # (AUTO) 1.3 X 10^3 (1.0-4.0); LYMPHOCYTES % (AUTO) 17 % (12-44); MEAN CORPUSCULAR HEMOGLOBIN 29 PG (25-34); MEAN CORPUSCULAR HGB CONC 34 G/DL (32-36); MEAN CORPUSCULAR VOLUME 87 FL (80-99); MEAN PLATELET VOLUME 9.6 FL (7.4-10.4); MONOCYTES # (AUTO) 0.7 X 10^3 (0.0-1.0); MONOCYTES % (AUTO) 9 % (0-12); NEUTROPHILS # (AUTO) 5.6 X 10^3 (1.8-7.8); NEUTROPHILS % (AUTO) 73 % (42-75); PLATELET COUNT 320 10^3/uL (130-400); RED BLOOD COUNT 4.51 10^6/uL (4.35-5.85); RED CELL DISTRIBUTION WIDTH 14.7 % (10.0-14.5); WHITE BLOOD COUNT 7.7 10^3/uL (4.3-11.0)
[2018-09-13 13:34] LABS: BUN/CREATININE RATIO 11; CALCIUM 9.4 MG/DL (8.5-10.1); CARBON DIOXIDE 24 MMOL/L (21-32); CHLORIDE 101 MMOL/L (98-107); CREATININE SERUM 0.71 MG/DL (0.60-1.30); GFR ESTIMATED > 60; GLUCOSE 221 MG/DL (70-105); MAGNESIUM 1.2 MG/DL (1.8-2.4); POTASSIUM 3.8 MMOL/L (3.6-5.0); SODIUM 137 MMOL/L (135-145)
[2018-09-20 13:43] LABS: BASOPHILS % (AUTO) 0 % (0-10); EOSINOPHILS % (AUTO) 0 % (0-10); HEMATOCRIT 40 % (35-52); HEMOGLOBIN 12.9 G/DL (11.5-16.0); LYMPHOCYTES # (AUTO) 1.8 X 10^3 (1.0-4.0); LYMPHOCYTES % (AUTO) 31 % (12-44); MEAN CORPUSCULAR HEMOGLOBIN 28 PG (25-34); MEAN CORPUSCULAR HGB CONC 33 G/DL (32-36); MEAN CORPUSCULAR VOLUME 87 FL (80-99); MEAN PLATELET VOLUME 9.8 FL (7.4-10.4); MONOCYTES # (AUTO) 0.6 X 10^3 (0.0-1.0); MONOCYTES % (AUTO) 10 % (0-12); NEUTROPHILS # (AUTO) 3.3 X 10^3 (1.8-7.8); NEUTROPHILS % (AUTO) 58 % (42-75); PLATELET COUNT 359 10^3/uL (130-400); RED BLOOD COUNT 4.54 10^6/uL (4.35-5.85); RED CELL DISTRIBUTION WIDTH 14.7 % (10.0-14.5); WHITE BLOOD COUNT 5.7 10^3/uL (4.3-11.0)
[2018-09-20 13:58] LABS: BUN/CREATININE RATIO 8; CALCIUM 9.4 MG/DL (8.5-10.1); CARBON DIOXIDE 23 MMOL/L (21-32); CHLORIDE 100 MMOL/L (98-107); CREATININE SERUM 0.78 MG/DL (0.60-1.30); GFR ESTIMATED > 60; GLUCOSE 214 MG/DL (70-105); MAGNESIUM 1.6 MG/DL (1.8-2.4); POTASSIUM 3.8 MMOL/L (3.6-5.0); SODIUM 136 MMOL/L (135-145)
[2018-10-04 14:39] LABS: BASOPHILS % (AUTO) 0 % (0-10); EOSINOPHILS % (AUTO) 0 % (0-10); HEMATOCRIT 40 % (35-52); LYMPHOCYTES # (AUTO) 1.6 X 10^3 (1.0-4.0); LYMPHOCYTES % (AUTO) 27 % (12-44); MEAN CORPUSCULAR HEMOGLOBIN 28 PG (25-34); MEAN CORPUSCULAR HGB CONC 32 G/DL (32-36); MEAN CORPUSCULAR VOLUME 87 FL (80-99); MEAN PLATELET VOLUME 9.7 FL (7.4-10.4); MONOCYTES # (AUTO) 0.6 X 10^3 (0.0-1.0); MONOCYTES % (AUTO) 10 % (0-12); NEUTROPHILS # (AUTO) 3.7 X 10^3 (1.8-7.8); NEUTROPHILS % (AUTO) 63 % (42-75); PLATELET COUNT 250 10^3/uL (130-400); RED BLOOD COUNT 4.62 10^6/uL (4.35-5.85); RED CELL DISTRIBUTION WIDTH 15.6 % (10.0-14.5); WHITE BLOOD COUNT 5.8 10^3/uL (4.3-11.0)
[2018-10-04 15:01] LABS: ALANINE AMINOTRANSFERASE 22 U/L (0-55); ALBUMIN 3.3 GM/DL (3.2-4.5); ALKALINE PHOSPHATASE 168 U/L (40-136); BILIRUBIN,TOTAL 0.4 MG/DL (0.1-1.0); BUN/CREATININE RATIO 13; CALCIUM 8.6 MG/DL (8.5-10.1); CARBON DIOXIDE 19 MMOL/L (21-32); CHLORIDE 104 MMOL/L (98-107); CREATININE SERUM 0.71 MG/DL (0.60-1.30); GFR ESTIMATED > 60; GLUCOSE 181 MG/DL (70-105); MAGNESIUM 1.2 MG/DL (1.8-2.4); SODIUM 137 MMOL/L (135-145); TOTAL PROTEIN 6.5 GM/DL (6.4-8.2)
[2018-10-11 13:37] LABS: BASOPHILS % (AUTO) 0 % (0-10); EOSINOPHILS % (AUTO) 0 % (0-10); HEMATOCRIT 39 % (35-52); HEMOGLOBIN 12.8 G/DL (11.5-16.0); LYMPHOCYTES # (AUTO) 1.4 X 10^3 (1.0-4.0); LYMPHOCYTES % (AUTO) 17 % (12-44); MEAN CORPUSCULAR HEMOGLOBIN 28 PG (25-34); MEAN CORPUSCULAR HGB CONC 33 G/DL (32-36); MEAN CORPUSCULAR VOLUME 86 FL (80-99); MEAN PLATELET VOLUME 10.2 FL (7.4-10.4); MONOCYTES # (AUTO) 0.6 X 10^3 (0.0-1.0); MONOCYTES % (AUTO) 8 % (0-12); NEUTROPHILS % (AUTO) 75 % (42-75); PLATELET COUNT 395 10^3/uL (130-400); RED CELL DISTRIBUTION WIDTH 15.1 % (10.0-14.5)
[2018-10-11 13:46] LABS: CALCIUM 9.1 MG/DL (8.5-10.1); CREATININE SERUM 0.97 MG/DL (0.60-1.30); POTASSIUM 4.1 MMOL/L (3.6-5.0)
[2018-10-11 14:19] LABS: MAGNESIUM 1.2 MG/DL (1.8-2.4)
[2018-10-17 14:31] LABS: BASOPHILS % (AUTO) 1 % (0-10); EOSINOPHILS % (AUTO) 0 % (0-10); HEMATOCRIT 41 % (35-52); HEMOGLOBIN 13.2 G/DL (11.5-16.0); LYMPHOCYTES # (AUTO) 1.5 X 10^3 (1.0-4.0); LYMPHOCYTES % (AUTO) 23 % (12-44); MEAN CORPUSCULAR HEMOGLOBIN 28 PG (25-34); MEAN CORPUSCULAR HGB CONC 32 G/DL (32-36); MEAN CORPUSCULAR VOLUME 85 FL (80-99); MONOCYTES # (AUTO) 0.4 X 10^3 (0.0-1.0); MONOCYTES % (AUTO) 6 % (0-12); NEUTROPHILS # (AUTO) 4.7 X 10^3 (1.8-7.8); NEUTROPHILS % (AUTO) 71 % (42-75); PLATELET COUNT 400 10^3/uL (130-400); RED BLOOD COUNT 4.78 10^6/uL (4.35-5.85); RED CELL DISTRIBUTION WIDTH 15.4 % (10.0-14.5); WHITE BLOOD COUNT 6.6 10^3/uL (4.3-11.0)
[2018-10-17 14:43] LABS: BUN/CREATININE RATIO 9; CALCIUM 9.5 MG/DL (8.5-10.1); CARBON DIOXIDE 23 MMOL/L (21-32); CHLORIDE 100 MMOL/L (98-107); CREATININE SERUM 0.85 MG/DL (0.60-1.30); GFR ESTIMATED > 60; GLUCOSE 259 MG/DL (70-105); MAGNESIUM 1.2 MG/DL (1.8-2.4); POTASSIUM 3.7 MMOL/L (3.6-5.0); SODIUM 137 MMOL/L (135-145)
[2018-10-25 15:50] LABS: BASOPHILS % (AUTO) 0 % (0-10); EOSINOPHILS % (AUTO) 0 % (0-10); HEMATOCRIT 42 % (35-52); HEMOGLOBIN 13.5 G/DL (11.5-16.0); LYMPHOCYTES # (AUTO) 1.6 X 10^3 (1.0-4.0); LYMPHOCYTES % (AUTO) 21 % (12-44); MEAN CORPUSCULAR HEMOGLOBIN 28 PG (25-34); MEAN CORPUSCULAR HGB CONC 33 G/DL (32-36); MEAN CORPUSCULAR VOLUME 86 FL (80-99); MEAN PLATELET VOLUME 9.9 FL (7.4-10.4); MONOCYTES % (AUTO) 13 % (0-12); NEUTROPHILS # (AUTO) 5.1 X 10^3 (1.8-7.8); NEUTROPHILS % (AUTO) 65 % (42-75); PLATELET COUNT 403 10^3/uL (130-400); RED BLOOD COUNT 4.84 10^6/uL (4.35-5.85); RED CELL DISTRIBUTION WIDTH 15.9 % (10.0-14.5); WHITE BLOOD COUNT 7.8 10^3/uL (4.3-11.0)
[2018-10-25 16:06] LABS: CALCIUM 9.7 MG/DL (8.5-10.1); CREATININE SERUM 1.16 MG/DL (0.60-1.30); MAGNESIUM 1.1 MG/DL (1.8-2.4); POTASSIUM 4.1 MMOL/L (3.6-5.0)
[2018-11-01 10:05] LABS: BASOPHILS % (AUTO) 0 % (0-10); EOSINOPHILS % (AUTO) 0 % (0-10); HEMATOCRIT 41 % (35-52); HEMOGLOBIN 13.9 G/DL (11.5-16.0); LYMPHOCYTES % (AUTO) 19 % (12-44); MEAN CORPUSCULAR HEMOGLOBIN 29 PG (25-34); MEAN CORPUSCULAR HGB CONC 34 G/DL (32-36); MEAN CORPUSCULAR VOLUME 85 FL (80-99); MONOCYTES # (AUTO) 1.2 X 10^3 (0.0-1.0); MONOCYTES % (AUTO) 12 % (0-12); NEUTROPHILS % (AUTO) 69 % (42-75); PLATELET COUNT 409 10^3/uL (130-400); RED BLOOD COUNT 4.86 10^6/uL (4.35-5.85); RED CELL DISTRIBUTION WIDTH 16.6 % (10.0-14.5); WHITE BLOOD COUNT 10.2 10^3/uL (4.3-11.0)
[2018-11-01 10:24] LABS: ALANINE AMINOTRANSFERASE 16 U/L (0-55); ALBUMIN 3.5 GM/DL (3.2-4.5); ALKALINE PHOSPHATASE 217 U/L (40-136); BILIRUBIN,TOTAL 0.6 MG/DL (0.1-1.0); BUN/CREATININE RATIO 16; CARBON DIOXIDE 21 MMOL/L (21-32); CHLORIDE 99 MMOL/L (98-107); CREATININE SERUM 0.82 MG/DL (0.60-1.30); GFR ESTIMATED > 60; GLUCOSE 241 MG/DL (70-105); MAGNESIUM 1.4 MG/DL (1.8-2.4); POTASSIUM 3.7 MMOL/L (3.6-5.0); SODIUM 136 MMOL/L (135-145); TOTAL PROTEIN 7.3 GM/DL (6.4-8.2)
[~2018-11-14] VITALS: Ht 171.4 cm; Wt 103.4 kg
[~2018-11-14 14:22] MED LIST changes: +MAGNESIUM SULFATE (CANCER CTR) 2 GM in NS (IVPB) CANCER CENTER 100 ML IV ONE; +MAGNESIUM SULFATE 2 GM in NS (IVPB) CANCER CENTER 100 ML IV ONE; +MAGNESIUM SULFATE 3 GM in NS (IVPB) CANCER CENTER 100 ML IV ONE; +NS IV 1000 ML (CANCER CTR) IV SCH; +NS IV SCH; +ONDANSETRON MDV (CANCER CENTER 16 MG, DEXAMETHASONE INJ (CANCER CTR) 4 MG in NS (IVPB) ... IV SCH; +VINORELBINE TARTRATE IV SCH
== END 2018-11-25 | disposition home or self-care (01) ==
LOC: ONC 14:22
PROVIDERS: ATTEND Internal Medicine Hematology & Oncology
DX: C50.112 Malignant neoplasm of central portion of left female breast (principal); C78.01 Secondary malignant neoplasm of right lung; C79.51 Secondary malignant neoplasm of bone; C78.7 Secondary malignant neoplasm of liver and intrahepatic bile duct
CPT/HCPCS: 36415; 36591; 71046; 80048; 80053; 83735; 85025; 96365; 96367; 96375; 96409; 99213

== ENCOUNTER 2018-12-05 13:48 | Outpatient (RCR) | payer MEDICARE ==
[~2018-12-05 13:48] MED LIST changes: -MAGNESIUM SULFATE (CANCER CTR) 2 GM in NS (IVPB) CANCER CENTER 100 ML IV ONE; -MAGNESIUM SULFATE 2 GM in NS (IVPB) CANCER CENTER 100 ML IV ONE; -MAGNESIUM SULFATE 3 GM in NS (IVPB) CANCER CENTER 100 ML IV ONE; -NS IV 1000 ML (CANCER CTR) IV SCH; -NS IV SCH; -ONDANSETRON MDV (CANCER CENTER 16 MG, DEXAMETHASONE INJ (CANCER CTR) 4 MG in NS (IVPB) ... IV SCH; +OXC5T PO; -OXYC5CAP18 PO; -RIVA20TA PO; -VINORELBINE TARTRATE IV SCH
== END 2019-03-05 | disposition home or self-care (01) ==
LOC: ONC 13:48
PROVIDERS: ATTEND Internal Medicine Hematology & Oncology
DX: C50.112 Malignant neoplasm of central portion of left female breast (principal); C78.01 Secondary malignant neoplasm of right lung; C79.51 Secondary malignant neoplasm of bone; C78.7 Secondary malignant neoplasm of liver and intrahepatic bile duct; Z45.2 Encounter for adjustment and management of vascular access device